=== PATIENT | female | born 1955 | race Two or more races ===

== ENCOUNTER → 2020-09-05 15:27 | Outpatient (BNVA) | payer MEDICARE, MEDICAID, SELFPAY | PROVIDERS: PCP Internal Medicine; Referring Provider Internal Medicine; Visit Provider Internal Medicine | DX: E11.65 Type 2 diabetes mellitus with hyperglycemia (principal); Z79.84 Long term (current) use of oral hypoglycemic drugs; E78.5 Hyperlipidemia, unspecified; E55.9 Vitamin D deficiency, unspecified; I10 Essential (primary) hypertension; Z79.899 Other long term (current) drug therapy | CPT/HCPCS: 99202 ==

== ENCOUNTER 2020-09-26 08:51 | Outpatient (REF) | payer MEDICARE, MEDICAID, OTHER, SELFPAY ==
[2020-09-26 10:40] LABS: Estimated Average Glucose 200 mg/dL; Hemoglobin A1c % 8.6 %
[2020-09-26 10:47] LABS: Alanine Aminotransferase 28 U/L (0-31); Albumin Level 4.4 g/dL (3.5-5.0); Alkaline Phosphatase 55 U/L (39-117); Anion Gap 13 (12-20); Aspartate Amino Transferase 27 U/L (5-31); Bilirubin Direct < 0.2 mg/dL (0.0-0.5); Bilirubin Total 0.2 mg/dL (0.0-1.0); Blood Urea Nitrogen 16 mg/dL (9-16); Calcium 9.6 mg/dL (8.4-10.2); Carbon Dioxide 30 mmol/L (22-29); Chloride 99 mmol/L (96-108); Cholesterol 116 mg/dL; Estimated Glomerular Filt Rate > 60; Glucose Random 261 mg/dL (60-115); HDL Cholesterol 35 mg/dL; LDL Cholesterol Calculated 46 mg/dl; Potassium 3.9 mmol/l (3.3-5.1); Sodium 138 mmol/L (135-145); Total Protein 6.9 g/dL (6.5-8.0); Triglycerides 175 mg/dL
[2020-09-26 11:03] LABS: Vitamin B12 442 pg/mL (200-900)
[2020-09-26 11:07] LABS: Free T4 (Free Thyroxine) 1.04 ng/dL (0.71-1.85); Thyroid Stimulating Hormone 1.34 uIU/mL (0.32-4.0); Vitamin D 25-OH Total 58.7 ng/mL (>30)
[2020-09-26 11:08] LABS: Creatinine Urine 59.28 mg/dL; Microalbum/Creatinine Ratio Ur 8.4 ug/mg cr
[2020-09-26 11:19] LABS: Lipase 133 U/L (8-78)
[2020-09-27 11:07] LABS: LDL Cholesterol Direct 48 mg/dL (<100)
== END 2020-09-26 08:52 | disposition home or self-care (01) ==
LOC: HO.LAB 08:51
PROVIDERS: Absent Provider Internal Medicine; PCP Internal Medicine; Visit Provider Internal Medicine
DX: E55.9 Vitamin D deficiency, unspecified (principal); E11.65 Type 2 diabetes mellitus with hyperglycemia
CPT/HCPCS: 80053; 80061; 80076; 82043; 82248; 82306; 82607; 83036; 83690; 83721; 84439; 84443

== ENCOUNTER → 2020-10-02 12:43 | Outpatient (BNVA) | payer MEDICARE, MEDICAID, SELFPAY | PROVIDERS: PCP Internal Medicine; Referring Provider Internal Medicine; Visit Provider Nurse Practitioner | DX: K21.9 Gastro-esophageal reflux disease without esophagitis (principal); K59.04 Chronic idiopathic constipation; R10.13 Epigastric pain; E11.9 Type 2 diabetes mellitus without complications; I10 Essential (primary) hypertension; Z79.4 Long term (current) use of insulin | CPT/HCPCS: 99212 ==

== ENCOUNTER → 2020-10-07 08:51 | Outpatient (BNVA) | payer MEDICARE, MEDICAID, SELFPAY | PROVIDERS: PCP Internal Medicine; Referring Provider Internal Medicine; Visit Provider Dietitian, Registered | DX: Z76.89 Persons encountering health services in other specified circumstances (principal) ==

== ENCOUNTER → 2020-10-09 15:03 | Outpatient (BNVA) | payer MEDICARE, MEDICAID, SELFPAY | PROVIDERS: PCP Internal Medicine; Referring Provider Internal Medicine; Visit Provider Internal Medicine | DX: E11.65 Type 2 diabetes mellitus with hyperglycemia (principal); E78.5 Hyperlipidemia, unspecified; I10 Essential (primary) hypertension; E55.9 Vitamin D deficiency, unspecified | CPT/HCPCS: 82947; 99212 ==

== ENCOUNTER → 2020-10-16 14:33 | Outpatient (BNVA) | payer MEDICARE, MEDICAID, SELFPAY | PROVIDERS: PCP Internal Medicine; Referring Provider Internal Medicine; Visit Provider Dietitian, Registered | DX: Z76.89 Persons encountering health services in other specified circumstances (principal) ==

== ENCOUNTER → 2020-11-14 14:24 | Outpatient (BNVA) | payer MEDICARE, MEDICAID, SELFPAY | PROVIDERS: PCP Internal Medicine; Visit Provider Dietitian, Registered | DX: Z76.89 Persons encountering health services in other specified circumstances (principal) ==

== ENCOUNTER 2020-12-16 09:55 | Outpatient (REF) | payer MEDICARE, MEDICAID, SELFPAY ==
--- NOTE | ~2020-12-16 | MM_ITS ---
EXAMINATION: MM SCREENING DIGITAL BREAST TOMOSYNTHESIS, BILATERAL CLINICAL INFORMATION: Screening. Asymptomatic. Right breast cancer status post lumpectomy 2006. Due for yearly. COMPARISON: Mammography: 12/11/2019, 02/03/2017, 01/31/2016 TECHNIQUE: Digital breast tomosynthesis is performed in both the craniocaudal and mediolateral oblique views along with computer-aided detection (CAD). Synthesized 2D images are generated from the tomosynthesis. FINDINGS: There are scattered areas of fibroglandular density (ACR BI-RADS breast composition Category b). There are post therapy changes on the right similar to prior studies with reduced breast size and stable scarring. Neither breast shows interval mass or developing density or interval architectural abnormality. There are no abnormal calcifications. No significant changes from prior exams. MM/MM tomosynthesis screening BI IMPRESSION: No mammographic evidence of malignancy. Post therapy changes right breast. ASSESSMENT: BI-RADS 2: Benign RECOMMENDATION: Routine annual mammography screening. This patient's information was entered into a reminder system with a target due date for their next mammogram.
== END 2020-12-16 09:56 | disposition home or self-care (01) ==
LOC: HO.MAMMO 09:55
PROVIDERS: PCP Internal Medicine; Visit Provider Internal Medicine
DX: Z12.31 Encounter for screening mammogram for malignant neoplasm of breast (principal)
CPT/HCPCS: 77063; 77067

== ENCOUNTER 2020-12-18 11:32 | Outpatient (REF) | payer MEDICARE, MEDICAID, SELFPAY | END 2020-12-18 11:33 | disposition home or self-care (01) | LOC: HO.LAB 11:32 | PROVIDERS: Visit Provider Internal Medicine | DX: Z20.822 Contact with and (suspected) exposure to COVID-19 (principal) | CPT/HCPCS: 36415; C9803; U0003; U0005 ==

== ENCOUNTER 2020-12-27 11:32 | Outpatient (REF) | payer MEDICARE, MEDICAID, SELFPAY ==
[2020-12-27 13:26] LABS: Estimated Average Glucose 163 mg/dL; Hemoglobin A1c % 7.3 %
[2020-12-27 13:46] LABS: Alanine Aminotransferase 16 U/L (0-31); Albumin Level 4.6 g/dL (3.5-5.0); Alkaline Phosphatase 50 U/L (39-117); Anion Gap 12 (12-20); Aspartate Amino Transferase 22 U/L (5-31); Bilirubin Total 0.5 mg/dL (0.0-1.0); Blood Urea Nitrogen 18 mg/dL (9-16); Carbon Dioxide 31 mmol/L (22-29); Chloride 100 mmol/L (96-108); Cholesterol 147 mg/dL; Estimated Glomerular Filt Rate > 60; Glucose Fasting 133 mg/dL (60-99); HDL Cholesterol 44 mg/dL; LDL Cholesterol Calculated 70 mg/dl; Potassium 4.4 mmol/L (3.3-5.1); Sodium 139 mmol/L (135-145); Total Protein 7.2 g/dL (6.5-8.0); Triglycerides 169 mg/dL
== END 2020-12-27 11:33 | disposition home or self-care (01) ==
LOC: HO.LAB 11:32
PROVIDERS: Absent Provider Internal Medicine; PCP Internal Medicine; Visit Provider Internal Medicine
DX: E11.65 Type 2 diabetes mellitus with hyperglycemia (principal)
CPT/HCPCS: 80053; 80061; 83036

== ENCOUNTER 2021-01-02 12:52 | Outpatient (REF) | payer MEDICARE, MEDICAID, SELFPAY ==
--- NOTE | ~2021-01-02 | CT_ITS ---
EXAMINATION: CT HEAD WITHOUT CONTRAST CLINICAL INFORMATION: Headache. COMPARISON: Previous head CT most recent September 2016 TECHNIQUE: Contiguous axial imaging was performed from the skull base to vertex without intravenous administration of contrast. This CT examination was performed using dose optimization techniques as appropriate, variously including the following: *Automated exposure control *Adjustment of mA and/or kV according to patient size (this includes techniques or standardized protocols for targeted exams where dose is matched to indication/reason for exam; i.e. extremities or head) *Use of iterative reconstruction technique DLP: 666 mGy-cm FINDINGS: There is no evidence of acute intracranial hemorrhage or territorial infarction. No abnormal mass effect or midline shift is seen. Disla to white matter differentiation is well preserved. No extra-axial fluid collections are identified. The ventricles are normal in size. There is no abnormal attenuation within the brain parenchyma. The osseous structures and soft tissues are normal. There is soft tissue opacification of the bilateral mastoid air cells. There are postsurgical changes from right mastoidectomy. There is soft tissue opacification of the left middle ear. These findings are unchanged from previous exam. CT/CT head/brain wo con IMPRESSION: Chronic bilateral mastoiditis similar to previous exams.
== END 2021-01-02 12:53 | disposition home or self-care (01) ==
LOC: HO.CT 12:52
PROVIDERS: Visit Provider Internal Medicine
DX: R51.9 Headache, unspecified (principal)
CPT/HCPCS: 70450

== ENCOUNTER 2021-01-08 12:21 | Outpatient (REF) | payer MEDICARE, MEDICAID, SELFPAY ==
[2021-01-08 14:49] LABS: Vitamin D 25-OH Total 77.3 ng/mL (>30)
== END 2021-01-08 12:22 | disposition home or self-care (01) ==
LOC: HO.LAB 12:21
PROVIDERS: Absent Provider Internal Medicine; PCP Internal Medicine; Visit Provider Internal Medicine
DX: E11.65 Type 2 diabetes mellitus with hyperglycemia (principal); Z79.84 Long term (current) use of oral hypoglycemic drugs; E78.5 Hyperlipidemia, unspecified; I10 Essential (primary) hypertension; E55.9 Vitamin D deficiency, unspecified; M85.80 Other specified disorders of bone density and structure, unspecified site; Z79.899 Other long term (current) drug therapy
CPT/HCPCS: 36415; 82306; 82947; 99212

== ENCOUNTER 2021-01-10 13:56 | Outpatient (REF) | payer MEDICARE, MEDICAID, SELFPAY | END 2021-01-10 13:57 | disposition home or self-care (01) | LOC: HO.HAP 13:56 | PROVIDERS: Visit Provider Internal Medicine | DX: Z46.1 Encounter for fitting and adjustment of hearing aid (principal) | CPT/HCPCS: V5266 ==

== ENCOUNTER 2021-02-10 10:24 | Outpatient (REF) | payer MEDICARE, MEDICAID, SELFPAY | END 2021-02-10 10:25 | disposition home or self-care (01) | LOC: HO.LNP 10:24 | PROVIDERS: Visit Provider Nurse Practitioner Family | DX: K21.9 Gastro-esophageal reflux disease without esophagitis (principal) | CPT/HCPCS: 87338 ==

== ENCOUNTER → 2021-02-10 15:26 | Outpatient (BNVA) | payer MEDICARE, MEDICAID, SELFPAY | PROVIDERS: PCP Internal Medicine; Visit Provider Nurse Practitioner | DX: K59.04 Chronic idiopathic constipation (principal); K21.9 Gastro-esophageal reflux disease without esophagitis; R10.13 Epigastric pain | CPT/HCPCS: 99212 ==

== ENCOUNTER 2021-02-11 09:40 | Outpatient (REF) | payer MEDICARE, MEDICAID, SELFPAY ==
[2021-02-11 10:43] LABS: Hematocrit 37.9 % (37-47); Hemoglobin 12.3 g/dl (12.0-16.0); Mean Corpuscular HGB Conc 32.5 g/dl (31.0-35.0); Mean Corpuscular Hemoglobin 28.2 pg (27.0-33.0); Mean Corpuscular Volume 86.9 fL (80-98); Mean Platelet Volume 9.8 fL (9.4-12.3); Platelet Count 264 X10*3/uL (160-400); Red Blood Count 4.36 X10*6/uL (4.20-5.50); Red Cell Distribution Width 14.3 % (11.0-16.0); White Blood Count 7.2 X10*3/uL (4.8-10.8)
[2021-02-11 10:50] LABS: Estimated Average Glucose 134 mg/dL; Hemoglobin A1c % 6.3 %
[2021-02-11 11:00] LABS: Alanine Aminotransferase 15 U/L (0-31); Albumin Level 4.4 g/dL (3.5-5.0); Alkaline Phosphatase 48 U/L (39-117); Anion Gap 15 (12-20); Aspartate Amino Transferase 20 U/L (5-31); Bilirubin Total 0.4 mg/dL (0.0-1.0); Blood Urea Nitrogen 16 mg/dL (9-16); Calcium 9.6 mg/dL (8.4-10.2); Carbon Dioxide 30 mmol/L (22-29); Chloride 100 mmol/L (96-108); Cholesterol 149 mg/dL; Estimated Glomerular Filt Rate > 60; Glucose Random 96 mg/dL (60-115); HDL Cholesterol 52 mg/dL; LDL Cholesterol Calculated 61 mg/dl; Potassium 3.8 mmol/L (3.3-5.1); Sodium 141 mmol/L (135-145); Triglycerides 181 mg/dL
[2021-02-11 12:07] LABS: Creatinine Urine 54.35 mg/dL
== END 2021-02-11 09:41 | disposition home or self-care (01) ==
LOC: HO.LAB 09:40
PROVIDERS: Internal Medicine; PCP Internal Medicine; Visit Provider Nurse Practitioner Family
DX: E11.65 Type 2 diabetes mellitus with hyperglycemia (principal); Z12.11 Encounter for screening for malignant neoplasm of colon
CPT/HCPCS: 36415; 80053; 80061; 83036; 85027

== ENCOUNTER 2021-02-27 12:45 | Outpatient (REF) | payer MEDICARE, MEDICAID, SELFPAY ==
[2021-02-27 14:57] LABS: Alanine Aminotransferase 16 U/L (0-31); Albumin Level 4.7 g/dL (3.5-5.0); Alkaline Phosphatase 52 U/L (39-117); Anion Gap 15 (12-20); Aspartate Amino Transferase 23 U/L (5-31); Bilirubin Total 0.5 mg/dL (0.0-1.0); Blood Urea Nitrogen 13 mg/dL (9-16); Carbon Dioxide 30 mmol/L (22-29); Chloride 99 mmol/L (96-108); Estimated Glomerular Filt Rate > 60; Glucose Random 97 mg/dL (60-115); Potassium 4.3 mmol/L (3.3-5.1); Sodium 140 mmol/L (135-145); Total Protein 7.2 g/dL (6.5-8.0)
[2021-03-04 13:17] LABS: Transglutaminase Ab IgG 1 U/mL; Transglutaminase IgA 1 U/mL
== END 2021-02-27 12:46 | disposition home or self-care (01) ==
LOC: HO.LAB 12:45
PROVIDERS: Internal Medicine; PCP Internal Medicine; Visit Provider Nurse Practitioner Family
DX: K58.2 Mixed irritable bowel syndrome (principal); K59.04 Chronic idiopathic constipation; R10.11 Right upper quadrant pain; E11.65 Type 2 diabetes mellitus with hyperglycemia; Z12.11 Encounter for screening for malignant neoplasm of colon; Z83.79 Family history of other diseases of the digestive system
CPT/HCPCS: 36415; 80053; 83516; 99212

== ENCOUNTER 2021-03-06 08:50 | Outpatient (REF) | payer MEDICARE, MEDICAID, SELFPAY ==
--- NOTE | ~2021-03-06 | CT_ITS ---
EXAMINATION: CT ABDOMEN AND PELVIS WITH CONTRAST CLINICAL INFORMATION: Epigastric pain COMPARISON: Previous abdominal ultrasound March 2012 TECHNIQUE: Multidetector volumetric images were obtained from the superior aspect of the liver through the pubic symphysis following administration 85 mL of Omnipaque 350 intravenous contrast. Sagittal and coronal reformatted images were obtained on the technologist's workstation. Oral contrast: Yes This CT examination was performed using dose optimization techniques as appropriate, variously including the following: *Automated exposure control *Adjustment of mA and/or kV according to patient size (this includes techniques or standardized protocols for targeted exams where dose is matched to indication/reason for exam; i.e. extremities or head) *Use of iterative reconstruction technique DLP: 251 mGy-cm FINDINGS: LUNG BASES: The visualized lung bases are unremarkable. LIVER, GALLBLADDER, AND BILIARY TREE: The liver is normal in size, shape, and attenuation. No focal hepatic lesion or biliary ductal dilatation is present. The gallbladder is unremarkable with no evidence of radiopaque gallstones, gallbladder wall thickening, or obvious pericholecystic inflammatory changes. PANCREAS: Unremarkable. SPLEEN: Unremarkable. ADRENAL GLANDS: Unremarkable. KIDNEYS AND URETERS: The kidneys are normal in size, shape, and attenuation. No hydronephrosis, hydroureter, or calculi seen. No perinephric stranding. BLADDER: Unremarkable. GASTROINTESTINAL TRACT: The small and large bowel are unremarkable. The appendix is unremarkable. The stomach is unremarkable. ABDOMINAL WALL: No significant hernia is appreciated. LYMPH NODES: Normal. VASCULAR: Unremarkable. PELVIC VISCERA: The uterus has been removed. No pelvic mass is seen. OSSEOUS STRUCTURES: Unremarkable. CT/CT abdomen pelvis w con IMPRESSION: Unremarkable exam.
[2021-03-06] MEDS: iohexoL 350 MG/ML 100 ML INFUS..BTL IV (11:49)
== END 2021-03-06 08:51 | disposition home or self-care (01) ==
LOC: HO.CT 08:50
PROVIDERS: Visit Provider Nurse Practitioner Family
DX: R10.13 Epigastric pain (principal)
CPT/HCPCS: 74177; Q9967

== ENCOUNTER 2021-03-07 14:10 | Outpatient (REF) | payer MEDICARE, MEDICAID, SELFPAY ==
[2021-03-07 14:36] LABS: COVID-19 Test Negative (Negative)
== END 2021-03-07 14:11 | disposition home or self-care (01) ==
LOC: HO.LAB 14:10
PROVIDERS: Visit Provider Internal Medicine
DX: Z20.822 Contact with and (suspected) exposure to COVID-19 (principal)
CPT/HCPCS: 36415; 87635; C9803

== ENCOUNTER 2021-03-14 11:51 | Day surgery (SDC) | payer OTHER, MEDICAID, SELFPAY ==
[2021-03-10 10:46] VITALS: BMI 27.0
--- NOTE | 2021-03-13 09:57 | HO.ANESPROP2 ---
Documented by User: Chayito Schuster 03/13/21 09:58 HPI - Anesthesia Eval Consult details Narrative: 65yo F for Upper Endoscopy and Colonoscopy PMFSH Active Problems Active Problems: All Active Problems (Updated 01/08/21 @ 13:13 by Elizabeth Cunningham DO) Osteopenia (Acute) Headache (Acute) Ear ache (Acute) Chronic idiopathic constipation (Acute) GERD (gastroesophageal reflux disease) (Acute) Epigastric abdominal pain (Acute) Vitamin D deficiency (Acute) HTN (hypertension) (Acute) HLD (hyperlipidemia) (Acute) T2DM (type 2 diabetes mellitus) (Acute) Past Medical History Medical History Depression Fibromyalgia Headache HLD (hyperlipidemia) HTN (hypertension) Osteopenia T2DM (type 2 diabetes mellitus) Vitamin D deficiency Family History Family History Father Cirrhosis Liver cancer Mother T2DM (type 2 diabetes mellitus) Past heart attack Maternal Grandmother Breast cancer Maternal Grandfather No problems noted. Paternal Grandmother No problems noted. Paternal Grandfather No problems noted. Son No problems noted. Son No problems noted. Daughter No problems noted. Surgical History Surgical History History of carpal tunnel release History of delivery History of ear surgery History of hysterectomy with bilateral oophorectomy History of hysteroscopy History of tubal ligation Hx of colonoscopy Status post right breast lumpectomy Social History Social History Household Members: None Housing: Assisted Living Facility Alcohol intake: current Alcohol intake frequency: does not drink Smoking Status: Never smoker Second Hand Smoke Exposure: No Use of substances other than those prescribed or required for medical reasons: No Are you DNR?: No Advance Directives: No Advance Directives Information Provided: Yes Meds Allergies Allergy/AdvReac Type Severity Reaction Status Date / Time strawberry [STRAWBERRY] Allergy Mild PRURITUS Verified 02/27/21 12:57 tomato [TOMATO] Allergy Mild HIVES Verified 02/27/21 12:57 acetaminophen [From Percocet] Allergy Unknown Unknown Verified 02/27/21 12:57 oxycodone [From Percocet] Allergy Unknown Unknown Verified 02/27/21 12:57 pollen extracts [POLLEN] Allergy Unknown UNKNOWN Verified 02/27/21 12:57 lactose [LACTOSE] AdvReac Unknown GI UPSET Verified 02/27/21 12:57 DUST Allergy Unknown UNKNOWN Uncoded 01/08/21 13:15 ENVIRONMENTAL Allergy Unknown UNKNOWN Uncoded 01/08/21 13:15 trees leaves Allergy unknown Uncoded 02/10/21 15:51 Home Medications Medication Instructions Recorded Confirmed Last Taken Type aspirin 81 mg tablet,delayed 81 mg PO DAILY 09/05/20 01/08/21 03/13/21 History release Exam Exam Date and Time: March 13, 2021 0957 Height,Weight and Vital Signs: Height 4 ft 9 in Weight 56.699 kg Pertinent Lab Results Pertinent Lab Results: Laboratory Tests 02/11/21 02/27/21 09:56 14:15 WBC 7.2 Hgb 12.3 Hct 37.9 Plt Count 264 Sodium 140 Potassium 4.3 Chloride 99 Carbon Dioxide 30 H BUN 13 Creatinine 0.74 Assessment and Plan Assessment Anesthesia Assessment: Chart Reviewed Documented by User: Rosa Maria Lynch 03/14/21 12:48 PMFSH Past Medical History Medical History Depression Fibromyalgia Headache HLD (hyperlipidemia) HTN (hypertension) Osteopenia T2DM (type 2 diabetes mellitus) Vitamin D deficiency Family History Family History Father Cirrhosis Liver cancer Mother T2DM (type 2 diabetes mellitus) Past heart attack Maternal Grandmother Breast cancer Maternal Grandfather No problems noted. Paternal Grandmother No problems noted. Paternal Grandfather No problems noted. Son No problems noted. Son No problems noted. Daughter No problems noted. Surgical History Surgical History History of carpal tunnel release History of delivery History of ear surgery History of hysterectomy with bilateral oophorectomy History of hysteroscopy History of tubal ligation Hx of colonoscopy Status post right breast lumpectomy Social History Social History Household Members: None Housing: Assisted Living Facility Alcohol intake: current Alcohol intake frequency: does not drink Smoking Status: Never smoker Second Hand Smoke Exposure: No Use of substances other than those prescribed or required for medical reasons: No Are you DNR?: No Advance Directives: No Advance Directives Information Provided: Yes Meds Allergies Allergy/AdvReac Type Severity Reaction Status Date / Time strawberry [STRAWBERRY] Allergy Mild PRURITUS Verified 02/27/21 12:57 tomato [TOMATO] Allergy Mild HIVES Verified 02/27/21 12:57 acetaminophen [From Percocet] Allergy Unknown Unknown Verified 02/27/21 12:57 oxycodone [From Percocet] Allergy Unknown Unknown Verified 02/27/21 12:57 pollen extracts [POLLEN] Allergy Unknown UNKNOWN Verified 02/27/21 12:57 lactose [LACTOSE] AdvReac Unknown GI UPSET Verified 02/27/21 12:57 DUST Allergy Unknown UNKNOWN Uncoded 01/08/21 13:15 ENVIRONMENTAL Allergy Unknown UNKNOWN Uncoded 01/08/21 13:15 trees leaves Allergy unknown Uncoded 02/10/21 15:51 Home Medications Medication Instructions Recorded Confirmed Last Taken Type aspirin 81 mg tablet,delayed 81 mg PO DAILY 09/05/20 01/08/21 03/13/21 History release Exam Airway Mallampati Class: II TM Dist: >3cm Neck ROM: Full Loose/Missing/Broken Teeth: No Heart: RRR Lungs: CTA Assessment and Plan Assessment Anesthesia Assessment: Anesthesia Plan Discussed and Chart Reviewed Final Anesthetic Review NPO: Yes ASA Class: II Final Preanesthetic Review: Meds/Allgs Chart Reviewed, Consent Obtained/Reviewed and Anes Risks/Benef Reviewed Patient Risk: Low Procedure Risk: Intermediate Anesthetic Plan Anesthetic Plan: MAC: Disposition: Standard PACU
[2021-03-14 12:19] VITALS: BMI 26.2
[2021-03-14 12:30] VITALS: BP 130/62; PULSE 71; RESP 16; TEMP 36.7; O2SAT 98
--- NOTE | 2021-03-14 12:32 | PC.NURSE ---
Patients blood sugar 65. Dr. Lynch notified. Patient asymptomatic. No new orders. To proceed with surgery.
[2021-03-14 12:37] LABS: Glucose, Whole Blood 65 mg/dL (60-115)
[2021-03-14] MEDS: Lactated Ringers 1,000 ML 100 ML IVCONT (12:57)
--- NOTE | 2021-03-14 13:42 | W.PM.OPN ---
Operative Note Operative Note Date of Service: 03/14/21 Narrative: Pre-op diagnosis: Colon cancer screening, abdominal pain, chronic constipation, weight loss Post-op diagnosis: other (Gastritis, colon polyp, diverticulosis) Procedure: FLEXIBLE TRANSORAL UPPER GASTROINTESTINAL ENDOSCOPY WITH BIOPSIES AND COLONOSCOPY TILL CECUM WITH BIOPSIES UPPER ENDOSCOPY Consent: Indications for the procedure and potential complications of bleeding, perforation, reaction to medications and missed diagnosis were discussed with the patient and informed consent was obtained. Instrument: Olympus GIF H 190 mid size upper endoscope Monitoring: Vital signs and clinical assessment, continuous EKG monitoring, Pulse oximetry, Carbon Dioxide monitoring and blood pressure monitoring were done throughout the procedure. Procedure: The patient was placed in the left lateral decubitis position and pre-procedure medications were administered and a bite block was placed. The endoscope was inserted into the mouth and advanced under direct vision to the third part of duodenum. A careful inspection was made as the upper endoscope was withdrawn including a retroflexed examination of the proximal stomach; Findings and interventions are described below. Findings: Larynx: Normal Esophagus: GE junction at 34 cms. Irregular Z line - biopsied to check for Inman's. Stomach: Mild gastric erythema. Biopsies were obtained. Grade 2 flap valve on retroflexed examination of the cardia. Duodenum: Normal bulb and descending duodenum. Biopsies were obtained from 3rd part of the duodenum to check for celiac sprue. Intervention: Biopsies as noted above COLONOSCOPY PROCEDURE NOTE Consent: Indications for the procedure and potential complications of bleeding, perforation, reaction to medications and missed diagnosis were discussed with the patient and informed consent was obtained. Instrument: Olympus PCF H 190 L variable stiffness pediatric colonoscope Monitoring: Vital signs and clinical assessment, intermittent blood pressure monitoring, continuous EKG monitoring, Pulse oximetry and Carbon Dioxide monitoring were done throughout the procedure. Colon withdrawl time was 16 minutes. Procedure: The patient was placed in the left lateral decubitis position and pre-procedure medications were administered. After a digital rectal examination of the ano-rectum, the video colonoscope was inserted into the rectum and advanced through the colon to the cecum. The colonoscope was slowly withdrawn in a retrograde panoramic fashion and the colon mucosa was carefully examined including a retroflexed view of the rectum. Findings and interventions are described below. Procedure Difficulty: : Without difficulty Findings: Terminal Ileum: Not evaluated Cecum: A 2-3 mm sessile polyp removed with a cold biopsy. Ascending Colon: Normal Transverse Colon: Normal Descending Colon: Normal Sigmoid Colon: Moderate diverticulosis Rectum: Normal Ano-rectum: Normal Colon preparation: Good after some irrigation Impression and Post Procedure Diagnosis: Endoscopy Findings: ESOPHAGUS: Irregular Z line - biopsied to check for Inman's. STOMACH: Mild Gastritis DUODENUM: Colonoscopy Findings: One tiny polyps removed Moderate diverticulosis seen in the sigmoid colon Plan: Await pathology results Patient has an appointment on 03/21/21 in the [facility] with Lyla Polanco FNP-BC. No clear etiology found for weight loss - consider checking a TSH, CRP, SED rate and stool tests for occult blood x 3 Repeat Colonoscopy interval based on path results - in 5 years if polyps are adenomatous and 10 years if polyps are hyperplastic. Above findings were reviewed with the patient and Gastritis and diverticulosis handouts were given in the discharge area Surgeon: Jacqueline Oneal MD Anesthesia: MAC (Mariah Lincoln CRNA) Was an Business Education Instructor used for this Procedure?: Yes Business Education Instructor: Asher Zavala Estimated blood loss (mL): 0 Pathology: other (A- SMALL BOWEL BXS R/O CELIAC B- GASTRIC ANTRUM C-DISTAL ESOPHAGUS BXS R/O INMAN'S D- CECAL POLYP) Condition: stable Disposition: PACU
--- NOTE | 2021-03-14 13:42 | MHC.SHP ---
Pre-Procedural Eval Section A The patient is an INPATIENT: No Changes since office visit: Yes Patient answered all questions; No Cold of Flu in the past 2 weeks, No New Medical Problems and No Changes in Medication The History & Physical has been completed within 30 days and I have reviewed it.: Yes Section B Chief Complaint: Mixed IBS Allergies: Allergies Allergy/AdvReac Type Severity Reaction Status Date / Time strawberry [STRAWBERRY] Allergy Mild PRURITUS Verified 02/27/21 12:57 tomato [TOMATO] Allergy Mild HIVES Verified 02/27/21 12:57 acetaminophen [From Percocet] Allergy Unknown Unknown Verified 02/27/21 12:57 oxycodone [From Percocet] Allergy Unknown Unknown Verified 02/27/21 12:57 pollen extracts [POLLEN] Allergy Unknown UNKNOWN Verified 02/27/21 12:57 lactose [LACTOSE] AdvReac Unknown GI UPSET Verified 02/27/21 12:57 DUST Allergy Unknown UNKNOWN Uncoded 01/08/21 13:15 ENVIRONMENTAL Allergy Unknown UNKNOWN Uncoded 01/08/21 13:15 trees leaves Allergy unknown Uncoded 02/10/21 15:51 Plan I have reviewed the history and physical and performed a pertinent physical examination on my patient. No changes have occurred unless specified.
[2021-03-14 14:37] VITALS: BP 126/65; PULSE 84; RESP 16; TEMP 36.1; O2SAT 99
[2021-03-14 14:52] VITALS: BP 124/63; PULSE 68; RESP 18; O2SAT 100
[2021-03-14] MEDS: Throat Lozenge, Medicated LOZENGE 1 LOZENGE MUCOUS MEM (15:11)
--- NOTE | 2021-03-14 15:15 | PC.NURSE ---
Cepastat lozenge given for itchy and irritating sore throat. LS clear bilat, no exp wheezes, no crepitus. enamel drier at bedside, DC instructions provided in Sami. Pt verbalized understanding and agreement with DC plan. Family notified with pt's estimated time of DC home.
== END 2021-03-14 15:28 | disposition home or self-care (01) ==
PROVIDERS: PCP Internal Medicine; Visit Provider Internal Medicine Gastroenterology
PROC: (CPT 45380; principal; 2021-03-14 13:40)
DX: Z12.11 Encounter for screening for malignant neoplasm of colon (principal); K63.5 Polyp of colon; K57.30 Diverticulosis of large intestine without perforation or abscess without bleeding; K58.2 Mixed irritable bowel syndrome; R63.4 Abnormal weight loss; K29.50 Unspecified chronic gastritis without bleeding; K21.9 Gastro-esophageal reflux disease without esophagitis; I10 Essential (primary) hypertension; E11.9 Type 2 diabetes mellitus without complications; Z79.899 Other long term (current) drug therapy; Z79.84 Long term (current) use of oral hypoglycemic drugs
CPT/HCPCS: 45380; 43239; 82947; 88305; 88342

== ENCOUNTER 2021-03-21 13:52 | Outpatient (REF) | payer OTHER, MEDICAID, SELFPAY ==
[2021-03-21 16:05] LABS: C Reactive Protein 0.41 mg/dL (< or = 0.50)
[2021-03-21 16:23] LABS: Erythrocyte Sedimentation Rate 19 MM/HR (0-20)
[2021-03-21 16:28] LABS: TSH reflex Free T4 0.38 uIU/mL (0.32-4.0)
== END 2021-03-21 13:53 | disposition home or self-care (01) ==
LOC: HO.LAB 13:52
PROVIDERS: PCP Internal Medicine; Referring Provider Internal Medicine; Visit Provider Nurse Practitioner Family
DX: R10.13 Epigastric pain (principal); R14.0 Abdominal distension (gaseous); K21.9 Gastro-esophageal reflux disease without esophagitis; K59.04 Chronic idiopathic constipation; Z79.899 Other long term (current) drug therapy
CPT/HCPCS: 36415; 84443; 85652; 86140; 99212

== ENCOUNTER → 2021-03-25 08:25 | Outpatient (REF) | payer OTHER, MEDICAID, SELFPAY ==
--- NOTE | ~2021-03-25 | NM_ITS ---
EXAMINATION: RADIONUCLIDE SOLID FOOD GASTRIC EMPTYING 4-HOUR STUDY CLINICAL INFORMATION: Gastritis, nausea and abdominal pain. COMPARISON: The previous study dated 03/27/2020 is available for comparison. TECHNIQUE: A standard meal consisting of 4 oz of Egg Beaters brand equivalent tagged with 850 microcuries Tc-99m Sulfur Colloid, 8 oz water and 2 slices of toast with jelly was administered orally to the patient. Images were obtained using a dual head gamma camera in the anterior and posterior projections over of the stomach immediately post ingestion and at hourly intervals up to 4 hours post ingestion. The anterior and posterior counts at each time interval were averaged using the geometric mean and expressed as percentage of the immediate post ingestion counts. FINDINGS: There is good visualization of activity in the stomach immediately post ingestion. As the study progresses, there is slow emptying of gastric activity. Progressively increasing small bowel activity is visualized, but at the end of the study at 4 hours markedly abnormal retention of activity in the stomach. Retention in the stomach at each time interval was: 1 hour 87% (normal 37%-90%) 2 hours 75% (normal 30%-60%) 3 hours 63% 4 hours 50% (normal 0%-10%) Compared to the previous study dated 03/27/2020 gastric emptying is much slower on the current study. Previously there was only 16% retention at 2 hours and 4% retention at 3 hours. Because of the minimal retention at 3 hours on the previous study, 4 hour images were not obtained. KY/KY gastric emptying study IMPRESSION: Abnormal study. There is marked abnormal retention of solid food in the stomach at 4 hours. This is a significant change from the previous normal study dated 03/27/2020.
== END ==
LOC: HO.NUCMED 08:25
PROVIDERS: Visit Provider Nurse Practitioner Family
DX: R13.10 Dysphagia, unspecified (principal); K29.70 Gastritis, unspecified, without bleeding
CPT/HCPCS: 78264; A9541

== ENCOUNTER 2021-04-04 09:58 | Outpatient (REF) | payer OTHER, MEDICAID, SELFPAY ==
[2021-04-04 10:54] LABS: Estimated Average Glucose 117 mg/dL; Hemoglobin A1C 120.7989 umol/L; Hemoglobin A1c % 5.7 %
[2021-04-04 11:13] LABS: Alanine Aminotransferase 15 U/L (0-31); Albumin Level 4.6 g/dL (3.5-5.0); Alkaline Phosphatase 51 U/L (39-117); Anion Gap 15 (12-20); Aspartate Amino Transferase 22 U/L (5-31); Bilirubin Total 0.3 mg/dL (0.0-1.0); Blood Urea Nitrogen 14 mg/dL (9-16); Calcium 10.1 mg/dL (8.4-10.2); Carbon Dioxide 29 mmol/L (22-29); Chloride 102 mmol/L (96-108); Cholesterol 143 mg/dL; Estimated Glomerular Filt Rate > 60; Glucose Fasting 84 mg/dL (60-99); HDL Cholesterol 55 mg/dL; LDL Cholesterol Calculated 67 mg/dl; Potassium 4.5 mmol/L (3.3-5.1); Sodium 141 mmol/L (135-145); Total Protein 7.3 g/dL (6.5-8.0); Triglycerides 105 mg/dL
== END 2021-04-04 09:59 | disposition home or self-care (01) ==
LOC: HO.LAB 09:58
PROVIDERS: Absent Provider Internal Medicine; PCP Internal Medicine; Visit Provider Internal Medicine
DX: E11.65 Type 2 diabetes mellitus with hyperglycemia (principal)
CPT/HCPCS: 36415; 80053; 80061; 83036

== ENCOUNTER → 2021-04-10 10:57 | Outpatient (BNVA) | payer OTHER, MEDICAID, SELFPAY | PROVIDERS: PCP Internal Medicine; Referring Provider Internal Medicine; Visit Provider Nurse Practitioner Family | DX: K31.84 Gastroparesis (principal); K59.04 Chronic idiopathic constipation | CPT/HCPCS: 99212 ==

== ENCOUNTER → 2021-04-14 12:57 | Outpatient (BNVA) | payer OTHER, MEDICAID, SELFPAY | PROVIDERS: PCP Internal Medicine; Visit Provider Internal Medicine | DX: E11.65 Type 2 diabetes mellitus with hyperglycemia (principal); E78.5 Hyperlipidemia, unspecified; I10 Essential (primary) hypertension; E55.9 Vitamin D deficiency, unspecified | CPT/HCPCS: 82947; 99212 ==

== ENCOUNTER → 2021-05-09 08:57 | Outpatient (BNVA) | payer OTHER, MEDICAID, SELFPAY | PROVIDERS: Visit Provider Nurse Practitioner Family | DX: K21.9 Gastro-esophageal reflux disease without esophagitis (principal); K59.04 Chronic idiopathic constipation | CPT/HCPCS: Q3014 ==

== ENCOUNTER 2021-06-13 08:37 | Outpatient (REF) | payer OTHER, MEDICAID, SELFPAY ==
[2021-06-13 10:29] LABS: Estimated Average Glucose 111 mg/dL; Hemoglobin A1c % 5.5 %
[2021-06-13 10:50] LABS: Alanine Aminotransferase 12 U/L (0-31); Albumin Level 4.5 g/dL (3.5-5.0); Alkaline Phosphatase 57 U/L (39-117); Anion Gap 15 (12-20); Aspartate Amino Transferase 21 U/L (5-31); Bilirubin Total 0.4 mg/dL (0.0-1.0); Blood Urea Nitrogen 18 mg/dL (9-16); Calcium 10.1 mg/dL (8.4-10.2); Carbon Dioxide 30 mmol/L (22-29); Chloride 100 mmol/L (96-108); Cholesterol 147 mg/dL; Estimated Glomerular Filt Rate > 60; Glucose Random 93 mg/dL (60-115); HDL Cholesterol 58 mg/dL; LDL Cholesterol Calculated 69 mg/dl; Potassium 4.6 mmol/L (3.3-5.1); Sodium 140 mmol/L (135-145); Total Protein 7.3 g/dL (6.5-8.0); Triglycerides 101 mg/dL
[2021-06-13 10:55] LABS: Creatinine Urine 72.43 mg/dL; Microalbum/Creatinine Ratio Ur 15.1 ug/mg cr
[2021-06-13 11:12] LABS: Vitamin D 25-OH Total 55.5 ng/mL (>30)
[2021-06-14 19:17] LABS: LDL Cholesterol Direct 56 mg/dL (<100)
== END 2021-06-13 08:38 | disposition home or self-care (01) ==
LOC: HO.LAB 08:37
PROVIDERS: Absent Provider Internal Medicine; PCP Internal Medicine; Visit Provider Nurse Practitioner Family
DX: K21.9 Gastro-esophageal reflux disease without esophagitis (principal); K59.04 Chronic idiopathic constipation; E11.65 Type 2 diabetes mellitus with hyperglycemia; E55.9 Vitamin D deficiency, unspecified
CPT/HCPCS: 36415; 80053; 80061; 82043; 82306; 83036; 83721; 99212

== ENCOUNTER → 2021-08-04 13:57 | Outpatient (BNVA) | payer OTHER, MEDICAID, SELFPAY | PROVIDERS: Referring Provider Internal Medicine; Visit Provider Nurse Practitioner Family | DX: K31.84 Gastroparesis (principal); K59.04 Chronic idiopathic constipation; K21.9 Gastro-esophageal reflux disease without esophagitis; R14.0 Abdominal distension (gaseous); R10.13 Epigastric pain | CPT/HCPCS: 99212 ==

== ENCOUNTER 2021-11-26 09:57 | Outpatient (REF) | payer OTHER, MEDICAID, SELFPAY ==
[2021-11-26 11:45] LABS: Creatinine Urine 50.79 mg/dL
[2021-11-26 12:02] LABS: Estimated Average Glucose 111 mg/dL; Hemoglobin A1c % 5.5 %
== END 2021-11-26 09:58 | disposition home or self-care (01) ==
LOC: HO.LAB 09:57
PROVIDERS: PCP Internal Medicine; Visit Provider Internal Medicine
DX: E11.65 Type 2 diabetes mellitus with hyperglycemia (principal); E78.5 Hyperlipidemia, unspecified; E55.9 Vitamin D deficiency, unspecified; I10 Essential (primary) hypertension
CPT/HCPCS: 36415; 82947; 83036; 99212

== ENCOUNTER → 2021-11-28 12:39 | Outpatient (BNVA) | payer OTHER, MEDICAID, SELFPAY | PROVIDERS: Referring Provider Internal Medicine; Visit Provider Nurse Practitioner Family | DX: K59.04 Chronic idiopathic constipation (principal); K21.9 Gastro-esophageal reflux disease without esophagitis; K31.84 Gastroparesis; R10.13 Epigastric pain | CPT/HCPCS: 99212 ==

== ENCOUNTER → 2021-12-10 13:25 | Outpatient (BNVA) | payer OTHER, MEDICAID, SELFPAY | PROVIDERS: PCP Internal Medicine; Visit Provider Registered Nurse Diabetes Educator | DX: E11.65 Type 2 diabetes mellitus with hyperglycemia (principal) | CPT/HCPCS: 99211 ==

== ENCOUNTER → 2021-12-15 12:37 | Outpatient (BNVA) | payer OTHER, MEDICAID, SELFPAY | PROVIDERS: PCP Internal Medicine; Visit Provider Registered Nurse Diabetes Educator | DX: E11.69 Type 2 diabetes mellitus with other specified complication (principal); E78.5 Hyperlipidemia, unspecified | CPT/HCPCS: 99211 ==

== ENCOUNTER → 2022-01-05 12:18 | Outpatient (BNVA) | payer OTHER, MEDICAID, SELFPAY | PROVIDERS: PCP Internal Medicine; Visit Provider Registered Nurse Diabetes Educator | DX: E11.65 Type 2 diabetes mellitus with hyperglycemia (principal) | CPT/HCPCS: 99211 ==

== ENCOUNTER 2022-01-07 11:24 | Outpatient (REF) | payer OTHER, MEDICAID, SELFPAY ==
--- NOTE | ~2022-01-07 | MM_ITS ---
EXAMINATION: MM SCREENING DIGITAL BREAST TOMOSYNTHESIS, BILATERAL CLINICAL INFORMATION: Right breast cancer status post lumpectomy 2006. Due for yearly. Screening. Asymptomatic. COMPARISON: Mammography: 12/16/2020, 12/11/2019, 02/03/2017 TECHNIQUE: Digital breast tomosynthesis is performed in both the craniocaudal and mediolateral oblique views along with computer-aided detection (CAD). Synthesized 2D images are generated from the tomosynthesis. Additional exaggerated right CC view is provided. FINDINGS: There are scattered areas of fibroglandular density (ACR BI-RADS breast composition Category b). Parenchymal pattern is similar to prior studies. There are no significant masses, abnormal calcifications, or interval architectural abnormality. There is no developing density. Again, there are stable post therapy changes in the right breast with reduced breast size and scarring posterior upper outer quadrant. The axilla are unremarkable. No significant changes. MM/MM tomosynthesis screening BI IMPRESSION: No mammographic evidence of malignancy. Stable post therapy changes right breast. ASSESSMENT: BI-RADS 2: Benign RECOMMENDATION: Routine annual mammography screening. This patient's information was entered into a reminder system with a target due date for their next mammogram.
== END 2022-01-07 11:25 | disposition home or self-care (01) ==
LOC: HO.MAMMO 11:24
PROVIDERS: PCP Internal Medicine; Visit Provider Internal Medicine Medical Oncology
DX: Z12.31 Encounter for screening mammogram for malignant neoplasm of breast (principal)
CPT/HCPCS: 77063; 77067

== ENCOUNTER 2022-03-03 11:51 | Outpatient (REF) | payer OTHER, MEDICAID, SELFPAY ==
[2022-03-03 13:18] LABS: Estimated Average Glucose 134 mg/dL; Hemoglobin A1c % 6.3 %
[2022-03-03 13:36] LABS: Alanine Aminotransferase 15 U/L (0-31); Albumin Level 4.7 g/dL (3.5-5.0); Alkaline Phosphatase 62 U/L (39-117); Anion Gap 12 (12-20); Aspartate Amino Transferase 19 U/L (5-31); Bilirubin Total 0.4 mg/dL (0.0-1.0); Blood Urea Nitrogen 12 mg/dL (9-16); Calcium 10.3 mg/dL (8.4-10.2); Carbon Dioxide 30 mmol/L (22-29); Chloride 99 mmol/L (96-108); Cholesterol 140 mg/dL; Estimated Glomerular Filt Rate > 60; Glucose Random 208 mg/dL (60-115); HDL Cholesterol 55 mg/dL; LDL Cholesterol Calculated 65 mg/dl; Potassium 4.3 mmol/L (3.3-5.1); Sodium 137 mmol/L (135-145); Total Protein 7.4 g/dL (6.5-8.0); Triglycerides 102 mg/dL
== END 2022-03-03 11:52 | disposition home or self-care (01) ==
LOC: HO.LAB 11:51
PROVIDERS: PCP Internal Medicine; Visit Provider Internal Medicine
DX: E11.65 Type 2 diabetes mellitus with hyperglycemia (principal); E55.9 Vitamin D deficiency, unspecified
CPT/HCPCS: 36415; 80053; 80061; 82306; 83036

== ENCOUNTER → 2022-03-04 11:30 | Outpatient (BNVA) | payer OTHER, MEDICAID, SELFPAY | PROVIDERS: Visit Provider Internal Medicine | DX: E11.65 Type 2 diabetes mellitus with hyperglycemia (principal); E78.5 Hyperlipidemia, unspecified; I10 Essential (primary) hypertension; E55.9 Vitamin D deficiency, unspecified; Z79.84 Long term (current) use of oral hypoglycemic drugs | CPT/HCPCS: Q3014 ==

== ENCOUNTER 2022-03-12 10:31 | Outpatient (REF) | payer OTHER, MEDICAID, SELFPAY ==
--- NOTE | ~2022-03-12 | CT_ITS ---
CT SOFT TISSUE NECK WITH IV CONTRAST CLINICAL INFORMATION: Dysphonia. COMPARISON: None available. TECHNIQUE: Following the intravenous administration of 100 mL of Omnipaque 350 intravenous contrast, helical imaging was performed in the axial plane with generation of coronal and sagittal reformatted images. This CT examination was performed using dose optimization techniques as appropriate, variously including the following: *Automated exposure control *Adjustment of mA and/or kV according to patient size (this includes techniques or standardized protocols for targeted exams where dose is matched to indication/reason for exam; i.e. extremities or head) *Use of iterative reconstruction technique FINDINGS: There is no cervical lymphadenopathy. The parotid glands are homogeneous in attenuation. The submandibular glands are normal. The thyroid gland is normal. No contour abnormality or pathologic enhancement is seen within the oral cavity or pharyngeal mucosal space. No retropharyngeal fluid collection is seen. The true vocal cords are closely opposed in phonation and therefore not diagnostically assessed. There is mild nonspecific eccentric soft tissue within the right para glottic fat of the supraglottic larynx which is narrow for example on image 67 of series 2 that can be correlated with direct visual inspection. The parapharyngeal fat is preserved. The carotid sheath vasculature opacify normally. No extra mucosal soft tissue mass or fluid collection is seen. The superior mediastinum is unremarkable. The lung apices are clear. Bilateral mastoid effusions and partial opacification of the middle ear cavities bilaterally. Right canal wall up mastoidectomy changes. The paranasal sinuses are clear. TMJs are unremarkable. There is mild cervical spondylosis. The imaged portions of the brain parenchyma are unremarkable. CT/CT soft tissue neck w con IMPRESSION: - The true vocal cords are closely opposed in phonation and therefore not diagnostically assessed. There is mild nonspecific eccentric soft tissue within the right para glottic fat of the supraglottic larynx which is narrow for example on image 67 of series 2 that can be correlated with direct visual inspection. - Bilateral mastoid effusions and partial opacification of the middle ear cavities bilaterally.
[2022-03-12] MEDS: iohexoL 350 MG/ML 100 ML INFUS..BTL IV (11:13)
== END 2022-03-12 10:32 | disposition home or self-care (01) ==
LOC: HO.CT 10:31
PROVIDERS: PCP Internal Medicine; Visit Provider Otolaryngology
DX: R49.0 Dysphonia (principal)
CPT/HCPCS: 70491; Q9967

== ENCOUNTER → 2022-04-14 10:57 | Outpatient (BNVA) | payer OTHER, MEDICAID, SELFPAY | PROVIDERS: PCP Internal Medicine; Visit Provider Nurse Practitioner Family | DX: K21.9 Gastro-esophageal reflux disease without esophagitis (principal); K59.04 Chronic idiopathic constipation; K31.84 Gastroparesis; R10.13 Epigastric pain | CPT/HCPCS: 99212 ==

== ENCOUNTER 2022-05-29 10:35 | Outpatient (REF) | payer OTHER, MEDICAID, SELFPAY ==
--- NOTE | ~2022-05-29 | XR_ITS ---
EXAMINATION: XR CALCANEUS, RIGHT CLINICAL INFORMATION: Right calcaneal pain COMPARISON: None TECHNIQUE: Lateral and axial views of the right calcaneus were obtained. FINDINGS: There is a small calcaneal heel enthesophyte. Ankle mortise and subtalar joints are normal. There is no visible acute fracture, dislocation or subluxation seen. The soft tissues are normal. XR/XR calcaneus RT min 2V IMPRESSION: Small calcaneal heel enthesophyte. No visible acute fracture or dislocation seen.
[2022-05-29 11:14] LABS: Glucose Fasting 172 mg/dL (60-99)
[2022-05-29 11:28] LABS: Estimated Average Glucose 169 mg/dL; Hemoglobin A1c % 7.5 %
== END 2022-05-29 10:36 | disposition home or self-care (01) ==
LOC: HO.LAB 10:35
PROVIDERS: PCP Internal Medicine; Visit Provider Internal Medicine
DX: M79.671 Pain in right foot (principal); E11.65 Type 2 diabetes mellitus with hyperglycemia
CPT/HCPCS: 36415; 73650; 82947; 83036

== ENCOUNTER 2022-09-14 10:21 | Outpatient (REF) | payer OTHER, MEDICAID, SELFPAY | END 2022-09-14 10:22 | disposition home or self-care (01) | LOC: HO.MDS 10:21 | PROVIDERS: Visit Provider Internal Medicine Medical Oncology | DX: D50.9 Iron deficiency anemia, unspecified (principal) | CPT/HCPCS: 96365; J1756 ==

== ENCOUNTER 2022-09-14 16:11 | Emergency (ER) | payer OTHER, MEDICAID, SELFPAY ==
[2022-09-14 17:12] VITALS: BP 156/65; PULSE 77; RESP 18; TEMP 36.7; O2SAT 99; BMI 28.1
[2022-09-14 17:51] LABS: MANUAL DIFF FLAG NO
[2022-09-14 17:54] LABS: Basophils Percent Auto 0.4 % (0-2); Eosinophils Absolute Auto 0.1 X10*3/uL (0.0-0.4); Eosinophils Percent Auto 1.4 % (0-4); Hematocrit 36.5 % (37.0-47.0); Hemoglobin 11.8 g/dl (12.0-16.0); Imm Gran Abs Auto 0.02 X10*3/uL (0.00-0.03); Imm Gran Pct Auto 0.2 % (0.0-0.4); Lymphocytes Absolute Auto 1.7 X10*3/uL (1.2-4.9); Lymphocytes Percent Auto 16.4 % (20-40); Mean Corpuscular HGB Conc 32.3 g/dl (31.0-35.0); Mean Corpuscular Hemoglobin 27.5 pg (27.0-33.0); Mean Corpuscular Volume 85.1 fL (80.0-98.0); Mean Platelet Volume 9.7 fL (9.4-12.3); Monocytes Absolute Auto 0.6 X10*3/uL (0.1-1.2); Monocytes Percent Auto 6.2 % (2-11); Neutrophils Absolute Auto 7.7 x10*3/uL (2.0-8.3); Neutrophils Percent Auto 75.4 % (45-73); Platelet Count 260 X10*3/uL (160-400); Red Blood Count 4.29 X10*6/uL (4.20-5.50); Red Cell Distribution Width 13.9 % (11.0-16.0); White Blood Count 10.3 X10*3/uL (4.8-10.8)
[2022-09-14 18:09] LABS: Alanine Aminotransferase 19 U/L (0-31); Albumin Level 4.7 g/dL (3.5-5.0); Alkaline Phosphatase 56 U/L (39-117); Anion Gap 19 (12-20); Aspartate Amino Transferase 20 U/L (5-31); Bilirubin Total 0.2 mg/dL (0.0-1.0); Blood Urea Nitrogen 15 mg/dL (9-16); Calcium 9.6 mg/dL (8.4-10.2); Carbon Dioxide 26 mmol/L (22-29); Chloride 100 mmol/L (96-108); Creatinine Clr Calc Pharmacy 42.3; Estimated Glomerular Filt Rate 59; Glucose Random 318 mg/dL (60-115); Potassium 4.7 mmol/L (3.3-5.1); Sodium 140 mmol/L (135-145); Total Protein 7.4 g/dL (6.5-8.0)
[2022-09-14 18:15] LABS: B Type Natriuretic Peptide 43 pg/mL (<100)
--- NOTE | 2022-09-14 23:37 | ED_ITS ---
HPI - General Adult General Chief complaint: General Medical Stated complaint: ? reaction feet swollen Time Seen by Provider: 09/14/22 23:37 History of Present Illness HPI narrative: Patient with mild iron deficiency anemia received iron transfusion infusion for the 1st time today as she unable to tolerate oral iron tab because of constipation she comes here as later in the evening she noticed edema of the bilateral legs i no shortness of breath no rash no tongue or lip swelling Related Data Home Medications Medication Instructions Recorded Confirmed aspirin 81 mg tablet,delayed 81 mg PO DAILY 09/05/20 08/31/22 release nortriptyline 25 mg capsule 25 mg PO DAILY 04/10/21 08/31/22 Previous Rx's Medication Instructions Recorded pen needle, diabetic 32 gauge x #50 ea 10/09/20/ (BD Ultra-Fine Micro Pen Needle) lancets 30 gauge (PlexPressTouch Delica #100 ea 04/17/21 Lancets) cetirizine 10 mg tablet 10 mg PO DAILY PRN allergy 08/11/21 symptoms #90 tabs cyanocobalamin (vitamin B-12) 1,000 mcg PO DAILY #90 tabs 09/10/21 1,000 mcg tablet (Vitamin B-12) metformin 1,000 mg tablet 1,000 mg PO BID #180 tabs 09/15/21 lisinopril 10 mg tablet 10 mg PO DAILY #90 tabs 10/26/21 lactobacillus combination no.4 3 3,000 mmu cells PO DAILY #30 caps 11/28/21 billion cell capsule (Probiotic) atorvastatin 40 mg tablet 40 mg PO DAILY 30 days #90 tabs 01/19/22 gabapentin 300 mg capsule 300 mg PO TID #90 caps 01/19/22 hydrochlorothiazide 25 mg tablet 25 mg PO DAILY #90 tabs 02/06/22 famotidine 40 mg tablet 40 mg PO DAILY #90 tabs 04/14/22 linaclotide 145 mcg capsule 145 mcg PO QAM #90 caps 04/14/22 (Linzess) mirtazapine 7.5 mg tablet 7.5 mg PO BEDTIME #90 tabs 04/14/22 simethicone 125 mg capsule 125 mg PO BID-QID PRN abdominal 04/14/22 distention #120 caps zolpidem 5 mg tablet (Ambien) 5 mg PO BEDTIME PRN insomnia #30 06/10/22 tabs blood sugar diagnostic (FreeStyle #100 ea 06/30/22 Lite Strips) blood sugar diagnostic (OneTouch #100 ea 08/31/22 Verio test strips) metoclopramide HCl 5 mg tablet 5 mg PO QIDACHS #120 tabs 08/31/22 (Reglan) Allergies Allergy/AdvReac Type Severity Reaction Status Date / Time strawberry [STRAWBERRY] Allergy Mild PRURITUS Verified 08/31/22 13:56 tomato [TOMATO] Allergy Mild HIVES Verified 08/31/22 13:56 acetaminophen [From Percocet] Allergy Unknown Unknown Verified 08/31/22 13:56 oxycodone [From Percocet] Allergy Unknown Unknown Verified 08/31/22 13:56 pollen extracts [POLLEN] Allergy Unknown UNKNOWN Verified 08/31/22 13:56 lactose [LACTOSE] AdvReac Unknown GI UPSET Verified 08/31/22 13:56 DUST Allergy Unknown UNKNOWN Uncoded 08/27/22 13:13 ENVIRONMENTAL Allergy Unknown UNKNOWN Uncoded 08/27/22 13:13 trees leaves Allergy unknown Uncoded 08/27/22 13:13 Review of Systems Review of Systems: Yes all other systems are reviewed and are negative [facility] Past Medical History Medical History Depression Fibromyalgia Headache HLD (hyperlipidemia) HTN (hypertension) Hyperlipidemia associated with type 2 diabetes mellitus Osteopenia T2DM (type 2 diabetes mellitus) Vitamin D deficiency Surgical History History of carpal tunnel release History of delivery History of ear surgery History of hysterectomy with bilateral oophorectomy History of hysteroscopy History of tubal ligation Hx of colonoscopy Status post right breast lumpectomy Family History Family History Father Cirrhosis Liver cancer Mother T2DM (type 2 diabetes mellitus) Past heart attack Maternal Grandmother Breast cancer Maternal Grandfather No problems noted. Paternal Grandmother No problems noted. Paternal Grandfather No problems noted. Son No problems noted. Son No problems noted. Daughter No problems noted. Social History Social History Household Members: None Housing: Apartment Are you a primary physician locums urgent care to a significant other at home: No Do you presently have visiting nurse or other home services: No Alcohol intake: current Alcohol intake frequency: does not drink Patient Tobacco Use Status: Never used Tobacco e-Cigarette/Vaping Use: Never Used Second Hand Smoke Exposure: No Advance Directives: No service: No Current occupational status: disabled Cognitive needs: No Hearing needs: No Vision needs: No Physical Exam ED Vital Signs: Vital Signs - 24 hr 09/14/22 17:12 09/14/22 23:55 Temperature 98.1 F 98.2 F Pulse Rate 77 63 Respiratory Rate 18 17 Blood Pressure 156/65 H 165/49 H Pulse Oximetry 99 98 Oxygen Delivery Method Room Air Room Air BMI result Body Mass Index 28.1 Appearance: Alert. Oriented X3. No acute distress. ENT: Pharynx normal. Oral Mucosa moist Neck: Normal inspection. Neck supple. CVS: Normal heart rate and rhythm. Pulses normal. Respiratory: No respiratory distress. Equal air entry bilateral, no wheezing/rales/rhonchi Abdomen: Soft and nontender. Bowel sounds are present, Skin: Skin warm and dry. Normal skin color. Normal skin turgor. Extremities: Trace lower extremity edema. No calf tenderness Neuro: Oriented X 3. No motor deficit. Medical Decision Making MDM Narrative Medical decision making narrative: Patient with mild pedal edema no shortness of breath lungs are clear previous BNP was normal likely from standing dependent pedal edema. Will discharge patient home advised to discuss whether she really needs iron infusion in future Lab Data Result diagrams: 09/14/22 17:45 09/14/22 17:45 Labs: Lab Results 09/14/22 09/14/22 09/14/22 Range/Units 17:45 17:45 17:45 WBC 10.3 (4.8-10.8) X10*3/uL RBC 4.29 (4.20-5.50) X10*6/uL Hgb 11.8 L (12.0-16.0) g/dl Hct 36.5 L (37.0-47.0) % MCV 85.1 (80.0-98.0) fL MCH 27.5 (27.0-33.0) pg MCHC 32.3 (31.0-35.0) g/dl RDW 13.9 (11.0-16.0) % Plt Count 260 (160-400) X10*3/uL MPV 9.7 (9.4-12.3) fL Immature Gran % (Auto) 0.2 (0.0-0.4) % Neut % (Auto) 75.4 H (45-73) % Lymph % (Auto) 16.4 L (20-40) % Dougherty % (Auto) 6.2 (2-11) % Eos % (Auto) 1.4 (0-4) % Baso % (Auto) 0.4 (0-2) % Lymph # (Auto) 1.7 (1.2-4.9) X10*3/uL Dougherty # (Auto) 0.6 (0.1-1.2) X10*3/uL Eos # (Auto) 0.1 (0.0-0.4) X10*3/uL Baso # (Auto) 0.0 (0.0-0.2) X10*3/uL Abs Immat Gran (auto) 0.02 (0.00-0.03) X10*3/uL Absolute Neuts (auto) 7.7 (2.0-8.3) x10*3/uL Absolute Nucleated RBC 0.000 (0.0-0.012) X10*3/uL Nucleated RBC % (auto) 0.0 (0.0-0.2) /100WBC Sodium 140 (135-145) mmol/L Potassium 4.7 (3.3-5.1) mmol/L Chloride 100 (96-108) mmol/L Carbon Dioxide 26 (22-29) mmol/L Anion Gap 19 (12-20) BUN 15 (9-16) mg/dL Creatinine 0.95 (0.5-1.4) mg/dL Estim Creat Clear Calc 42.3 Estimated GFR 59 Random Glucose 318 H (60-115) mg/dL Calcium 9.6 (8.4-10.2) mg/dL Total Bilirubin 0.2 (0.0-1.0) mg/dL AST 20 (5-31) U/L ALT 19 (0-31) U/L Alkaline Phosphatase 56 (39-117) U/L B-Natriuretic Peptide 43 (<100) pg/mL Total Protein 7.4 (6.5-8.0) g/dL Albumin 4.7 (3.5-5.0) g/dL Discharge Plan Discharge Clinical Impression: Leg edema Patient Disposition: Home, Self-Care Instructions: Leg Edema (ED) Additional Instructions: Keep your leg elevated Her hemoglobin is 11.8 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 iron infusion in future Have food containing high iron as advised Prescriptions: No Action (DME) lancets [OneTouch Delica Lancets] 30 gauge misc See Rx Instructions .ROUTE .MEDSUPPLY Qty: 100 11RF Rx Instructions: 4x daily cetirizine 10 mg tablet 10 mg PO DAILY PRN (Reason: allergy symptoms) Qty: 90 8RF metformin 1,000 mg tablet 1,000 mg PO BID Qty: 180 8RF lisinopril 10 mg tablet 10 mg PO DAILY Qty: 90 8RF gabapentin 300 mg capsule 300 mg PO TID Qty: 90 8RF atorvastatin 40 mg tablet 40 mg PO DAILY 30 Days Qty: 90 1RF hydrochlorothiazide 25 mg tablet 25 mg PO DAILY Qty: 90 8RF zolpidem [Ambien] 5 mg tablet 5 mg PO BEDTIME PRN (Reason: insomnia) Qty: 30 5RF (DME) FreeStyle Lite Strips Strip See Rx Instructions .MEDSUPPLY Qty: 100 6RF Rx Instructions: 3 times a day metoclopramide HCl [Reglan] 5 mg tablet 5 mg PO QIDACHS Qty: 120 1RF Rx Instructions: mega un comprimido 30 minutos antes de las comidas cyanocobalamin (vitamin B-12) [Vitamin B-12] 1,000 mcg Tablet 1,000 mcg PO DAILY Qty: 90 3RF (DME) OneTouch Verio test strips Strip See Rx Instructions .ROUTE .MEDSUPPLY Qty: 100 11RF Rx Instructions: 4x daily aspirin 81 mg tablet,delayed release (DR/EC) 81 mg PO DAILY (DME) pen needle, diabetic [BD Ultra-Fine Micro Pen Needle] 32 gauge x 1/4 needle See Rx Instructions .ROUTE .MEDSUPPLY Qty: 50 11RF Rx Instructions: once a week nortriptyline 25 mg capsule 25 mg PO DAILY Probiotic 3 billion cell capsule 3,000 mmu cells PO DAILY Qty: 30 5RF Rx Instructions: administer with a meal famotidine 40 mg tablet 40 mg PO DAILY Qty: 90 3RF Rx Instructions: Tomalo todos los balderas al mediodia. Linzess 145 mcg capsule 145 mcg PO QAM Qty: 90 3RF mirtazapine 7.5 mg tablet 7.5 mg PO BEDTIME Qty: 90 2RF Rx Instructions: Tomelo todas las noches antes de acostarse simethicone 125 mg capsule 125 mg PO BID-QID PRN (Reason: abdominal distention) Qty: 120 3RF
--- OUTSIDE RECORDS SUMMARY | 2022-09-14 23:50 | XMS_ITS ---
:1955 Author Care Team Providers Name Role Phone Jimmy Vásquez Primary Care Provider Unavailable Allergies Code Code System Name Reaction Severity Status Onset Grass Pollen ? ? Active ? 605350 RxNorm House Dust ? ? Active ? NKDA ? Notes: cats/dog, rats, roaches, cheese , seeds Medications Name Status Start Date Stop Date ? ? acetaminophen 500 mg tablet Active ? Not available TAKE 1 TABLET BY MOUTH EVERY 6 HOURS NEEDED Adult Probiotic 3 billion cell capsule Active ? Not available TAKE 1 CAPSULE BY MOUTH EVERY DAY [place] 0.025 % (0.035 %) eye drops Active ? Not available PLACE 1 DROP IN BOTH EYES TWICE DAILY NEEDED atorvastatin 40 mg tablet Active ? Not av ailable TAKE 1 TABLET BY MOUTH EVERY DAY azithromycin 250 mg tablet Completed ? 07/29 TAKE 2 TABLETS BY MOUTH TODAY, THEN TAKE 1 TABLET DAILY FOR 4 D AYS bisacodyl 5 mg tablet,delayed release Completed ? 07/29/2021 TAKE 2 TABLETS BY MOUTH AT 12PM THE DAY BEFORE YOUR COLONOCCOPY cetirizine 10 mg tablet Active ? Not avai lable TAKE 1 TABLET BY MOUTH EVERY DAY NEEDED chlorhexidine gluconate 0.12 % mouthwash Completed ? 07/29/[address] 15 MLS BY MOUTH ROUTE 2 TIMES BRIAN RY DAY, SWISH FOR 30 SECONDS THEN SPIT OUT clindamycin HCl 150 mg capsule Completed ? 0 07/29/2021 TAKE 1 CAPSULE BY MOUTH EVERY 6 HOURS dicyclomine 10 mg capsule Completed ? 2020 TAKE 1 CAPSULE BY MOUTH THREE TIMES A DAY docusate sodium 100 mg capsule Completed ? 0 07/29/2021 TAKE 1 CAPSULE BY MOUTH TWICE A DAY NEEDED FOR CONSTIPATION famotidine 20 mg tablet Completed ? 07/29/20 TAKE 1 TABLET BY MOUTH AT BEDTIME Fiber Therapy (methylcellulose) 500 mg tablet Active ? Not available TAKE 1 TABLET BY MOUTH EVERY DAY FreeStyle Lancets 28 gauge Active ? Not a vailable DX E11.9 ONCE A DAY IN VITRO 30 DAYS gabapentin 300 mg capsule Active ? Not av ailable Gas Relief Extra Strength 125 mg capsule Active ? Not available TAKE 1 CAPSULE BY MOUTH 2 TO 4 TIMES A DAY NEEDED FOR AB DOMINAL DISTENTION Gavilax 17 gram/dose oral powder Completed ? 07/29/2021 MIX AND DRINK DIRECTED BY [facility] AT [facility] glipizide 5 mg tablet Completed ? 07/29/2021 TOME MINAL TABLETA POR V A ORAL TODOS LOS D glipizide ER 5 mg tablet, extended release 24 hr Completed ? 07/29/2021 TOME MINAL TABLETA AL D A hydrochlorothiazide 25 mg tablet Active ? Not available TAKE 1 TABLET BY MOUTH EVERY DAY Jardiance 25 mg tablet Active ? Not avail able Linzess 145 mcg capsule Active ? Not avai lable Linzess 72 mcg capsule Completed ? TAKE 1 CAPSULE BY MOUTH IN THE MORNING lisinopril 10 mg tablet Active ? Not avai lable metformin 1,000 mg tablet Active ? Not av ailable TOME MINAL TABLETA POR V A ORAL DOS VECES AL D A metoclopramide 5 mg tablet Completed ? 07/29 TAKE 1 TABLET BY MOUTH FOUR TIMES A DAY 15 MINUTES BEFORE MEALS /SNACKS nortriptyline 25 mg capsule Completed ? 07/10 TAKE 1 CAPSULE BY MOUTH AT BEDTIME FOR 1 WEEK THEN 2 CAPSULES A T BEDTIME Novofine 32 32 gauge x 1/4 needle Active ? Not available USE DIRECTED ONCE A WEEK ondansetron 4 mg disintegrating tablet Completed ? 07/29/2021 DISSOLVE 1 TABLET ON THE TONGUE EVERY 8 HOURS NEED ED FOR NAUSEA OR VOMITING OneTouch Delica Plus Lancet 30 gauge Active ? Not available USE FOUR TIMES DAILY OneTouch Verio test strips Active ? Not a vailable TEST FOUR TIMES DAILY Ozempic 0.25 mg or 0.5 mg (2 mg/1.5 mL) subcutaneous pen Active ? Not available injector pantoprazole 40 mg tablet,delayed release Active ? Not available TOME MINAL TABLETA POR V A ORAL TODOS LOS D pioglitazone 15 mg tablet Active ? Not av ailable TAKE 1 TABLET BY MOUTH EVERY DAY simvastatin 10 mg tablet Completed ? 021 TAKE 1 TABLET AT BEDTIME topiramate 50 mg tablet Active ? Not avai lable TAKE 1 TABLET BY MOUTH EVERYDAY AT BEDTIME zolpidem 5 mg tablet Active ? Not availab le TAKE 1 TABLET BY MOUTH AT BEDTIME NEEDED FOR SLEEP Problems No Known Problems Procedures Date Name Performed by ? ? Section Information not avai lable Results Lab Results None recorded. Past Encounters 07/29/2021 Pain in Toe; Type 2 Diabetes Mellitus; I ngrowing Nail of Toe of Right Foot Jimmy Vásquez, DPM: [address], [place] [address], Ph. Social History Tobacco Smoking Status Never Smoker Vaccine List None recorded. Plan of Care Reminders Provider Appointments None recorded. ? ? Lab None recorded. ? ? Referral None recorded. ? ? Procedures None recorded. ? ? Surgeries None recorded. ? ? Imaging None recorded. ? ? Vitals Height Weight BMI 4 ft 9 in 120 lbs 26 kg/m2
[2022-09-14 23:55] VITALS: BP 165/49; PULSE 63; RESP 17; TEMP 36.8; O2SAT 98
--- NOTE | 2022-09-14 23:56 | PC.NURSE ---
Patient states at 1030 this AM she had an iron infusion. Hx anemia (usually takes PO iron but today had her first infusion), breast cancer s/p radiation in 2006 (no chemo). Presents today because she noticed bilateral foot pain, L<R since having her iron infusion. She denies pain, chest discomfort, SOB. She denies cardiac history. She only takes iron and B12 vitamin at home, no other meds. She is ambulatory, alert, oriented x4.
== END 2022-09-15 00:23 | disposition home or self-care (01) ==
PROVIDERS: Emergency Provider Internal Medicine; PCP Internal Medicine
DX: R60.0 Localized edema (principal); I10 Essential (primary) hypertension; E11.9 Type 2 diabetes mellitus without complications; E78.5 Hyperlipidemia, unspecified; Z79.02 Long term (current) use of antithrombotics/antiplatelets; Z79.899 Other long term (current) drug therapy
CPT/HCPCS: 36415; 80053; 83880; 85025; 99282; 99283

== ENCOUNTER 2022-10-05 14:00 | Outpatient (RCR) | payer OTHER, MEDICAID, SELFPAY | END 2022-11-04 10:15 | disposition home or self-care (01) | LOC: HO.PT 14:00 | PROVIDERS: Visit Provider Podiatrist | DX: S93.412A Sprain of calcaneofibular ligament of left ankle, initial encounter (principal) | CPT/HCPCS: 97033; 97110; 97112; 97140; 97161; 97530 ==

== ENCOUNTER → 2022-10-21 12:04 | Outpatient (BNVA) | payer OTHER, MEDICAID, SELFPAY | PROVIDERS: PCP Internal Medicine; Visit Provider Nurse Practitioner Family | DX: K21.9 Gastro-esophageal reflux disease without esophagitis (principal); K31.84 Gastroparesis; R10.13 Epigastric pain; K59.04 Chronic idiopathic constipation | CPT/HCPCS: 99212 ==

== ENCOUNTER 2022-10-22 14:34 | Outpatient (REF) | payer OTHER, MEDICAID, SELFPAY ==
[2022-10-22 14:50] LABS: MANUAL DIFF FLAG NO
[2022-10-22 15:22] LABS: Basophils Percent Auto 0.4 % (0-2); Eosinophils Absolute Auto 0.2 X10*3/uL (0.0-0.4); Eosinophils Percent Auto 1.9 % (0-4); Hematocrit 36.5 % (37.0-47.0); Hemoglobin 11.9 g/dl (12.0-16.0); Imm Gran Abs Auto 0.03 X10*3/uL (0.00-0.03); Imm Gran Pct Auto 0.3 % (0.0-0.4); Lymphocytes Absolute Auto 2.5 X10*3/uL (1.2-4.9); Lymphocytes Percent Auto 27.4 % (20-40); Mean Corpuscular HGB Conc 32.6 g/dl (31.0-35.0); Mean Corpuscular Hemoglobin 28.3 pg (27.0-33.0); Mean Corpuscular Volume 86.7 fL (80.0-98.0); Mean Platelet Volume 9.9 fL (9.4-12.3); Monocytes Absolute Auto 0.6 X10*3/uL (0.1-1.2); Monocytes Percent Auto 6.4 % (2-11); Neutrophils Absolute Auto 5.8 x10*3/uL (2.0-8.3); Neutrophils Percent Auto 63.6 % (45-73); Platelet Count 267 X10*3/uL (160-400); Red Blood Count 4.21 X10*6/uL (4.20-5.50); Red Cell Distribution Width 13.9 % (11.0-16.0); White Blood Count 9.1 X10*3/uL (4.8-10.8)
[2022-10-22 15:37] LABS: Estimated Average Glucose 180 mg/dL; Hemoglobin A1c % 7.9 %
[2022-10-22 16:16] LABS: Anion Gap 14 (12-20); Blood Urea Nitrogen 18 mg/dL (9-16); Calcium 10.2 mg/dL (8.4-10.2); Carbon Dioxide 28 mmol/L (22-29); Chloride 102 mmol/L (96-108); Estimated Glomerular Filt Rate > 60; Glucose Fasting 110 mg/dL (60-99); Glucose Random 111 mg/dL (60-115); Potassium 4.6 mmol/L (3.3-5.1); Sodium 139 mmol/L (135-145); Thyroid Stimulating Hormone 1.46 uIU/mL (0.32-4.0)
[2022-10-22 16:55] LABS: Creatinine Urine 112.42 mg/dL; Microalbum/Creatinine Ratio Ur 17.7 ug/mg cr
== END 2022-10-22 14:35 | disposition home or self-care (01) ==
LOC: HO.LAB 14:34
PROVIDERS: PCP Internal Medicine; Visit Provider Internal Medicine
DX: E66.01 Morbid (severe) obesity due to excess calories (principal); E11.69 Type 2 diabetes mellitus with other specified complication; E11.65 Type 2 diabetes mellitus with hyperglycemia; E03.9 Hypothyroidism, unspecified; R51.9 Headache, unspecified; Z13.0 Encounter for screening for diseases of the blood and blood-forming organs and certain disorders involving the immune mechanism
CPT/HCPCS: 36415; 80048; 82043; 82947; 83036; 84443; 85025

== ENCOUNTER 2023-01-13 12:14 | Outpatient (REF) | payer OTHER, MEDICAID, SELFPAY ==
--- NOTE | ~2023-01-13 | MM_ITS ---
EXAMINATION: MM SCREENING DIGITAL BREAST TOMOSYNTHESIS, BILATERAL CLINICAL INFORMATION: Screening. Asymptomatic. COMPARISON: Mammography: January 07, 2022 and studies dating back to January 31, 2016 TECHNIQUE: Digital breast tomosynthesis is performed in both the craniocaudal and mediolateral oblique views along with computer-aided detection (CAD). Synthesized 2D images are generated from the tomosynthesis. FINDINGS: The breasts are heterogeneously dense, which may obscure small masses (ACR BI-RADS breast composition Category c). Stable postsurgical changes noted upper-outer aspect of the right breast. No new abnormal dominant mass or suspicious grouping of microcalcifications is identified. MM/MM tomosynthesis screening BI IMPRESSION: No significant changes from prior exam. ASSESSMENT: BI-RADS 2: Benign RECOMMENDATION: Routine annual mammography screening. This patient's information was entered into a reminder system with a target due date for their next mammogram.
== END 2023-01-13 12:15 | disposition home or self-care (01) ==
LOC: HO.MAMMO 12:14
PROVIDERS: PCP Internal Medicine; Visit Provider Internal Medicine
DX: Z12.31 Encounter for screening mammogram for malignant neoplasm of breast (principal)
CPT/HCPCS: 77063; 77067

== ENCOUNTER → 2023-02-24 11:54 | Outpatient (BNVA) | payer OTHER, MEDICAID, SELFPAY | PROVIDERS: PCP Internal Medicine; Visit Provider Nurse Practitioner Family | DX: K21.9 Gastro-esophageal reflux disease without esophagitis (principal); K59.04 Chronic idiopathic constipation; K31.84 Gastroparesis; R10.13 Epigastric pain | CPT/HCPCS: 99212 ==

== ENCOUNTER 2024-01-17 10:59 | Outpatient (AMB) | payer MEDICARE, MEDICAID, SELFPAY ==
[2024-01-17 11:05] VITALS: BP 122/60; PULSE 88; O2SAT 98; BMI 26.0
--- NOTE | 2024-01-17 11:05 | A.OFFPC_ITS ---
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: Not Required per policy Accompanied by: Self / Same As Patient Allergies strawberry [STRAWBERRY] Allergy (Mild, Verified 01/17/24 11:06) PRURITUS tomato [TOMATO] Allergy (Mild, Verified 01/17/24 11:06) HIVES acetaminophen [From Percocet] Allergy (Unknown, Verified 01/17/24 11:06) Unknown oxycodone [From Percocet] Allergy (Unknown, Verified 01/17/24 11:06) Unknown pollen extracts [POLLEN] Allergy (Unknown, Verified 01/17/24 11:06) UNKNOWN lactose [LACTOSE] Adverse Reaction (Unknown, Verified 01/17/24 11:06) GI UPSET DUST Allergy (Unknown, Uncoded 01/17/24 11:06) UNKNOWN ENVIRONMENTAL Allergy (Unknown, Uncoded 01/17/24 11:06) UNKNOWN trees leaves Allergy (Uncoded 01/17/24 11:06) unknown Medication List - Last Reconciled 01/17/24 by Dwayne Rivera MD aspirin 81 mg PO DAILY atorvastatin 40 mg PO DAILY 30 days blood sugar diagnostic (FreeStyle Lite Strips) 3 times a day blood sugar diagnostic (OneTouch Verio test strips) 4x daily cetirizine 10 mg PO DAILY PRN cyanocobalamin (vitamin B-12) (Vitamin B-12) 1,000 mcg PO DAILY famotidine 40 mg PO DAILY gabapentin 300 mg PO TID hydrochlorothiazide 25 mg PO DAILY lactobacillus combination no.4 (Probiotic) 3,000 mmu cells PO DAILY lancets (OneTouch Delica Lancets) 4x daily linaclotide (Linzess) 145 mcg PO QAM lisinopril 10 mg PO DAILY metformin 1,000 mg PO BID metoclopramide HCl (Reglan) 5 mg PO QIDACHS mirtazapine 7.5 mg PO BEDTIME nortriptyline 25 mg PO DAILY pen needle, diabetic (BD Ultra-Fine Micro Pen Needle) once a week simethicone 125 mg PO BID-QID PRN zolpidem (Ambien) 5 mg PO BEDTIME PRN Tobacco use date assessed: 01/17/24 Fall risk assessment: No Falls in past year Last assessed Fall Risk: 01/17/24 Dental Screening Dental Screen Date: 01/17/24 Did you have a dental visit in the last 12 months?: Yes Did you have a dental problem in the last 6 months where you did not have access to dental care?: No Was dental information given to patient?: Patient has dentist HPI DM F/U HPI Details DM in good control; hyperlip and htn also PFSH Medical History Depression Fibromyalgia Gastroparesis Headache HLD (hyperlipidemia) HTN (hypertension) Hyperlipidemia associated with type 2 diabetes mellitus Osteopenia T2DM (type 2 diabetes mellitus) Vitamin D deficiency Surgical History History of hysteroscopy Status post right breast lumpectomy Hx of colonoscopy History of hysterectomy with bilateral oophorectomy History of carpal tunnel release History of tubal ligation History of ear surgery History of delivery Family History Father Cirrhosis Liver cancer Mother T2DM (type 2 diabetes mellitus) Past heart attack Maternal Grandmother Breast cancer Maternal Grandfather No problems noted. Paternal Grandmother No problems noted. Paternal Grandfather No problems noted. Son No problems noted. Son No problems noted. Daughter No problems noted. Social History Household Members: None Housing: Apartment Are you a primary care program resident to a significant other at home: No Do you presently have visiting nurse or other home services: No Alcohol intake: current Alcohol intake frequency: does not drink Patient Tobacco Use Status: Never used Tobacco e-Cigarette/Vaping Use: Never Used Second Hand Smoke Exposure: No service: No Current occupational status: disabled Cognitive needs: No Hearing needs: No Vision needs: Yes (glasses) Questionnaire PHQ-9 Over the last 2 weeks, how often have you been bothered by any of the following problems? 1. Little interest or pleasure in doing things: more than half the days 2. Feeling down, depressed, or hopeless: nearly every day 3. Trouble falling or staying asleep, or sleeping too much: more than half the days 4. Feeling tired or having little energy: several days 5. Poor appetite or overeating: more than half the days 6. Feeling bad about yourself - or that you are a failure or have let yourself or your family down: not at all 7. Trouble concentrating on things, such as reading the newspaper or watching television: not at all 8. Moving or speaking so slowly that other people could have noticed. Or the opposite - being so fidgety or restless that you have been moving around a lot more than usual: not at all 9. Thoughts that you would be better off or of hurting yourself in some way: not at all Total score: 10 Source: Developed by Drs. Toribio Moise, Monae Herrera, Tung Chatterjee and colleagues, with an educational rakel from [employer]. Thrive Questionnaire Date Thrive assessed: 01/17/24 I am a: Patient What is your living situation today?: I have a steady place to live Within the past 12 months, did the food you bought not last and you didn't have the money to get more?: Never true Within the past 12 months, did you worry whether your food would run out before you got money to buy more?: Never true Do you have trouble paying for medicines?: No Do you have trouble getting transportation to medical appointments?: No Do you have trouble paying your heating and electricity bill?: No Do you have trouble taking care of your child, family member or friend?: No Do you have trouble with day-to-day activities such as bathing, preparing meals, shopping, managing finances, etc.?: No Are you currently unemployed and looking for a job?: No Are you interested in more education?: No Please select the resources that you would like help with: None THRIVE Score: 0 BREONNA-7 AMB Questionnaire BREONNA-7 Date BREONNA - 7 assessed: 01/17/24 Feeling nervous, anxious, or on edge: 0 = Not at all Not being able to stop or control worryin = Not at all Worrying too much about different things: 0 = Not at all Trouble relaxin = Not at all Being so restless that it is hard to sit still: 0 = Not at all Becoming easily annoyed or irritable: 0 = Not at all Feeling afraid as if something awful might happen: 0 = Not at all Total BREONNA-7 score (0-4 normal; 5-9 mild; 10-14 moderate; 15-21 severe): 0 Source: Developed by Drs. Toribio Moise, Monae Herrera, Tung Chatterjee and colleagues, with an educational rakel from [employer]. Review of Systems Const Denies chills, Denies headache(s) and Denies weight loss ENT Denies headache(s) Card Denies chest pain, Denies syncope, Denies irregular heart rhythm and Denies dyspnea Resp Denies chest congestion, Denies cough and Denies dyspnea GI Denies abdominal pain, Denies change in stool character, Denies nausea and Denies vomiting Musc Denies deformity and Denies joint swelling Neuro Denies syncope and Denies headache(s) Physical exam (Primary Care) Vital Signs: Last Vital Signs Pulse 88 01/17/24 11:05 BP 122/60 01/17/24 11:05 Pulse Ox 98 01/17/24 11:05 Oxygen Delivery Method Room Air 01/17/24 11:05 BMI result Body Mass Index 26.0 Tobacco/Smoking Status: Tobacco use Status Tobacco use date assessed 01/17/24 01/17/24 11:07 Patient Tobacco Use Status Never used Tobacco 01/17/24 11:07 e-Cigarette/Vaping Use Never Used 01/17/24 11:07 PHQ-9: PHQ-9 Score PHQ-9: Total score 10 01/17/24 11:21 Thrive Assessment: Date of Thrive Assessment Date Thrive assessed 01/17/24 01/17/24 11:07 Const General: cooperative, comfortable, no acute distress and alert Neck Neck: Yes no lymphadenopathy Thyroid: Thyroid normal Resp Effort & Inspection: normal respiratory effort Auscultation: clear to auscultation bilaterally Percussion: percussion normal Cardio Jugular venous distension: no JVD Palpation: normal PMI Rate: regular rate Rhythm: regular rhythm Heart sounds: S1 normal heart sound present and S2 normal heart sound present GI Inspection: Yes normal to inspection Palpation (GI): No hepatosplenomegaly present Skin General skin exam: no rashes or lesions noted Extrem General: Yes no clubbing, cyanosis or edema Results AMB Hemoglobin A1c AMB Hemoglobin A1c 7.1 % Last Edit by BRYON Rodrigez on 01/17/24 11:21 Results Reviewed Results Reviewed: Laboratory Last Values Hgb A1c (Clinic) 7.1 % (4.0-6.0) H 01/17/24 11:07 Assessment and Plan Assessment & Plan (1) HLD (hyperlipidemia): Comment: stable same meds Code(s): E78.5 - Hyperlipidemia, unspecified Qualifiers: Hyperlipidemia type: unspecified Qualified Code(s): E78.5 - Hyperlipidemia, unspecified (2) HTN (hypertension): Comment: stable; same meds Code(s): I10 - Essential (primary) hypertension Qualifiers: Hypertension type: unspecified Qualified Code(s): I10 - Essential (primary) hypertension Orders: Orders AMB Hemoglobin A1c Today E11.9 - Type 2 diabetes mellitus without complications Medications: Refilled blood sugar diagnostic (OneTouch Verio test strips) 4x daily 100 ea 11RF cetirizine 10 mg PO DAILY PRN 90 tabs 8RF allergy symptoms zolpidem (Ambien) 5 mg PO BEDTIME PRN 30 tabs 5RF insomnia Coding Level of Care Code Est Pt Level 4 (51154) Diagnoses Hyperlipidemia, unspecified hyperlipidemia type E78.5 Hyperlipidemia type: unspecified Hypertension, unspecified type I10 Hypertension type: unspecified
== END 2024-01-17 11:28 | disposition home or self-care (01) ==
PROVIDERS: PCP Internal Medicine; Visit Provider Internal Medicine
DX: E78.5 Hyperlipidemia, unspecified (principal); I10 Essential (primary) hypertension; E11.69 Type 2 diabetes mellitus with other specified complication
CPT/HCPCS: 83036; 99214

== ENCOUNTER 2024-04-21 13:57 | Outpatient (AMB) | payer OTHER, SELFPAY ==
[2024-04-21 14:05] VITALS: BP 120/60; PULSE 72; O2SAT 98; BMI 26.2
--- NOTE | 2024-04-21 14:05 | A.OFFPC_ITS ---
Vital Signs 04/21/24 14:05 Height 4 ft 9 in Weight 121 lb BMI 26.2 BP 120/60 Blood Pressure Location Lt brachial Position Sitting Pulse 72 Pulse Source Pulse Oximeter Pulse Oximetry (%) 98 Oxygen Delivery Method Room Air Intake Visit Reasons: 3mth f/u Mesmerist Required: No Sign Erector And Repairer: Not Required per policy Accompanied by: Self / Same As Patient Allergies strawberry [STRAWBERRY] Allergy (Mild, Verified 04/21/24 14:06) PRURITUS tomato [TOMATO] Allergy (Mild, Verified 04/21/24 14:06) HIVES acetaminophen [From Percocet] Allergy (Unknown, Verified 04/21/24 14:06) Unknown oxycodone [From Percocet] Allergy (Unknown, Verified 04/21/24 14:06) Unknown pollen extracts [POLLEN] Allergy (Unknown, Verified 04/21/24 14:06) UNKNOWN lactose [LACTOSE] Adverse Reaction (Unknown, Verified 04/21/24 14:06) GI UPSET DUST Allergy (Unknown, Uncoded 04/21/24 14:06) UNKNOWN ENVIRONMENTAL Allergy (Unknown, Uncoded 04/21/24 14:06) UNKNOWN trees leaves Allergy (Uncoded 04/21/24 14:06) unknown Medication List - Last Reconciled 04/24/24 by Dwayne Rivera MD aspirin 81 mg PO DAILY atorvastatin 40 mg PO DAILY 30 days blood sugar diagnostic (FreeStyle Lite Strips) 3 times a day blood sugar diagnostic (OneTouch Verio test strips) 4x daily [BP cuff As directed] [cane As directed] cetirizine 10 mg PO DAILY PRN cyanocobalamin (vitamin B-12) (Vitamin B-12) 1,000 mcg PO DAILY empagliflozin 10 mg PO DAILY famotidine 40 mg PO DAILY gabapentin 300 mg PO TID hydrochlorothiazide 25 mg PO DAILY lactobacillus combination no.4 (Probiotic) 3,000 mmu cells PO DAILY lancets (VisTracksTouch Delica Lancets) 4x daily linaclotide (Linzess) 145 mcg PO QAM lisinopril 10 mg PO DAILY metformin 1,000 mg PO BID metoclopramide HCl (Reglan) 5 mg PO QIDACHS mirtazapine 7.5 mg PO BEDTIME nortriptyline 25 mg PO DAILY pen needle, diabetic (BD Ultra-Fine Micro Pen Needle) once a week simethicone 125 mg PO BID-QID PRN zolpidem (Ambien) 5 mg PO BEDTIME PRN Tobacco use date assessed: 01/17/24 Fall risk assessment: No Falls in past year Last assessed Fall Risk: 04/21/24 Dental Screening Dental Screen Date: 01/17/24 HPI 3mth f/u HPI Details hyperlipidemia on rx; doing well and compliant [facility] Medical History Depression Fibromyalgia Gastroparesis Headache HLD (hyperlipidemia) HTN (hypertension) Hyperlipidemia associated with type 2 diabetes mellitus Osteopenia T2DM (type 2 diabetes mellitus) Vitamin D deficiency Surgical History History of hysteroscopy Status post right breast lumpectomy Hx of colonoscopy History of hysterectomy with bilateral oophorectomy History of carpal tunnel release History of tubal ligation History of ear surgery History of delivery Family History Father Cirrhosis Liver cancer Mother T2DM (type 2 diabetes mellitus) Past heart attack Maternal Grandmother Breast cancer Maternal Grandfather No problems noted. Paternal Grandmother No problems noted. Paternal Grandfather No problems noted. Son No problems noted. Son No problems noted. Daughter No problems noted. Social History Household Members: None Housing: Apartment Are you a primary customer care agent to a significant other at home: No Do you presently have visiting nurse or other home services: No Alcohol intake: current Alcohol intake frequency: does not drink Patient Tobacco Use Status: Never used Tobacco e-Cigarette/Vaping Use: Never Used Second Hand Smoke Exposure: No service: No Current occupational status: disabled Cognitive needs: No Hearing needs: No Vision needs: Yes (glasses) Questionnaire Thrive Questionnaire Date Thrive assessed: 01/17/24 BREONNA-7 AMB Questionnaire BREONNA-7 Date BREONNA - 7 assessed: 01/17/24 Source: Developed by Drs. Toribio Moise, Monae Herrera, Tung Chatterjee and colleagues, with an educational rakel from [employer]. Review of Systems Const Denies chills, Denies headache(s) and Denies weight loss ENT Denies headache(s) Card Denies chest pain, Denies syncope, Denies irregular heart rhythm and Denies dyspnea Resp Denies chest congestion, Denies cough and Denies dyspnea GI Denies abdominal pain, Denies change in stool character, Denies nausea and Denies vomiting Musc Denies deformity and Denies joint swelling Neuro Denies syncope and Denies headache(s) Physical exam (Primary Care) Vital Signs: Last Vital Signs Pulse 72 04/21/24 14:05 BP 120/60 04/21/24 14:05 Pulse Ox 98 04/21/24 14:05 Oxygen Delivery Method Room Air 04/21/24 14:05 BMI result Body Mass Index 26.2 Tobacco/Smoking Status: Tobacco use Status Tobacco use date assessed 01/17/24 04/21/24 14:09 Patient Tobacco Use Status Never used Tobacco 04/21/24 14:09 e-Cigarette/Vaping Use Never Used 04/21/24 14:09 Thrive Assessment: Date of Thrive Assessment Date Thrive assessed 01/17/24 04/21/24 14:09 Const General: cooperative, comfortable, no acute distress and alert Neck Neck: Yes no lymphadenopathy Thyroid: Thyroid normal Resp Effort & Inspection: normal respiratory effort Auscultation: clear to auscultation bilaterally Percussion: percussion normal Cardio Jugular venous distension: no JVD Palpation: normal PMI Rate: regular rate Rhythm: regular rhythm Heart sounds: S1 normal heart sound present and S2 normal heart sound present GI Inspection: Yes normal to inspection Palpation (GI): No hepatosplenomegaly present Skin General skin exam: no rashes or lesions noted Extrem General: Yes no clubbing, cyanosis or edema Results AMB Hemoglobin A1c AMB Hemoglobin A1c 7.4 % Last Edit by BRYON Rodrigez on 04/21/24 14:20 Results Reviewed Results Reviewed: Laboratory Last Values Hgb A1c (Clinic) 7.4 % (4.0-6.0) H 04/21/24 14:18 Assessment and Plan Assessment & Plan (1) Hyperlipidemia: Code(s): E78.5 - Hyperlipidemia, unspecified Plan: stable; same rx Orders: Orders AMB Hemoglobin A1c 04/21/24 E11.65 - Type 2 diabetes mellitus with hyperglycemia Coding Level of Care Code Est Pt Level 3 (72005) Diagnoses Hyperlipidemia E78.5
== END 2024-04-21 14:21 | disposition home or self-care (01) ==
PROVIDERS: PCP Internal Medicine; Visit Provider Internal Medicine
DX: E11.65 Type 2 diabetes mellitus with hyperglycemia (principal)
CPT/HCPCS: 83036; 99213

== ENCOUNTER 2024-04-25 10:23 | Outpatient (REF) | payer OTHER, SELFPAY ==
[2024-04-25 10:34] LABS: MANUAL DIFF FLAG NO
[2024-04-25 10:40] LABS: Basophils Percent Auto 0.4 % (0-2); Eosinophils Absolute Auto 0.1 X10*3/uL (0.0-0.4); Eosinophils Percent Auto 1.7 % (0-4); Hematocrit 36.6 % (37.0-47.0); Hemoglobin 12.1 g/dl (12.0-16.0); Imm Gran Abs Auto 0.03 X10*3/uL (0.00-0.03); Imm Gran Pct Auto 0.4 % (0.0-0.4); Lymphocytes Absolute Auto 1.8 X10*3/uL (1.2-4.9); Lymphocytes Percent Auto 25.6 % (20-40); Mean Corpuscular HGB Conc 33.1 g/dl (31.0-35.0); Mean Corpuscular Hemoglobin 28.1 pg (27.0-33.0); Mean Corpuscular Volume 85.1 fL (80.0-98.0); Mean Platelet Volume 9.2 fL (9.4-12.3); Monocytes Absolute Auto 0.5 X10*3/uL (0.1-1.2); Monocytes Percent Auto 6.6 % (2-11); Neutrophils Absolute Auto 4.6 x10*3/uL (2.0-8.3); Neutrophils Percent Auto 65.3 % (45-73); Platelet Count 234 X10*3/uL (160-400); Red Cell Distribution Width 14.1 % (11.0-16.0)
[2024-04-25 10:52] LABS: Estimated Average Glucose 163 mg/dL; Hemoglobin A1c % 7.3 % (<6.0)
[2024-04-25 12:00] LABS: Alanine Aminotransferase 18 U/L (0-31); Albumin Level 4.6 g/dL (3.5-5.0); Alkaline Phosphatase 53 U/L (39-117); Anion Gap 12 (12-20); Aspartate Amino Transferase 20 U/L (5-31); Bilirubin Total 0.4 mg/dL (0.0-1.0); Blood Urea Nitrogen 20 mg/dL (9-16); Calcium 9.8 mg/dL (8.4-10.2); Carbon Dioxide 29 mmol/L (22-29); Chloride 107 mmol/L (96-108); Cholesterol 135 mg/dL (<200); Estimated Glomerular Filt Rate > 60; Glucose Fasting 152 mg/dL (60-99); HDL Cholesterol 46 mg/dL (>40); LDL Cholesterol Calculated 61 mg/dL (<100); Sodium 144 mmol/L (135-145); Total Protein 7.6 g/dL (6.5-8.0); Triglycerides 141 mg/dL (<150)
== END 2024-04-25 10:24 | disposition home or self-care (01) ==
LOC: HO.LAB 10:23
PROVIDERS: PCP Internal Medicine; Visit Provider Internal Medicine
DX: R73.9 Hyperglycemia, unspecified (principal); Z13.0 Encounter for screening for diseases of the blood and blood-forming organs and certain disorders involving the immune mechanism; Z13.220 Encounter for screening for lipoid disorders; Z13.9 Encounter for screening, unspecified
CPT/HCPCS: 36415; 80053; 80061; 83036; 85025

== ENCOUNTER 2024-08-03 13:04 | Outpatient (AMB) | payer OTHER, SELFPAY ==
[2024-08-03 13:06] VITALS: BP 128/64; PULSE 78; O2SAT 98; BMI 26.8
--- NOTE | 2024-08-03 13:06 | A.OFFPC_ITS ---
Vital Signs 08/03/24 13:06 Height 4 ft 9 in Weight 124 lb BMI 26.8 BP 128/64 Blood Pressure Location Lt brachial Position Sitting Pulse 78 Pulse Source Pulse Oximeter Pulse Oximetry (%) 98 Oxygen Delivery Method Room Air Intake Visit Reasons: 3 Month F/U Accompanied by: Self / Same As Patient Allergies strawberry [STRAWBERRY] Allergy (Mild, Verified 08/03/24 13:11) PRURITUS tomato [TOMATO] Allergy (Mild, Verified 08/03/24 13:11) HIVES acetaminophen [From Percocet] Allergy (Unknown, Verified 08/03/24 13:11) Unknown oxycodone [From Percocet] Allergy (Unknown, Verified 08/03/24 13:11) Unknown pollen extracts [POLLEN] Allergy (Unknown, Verified 08/03/24 13:11) UNKNOWN lactose [LACTOSE] Adverse Reaction (Unknown, Verified 08/03/24 13:11) GI UPSET DUST Allergy (Unknown, Uncoded 08/03/24 13:11) UNKNOWN ENVIRONMENTAL Allergy (Unknown, Uncoded 08/03/24 13:11) UNKNOWN trees leaves Allergy (Uncoded 08/03/24 13:11) unknown Medication List - Last Reconciled 08/04/24 by Dwayne Rivera MD aspirin 81 mg PO DAILY atorvastatin 40 mg PO DAILY 30 days blood sugar diagnostic (FreeStyle Lite Strips) 3 times a day blood sugar diagnostic (OneTouch Verio test strips) 4x daily [BP cuff As directed] [cane As directed] cetirizine 10 mg PO DAILY PRN cyanocobalamin (vitamin B-12) (Vitamin B-12) 1,000 mcg PO DAILY empagliflozin 10 mg PO DAILY famotidine 40 mg PO DAILY gabapentin 300 mg PO TID hydrochlorothiazide 25 mg PO DAILY lactobacillus combination no.4 (Probiotic) 3,000 mmu cells PO DAILY lancets (OneTouch Delica Lancets) 4x daily linaclotide (Linzess) 145 mcg PO QAM lisinopril 10 mg PO DAILY metformin 1,000 mg PO BID metoclopramide HCl (Reglan) 5 mg PO QIDACHS mirtazapine 7.5 mg PO BEDTIME nortriptyline 25 mg PO DAILY pen needle, diabetic (BD Ultra-Fine Micro Pen Needle) once a week simethicone 125 mg PO BID-QID PRN zolpidem (Ambien) 5 mg PO BEDTIME PRN Tobacco use date assessed: 01/17/24 Fall risk assessment: 2 + 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) Last assessed Fall Risk: 08/03/24 Dental Screening Dental Screen Date: 01/17/24 HPI 3 Month F/U HPI Details hyperlipidemia on rx; compliant; labs ok PFSH Medical History Depression Fibromyalgia Gastroparesis Headache HLD (hyperlipidemia) HTN (hypertension) Hyperlipidemia associated with type 2 diabetes mellitus Osteopenia T2DM (type 2 diabetes mellitus) Vitamin D deficiency Surgical History History of hysteroscopy Status post right breast lumpectomy Hx of colonoscopy History of hysterectomy with bilateral oophorectomy History of carpal tunnel release History of tubal ligation History of ear surgery History of delivery Family History Father Cirrhosis Liver cancer Mother T2DM (type 2 diabetes mellitus) Past heart attack Maternal Grandmother Breast cancer Maternal Grandfather No problems noted. Paternal Grandmother No problems noted. Paternal Grandfather No problems noted. Son No problems noted. Son No problems noted. Daughter No problems noted. Social History Household Members: None Housing: Apartment Are you a primary resident care technician to a significant other at home: No Do you presently have visiting nurse or other home services: No Alcohol intake: current Alcohol intake frequency: does not drink Patient Tobacco Use Status: Never used Tobacco Tobacco use type: Cigarette e-Cigarette/Vaping Use: Never Used Second Hand Smoke Exposure: No service: No Current occupational status: disabled Cognitive needs: No Hearing needs: No Vision needs: Yes (glasses) Questionnaire PHQ-9 Over the last 2 weeks, how often have you been bothered by any of the following problems? 1. Little interest or pleasure in doing things: more than half the days 2. Feeling down, depressed, or hopeless: nearly every day 3. Trouble falling or staying asleep, or sleeping too much: more than half the days 4. Feeling tired or having little energy: several days 5. Poor appetite or overeating: more than half the days 6. Feeling bad about yourself - or that you are a failure or have let yourself or your family down: not at all 7. Trouble concentrating on things, such as reading the newspaper or watching television: not at all 8. Moving or speaking so slowly that other people could have noticed. Or the opposite - being so fidgety or restless that you have been moving around a lot more than usual: not at all 9. Thoughts that you would be better off or of hurting yourself in some way: not at all Total score: 10 Source: Developed by Drs. Toribio Moise, Monae Herrera, Tung Chatterjee and colleagues, with an educational rakel from [employer]. Thrive Questionnaire Date Thrive assessed: 01/17/24 Are you currently unemployed and looking for a job?: Yes AUDIT C Alcohol Use Questionnaire (AUDIT-C) 1. How often do you have a drink containing alcohol?: Never 3. How often do you have six or more drinks on one occasion?: Never Total Score: 0 Score Reviewed/Action Taken: Yes BREONNA-7 AMB Questionnaire BREONNA-7 Date BREONNA - 7 assessed: 01/17/24 Source: Developed by Drs. Toribio Moise, Monae Herrera, Tung Chatterjee and colleagues, with an educational rakel from [employer]. Review of Systems Const Denies chills, Denies headache(s) and Denies weight loss ENT Denies headache(s) Card Denies chest pain, Denies syncope, Denies irregular heart rhythm and Denies dyspnea Resp Denies chest congestion, Denies cough and Denies dyspnea GI Denies abdominal pain, Denies change in stool character, Denies nausea and Denies vomiting Musc Denies deformity and Denies joint swelling Neuro Denies syncope and Denies headache(s) Physical exam (Primary Care) Vital Signs: Last Vital Signs Pulse 78 08/03/24 13:06 BP 128/64 08/03/24 13:06 Pulse Ox 98 08/03/24 13:06 Oxygen Delivery Method Room Air 08/03/24 13:06 BMI result Body Mass Index 26.8 Tobacco/Smoking Status: Tobacco use Status Tobacco use date assessed 01/17/24 08/03/24 13:17 Patient Tobacco Use Status Never used Tobacco 08/03/24 13:17 Tobacco use type Cigarette 08/03/24 13:17 e-Cigarette/Vaping Use Never Used 08/03/24 13:17 PHQ-9: PHQ-9 Score PHQ-9: Total score 10 08/03/24 13:17 Thrive Assessment: Date of Thrive Assessment Date Thrive assessed 01/17/24 08/03/24 13:17 Const General: cooperative, comfortable, no acute distress and alert Neck Neck: Yes no lymphadenopathy Thyroid: Thyroid normal Resp Effort & Inspection: normal respiratory effort Auscultation: clear to auscultation bilaterally Percussion: percussion normal Cardio Jugular venous distension: no JVD Palpation: normal PMI Rate: regular rate Rhythm: regular rhythm Heart sounds: S1 normal heart sound present and S2 normal heart sound present GI Inspection: Yes normal to inspection Palpation (GI): No hepatosplenomegaly present Skin General skin exam: no rashes or lesions noted Extrem General: Yes no clubbing, cyanosis or edema Results AMB Hemoglobin A1c AMB Hemoglobin A1c 8.1 % Last Edit by Ana Raymundo CMA on 08/03/24 13:18 Results Reviewed Results Reviewed: Laboratory Last Values Hgb A1c (Clinic) 8.1 % (4.0-6.0) H 08/03/24 13:17 Assessment and Plan Assessment & Plan (1) HLD (hyperlipidemia): Comment: stable same meds Code(s): E78.5 - Hyperlipidemia, unspecified Qualifiers: Hyperlipidemia type: unspecified Qualified Code(s): E78.5 - Hyperlipidemia, unspecified Orders: Orders Lipid Panel 08/03/24 Z13.220 - Encounter for screening for lipoid disorders Thyroid Stimulating Hormone 08/03/24 Z13.29 - Encounter for screening for other suspected endocrine disorder Hemoglobin A1c 08/03/24 R73.9 - Hyperglycemia, unspecified AMB Hemoglobin A1c 08/03/24 E11.65 - Type 2 diabetes mellitus with hyperglycemia Complete Blood Count Auto Diff 08/03/24 Z13.0 - Encounter for screening for diseases of the blood and blood-forming organs and certain disorders involving the immune mechanism Comprehensive [place]. Panel Fast 08/03/24 Z13.9 - Encounter for screening, unspecified Microalbumin, Random (w Creat) 08/03/24 E11.69 - Type 2 diabetes mellitus with other specified complication, E66.01 - Morbid (severe) obesity due to excess calories Medications: Refilled gabapentin 300 mg PO TID 90 caps 0RF metformin 1,000 mg PO BID 180 tabs 8RF hydrochlorothiazide 25 mg PO DAILY 90 tabs 5RF zolpidem (Ambien) 5 mg PO BEDTIME PRN 30 tabs 5RF insomnia Coding Level of Care Code Est Pt Level 3 (36939) Diagnoses Hyperlipidemia, unspecified hyperlipidemia type E78.5 Hyperlipidemia type: unspecified
== END 2024-08-03 13:31 | disposition home or self-care (01) ==
PROVIDERS: PCP Internal Medicine; Visit Provider Internal Medicine
DX: E78.5 Hyperlipidemia, unspecified (principal)

== ENCOUNTER → 2024-08-03 13:04 | Outpatient (BNVA) | payer OTHER, SELFPAY | PROVIDERS: PCP Internal Medicine; Visit Provider Internal Medicine | DX: E11.65 Type 2 diabetes mellitus with hyperglycemia (principal) | CPT/HCPCS: 83036; 99212 ==

== ENCOUNTER 2024-08-11 09:40 | Outpatient (REF) | payer OTHER, SELFPAY ==
[2024-08-11 11:07] LABS: MANUAL DIFF FLAG NO
[2024-08-11 11:17] LABS: Basophils Percent Auto 0.6 % (0-2); Eosinophils Absolute Auto 0.1 X10*3/uL (0.0-0.4); Eosinophils Percent Auto 2.4 % (0-4); Hematocrit 37.1 % (37.0-47.0); Hemoglobin 12.3 g/dl (12.0-16.0); Imm Gran Abs Auto 0.01 X10*3/uL (0.00-0.03); Imm Gran Pct Auto 0.2 % (0.0-0.4); Lymphocytes Absolute Auto 1.6 X10*3/uL (1.2-4.9); Lymphocytes Percent Auto 29.7 % (20-40); Mean Corpuscular HGB Conc 33.2 g/dl (31.0-35.0); Mean Corpuscular Hemoglobin 28.2 pg (27.0-33.0); Mean Corpuscular Volume 85.1 fL (80.0-98.0); Mean Platelet Volume 9.8 fL (9.4-12.3); Monocytes Absolute Auto 0.4 X10*3/uL (0.1-1.2); Monocytes Percent Auto 7.3 % (2-11); Neutrophils Absolute Auto 3.2 x10*3/uL (2.0-8.3); Neutrophils Percent Auto 59.8 % (45-73); Platelet Count 273 X10*3/uL (160-400); Red Blood Count 4.36 X10*6/uL (4.20-5.50); White Blood Count 5.4 X10*3/uL (4.8-10.8)
[2024-08-11 11:33] LABS: Estimated Average Glucose 183 mg/dL; Hemoglobin A1C 197.6282 umol/L; Total Hemoglobin (HGBA1C) 3113.8506 umol/L
[2024-08-11 12:19] LABS: Alanine Aminotransferase 16 U/L (0-31); Albumin Level 4.7 g/dL (3.5-5.0); Alkaline Phosphatase 51 U/L (39-117); Anion Gap 15 (12-20); Aspartate Amino Transferase 17 U/L (5-31); Bilirubin Total 0.2 mg/dL (0.0-1.0); Blood Urea Nitrogen 12 mg/dL (9-16); Calcium 9.7 mg/dL (8.4-10.2); Carbon Dioxide 27 mmol/L (22-29); Chloride 103 mmol/L (96-108); Cholesterol 303 mg/dL (<200); Estimated Glomerular Filt Rate > 60; Glucose Fasting 226 mg/dL (60-99); HDL Cholesterol 49 mg/dL (>40); LDL Cholesterol Calculated 203 mg/dL (<100); Potassium 4.1 mmol/L (3.3-5.1); Sodium 141 mmol/L (135-145); Triglycerides 256 mg/dL (<150)
[2024-08-11 12:37] LABS: Creatinine Urine 80.81 mg/dL; Microalbum/Creatinine Ratio Ur 107.6 ug/mg cr (<30)
[2024-08-11 12:41] LABS: Thyroid Stimulating Hormone 0.91 uIU/mL (0.32-4.0)
== END 2024-08-11 09:41 | disposition home or self-care (01) ==
LOC: HO.HHCL 09:40
PROVIDERS: Visit Provider Internal Medicine
DX: Z13.0 Encounter for screening for diseases of the blood and blood-forming organs and certain disorders involving the immune mechanism (principal); Z13.9 Encounter for screening, unspecified; E11.69 Type 2 diabetes mellitus with other specified complication; E66.01 Morbid (severe) obesity due to excess calories; Z13.220 Encounter for screening for lipoid disorders; Z13.29 Encounter for screening for other suspected endocrine disorder; R73.9 Hyperglycemia, unspecified
CPT/HCPCS: 36415; 80053; 80061; 82043; 82570; 83036; 84443; 85025

== ENCOUNTER 2024-08-30 14:04 | Outpatient (AMB) | payer OTHER, SELFPAY ==
--- NOTE | 2024-08-30 14:09 | MHC.PC.OV ---
Vital Signs 08/30/24 14:10 Height 4 ft 9 in Weight 122 lb BMI 26.4 BP 150/72 H Blood Pressure Location Lt brachial Position Sitting Pulse 78 Pulse Source Pulse Oximeter Pulse Oximetry (%) 98 Oxygen Delivery Method Room Air Intake Visit Reasons: Back Pain Intake Note: pt c/o of headache and back pain [id number] due to a fall Allergies strawberry [STRAWBERRY] Allergy (Mild, Verified 08/30/24 14:10) PRURITUS tomato [TOMATO] Allergy (Mild, Verified 08/30/24 14:10) HIVES acetaminophen [From Percocet] Allergy (Unknown, Verified 08/30/24 14:10) Unknown oxycodone [From Percocet] Allergy (Unknown, Verified 08/30/24 14:10) Unknown pollen extracts [POLLEN] Allergy (Unknown, Verified 08/30/24 14:10) UNKNOWN lactose [LACTOSE] Adverse Reaction (Unknown, Verified 08/30/24 14:10) GI UPSET DUST Allergy (Unknown, Uncoded 08/30/24 14:10) UNKNOWN ENVIRONMENTAL Allergy (Unknown, Uncoded 08/30/24 14:10) UNKNOWN trees leaves Allergy (Uncoded 08/30/24 14:10) unknown Medication List - Last Reconciled 08/30/24 by Dwayne Rivera MD aspirin 81 mg PO DAILY atorvastatin 40 mg PO DAILY 30 days blood sugar diagnostic (FreeStyle Lite Strips) 3 times a day blood sugar diagnostic (OneTouch Verio test strips) 4x daily [BP cuff As directed] [cane As directed] cetirizine 10 mg PO DAILY PRN cyanocobalamin (vitamin B-12) (Vitamin B-12) 1,000 mcg PO DAILY empagliflozin 10 mg PO DAILY famotidine 40 mg PO DAILY gabapentin 300 mg PO TID hydrochlorothiazide 25 mg PO DAILY lactobacillus combination no.4 (Probiotic) 3,000 mmu cells PO DAILY lancets (Ruci.cnTouch Delica Lancets) 4x daily linaclotide (Linzess) 145 mcg PO QAM lisinopril 10 mg PO DAILY metformin 1,000 mg PO BID metoclopramide HCl (Reglan) 5 mg PO QIDACHS mirtazapine 7.5 mg PO BEDTIME nortriptyline 25 mg PO DAILY pen needle, diabetic (BD Ultra-Fine Micro Pen Needle) once a week simethicone 125 mg PO BID-QID PRN zolpidem (Ambien) 5 mg PO BEDTIME PRN Tobacco use date assessed: 01/17/24 Fall risk assessment: 1 Fall in past year Last assessed Fall Risk: 08/30/24 Dental Screening Dental Screen Date: 01/17/24 HPI Back Pain HPI Details slipped and fell 2 weeks ago; injured lower back PFSH Medical History Depression Fibromyalgia Gastroparesis Headache HLD (hyperlipidemia) HTN (hypertension) Hyperlipidemia associated with type 2 diabetes mellitus Osteopenia T2DM (type 2 diabetes mellitus) Vitamin D deficiency Surgical History History of hysteroscopy Status post right breast lumpectomy Hx of colonoscopy History of hysterectomy with bilateral oophorectomy History of carpal tunnel release History of tubal ligation History of ear surgery History of delivery Family History Father Cirrhosis Liver cancer Mother T2DM (type 2 diabetes mellitus) Past heart attack Maternal Grandmother Breast cancer Maternal Grandfather No problems noted. Paternal Grandmother No problems noted. Paternal Grandfather No problems noted. Son No problems noted. Son No problems noted. Daughter No problems noted. Social History Household Members: None Housing: Apartment Are you a primary home health care physician to a significant other at home: No Do you presently have visiting nurse or other home services: No Alcohol intake: current Alcohol intake frequency: does not drink Patient Tobacco Use Status: Never used Tobacco Tobacco use type: Cigarette e-Cigarette/Vaping Use: Never Used Second Hand Smoke Exposure: No service: No Current occupational status: disabled Cognitive needs: No Hearing needs: No Vision needs: Yes (glasses) Questionnaire Thrive Questionnaire Date Thrive assessed: 01/17/24 Are you currently unemployed and looking for a job?: Yes AUDIT C Alcohol Use Questionnaire (AUDIT-C) 1. How often do you have a drink containing alcohol?: Never 3. How often do you have six or more drinks on one occasion?: Never Total Score: 0 Score Reviewed/Action Taken: Yes BREONNA-7 AMB Questionnaire BREONNA-7 Date BREONNA - 7 assessed: 01/17/24 Source: Developed by Drs. Toribio Moise, Monae Herrera, Tung Chatterjee and colleagues, with an educational rakel from [employer]. Review of Systems Const Denies chills, Denies headache(s) and Denies weight loss ENT Denies headache(s) Card Denies chest pain, Denies syncope, Denies irregular heart rhythm and Denies dyspnea Resp Denies chest congestion, Denies cough and Denies dyspnea GI Denies abdominal pain, Denies change in stool character, Denies nausea and Denies vomiting Musc Denies deformity and Denies joint swelling Neuro Denies syncope and Denies headache(s) Physical exam (Primary Care) Vital Signs: Last Vital Signs Pulse 78 08/30/24 14:10 BP 150/72 H 08/30/24 14:10 Pulse Ox 98 08/30/24 14:10 Oxygen Delivery Method Room Air 08/30/24 14:10 BMI result Body Mass Index 26.4 Tobacco/Smoking Status: Tobacco use Status Tobacco use date assessed 01/17/24 08/30/24 14:11 Patient Tobacco Use Status Never used Tobacco 08/30/24 14:11 Tobacco use type Cigarette 08/30/24 14:11 e-Cigarette/Vaping Use Never Used 08/30/24 14:11 Thrive Assessment: Date of Thrive Assessment Date Thrive assessed 01/17/24 08/30/24 14:11 Const General: cooperative, comfortable, no acute distress and alert Neck Neck: Yes no lymphadenopathy Thyroid: Thyroid normal Resp Effort & Inspection: normal respiratory effort Auscultation: clear to auscultation bilaterally Percussion: percussion normal Cardio Jugular venous distension: no JVD Palpation: normal PMI Rate: regular rate Rhythm: regular rhythm Heart sounds: S1 normal heart sound present and S2 normal heart sound present GI Inspection: Yes normal to inspection Palpation (GI): No hepatosplenomegaly present Skin General skin exam: no rashes or lesions noted Extrem General: Yes no clubbing, cyanosis or edema Coding Level of Care Code Est Pt Level 3 (31859) Diagnoses Low back pain M54.50 Assessment & Plan Assessment & Plan (1) Low back pain: Code(s): M54.50 - Low back pain, unspecified Plan: xr and rx sent Orders: Orders XR lumbar spine 2-3V Today M54.9 - Dorsalgia, unspecified Medications: New naproxen (Naprosyn) 500 mg PO BID PRN 60 tabs 0RF pain
[2024-08-30 14:10] VITALS: BP 150/72; PULSE 78; O2SAT 98; BMI 26.4
== END 2024-08-30 14:53 | disposition home or self-care (01) ==
PROVIDERS: PCP Internal Medicine; Visit Provider Internal Medicine
DX: M54.50 Low back pain, unspecified (principal)

== ENCOUNTER 2024-08-30 14:04 | Outpatient (REF) | payer OTHER, SELFPAY | END 2024-08-30 14:05 | disposition home or self-care (01) | LOC: HO.XRAY 14:04 | PROVIDERS: PCP Internal Medicine; Visit Provider Internal Medicine | DX: M54.9 Dorsalgia, unspecified (principal); M54.50 Low back pain, unspecified | CPT/HCPCS: 72100; 99212 ==

== ENCOUNTER 2024-09-13 13:00 | Outpatient (AMB) | payer OTHER, SELFPAY ==
[2024-09-13 13:09] VITALS: BP 146/70; PULSE 68; O2SAT 97; BMI 27.0
--- NOTE | 2024-09-13 13:09 | A.OFFVIS_ITS ---
Vital Signs 09/13/24 13:09 Height 4 ft 9 in Weight 124 lb 12.506 oz BMI 27.0 BP 146/70 H Blood Pressure Location Rt brachial Position Sitting Pulse 68 Pulse Source Pulse Oximeter Pulse Oximetry (%) 97 Oxygen Delivery Method Room Air Intake Visit Reasons: pt req appointment Intake Note: PRESCRIPTIONS LAST GENERATED metoclopramide HCl 5 mg tablet?(Reglan)?5 mg PO QIDACHS 120 tabs 3RF SherriSamLyla D 02/24/23 12:38 (Transmitted) linaclotide 145 mcg capsule?(Linzess)?145 mcg PO QAM 90 caps 3RF Sherri,Lyla D 02/24/23 12:38 (Transmitted) Pt was taking these medications but ran out. Pt will need refills. Pt was still content with the therapeutic response with these medications. Relevant Flags or Indicators ? Requires Pump House Engineer? Teresa Geller presents in office today for a scheduled 1 year FUV. Pt originally was supposed to have 3 mos FUV. CC; No recent labs, diagnostics placed. ? Relevant GI Sx as reported per pt? Reflux ? Dysphagia ? Fecal abnormalities; No discoloration noted. o?? Constipation ? Abdominal Pain - Epigastric ? Early satiety ? Bloating ? Hx of any recent surgeries? None Pump House Engineer Required: Yes Pump House Engineer Services: Pump House Engineer Present Pump House Engineer Name: [id number] Avendano Information Interpreted: non-clinical & clinical Accompanied by: Self / Same As Patient Allergies strawberry [STRAWBERRY] Allergy (Mild, Verified 09/13/24 13:19) PRURITUS tomato [TOMATO] Allergy (Mild, Verified 09/13/24 13:19) HIVES acetaminophen [From Percocet] Allergy (Unknown, Verified 09/13/24 13:19) Unknown oxycodone [From Percocet] Allergy (Unknown, Verified 09/13/24 13:19) Unknown pollen extracts [POLLEN] Allergy (Unknown, Verified 09/13/24 13:19) UNKNOWN lactose [LACTOSE] Adverse Reaction (Unknown, Verified 09/13/24 13:19) GI UPSET DUST Allergy (Unknown, Uncoded 08/30/24 14:10) UNKNOWN ENVIRONMENTAL Allergy (Unknown, Uncoded 08/30/24 14:10) UNKNOWN trees leaves Allergy (Uncoded 08/30/24 14:10) unknown HPI HPI pt req appointment: Details: LAST VISIT GERD (gastroesophageal reflux disease) Continue Pepcid. Discussed with patient avoiding dietary triggers and late night snacking. Staying upright for minimum 3 hours after meals discussed with patient. Epigastric abdominal pain Occasional epigastric pain associated with bloating. Patient was encouraged to eat small meals and more often. Chronic idiopathic constipation Continue Linzess. Patient was also encouraged to increase fluid intake and activity to promote better bowel motility. Gastroparesis Patient is doing well on the Reglan. No tremors, no and increased and anxiety. She can continue on that. Patient is only taking it couple times a day. Refills as requested sent to pharmacy. I will see patient in 3 months, sooner on as needed basis. Patient is agreeable to this plan and verbalizes understanding of instructions. She was given the opportunity to ask questions and all questions answered. ? Thank you for allowing me to participate in her care Plan Medications Refilled linaclotide (Linzess) 145 mcg PO QAM 90 caps 3RF metoclopramide HCl (Reglan) mega un comprimido 30 minutos antes de las comidas 5 mg PO QIDACHS 120 tabs 3RF K31.84 - Gastroparesis simethicone 125 mg PO BID-QID PRN 120 caps 3RF abdominal distention R14.0 - Abdominal distension (gaseous) famotidine Tomalo todos los balderas al mediodia. 40 mg PO DAILY 90 tabs 3RF K21.9 - Gastro- esophageal reflux disease without esophagitis TODAY'S VISIT Patient is here today for follow-up. Patient reports that she started with epigastric pain and bloating few weeks ago. Patient reports that she is taking Pepcid however it is not really helping her. Patient is using Linzess and for the most part she feels like she moves her bowels well. Patient has missed couple of her appointments in the past. Patient reports dyspepsia occasional dysphagia without odynophagia. Patient denies melena, hematochezia, unintentional weight loss or ribbon like stools. Patient denies abdominal pain, reports cramping and bloating. Patient reports that she stopped taking Reglan. Patient's blood sugar has not been controlled very well. Her A1c increase from 7.3 % to 8 % in the past few months. [facility] Medical History Gastroparesis Hyperlipidemia associated with type 2 diabetes mellitus Osteopenia Headache Depression Vitamin D deficiency Fibromyalgia HTN (hypertension) HLD (hyperlipidemia) T2DM (type 2 diabetes mellitus) Surgical History History of hysteroscopy Status post right breast lumpectomy Hx of colonoscopy History of hysterectomy with bilateral oophorectomy History of carpal tunnel release History of tubal ligation History of ear surgery History of delivery Family History Father Cirrhosis Liver cancer Mother T2DM (type 2 diabetes mellitus) Past heart attack Maternal Grandmother Breast cancer Maternal Grandfather No problems noted. Paternal Grandmother No problems noted. Paternal Grandfather No problems noted. Son No problems noted. Son No problems noted. Daughter No problems noted. Social History Household Members: None Housing: Apartment Are you a primary adult care manager to a significant other at home: No Do you presently have visiting nurse or other home services: No Alcohol intake: current Alcohol intake frequency: does not drink Patient Tobacco Use Status: Never used Tobacco Tobacco use type: Cigarette e-Cigarette/Vaping Use: Never Used Second Hand Smoke Exposure: No service: No Current occupational status: disabled Cognitive needs: No Hearing needs: No Vision needs: Yes (glasses) Review of Systems Const Denies weight gain and Denies weight loss ENT Reports no additional complaints, Denies dysphagia and Denies odynophagia Card Reports no additional complaints Resp Reports no additional complaints GI Denies abdominal pain, Denies belching, Denies melena, Denies bloating, Denies change in bowel habits, Denies dysphagia, Denies excessive flatus, Denies dyspepsia, Denies heartburn, Denies diarrhea, Denies loose stools, Denies nausea, Denies odynophagia and Denies vomiting Musc Reports no additional complaints Neuro Reports no additional complaints Psych Reports no additional complaints Endo Reports no additional complaints Physical Exam Vital Signs: Last Vital Signs Pulse 68 09/13/24 13:09 BP 146/70 H 09/13/24 13:09 Pulse Ox 97 09/13/24 13:09 Oxygen Delivery Method Room Air 09/13/24 13:09 BMI result Body Mass Index 27.0 Const General: healthy appearing, no acute distress and well developed Nutritional Appearance: overweight Orientation/consciousness: patient oriented x3 Resp Effort & Inspection: normal respiratory effort, able to speak in complete sentences, no tracheal deviation and symmetric chest movement Auscultation: clear to auscultation bilaterally Cardio Rate: regular rate GI Inspection: Yes normal to inspection and No distended Palpation (GI): Soft to palpation, not firm, nontender and No hepatosplenomegaly present Auscultation: normal bowel sounds General: Yes no CVA tenderness Back/Spine/Pelvis Back: no CVA tenderness Skin General skin exam: elasticity normal, turgor normal and dry skin Neuro General: patient oriented x3 Psych Appearance: grossly normal Mental Status: mental status grossly normal Assessment & Plan Assessment & Plan (1) GERD (gastroesophageal reflux disease): Code(s): K21.9 - Gastro-esophageal reflux disease without esophagitis Category: Medical Qualifiers: Esophagitis presence: without esophagitis Qualified Code(s): K21.9 - Gastro-esophageal reflux disease without esophagitis (2) Epigastric abdominal pain: Code(s): R10.13 - Epigastric pain Category: Medical (3) Chronic idiopathic constipation: Code(s): K59.04 - Chronic idiopathic constipation Category: Medical (4) Gastroparesis: Code(s): K31.84 - Gastroparesis Category: Medical Plan Patient will continue taking Linzess daily. Increase fluid intake and activity to promote better bowel motility. Patient will start taking pantoprazole in the morning half an hour before breakfast. Avoid dietary triggers and late night snacking. Staying upright for minimum 3 hours after meals discussed with patient. Patient will return in the office in 3 months, sooner on as needed basis. She is agreeable to plan of care and verbalizes understanding of instructions. She was given the opportunity to ask questions and all questions answered. Thank you for allowing me to participate in her care Medications: New pantoprazole take one tablet half an hour before breakfast 40 mg PO DAILY 30 tabs 2RF K21.9 - Gastro-esophageal reflux disease without esophagitis Refilled linaclotide (Linzess) 145 mcg PO QAM 90 caps 3RF Discontinued metoclopramide HCl mega un comprimido 30 minutos antes de las comidas Discontinued Reason: Doctor's Order 5 mg PO QIDACHS 120 tabs 3RF K31.84 - Gastroparesis Coding Level of Care Code Est Pt Level 3 (04205) Diagnoses Gastroesophageal reflux disease without esophagitis K21.9 Esophagitis presence: without esophagitis Epigastric abdominal pain R10.13 Chronic idiopathic constipation K59.04 Gastroparesis K31.84 Time Spent (min) 30 Comment 20 minutes spent with patient and additional 10 minutes spent reviewing her records
== END 2024-09-13 13:48 | disposition home or self-care (01) ==
LOC: HO.HGI 13:01
PROVIDERS: PCP Internal Medicine; Visit Provider Nurse Practitioner Family
DX: K21.9 Gastro-esophageal reflux disease without esophagitis (principal); R10.13 Epigastric pain; K59.04 Chronic idiopathic constipation; K31.84 Gastroparesis
CPT/HCPCS: 99213

== ENCOUNTER → 2024-09-13 13:00 | Outpatient (BNVA) | payer OTHER, SELFPAY | PROVIDERS: PCP Internal Medicine; Visit Provider Nurse Practitioner Family | DX: K21.9 Gastro-esophageal reflux disease without esophagitis (principal); K59.04 Chronic idiopathic constipation; K31.84 Gastroparesis; E11.43 Type 2 diabetes mellitus with diabetic autonomic (poly)neuropathy; R10.13 Epigastric pain | CPT/HCPCS: 99212 ==

== ENCOUNTER 2024-11-14 13:52 | Outpatient (REF) | payer OTHER, SELFPAY ==
--- NOTE | ~2024-11-14 | MM_ITS ---
EXAMINATION: MM SCREENING DIGITAL BREAST TOMOSYNTHESIS, BILATERAL CLINICAL INFORMATION: Screening. Asymptomatic. COMPARISON: Mammography: Comparison is made with available priors TECHNIQUE: Digital breast mammography with tomosynthesis is performed in both the craniocaudal and mediolateral oblique views along with computer-aided detection (CAD). FINDINGS: The breasts are heterogeneously dense, which may obscure small masses (ACR BI-RADS breast composition Category c). Right lumpectomy changes are stable. There are no significant masses, abnormal calcifications, or other abnormalities. MM/MM tomosynthesis screening BI IMPRESSION: No mammographic evidence of malignancy. ASSESSMENT: BI-RADS BI-RADS 2 - Benign Findings RECOMMENDATION: Routine annual mammography screening. 1 year F/U This examination should not preclude the clinical evaluation of a suspicious palpable abnormality. This patient's information was entered into a reminder system with a target due date for their next mammogram. Electronically signed by: Alethea Payton DO 11/20/2024 05:16 PM SARABJIT
== END 2024-11-14 13:53 | disposition home or self-care (01) ==
LOC: HO.MAMMO 13:52
PROVIDERS: PCP Internal Medicine; Visit Provider Internal Medicine
DX: Z12.31 Encounter for screening mammogram for malignant neoplasm of breast (principal)
CPT/HCPCS: 77063; 77067

== ENCOUNTER → 2024-11-14 14:00 | Outpatient (BNV) | payer OTHER, SELFPAY | PROVIDERS: PCP Internal Medicine; Visit Provider Internal Medicine | DX: Z12.31 Encounter for screening mammogram for malignant neoplasm of breast (principal) | CPT/HCPCS: 77063; 77067 ==

== ENCOUNTER 2024-11-17 13:21 | Outpatient (AMB) | payer OTHER, SELFPAY ==
--- NOTE | 2024-11-17 13:25 | MHC.PC.OV ---
Vital Signs 11/17/24 13:26 Height 4 ft 9 in Weight 127 lb 4 oz BMI 27.5 BP 140/60 H Blood Pressure Location Lt brachial Position Sitting Pulse 77 Pulse Source Pulse Oximeter Temp 97.6 F Temp Source Temporal Artery Scan Pulse Oximetry (%) 97 Oxygen Delivery Method Room Air Intake Visit Reasons: 3mth f/u Allergies strawberry [STRAWBERRY] Allergy (Mild, Verified 09/13/24 13:19) PRURITUS tomato [TOMATO] Allergy (Mild, Verified 09/13/24 13:19) HIVES acetaminophen [From Percocet] Allergy (Unknown, Verified 09/13/24 13:19) Unknown oxycodone [From Percocet] Allergy (Unknown, Verified 09/13/24 13:19) Unknown pollen extracts [POLLEN] Allergy (Unknown, Verified 09/13/24 13:19) UNKNOWN lactose [LACTOSE] Adverse Reaction (Unknown, Verified 09/13/24 13:19) GI UPSET DUST Allergy (Unknown, Uncoded 08/30/24 14:10) UNKNOWN ENVIRONMENTAL Allergy (Unknown, Uncoded 08/30/24 14:10) UNKNOWN trees leaves Allergy (Uncoded 08/30/24 14:10) unknown Tobacco use date assessed: 01/17/24 Dental Screening Dental Screen Date: 01/17/24 HPI 3mth f/u HPI Details diabetes on rx; compliant [facility] Medical History Gastroparesis Hyperlipidemia associated with type 2 diabetes mellitus Osteopenia Headache Depression Vitamin D deficiency Fibromyalgia HTN (hypertension) HLD (hyperlipidemia) T2DM (type 2 diabetes mellitus) Surgical History History of hysteroscopy Status post right breast lumpectomy Hx of colonoscopy History of hysterectomy with bilateral oophorectomy History of carpal tunnel release History of tubal ligation History of ear surgery History of delivery Family History Father Cirrhosis Liver cancer Mother T2DM (type 2 diabetes mellitus) Past heart attack Maternal Grandmother Breast cancer Maternal Grandfather No problems noted. Paternal Grandmother No problems noted. Paternal Grandfather No problems noted. Son No problems noted. Son No problems noted. Daughter No problems noted. Social History Household Members: None Housing: Apartment Are you a primary customer care manager to a significant other at home: No Do you presently have visiting nurse or other home services: No Alcohol intake: current Alcohol intake frequency: does not drink Patient Tobacco Use Status: Never used Tobacco Tobacco use type: Cigarette e-Cigarette/Vaping Use: Never Used Second Hand Smoke Exposure: No service: No Current occupational status: disabled Cognitive needs: No Hearing needs: No Vision needs: Yes (glasses) Questionnaire PHQ-9 Over the last 2 weeks, how often have you been bothered by any of the following problems? 1. Little interest or pleasure in doing things: not at all 2. Feeling down, depressed, or hopeless: not at all 3. Trouble falling or staying asleep, or sleeping too much: not at all 4. Feeling tired or having little energy: not at all 5. Poor appetite or overeating: not at all 6. Feeling bad about yourself - or that you are a failure or have let yourself or your family down: not at all 7. Trouble concentrating on things, such as reading the newspaper or watching television: not at all 8. Moving or speaking so slowly that other people could have noticed. Or the opposite - being so fidgety or restless that you have been moving around a lot more than usual: not at all 9. Thoughts that you would be better off or of hurting yourself in some way: not at all Total score: 0 99163 - PHQ-9 Billing: Yes Source: Developed by Drs. Toribio Moise, Monae Herrera, Tung Chatterjee and colleagues, with an educational rakel from [employer] Thrive Questionnaire Date Thrive assessed: 11/17/24 I am a: Patient What is your living situation today?: I have a steady place to live Within the past 12 months, did the food you bought not last and you didn't have the money to get more?: Never true Within the past 12 months, did you worry whether your food would run out before you got money to buy more?: Never true Do you have trouble paying for medicines?: No Do you have trouble getting transportation to medical appointments?: No Do you have trouble paying your heating and electricity bill?: No Do you have trouble taking care of your child, family member or friend?: No Do you have trouble with day-to-day activities such as bathing, preparing meals, shopping, managing finances, etc.?: No Are you currently unemployed and looking for a job?: No Are you interested in more education?: No Please select the resources that you would like help with: None Currently or been in a relationship where the following occur: No concerns reported THRIVE Score: 0 AUDIT C Alcohol Use Questionnaire (AUDIT-C) 1. How often do you have a drink containing alcohol?: Never 3. How often do you have six or more drinks on one occasion?: Never Total Score: 0 BREONNA-7 AMB Questionnaire BREONNA-7 Date BREONNA - 7 assessed: 11/17/24 Feeling nervous, anxious, or on edge: 0 = Not at all Not being able to stop or control worryin = Not at all Worrying too much about different things: 0 = Not at all Trouble relaxin = Not at all Being so restless that it is hard to sit still: 0 = Not at all Becoming easily annoyed or irritable: 0 = Not at all Feeling afraid as if something awful might happen: 0 = Not at all Total BREONNA-7 score (0-4 normal; 5-9 mild; 10-14 moderate; 15-21 severe): 0 Source: Developed by Drs. Toribio Moise, Monae Herrera, Tung Chatterjee and colleagues, with an educational rakel from [employer] BREONNA-7 Assessment Billing BREONNA-7 Assessment Tool: BREONNA-7 Assessment 02293 Review of Systems Const Denies chills, Denies headache(s) and Denies weight loss ENT Denies headache(s) Card Denies chest pain, Denies syncope, Denies irregular heart rhythm and Denies dyspnea Resp Denies chest congestion, Denies cough and Denies dyspnea GI Denies abdominal pain, Denies change in stool character, Denies nausea and Denies vomiting Musc Denies deformity and Denies joint swelling Neuro Denies syncope and Denies headache(s) Physical exam (Primary Care) Vital Signs: Last Vital Signs Temp 97.6 F 11/17/24 13:26 Pulse 77 11/17/24 13:26 BP 140/60 H 11/17/24 13:26 Pulse Ox 97 11/17/24 13:26 Oxygen Delivery Method Room Air 11/17/24 13:26 BMI result Body Mass Index 27.5 Tobacco/Smoking Status: Tobacco use Status Tobacco use date assessed 01/17/24 11/17/24 13:30 Patient Tobacco Use Status Never used Tobacco 11/17/24 13:30 Tobacco use type Cigarette 11/17/24 13:30 e-Cigarette/Vaping Use Never Used 11/17/24 13:30 PHQ-9: PHQ-9 Score PHQ-9: Total score 0 11/17/24 13:30 Thrive Assessment: Date of Thrive Assessment Date Thrive assessed 11/17/24 11/17/24 13:30 Currently or been in a relationship where the following occur: No concerns reported Const General: cooperative, comfortable, no acute distress and alert Neck Neck: Yes no lymphadenopathy Thyroid: Thyroid normal Resp Effort & Inspection: normal respiratory effort Auscultation: clear to auscultation bilaterally Percussion: percussion normal Cardio Jugular venous distension: no JVD Palpation: normal PMI Rate: regular rate Rhythm: regular rhythm Heart sounds: S1 normal heart sound present and S2 normal heart sound present GI Inspection: Yes normal to inspection Palpation (GI): No hepatosplenomegaly present Skin General skin exam: no rashes or lesions noted Extrem General: Yes no clubbing, cyanosis or edema Coding Level of Care Code Est Pt Level 3 (89629) Diagnoses Type 2 diabetes mellitus with hyperglycemia, without long-term current use of insulin E11.65 Diabetes mellitus termite control representative insulin use: without senior care use Diabetes mellitus complication status: with hyperglycemia Additional Codes BREONNA-7 Assessment Billing - BREONNA-7 Assessment Tool: BREONNA-7 Assessment 93737 ([id number]) PHQ-9 - 33220 - PHQ-9 Billing: Yes ([id number]) Assessment & Plan Assessment & Plan (1) T2DM (type 2 diabetes mellitus): Code(s): E11.9 - Type 2 diabetes mellitus without complications Category: Medical Qualifiers: Diabetes mellitus senior care insulin use: without termite control representative use Diabetes mellitus complication status: with hyperglycemia Qualified Code(s): E11.65 - Type 2 diabetes mellitus with hyperglycemia Plan: stable; same rx
[2024-11-17 13:26] VITALS: BP 140/60; PULSE 77; TEMP 36.4; O2SAT 97; BMI 27.5
== END 2024-11-17 13:40 | disposition home or self-care (01) ==
PROVIDERS: PCP Internal Medicine; Visit Provider Internal Medicine
DX: E11.65 Type 2 diabetes mellitus with hyperglycemia (principal)

== ENCOUNTER → 2024-11-17 13:21 | Outpatient (BNVA) | payer OTHER, SELFPAY | PROVIDERS: PCP Internal Medicine; Visit Provider Internal Medicine | DX: E11.65 Type 2 diabetes mellitus with hyperglycemia (principal) | CPT/HCPCS: 96127; 99212 ==

== ENCOUNTER 2024-12-15 15:30 | Outpatient (AMB) | payer OTHER, SELFPAY ==
[2024-12-15 15:34] VITALS: BP 146/56; PULSE 68; O2SAT 97; BMI 28.0
--- NOTE | 2024-12-15 15:34 | MHC.OFFVIS ---
Vital Signs 12/15/24 15:34 Height 4 ft 9 in Weight 129 lb 3.054 oz BMI 28.0 BP 146/56 H Blood Pressure Location Rt brachial Position Sitting Pulse 68 Pulse Source Pulse Oximeter Pulse Oximetry (%) 97 Oxygen Delivery Method Room Air Intake Visit Reasons: 3 months f/u GERD Intake Note: ESTABLISHED PATIENT for Chronic constipation mgmt. Chief Complaint; C/O epigastric pain, worsening reflux, dysphagia, N+V intermittently, SoB + Hoarseness intermittently. No additional concerns. Pt still reports taking pantoprazole and famotidine daily. Snaker Tractor Driver Required: Yes Snaker Tractor Driver Services: Snaker Tractor Driver Present Snaker Tractor Driver Name: Arlette [id number] + GI Lang. Med. Information Interpreted: clinical only Accompanied by: Self / Same As Patient Allergies strawberry [STRAWBERRY] Allergy (Mild, Verified 12/15/24 15:40) PRURITUS tomato [TOMATO] Allergy (Mild, Verified 12/15/24 15:40) HIVES acetaminophen [From Percocet] Allergy (Unknown, Verified 12/15/24 15:40) Unknown oxycodone [From Percocet] Allergy (Unknown, Verified 12/15/24 15:40) Unknown pollen extracts [POLLEN] Allergy (Unknown, Verified 12/15/24 15:40) UNKNOWN lactose [LACTOSE] Adverse Reaction (Unknown, Verified 12/15/24 15:40) GI UPSET DUST Allergy (Unknown, Uncoded 12/15/24 15:40) UNKNOWN ENVIRONMENTAL Allergy (Unknown, Uncoded 12/15/24 15:40) UNKNOWN trees leaves Allergy (Uncoded 12/15/24 15:40) unknown HPI HPI 3 months f/u GERD: Details: LAST VISIT GERD (gastroesophageal reflux disease) Epigastric abdominal pain Chronic idiopathic constipation Gastroparesis Plan Patient will continue taking Linzess daily. Increase fluid intake and activity to promote better bowel motility. Patient will start taking pantoprazole in the morning half an hour before breakfast. Avoid dietary triggers and late night snacking. Staying upright for minimum 3 hours after meals discussed with patient. Patient will return in the office in 3 months, sooner on as needed basis. She is agreeable to plan of care and verbalizes understanding of instructions. She was given the opportunity to ask questions and all questions answered. ? Thank you for allowing me to participate in her care Medications New pantoprazole take one tablet half an hour before breakfast 40 mg PO DAILY 30 tabs 2RF K21.9 Refilled linaclotide (Linzess) 145 mcg PO QAM 90 caps 3RF Discontinued metoclopramide HCl mega un comprimido 30 minutos antes de las comidas Discontinued Reason: Doctor's Order 5 mg PO QIDACHS 120 tabs 3RF K31.84 TODAY'S VISIT Patient is here today for follow-up. Patient reports difficulty of swallowing. Patient reports that this happens when she tries to swallow solids no trouble swallowing liquids. Patient also reports increase reflux as well as hoarseness in her throat. Patient denies any choking episodes. Patient feels like sometimes food gets stuck and she has to swallow couple times before foods will go down. Patient denies any nausea or vomiting. She is currently taking pantoprazole daily and famotidine at bedtime. Patient reports that she is moving her bowels better now that she is taking Linzess. Patient denies any melena, hematochezia, unintentional weight loss or ribbon like stools. No change in her diet. Patient feels like she has frequent runny nose. Reports sore throat and postnasal drip in the past few weeks. Patient is not aware if she has any environmental allergies. No fever or chills Patient denies any other GI concerning symptoms. [facility] Medical History Gastroparesis Hyperlipidemia associated with type 2 diabetes mellitus Osteopenia Headache Depression Vitamin D deficiency Fibromyalgia HTN (hypertension) HLD (hyperlipidemia) T2DM (type 2 diabetes mellitus) Surgical History History of hysteroscopy Status post right breast lumpectomy Hx of colonoscopy History of hysterectomy with bilateral oophorectomy History of carpal tunnel release History of tubal ligation History of ear surgery History of delivery Family History Father Cirrhosis Liver cancer Mother T2DM (type 2 diabetes mellitus) Past heart attack Maternal Grandmother Breast cancer Maternal Grandfather No problems noted. Paternal Grandmother No problems noted. Paternal Grandfather No problems noted. Son No problems noted. Son No problems noted. Daughter No problems noted. Social History Household Members: None Housing: Apartment Are you a primary geriatric care manager to a significant other at home: No Do you presently have visiting nurse or other home services: No Alcohol intake: current Alcohol intake frequency: does not drink Patient Tobacco Use Status: Never used Tobacco Tobacco use type: Cigarette e-Cigarette/Vaping Use: Never Used Second Hand Smoke Exposure: No service: No Current occupational status: disabled Cognitive needs: No Hearing needs: No Vision needs: Yes (glasses) Review of Systems Const Denies weight gain and Denies weight loss ENT Reports no additional complaints, Reports dysphagia and Denies odynophagia Card Reports no additional complaints Resp Reports no additional complaints GI Denies abdominal pain, Denies belching, Denies melena, Denies bloating, Denies change in bowel habits, Reports dysphagia, Denies excessive flatus, Reports dyspepsia, Reports heartburn, Denies diarrhea, Denies loose stools, Denies nausea, Denies odynophagia and Denies vomiting Reports no additional complaints Musc Reports no additional complaints Neuro Reports no additional complaints Psych Reports no additional complaints Endo Reports no additional complaints Physical Exam Vital Signs: Last Vital Signs Pulse 68 12/15/24 15:34 BP 146/56 H 12/15/24 15:34 Pulse Ox 97 12/15/24 15:34 Oxygen Delivery Method Room Air 12/15/24 15:34 BMI result Body Mass Index 28.0 Const General: healthy appearing, no acute distress and well developed Nutritional Appearance: overweight Orientation/consciousness: patient oriented x3 Resp Effort & Inspection: normal respiratory effort, able to speak in complete sentences, no tracheal deviation and symmetric chest movement Auscultation: clear to auscultation bilaterally Cardio Rate: regular rate GI Inspection: Yes normal to inspection and No distended Palpation (GI): Soft to palpation, not firm, nontender and No hepatosplenomegaly present Auscultation: normal bowel sounds General: Yes no CVA tenderness Back/Spine/Pelvis Back: no CVA tenderness Skin General skin exam: elasticity normal, turgor normal and dry skin Neuro General: patient oriented x3 Psych Appearance: grossly normal Mental Status: mental status grossly normal Assessment & Plan Assessment & Plan (1) GERD (gastroesophageal reflux disease): Code(s): K21.9 - Gastro-esophageal reflux disease without esophagitis Category: Medical Qualifiers: Esophagitis presence: without esophagitis Qualified Code(s): K21.9 - Gastro-esophageal reflux disease without esophagitis (2) Epigastric abdominal pain: Code(s): R10.13 - Epigastric pain Category: Medical (3) Chronic idiopathic constipation: Code(s): K59.04 - Chronic idiopathic constipation Category: Medical (4) Gastroparesis: Code(s): K31.84 - Gastroparesis Category: Medical (5) Dysphagia: Code(s): R13.10 - Dysphagia, unspecified Qualifiers: Dysphagia type: oropharyngeal phase Qualified Code(s): R13.12 - Dysphagia, oropharyngeal phase Plan Patient reports trouble swallowing solids. Patient has a feeling like there is something stuck in her throat. We will do soft tissue neck x-ray. Exam normal trace redness in the back of her throat seen, possible postnasal drip. Will send a script for Zyrtec. Patient will follow-up on this with her PCP. Suspecting worsening reflux might be causing this. Will stop pantoprazole and start lansoprazole. Discussed with patient avoiding dietary triggers. Continue eating smaller meals and more often. Drinking liquids after each bite of solid food. Avoid late night snacking. Staying upright for minimum 3 hours after meals discussed with her. Will send her for upper GI with barium swallow to evaluate for reflux, esophageal dysmotility. Patient will follow-up in the office in 3 months. She will call us if she will have any worsening symptoms. She is agreeable to this plan and verbalizes understanding of instructions. She was given the opportunity to ask questions and all questions answered. Thank you for allowing me to participate in her care Orders: Orders FL upper GI w Ba Swallow 12/15/24 K21.9 - Gastro-esophageal reflux disease without esophagitis XR soft tissue neck 12/15/24 E04.9 - Nontoxic goiter, unspecified, J02.9 - Acute pharyngitis, unspecified, R49.0 - Dysphonia Medications: New lansoprazole 30 mg PO DAILY 30 caps 3RF K21.9 - Gastro-esophageal reflux disease without esophagitis cetirizine (Zyrtec) 10 mg PO DAILY PRN 30 tabs 0RF allergy symptoms J31.0 - Chronic rhinitis Discontinued pantoprazole Discontinued Reason: Doctor's Order 40 mg PO QAM 90 tabs 0RF K21.9 - Gastro-esophageal reflux disease without esophagitis Coding Level of Care Code Est Pt Level 4 (45146) Complex EM visit Add On G2211 Diagnoses Gastroesophageal reflux disease without esophagitis K21.9 Esophagitis presence: without esophagitis Epigastric abdominal pain R10.13 Chronic idiopathic constipation K59.04 Gastroparesis K31.84 Oropharyngeal dysphagia R13.12 Dysphagia type: oropharyngeal phase Time Spent (min) 35 Comment 25 minutes spent with patient and additional 10 minutes spent reviewing her records
== END 2024-12-15 16:10 | disposition home or self-care (01) ==
PROVIDERS: PCP Internal Medicine; Visit Provider Nurse Practitioner Family
DX: K21.9 Gastro-esophageal reflux disease without esophagitis (principal); R10.13 Epigastric pain; K59.04 Chronic idiopathic constipation; K31.84 Gastroparesis; R13.12 Dysphagia, oropharyngeal phase
CPT/HCPCS: 99214; G2211

== ENCOUNTER 2024-12-15 16:17 | Outpatient (REF) | payer OTHER, SELFPAY ==
--- NOTE | ~2024-12-15 | XR_ITS ---
CLINICAL HISTORY: R49.0 - Dysphonia 2 views soft tissue neck Comparison: None Findings No acute fractures or dislocation. Normal epiglottis. No prevertebral soft tissue swelling. No radiopaque foreign body. IMPRESSION: No acute findings This document has been electronically signed by: Satish Daigle MD on 12/19/2024 07:17:00
--- OUTSIDE RECORDS SUMMARY | 2024-12-15 16:19 | XMS_ITS | Encounter Summary ---
Author Organization [facility] Address [address] [place] [address] Care Team Providers Care Youth Manager Name Role Phone Unavailable Primary Care Provider Unavailabl e Encounter Details Date Type Department Care Team (Latest Contact Info) Description 08/04/2019 Abstract C CONVERSIONS Dental, Provider, DDS Social History Tobacco Use Types Packs/Day Years Used Date Smoking Tobacco: Never Assessed Comments Unknown Sex and Gender Information Value Date Recorded Sex Assigned at Female 09/07/2022 10:14 AM EDT Legal Sex Female 10:14 AM EDT Gender Identity Female 09/07/2022 10:14 AM EDT Sexual Orientation Straight 09/07/2022 10 :14 AM EDT documented as of this encounter Plan of Treatment Not on file documented as of this encounter Visit Diagnoses Not on filedocumented in this encounter
--- OUTSIDE RECORDS SUMMARY | 2024-12-15 16:19 | XMS_ITS | Encounter Summary ---
Author Organization [facility] Address [address] [place] [address] Care Team Providers Care Pin Ticket Machine Operator Name Role Phone Unavailable Primary Care Provider Unavailabl e Encounter Details Date Type Department Care Team (Latest Contact Info) Description 04/01/2021 Abstract C CONVERSIONS Dental, Provider, DDS Social [...]
--- OUTSIDE RECORDS SUMMARY | 2024-12-15 16:19 | XMS_ITS | Clinical Summary ---
Author Organization [facility] Address [address] [place] [address] Care Team Providers Care Hazardous Materials Waste Technician Name Role Phone Unavailable Primary Care Provider Unavailabl e Social History Tobacco Use Types Packs/Day Years Used Date Smoking Tobacco: Never Assessed Comments Unknown Sex and Gender Information Value Date Recorded Sex Assigned at Female 09/07/2022 10:14 AM EDT Legal Sex Female 10:14 AM EDT Gender Identity Female 09/07/2022 10:14 AM EDT Sexual Orientation Straight 09/07/2022 10 :14 AM EDT Plan of Treatment Health Maintenance Due Date Last Done Comments CT Colonography 1955 Colonoscopy 1955 Colorectal Cancer Screening 1955 Depression Screening 1955 FIT DNA/Cologuard 1955 FIT 1955 FOBT 1955 Sigmoidoscopy 1955 Alcohol/Substance Use Screening 1967 Tobacco Screening 1967 DTaP/Tdap/Td Vaccines (1 - Tdap) 1974 Mammogram 1995 Zoster Vaccines (1 of 2) 2005 Pneumococcal Vaccine: 50+ Years (2 of 2 - PCV) 11/25/2017 11/25/2016 COVID-19 Vaccine (3 - season) 2024 03/07/2021, 02/13/2021 Influenza Vaccine (#1) 2024 , 08/07/2020, 07/19/2019, Additional history exists RSV Patients and Patients Aged 60 years or older (1 - 1-dose 75+ series) 2030 HIB Vaccines Aged Out No longer eligi ble based on patient's age to complete this topic HPV Vaccines Aged Out No longer eligi ble based on patient's age to complete this topic Hepatitis A Vaccines Aged Out No long er eligible based on patient's age to complete this topic Hepatitis B Vaccines Aged Out No long er eligible based on patient's age to complete this topic IPV Vaccines Aged Out No longer eligi ble based on patient's age to complete this topic Meningococcal Vaccine Aged Out No solomon lupe eligible based on patient's age to complete this topic RSV under 20 months Aged Out No longe r eligible based on patient's age to complete this topic Rotavirus Vaccines Aged Out No longer eligible based on patient's age to complete this topic
--- OUTSIDE RECORDS SUMMARY | 2024-12-15 16:19 | XMS_ITS | Patient Health Record ---
Author Organization [facility]. Address [id number] [place] [address] Care Team Providers Care Bpm Architect Name Role Phone Gabo Margarita Primary Care Provider Adilia Rush Unavailable [phone] LATOYA AVINA Unavailable ALLERGIES Allergen (clinical drug ingredient) Drug/Non Drug Allergy documented on EMR Reaction Allergy Type Onset Date Status Watermelon Flavor hives Drug Allergy Active REASON FOR REFERRAL No Information MEDICATIONS Medication SIG (Take, Route, Frequency, Duration) Notes Start Date End Date Status Zolpidem Tartrate 5 MG 1 tablet at bedtime every day Orally daily for [address] directions in upper sorbian 10/26/2023 Active Magnesium 400 MG as directed Orally Once a day for 30 days Active Arcata 3 1000 MG 1 capsule Orally Once a day for 90 days 08/27/2023 Active Vitamin B12 100 MCG 1 tablet Orally Once a day for 90 days Active Famotidine 40 MG 1 tablet at bedtime Orally Once a day Active Aspir-Low 81 MG 1 tablet Orally Once a day Active FreeStyle Colten 2 Huson - as directed a s directed 4x/day for 999 days Sending in [place] today Active Lisinopril 10 MG 1 tablet Orally Once a day Active hydroCHLOROthiazide 25 MG 1 tablet in morning Orally Once a day Active metFORMIN HCl 1000 MG TAKE 1 TABLET BY MOUTH TWICE A DAY WITH A MEAL FOR 90 DAYS for 90 Active Linzess 145 MCG 1 capsule at least 30 minutes before the first meal of the day on an empty stomach Orally Once a day Active Metoclopramide HCl 5 MG 1 tablet before meals Orally Twice a day Active Escitalopram Oxalate 5 MG TOME MINAL TABLE TA AL ROMAN for 90 Active Cetirizine HCl 10 MG 1 tablet Orally Once a day Active Fluticasone Furoate 50 MCG/ACT 1 puff Inhalation Once a day Active Jardiance 10 MG TOME 1 TABLETA POR VIA ORAL TODOS [place] VIEYRA FOR 90 DAYS for 90 Active Vitamin D 50 MCG (2000 UT) 1 tablet Oral ly Once a day Active Refresh 1.4-0.6 % Instill 1 drop in both eyes Ophthalmic 2-3 times daily, or as needed for irritation for 30 days 11/29/2023 Active OneTouch Verio - as directed In Vitro BID for 90 days Active Lyrica 25 MG 1 capsule Orally Once a day for 30 days 10/26/2023 Active Pregabalin 25 MG 1 capsule Orally Twice a day for 30 days 01/22/2024 Active FreeStyle Colten 2 Sensor - as directed a s directed every 14 days for 999 days Active Pregabalin 25 MG TOME MINAL CAPSULA TODOS [place] FOR 30 DAYS for 30 01/22/2024 Active Zolpidem Tartrate 5 MG 1 tablet at bedtime as needed Orally Once a day for 30 days 11/30/2023 Active Simethicone 125 MG 1 tablet after meals and at bedtime as needed Orally Four times a day for 30 days Active Atorvastatin Calcium 40 MG TOME 1 TABLET A POR VIA ORAL TODOS [place] for 90 Active SOCIAL HISTORY Tobacco Use: Social History Observation Description Date Details (start date - stop date) Never Smoker NA - NA Sex Assigned At : Social History Observation Description Sex Assigned At Unknown Tobacco Use/Smoking Question Answer Notes Are you a nonsmoker Alcohol Screen Question Answer Notes Did you have a drink containing alcohol in the p ast year? No Points 0 Interpretation Negative Sexual History Question Answer Notes Had sex in the past 12 months (vaginal, oral, or anal)? No Have you ever had a Sexually transmitted disease ? 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) Active confirmed Bilateral age-related cataract (4298229471835735 3) Problem Presbyopia (H52.4) Active confirmed Presbyopia (43468883) Problem Fibromyalgia (M79.7) Active confirmed Fibromyalgia (625911472) Problem Hypertension (I10) Active confirmed Hypertension (62970188) Problem Insomnia (G47.00) Active confirmed Inso mnia (763008885) Problem Diabetes (E11.9) Active confirmed Diabe julius mellitus without complication (024704431) Problem Type 2 diabetes mellitus (E11.9) Active confirmed Type 2 diab etes mellitus (17371830) Problem Hyperlipidemia (E78.5) Active confirmed Hyperlipidemia (59631837) Problem Major depressive disorder (F32.9) Active confirmed Major depre ssive disorder (002562112) Encounters Encounter Location Date Provider Diagnosis [address] [id number], [place] [address] 12/28/[address] [address] 01/22/[address] [address] 01/22/[address] [address] 02/12/[address] [address] 02/12/[address] [id number], [place] [address] 08/30/2024 [place] [address] ([facility]) [address] [place] [address] 12/06/2024 Adilia Rush [facility] [address] [place] [address] 12/30/[address] [address] 03/02/2024 [facility] [address] [place] [address] 02/11/2024 [facility] [place] [address] ([facility]) [address] [place] [address] [facility] [place] [address] 01/04/2024 Adilia Rush PLAN OF TREATMENT Pending Test Test Name Order Date X ray : Spines, lumbar 2 views * 023 MICROALBUMIN, RANDOM URINE (W/CREATININE ) 06/29/2023 LIPID PANEL 07/15/2023 Insurance Providers Payer Name Payer Address Payer Phone Subscriber Number Group Number Insured Name Patient Relationship to Insured Coverage Start Date Coverage End Date MEDICARE FQHC [address] [place] [address] [id number] Duyen Arlelano Self - patient is the insured 0 JANUARY Goss [address] [place] [address] [id number] Duyen Arellano Self - patient is the insured MEDICAL (GENERAL) HISTORY Medical History History ICD Code diabetes mellitus hypertension GERD chronic sinusitis migraine headaches DILATED EYE EXAM 11/2023 Surgical History Surgery Date(Month/Year)
== END 2024-12-15 16:18 | disposition home or self-care (01) ==
LOC: HO.XRAY 16:17
PROVIDERS: PCP Internal Medicine; Visit Provider Nurse Practitioner Family
DX: R49.0 Dysphonia (principal); J02.9 Acute pharyngitis, unspecified; E04.9 Nontoxic goiter, unspecified
CPT/HCPCS: 70360; 99212

== ENCOUNTER → 2024-12-15 16:20 | Outpatient (BNV) | payer OTHER, SELFPAY | PROVIDERS: PCP Internal Medicine; Visit Provider Radiology Diagnostic Radiology | DX: R49.0 Dysphonia (principal) | CPT/HCPCS: 70360 ==

== ENCOUNTER 2025-02-13 14:55 | Outpatient (AMB) | payer OTHER, SELFPAY ==
[2025-02-13 15:15] VITALS: BP 156/68; PULSE 72; O2SAT 99; BMI 28.3
--- NOTE | 2025-02-13 15:15 | A.OFFVIS_ITS ---
Vital Signs 02/13/25 15:15 Height 4 ft 9 in Weight 130 lb 15.273 oz BMI 28.3 BP 156/68 H Blood Pressure Location Rt brachial Position Sitting Pulse 72 Pulse Source Pulse Oximeter Pulse Oximetry (%) 99 Oxygen Delivery Method Room Air Intake Visit Reasons: 10 wks Intake Note: ESTABLISHED PATIENT for Chronic constipation + GERD mgmt. Xray complete, FL BA scheduled for end of February. Chief Complaint; C/O persistent sx since last visit without any response to therapies attempted. Pt still taking all medications as instructed. Epigastric pain, reflux (worse AM), hoarse voice, constipation. Environmental Permitting Specialist Required: Yes Environmental Permitting Specialist Services: Environmental Permitting Specialist Present Environmental Permitting Specialist Name: Demetri [id number] Information Interpreted: clinical only Accompanied by: Self / Same As Patient Allergies strawberry [STRAWBERRY] Allergy (Mild, Verified 02/13/25 15:15) PRURITUS tomato [TOMATO] Allergy (Mild, Verified 02/13/25 15:15) HIVES acetaminophen [From Percocet] Allergy (Unknown, Verified 02/13/25 15:15) Unknown oxycodone [From Percocet] Allergy (Unknown, Verified 02/13/25 15:15) Unknown pollen extracts [POLLEN] Allergy (Unknown, Verified 02/13/25 15:15) UNKNOWN lactose [LACTOSE] Adverse Reaction (Unknown, Verified 02/13/25 15:15) GI UPSET DUST Allergy (Unknown, Uncoded 02/13/25 15:15) UNKNOWN ENVIRONMENTAL Allergy (Unknown, Uncoded 02/13/25 15:15) UNKNOWN trees leaves Allergy (Uncoded 02/13/25 15:15) unknown HPI HPI 10 wks: Details: LAST VISIT: GERD (gastroesophageal reflux disease) Epigastric abdominal pain Chronic idiopathic constipation Gastroparesis Dysphagia Plan Patient reports trouble swallowing solids. Patient has a feeling like there is something stuck in her throat. We will do soft tissue neck x-ray. Exam normal trace redness in the back of her throat seen, possible postnasal drip. Will send a script for Zyrtec. Patient will follow-up on this with her PCP. Suspecting worsening reflux might be causing this. Will stop pantoprazole and start lansoprazole. Discussed with patient avoiding dietary triggers. Continue eating smaller meals and more often. Drinking liquids after each bite of solid food. Avoid late night snacking. Staying upright for minimum 3 hours after meals discussed with her. Will send her for upper GI with barium swallow to evaluate for reflux, esophageal dysmotility. Patient will follow-up in the office in 3 months. She will call us if she will have any worsening symptoms. She is agreeable to this plan and verbalizes understanding of instructions. She was given the opportunity to ask questions and all questions answered. ? Thank you for allowing me to participate in her care Orders Orders FL upper GI w Ba Swallow 12/15/24 K21.9 XR soft tissue neck 12/15/24 E04.9, J02.9, R49.0 Medications New lansoprazole 30 mg PO DAILY 30 caps 3RF K21.9 cetirizine (Zyrtec) 10 mg PO DAILY PRN 30 tabs 0RF allergy symptoms J31.0 Discontinued pantoprazole Discontinued Reason: Doctor's Order 40 mg PO QAM 90 tabs 0RF K21.9 TODAY'S VISIT Patient is here today for follow-up. Patient has upper GI series scheduled for end of this month. She continues to have epigastric pain postprandially and acid reflux. Currently is taking lansoprazole in the morning and famotidine at bedtime. Her symptoms are worse towards the end of the day, however depending on what she eats patient will also experience dyspepsia and dysphagia. Patient had normal x-ray of soft tissue neck. Patient denies any nausea or vomiting. Denies any melena, hematochezia. Reports that she is moving her bowels well with Linzess. [facility] Medical History Gastroparesis Hyperlipidemia associated with type 2 diabetes mellitus Osteopenia Headache Depression Vitamin D deficiency Fibromyalgia HTN (hypertension) HLD (hyperlipidemia) T2DM (type 2 diabetes mellitus) Surgical History History of hysteroscopy Status post right breast lumpectomy Hx of colonoscopy History of hysterectomy with bilateral oophorectomy History of carpal tunnel release History of tubal ligation History of ear surgery History of delivery Family History Father Cirrhosis Liver cancer Mother T2DM (type 2 diabetes mellitus) Past heart attack Maternal Grandmother Breast cancer Maternal Grandfather No problems noted. Paternal Grandmother No problems noted. Paternal Grandfather No problems noted. Son No problems noted. Son No problems noted. Daughter No problems noted. Social History Household Members: None Housing: Apartment Are you a primary clinical manager home care to a significant other at home: No Do you presently have visiting nurse or other home services: No Alcohol intake: current Alcohol intake frequency: does not drink Patient Tobacco Use Status: Never used Tobacco Tobacco use type: Cigarette e-Cigarette/Vaping Use: Never Used Second Hand Smoke Exposure: No service: No Current occupational status: disabled Cognitive needs: No Hearing needs: No Vision needs: Yes (glasses) Physical Exam Vital Signs: Last Vital Signs Pulse 72 02/13/25 15:15 BP 156/68 H 02/13/25 15:15 Pulse Ox 99 02/13/25 15:15 Oxygen Delivery Method Room Air 02/13/25 15:15 BMI result Body Mass Index 28.3 Results Reviewed Results Reviewed: X-RAY SOFT TISSUE NECK 12/19/2024 Findings No acute fractures or dislocation. Normal epiglottis. No prevertebral soft tissue swelling. No radiopaque foreign body. Assessment & Plan Assessment & Plan (1) GERD (gastroesophageal reflux disease): Code(s): K21.9 - Gastro-esophageal reflux disease without esophagitis Category: Medical Qualifiers: Esophagitis presence: without esophagitis Qualified Code(s): K21.9 - Gastro-esophageal reflux disease without esophagitis (2) Epigastric abdominal pain: Code(s): R10.13 - Epigastric pain Category: Medical (3) Chronic idiopathic constipation: Code(s): K59.04 - Chronic idiopathic constipation Category: Medical (4) Gastroparesis: Code(s): K31.84 - Gastroparesis Category: Medical (5) Dysphagia: Code(s): R13.10 - Dysphagia, unspecified Qualifiers: Dysphagia type: pharyngoesophageal phase Qualified Code(s): R13.14 - Dysphagia, pharyngoesophageal phase Plan Will change treatment. Patient will start Nexium half an hour before breakfast and start sucralfate. Stop lansoprazole and famotidine. Avoid dietary triggers and late night snacking. Continue taking Linzess daily. Patient has appointment for upper GI series and of February. Patient will follow-up with us in 2-3 months, sooner on as needed basis. Patient is agreeable to this plan and verbalizes understanding of instructions. She was given the opportunity to ask questions and all questions answered. Thank you for allowing me to participate in her care Medications: New esomeprazole magnesium (Nexium) 40 mg PO DAILY 30 caps 2RF K21.9 - Gastro- esophageal reflux disease without esophagitis sucralfate 10 mL PO BEDTIME 400 mL 3RF K21.9 - Gastro-esophageal reflux disease without esophagitis Discontinued famotidine John phillipss al mediodia. Discontinued Reason: Duplicate 40 mg PO DAILY 90 tabs 3RF K21.9 - Gastro- esophageal reflux disease without esophagitis lansoprazole Discontinued Reason: Doctor's Order 30 mg PO DAILY 30 caps 3RF K21.9 - Gastro-esophageal reflux disease without esophagitis Coding Level of Care Code Est Pt Level 4 (32121) Complex EM visit Add On G2211 Diagnoses Gastroesophageal reflux disease without esophagitis K21.9 Esophagitis presence: without esophagitis Epigastric abdominal pain R10.13 Chronic idiopathic constipation K59.04 Gastroparesis K31.84 Pharyngoesophageal dysphagia R13.14 Dysphagia type: pharyngoesophageal phase Time Spent (min) 35 Comment 25 minutes spent with patient and additional 10 minutes spent reviewing her records
--- OUTSIDE RECORDS SUMMARY | 2025-02-13 18:02 | XMS_ITS ---
Author Name [facility] Organization Unknown Care Team Organization Name Specialty Phone Email Start Date End Da te [facility] 05/31/2023 06/26/2024
--- OUTSIDE RECORDS SUMMARY | 2025-02-13 18:02 | XMS_ITS ---
Author Organization [employer] Address [address] [facility] [id number] [place] [address] Care Team Providers Care Scientific Software Engineer Name Role Phone Margarita Ayon Primary Care Provider Adilia Rush [phone] REASON FOR VISIT DM F/UP Encounters Encounter Location Date Provider Diagnosis [address] [place] [address] 03/02/2024 Margarita Ayon PLAN OF TREATMENT No Information
--- OUTSIDE RECORDS SUMMARY | 2025-02-13 18:02 | XMS_ITS | Clinical Summary ---
Author Organization [facility] Address [address] [facility] 7t [place] [address] Care Team Providers Care Elastic Tape Inserter Name Role Phone Unavailable Primary Care Provider [...]
--- OUTSIDE RECORDS SUMMARY | 2025-02-13 18:02 | XMS_ITS | Clinical Summary ---
Author Organization [facility] Address [address] [place] [address] Care Team Providers Care Tariff Expert Name Role Phone Unavailable Primary Care Provider Unavailabl e Social History Tobacco Use Types Packs/Day Years Used Date Smoking Tobacco: Never Assessed Sex and Gender Information Value Date Recorded Sex Assigned at Not on file Gender Identity Not on file Sexual Orientation Not on file Job Start Date Occupation Industry Not on file Not on file Not on file Plan of Treatment Health Maintenance Due Date Last Done Comments Hepatitis C Screening 1955 COVID-19 Vaccine (#1) 01/12/1956 Depression Screening 1967 Preventative Health Evaluation 1973 DTap / Tdap / Td (1 - Tdap) 1974 Colon Cancer Screening (Colonoscopy) 2000 Breast Cancer Screening (Mammogram) 2005 Shingrix-Zoster Vaccine (1 of 2) 2005 Fall Risk Assessment 2020 Osteoporosis Screening (DEXA Scan) 2020 Pneumococcal Vaccine (1 of 1 - PCV) 2020 Influenza Vaccine (#1) 2024 RSV Adult > 60+ Yrs or Pregn ant (1 - 1-dose 75+ series) 2030 Hepatitis B Vaccines Aged Out No long er eligible based on patient's age to complete this topic RSV Ped < 20 months Aged Out No longe r eligible based on patient's age to complete this topic
--- OUTSIDE RECORDS SUMMARY | 2025-02-13 18:02 | XMS_ITS ---
Author Organization [employer] Address [address] [facility] [id number] [place] [address] Care Team Providers Care Banking Officer Name Role Phone Margarita Ayon Primary Care Provider [phone] Adilia Sparks Unavailable [phone] REASON FOR VISIT DM Eye Exam Encounters Encounter Location Date Provider Diagnosis [id number] ([facility]) [address] [place] [address] 12/06/2024 Adilia Rush PLAN OF TREATMENT No Information
--- OUTSIDE RECORDS SUMMARY | 2025-02-13 18:02 | XMS_ITS | Encounter Summary ---
Author Organization [facility] Address [address] [facility] 7t [place] [address] Care Team Providers Care Paper Sheeter Name Role Phone Unavailable Primary Care Provider [...]
--- OUTSIDE RECORDS SUMMARY | 2025-02-13 18:02 | XMS_ITS | Encounter Summary ---
Author Organization [facility] Address [address] [facility] 7t [place] [address] Care Team Providers Care Preform Plate Maker Name Role Phone Unavailable Primary Care Provider [...]
--- OUTSIDE RECORDS SUMMARY | 2025-02-13 18:02 | XMS_ITS | Patient Health Record ---
Author Organization [employer] Address [address] [facility] [id number] [place] [address] Care Team Providers Care Stevedore Dock Name Role Phone Gabo Margarita Primary Care Provider Adilia Rush Unavailable [phone] ALLERGIES Allergen (clinical drug ingredient) Drug/Non Drug Allergy documented on EMR Reaction Allergy Type Onset Date Status Watermelon Flavor hives Drug Allergy Active REASON FOR REFERRAL No Information MEDICATIONS Medication SIG (Take, Route, Frequency, Duration) Notes Start Date End Date Status Zolpidem Tartrate 5 MG 1 tablet at bedtime every day Orally daily for [address] directions in botswanan 10/26/2023 Active Magnesium 400 MG as directed Orally Once a day for 30 days Active [place] 3 1000 MG 1 capsule Orally Once a day for 90 days 08/27/2023 Active Vitamin B12 100 MCG 1 tablet Orally Once a day for 90 days Active Famotidine 40 MG 1 tablet at bedtime Orally Once a day Active Aspir-Low 81 MG 1 tablet Orally Once a day Active FreeStyle Colten 2 [place] - as directed a s directed 4x/day [...] for 90 Active Vitamin D 50 MCG (1999 [place]) 1 tablet Oral ly Once a [...] Type II diabete s mellitus without complication (685589736) Problem 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9) Active confirmed Type 2 diab etes mellitus (37895218) Problem Hyperlipidemia (E78.5) Active confirmed Hyperlipidemia (21426320) Problem Major depressive disorder (F32.9) Active confirmed Major depre ssive disorder (919890436) Encounters Encounter Location Date Provider Diagnosis [address] [id number] [place] [address] 08/30/2024 Margarita Ayon [place] [address] ([facility]) [address] [place] [address] 12/06/2024 Adilia Rush [facility] [address] [facility] [address] 03/02/2024 Margarita Ayon PLAN OF TREATMENT Pending Test Test Name Order Date X ray : Spines, lumbar 2 views * 023 MICROALBUMIN, RANDOM URINE (W/CREATININE ) 06/29/2023 LIPID PANEL 07/15/2023 Insurance Providers Payer Name Payer Address Payer Phone Subscriber Number Group Number Insured Name Patient Relationship to Insured Coverage Start Date Coverage End Date MEDICARE FQHC [address] [place] [address] [id number] Duyen Arellano Self - patient is the insured 0 HUSKY D [address] [place] [address] [id number] Duyen Arellano Self - patient is the insured MEDICAL (GENERAL) HISTORY Medical History History ICD Code diabetes mellitus hypertension GERD chronic sinusitis migraine headaches DILATED EYE EXAM 11/2023 Surgical History Surgery Date(Month/Year)
--- OUTSIDE RECORDS SUMMARY | 2025-02-13 18:02 | XMS_ITS ---
Author Organization [facility] [facility] Address [address] [facility] [id number], [place] [address] Care Team Providers Care Printed Circuit Board Panels Deburrer Name Role Phone Margarita Ayon Primary Care Provider Adilia Rush [phone] REASON FOR VISIT Dm outreach Encounters Encounter Location Date Provider Diagnosis [address] [id number], [place] [address] 08/30/2024 Margarita Ayon PLAN OF TREATMENT No Information
== END 2025-02-13 15:53 | disposition home or self-care (01) ==
LOC: HO.HGI 14:55
PROVIDERS: PCP Internal Medicine; Visit Provider Nurse Practitioner Family
DX: K21.9 Gastro-esophageal reflux disease without esophagitis (principal); R10.13 Epigastric pain; K59.04 Chronic idiopathic constipation; K31.84 Gastroparesis; R13.14 Dysphagia, pharyngoesophageal phase
CPT/HCPCS: 99214; G2211

== ENCOUNTER → 2025-02-13 14:55 | Outpatient (BNVA) | payer OTHER, SELFPAY | PROVIDERS: PCP Internal Medicine; Visit Provider Nurse Practitioner Family | DX: K21.9 Gastro-esophageal reflux disease without esophagitis (principal); K59.04 Chronic idiopathic constipation; K31.84 Gastroparesis; R10.13 Epigastric pain; R13.14 Dysphagia, pharyngoesophageal phase | CPT/HCPCS: 99212 ==

== ENCOUNTER 2025-02-26 12:20 | Outpatient (REF) | payer OTHER, SELFPAY ==
--- NOTE | ~2025-02-26 | XR_ITS ---
EXAMINATION: XR FOOT, RIGHT CLINICAL INFORMATION: ACHILLES TENDINITS COMPARISON: February 10, 2011. TECHNIQUE: AP, lateral, and oblique views of the right foot. FINDINGS: No acute cortical disruption or malalignment. There is a transverse oriented old avulsion traumatic deformity at the base of the fifth metatarsal. Vascular calcifications. No lytic or thick lesions. XR/XR foot RT min 3V IMPRESSION: Old traumatic avulsion deformity at the base of the fifth metatarsal. Atherosclerosis disease, peripheral. Electronically signed by: Vishal Rosario MD 02/28/2025 07:35 AM EDT
--- OUTSIDE RECORDS SUMMARY | 2025-02-26 12:23 | XMS_ITS | Encounter Summary ---
Author Organization [employer] [facility] Address [address] [facility] 7t [place] [address] Care Team Providers Care Environmental Science Professor Name Role Phone Unavailable Primary Care Provider [...]
--- OUTSIDE RECORDS SUMMARY | 2025-02-26 12:23 | XMS_ITS | Clinical Summary ---
Author Organization [facility] Address [address] [facility] 7t [place] [address] Care Team Providers Care Timber Bucker Name Role Phone Unavailable Primary Care Provider [...]
--- OUTSIDE RECORDS SUMMARY | 2025-02-26 12:23 | XMS_ITS ---
Author Organization [facility] [email or web address] [facility] Address [address] [facility] [id number], [place] [address] Care Team Providers Care Starch Treating Assistant Name Role Phone Margarita Ayon Primary Care Provider Adilia Rush [phone] REASON FOR VISIT Dm outreach Encounters Encounter Location Date Provider Diagnosis [address] [id number], [place] [address] 08/30/2024 Margarita Ayon PLAN OF TREATMENT No Information
--- OUTSIDE RECORDS SUMMARY | 2025-02-26 12:23 | XMS_ITS | Encounter Summary ---
Author Organization [employer] [facility] Address [address] [facility] 7t [place] [address] Care Team Providers Care Chemical Dependency Nurse Name Role Phone Unavailable Primary Care Provider Unavailabl e Encounter Details Date Type Department Care Team (Latest Contact Info) Description 04/01/2021 Abstract HHC CONVERSIONS Dental, Provider, DDS Social History Tobacco [...]
--- OUTSIDE RECORDS SUMMARY | 2025-02-26 12:23 | XMS_ITS | Patient Health Record ---
Author Organization [employer] Address [address] [facility] [id number] [place] [address] Care Team Providers Care Network Planner Name Role Phone Gabo Margarita Primary Care Provider [phone] Adilia Rush Unavailable [phone] ALLERGIES Allergen (clinical drug ingredient) Drug/Non Drug Allergy documented on EMR Reaction Allergy Type Onset Date Status Watermelon Flavor hives Drug Allergy Active REASON FOR REFERRAL No Information MEDICATIONS Medication SIG (Take, Route, Frequency, Duration) Notes Start Date End Date Status Zolpidem Tartrate 5 MG 1 tablet at bedtime every day Orally daily for [address] directions in malay 10/26/2023 Active Magnesium 400 MG as directed Orally Once a day for 30 days Active Center 3 1000 MG 1 capsule Orally Once a day for 90 days 08/27/2023 Active Vitamin B12 100 MCG 1 tablet Orally Once a day for 90 days Active Famotidine 40 MG 1 tablet at bedtime Orally Once a day Active Aspir-Low 81 MG 1 tablet Orally Once a day Active FreeStyle Colten 2 [place] - as directed a s directed 4x/day [...] Type II diabete s mellitus without complication (802540274) Problem 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9) Active confirmed Type 2 diab etes mellitus (60408460) Problem Hyperlipidemia (E78.5) Active confirmed Hyperlipidemia (35314288) Problem Major depressive disorder (F32.9) Active confirmed Major depre ssive disorder (708190914) Encounters Encounter Location Date Provider Diagnosis [address] [id number] [place] [address] 08/30/2024 Margarita Ayon [place] [address] ([facility]) [address] [place] [address] 12/06/2024 Adilia Rush [facility] [address] [facility] [address] 03/02/2024 Margarita Ayon PLAN OF TREATMENT Pending Test Test Name Order Date X ray : Spines, lumbar 2 views * 023 MICROALBUMIN, RANDOM URINE (W/CREATININE ) 06/29/2023 LIPID PANEL 07/15/2023 Insurance Providers Payer Name Payer Address Payer Phone Subscriber Number Group Number Insured Name Patient Relationship to Insured Coverage Start Date Coverage End Date MEDICARE FQHC [address] [place] [address] [id number] Duyen Arellano Self - patient is the insured 0 HUSKY D [address] [place] [address] [id number] Duyen Arellano Self - patient is the insured MEDICAL (GENERAL) HISTORY Medical History History ICD Code diabetes mellitus hypertension GERD chronic sinusitis migraine headaches DILATED EYE EXAM 11/2023 Surgical History Surgery Date(Month/Year)
--- OUTSIDE RECORDS SUMMARY | 2025-02-26 12:23 | XMS_ITS ---
Author Organization [employer] Address [address] [facility] [id number] [place] [address] Care Team Providers Care Refrigeration Engineering Teacher Name Role Phone Margarita Ayon Primary Care Provider Adilia Rush [phone] REASON FOR VISIT DM F/UP Encounters Encounter Location Date Provider Diagnosis [address] [place] [address] 03/02/2024 Margarita Ayon PLAN OF TREATMENT No Information
--- OUTSIDE RECORDS SUMMARY | 2025-02-26 12:23 | XMS_ITS ---
Author Organization [employer] Address [address] [facility] [id number] [place] [address] Care Team Providers Care Mining Professionals Name Role Phone Margarita Ayon Primary Care Provider [phone] Adilia Sparks Unavailable [phone] REASON FOR VISIT DM Eye Exam Encounters Encounter Location Date Provider Diagnosis [id number] ([facility]) [address] [place] [address] 12/06/2024 Adilia Rush PLAN OF TREATMENT No Information
--- OUTSIDE RECORDS SUMMARY | 2025-02-26 12:23 | XMS_ITS | Clinical Summary ---
Author Organization [facility] Address [address] [place] [address] Care Team Providers Care Med Asst Name Role Phone Unavailable Primary Care Provider [...]
== END 2025-02-26 12:21 | disposition home or self-care (01) ==
LOC: HO.LAB 12:20
PROVIDERS: PCP Internal Medicine; Visit Provider Podiatrist
DX: M76.61 Achilles tendinitis, right leg (principal)
CPT/HCPCS: 73630

== ENCOUNTER → 2025-02-26 12:27 | Outpatient (BNV) | payer OTHER, SELFPAY | PROVIDERS: PCP Internal Medicine; Visit Provider Radiology Diagnostic Radiology | DX: I70.90 Unspecified atherosclerosis (principal) | CPT/HCPCS: 73630 ==

== ENCOUNTER 2025-03-07 09:08 | Outpatient (REF) | payer OTHER, SELFPAY ==
--- NOTE | ~2025-03-07 | FL_ITS ---
EXAMINATION: XR FLUOROSCOPY UPPER GI SERIES CLINICAL INFORMATION: Gastroesophageal reflux disease without esophagitis. Gastritis, nausea, and abdominal pain. Abnormal gastric emptying study 03/25/2021. COMPARISON: No prior upper GI available. Gastric emptying nuclear medicine study 03/25/2021. Correlation made with CT abdomen and pelvis 03/06/2021. TECHNIQUE: Fluoroscopic air contrast upper GI examination was performed utilizing standard techniques with thin and thick barium and effervescent granules. Numerous spot images were obtained. Several fluoroscopic image hold cine sequences were also obtained. FINDINGS: UPPER GI SERIES: Lateral cine images of the oropharynx and hypopharynx demonstrate normal swallow mechanism with normal epiglottic inversion and soft palate elevation. No laryngeal penetration, glottic or subglottic aspiration identified. No nasopharyngeal reflux present. Hypopharyngeal structures appear normal without evidence of mass or diverticulum. There was mild cricopharyngeal achalasia. Dual and single contrast images of the esophagus demonstrate normal caliber, contour, and mucosal pattern. No evidence of stricture, mass, or ulcerations identified. Esophageal peristalsis is moderately disordered. Small type I hiatus hernia. There was significant gastroesophageal reflux noted to the level of the thoracic inlet. Dual contrast and single contrast images of the stomach demonstrated normal contour. Normal rugal fold pattern. No gross mass or ulcer. Mild thickening of the area gastricae is present throughout, suggesting gastritis.. Contrast freely passed into the gastric antrum and duodenal bulb without delay. No evidence of delay of contrast on this examination. Single and air-contrast images of the duodenal bulb demonstrate no abnormality. The duodenal sweep has a normal appearance, course, and mucosal fold appearance. FLUOROSCOPY TIME: 3 minutes, 26 seconds Number of Spot Images:11 Number of cines obtained: 13 DOSE AREA PRODUCT: 3102 uGy-m2 (microgray-meter squared) FL/FL upper GI w Ba Swallow IMPRESSION: 1. Mild cricopharyngeal achalasia. 2. Moderately disordered esophageal peristalsis. 3. Diffuse thickening of the gastric areae gastricae, suggesting gastritis. 4. No significant delay of contrast transit into the duodenal bulb and duodenum on this examination. 5. Episodic Gastroesophageal reflux identified to the level of the thoracic inlet. 6. Small type I hiatus hernia. Electronically signed by: John Proctor MD 03/07/2025 10:24 AM EDT RP
--- OUTSIDE RECORDS SUMMARY | 2025-03-07 09:39 | XMS_ITS | Clinical Summary ---
Author Organization [employer] [facility] Address [address] [facility] 7t [place] [address] Care Team Providers Care Director Of Perioperative Services Name Role Phone Unavailable Primary Care Provider [...]
--- OUTSIDE RECORDS SUMMARY | 2025-03-07 09:39 | XMS_ITS | Encounter Summary ---
Author Organization [facility] [facility] Address [address] [facility] 7t [place] [address] Care Team Providers Care Dental Aide Name Role Phone Unavailable Primary Care Provider [...]
--- OUTSIDE RECORDS SUMMARY | 2025-03-07 09:39 | XMS_ITS | Encounter Summary ---
Author Organization [facility] Address [address] [facility] 7t [place] [address] Care Team Providers Care Equipment Hire Manager Name Role Phone Unavailable Primary Care [...]
--- OUTSIDE RECORDS SUMMARY | 2025-03-07 09:39 | XMS_ITS | Clinical Summary ---
Author Organization [facility] Address [address] [place] [address] Care Team Providers Care Heavy Equipment Diesel Mechanic Name Role Phone Unavailable Primary Care Provider [...]
== END 2025-03-07 09:09 | disposition home or self-care (01) ==
LOC: HO.XRAY 09:08
PROVIDERS: PCP Internal Medicine; Visit Provider Nurse Practitioner Family
DX: K21.9 Gastro-esophageal reflux disease without esophagitis (principal)
CPT/HCPCS: 74240

== ENCOUNTER → 2025-03-07 09:10 | Outpatient (BNV) | payer OTHER, SELFPAY | PROVIDERS: PCP Internal Medicine; Visit Provider Radiology Diagnostic Radiology | DX: K21.9 Gastro-esophageal reflux disease without esophagitis (principal); K22.0 Achalasia of cardia | CPT/HCPCS: 74246 ==

== ENCOUNTER 2025-03-26 13:03 | Outpatient (AMB) | payer OTHER, SELFPAY ==
--- OUTSIDE RECORDS SUMMARY | 2025-03-26 13:08 | XMS_ITS ---
Author Organization [facility] Address [address] [place] [address] [id number], [place] [address] Care Team Providers Care Dock Or Pier Laborer Name Role Phone Jyoti Torrez Primary Care Provider [phone] Adilia Rush Unavailable [phone] Margarita Ayon Unavailable [phone] REASON FOR VISIT Dm outreach Encounters Encounter Location Date Provider Diagnosis [address] [id number], [place] [address] 08/30/2024 Margarita Ayon PLAN OF TREATMENT No Information
--- OUTSIDE RECORDS SUMMARY | 2025-03-26 13:08 | XMS_ITS | Clinical Summary ---
Author Organization [facility] Address [address] [place] [address] Care Team Providers Care Tongue Lining Stitcher Name Role Phone Unavailable Primary Care Provider [...]
--- OUTSIDE RECORDS SUMMARY | 2025-03-26 13:08 | XMS_ITS ---
Author Organization [facility] Address [address] [facility] [id number] [place] [address] Care Team Providers Care Pattern Carrier Name Role Phone Jyoti Torrez Primary Care Provider Adilia Rush Unavailable [phone] Margarita Ayon Unavailable [phone] REASON FOR VISIT DM F/UP Encounters Encounter Location Date Provider Diagnosis [address] [address] 03/02/2024 Margarita Ayon PLAN OF TREATMENT No Information
--- OUTSIDE RECORDS SUMMARY | 2025-03-26 13:08 | XMS_ITS | Encounter Summary ---
Author Organization [facility] Address [address] [facility] [address] [place] [address] Care Team Providers Care Slaughterer Religious Ritual Name Role Phone Unavailable Primary Care Provider [...]
--- OUTSIDE RECORDS SUMMARY | 2025-03-26 13:08 | XMS_ITS | Encounter Summary ---
Author Organization [facility] Address [address] [facility] [address] [place] [address] Care Team Providers Care Kiln Transfer Operator Name Role Phone Unavailable Primary Care [...]
--- OUTSIDE RECORDS SUMMARY | 2025-03-26 13:08 | XMS_ITS ---
Author Organization [facility] Address [address] [facility] [id number] [place] [address] Care Team Providers Care Oyster Planter Name Role Phone Jyoti Torrez Primary Care Provider Adilia Rush Unavailable [phone] REASON FOR VISIT DM Eye Exam Encounters Encounter Location Date Provider Diagnosis [facility] ([facility] [address] [address] 12/06/2024 Adilia Rush PLAN OF TREATMENT No Information
--- OUTSIDE RECORDS SUMMARY | 2025-03-26 13:08 | XMS_ITS | Clinical Summary ---
Author Organization [employer] Address [address] [facility] [address] [place] [address] Care Team Providers Care Financial Planner Name Role Phone Unavailable Primary Care Provider [...] patient's age to complete this topic Meningococcal B Vaccine Aged Out No l onger eligible based on patient's age to complete [...]
--- OUTSIDE RECORDS SUMMARY | 2025-03-26 13:09 | XMS_ITS | Patient Health Record ---
Author Organization [employer] Address [address] [facility] [id number] [place] [address] Care Team Providers Care Curbing Stonecutter Name Role Phone Shan Jyoti Primary Care Provider [phone] Adilia Rush Unavailable [phone] Margarita Ayon Unavailable [phone] ALLERGIES Allergen (clinical drug ingredient) Drug/Non Drug Allergy documented on EMR Reaction Allergy Type Onset Date Status Watermelon Flavor hives Drug Allergy Active REASON FOR REFERRAL No Information MEDICATIONS Medication SIG (Take, Route, Frequency, Duration) Notes Start Date End Date Status Zolpidem Tartrate 5 MG 1 tablet at bedtime every day Orally daily for [address] directions in brazilian 10/26/2023 Active Magnesium 400 MG as directed Orally Once a day for 30 days Active [place] 3 1000 MG 1 capsule Orally Once a day for 90 days 08/27/2023 Active Vitamin B12 100 MCG 1 tablet Orally Once a day for 90 days Active Famotidine 40 MG 1 tablet at bedtime Orally Once a day Active Aspir-Low 81 MG 1 tablet Orally Once a day Active FreeStyle Colten 2 Fontanelle - as directed a s directed 4x/day [...] Type II diabete s mellitus without complication (075825505) Problem 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) Active confirmed Tear film insufficiency (68822006) Problem Combined forms of age-related cataract, 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) Active confirmed Bilateral age-related cataract (8647052510483441 3) Problem Presbyopia (H52.4) Active confirmed Presbyopia (34124882) Problem Fibromyalgia (M79.7) Active confirmed Fibromyalgia (327335893) Problem Hypertension (I10) Active confirmed Hypertension (18125036) Problem Insomnia (G47.00) Active confirmed Inso mnia (446440996) Problem Diabetes (E11.9) Active confirmed Type II diabetes mellitus without complication (354740940) Problem Type 2 diabetes mellitus (E11.9) Active confirmed Type 2 diab etes mellitus (96181129) Problem Hyperlipidemia (E78.5) Active confirmed Hyperlipidemia (67309896) Problem Major depressive disorder (F32.9) Active confirmed Major depre ssive disorder (651290682) Encounters Encounter Location Date Provider Diagnosis [address] [id number] [place] [address] 08/30/2024 Margarita Ayon [id number] ([facility]) [address] [place] [address] 12/06/2024 Adilia Rush PLAN OF TREATMENT Pending Test Test Name Order Date X ray : Spines, lumbar 2 views * 023 MICROALBUMIN, RANDOM URINE (W/CREATININE ) 06/29/2023 LIPID PANEL 07/15/2023 Insurance Providers Payer Name Payer Address Payer Phone Subscriber Number Group Number Insured Name Patient Relationship to Insured Coverage Start Date Coverage End Date MEDICARE F[employer] [address] [place] [address] [id number] Duyen Arellano Self - patient is the insured 0 HUSKY D [address] [place] [address] [id number] Duyen Arellano Self - patient is the insured MEDICAL (GENERAL) HISTORY Medical History History ICD Code diabetes mellitus hypertension GERD chronic sinusitis migraine headaches DILATED EYE EXAM 11/2023 Surgical History Surgery Date(Month/Year)
--- NOTE | 2025-03-26 13:20 | A.OFFPC_ITS ---
Vital Signs 03/26/25 13:21 Height 4 ft 9 in Weight 128 lb BMI 27.7 BP 130/72 Blood Pressure Location Lt brachial Position Sitting Intake Visit Reasons: Transfer Care From Dr. Rivera/ Follow Up Assistant Professor Of Theater Required: No Accompanied by: Self / Same As Patient Allergies strawberry [STRAWBERRY] Allergy (Mild, Verified 03/26/25 13:43) PRURITUS tomato [TOMATO] Allergy (Mild, Verified 03/26/25 13:43) HIVES acetaminophen [From Percocet] Allergy (Unknown, Verified 03/26/25 13:43) Unknown oxycodone [From Percocet] Allergy (Unknown, Verified 03/26/25 13:43) Unknown pollen extracts [POLLEN] Allergy (Unknown, Verified 03/26/25 13:43) UNKNOWN lactose [LACTOSE] Adverse Reaction (Unknown, Verified 03/26/25 13:43) GI UPSET DUST Allergy (Unknown, Uncoded 03/26/25 13:43) UNKNOWN ENVIRONMENTAL Allergy (Unknown, Uncoded 03/26/25 13:43) UNKNOWN trees leaves Allergy (Uncoded 03/26/25 13:43) unknown Medication List - Last Reconciled 03/26/25 by Didi Ray MD aspirin 81 mg PO DAILY atorvastatin 40 mg PO DAILY 30 days blood sugar diagnostic (FreeStyle Lite Strips) 3 times a day blood sugar diagnostic (OneTouch Verio test strips) 4x daily [BP cuff As directed] [cane As directed] cetirizine (Zyrtec) 10 mg PO DAILY PRN cyanocobalamin (vitamin B-12) (Vitamin B-12) 1,000 mcg PO DAILY empagliflozin 10 mg PO DAILY 30 days esomeprazole magnesium 40 mg PO DAILY gabapentin 300 mg PO TID hydrochlorothiazide 25 mg PO DAILY lactobacillus combination no.4 (Probiotic) 3,000 mmu cells PO DAILY lancets (OneTouch Delica Lancets) 4x daily linaclotide (Linzess) 145 mcg PO QAM lisinopril 10 mg PO DAILY metformin 1,000 mg PO BID mirtazapine 7.5 mg PO BEDTIME naproxen (Naprosyn) 500 mg PO BID PRN nortriptyline 25 mg PO DAILY pen needle, diabetic (BD Ultra-Fine Micro Pen Needle) once a week simethicone (Gas Relief Extra Strength) 125 mg PO BID-QID sucralfate 10 mL PO BEDTIME zolpidem (Ambien) 5 mg PO BEDTIME PRN Tobacco use date assessed: 03/26/25 Fall risk assessment: No Falls in past year Last assessed Fall Risk: 03/26/25 Dental Screening Dental Screen Date: 03/26/25 Did you have a dental visit in the last 12 months?: Yes Did you have a dental problem in the last 6 months where you did not have access to dental care?: No Was dental information given to patient?: Patient has dentist HPI HPI Comments History of Present Illness Details The patient is a 69-year-old female presenting for ongoing diabetes management. She reports uncontrolled glucose levels with a current A1c of 11.4. While she was on Jardiance, it was discontinued, and she's currently taking metformin. Previous levels were more controlled, highlighting a recent exacerbation. Metabolic issues also include hyperlipidemia, for which she takes atorvastatin. Blood pressure remains managed with lisinopril and hydrochlorothiazide. Allergic manifestations involve reactions to environmental factors like pollen, strawberries, and medications such as Bercoset. Gastrointestinal issues include GERD, achalasia, and gastritis, complicating her digestive process. She experiences significant fatigue and shortness of breath upon exertion and reports progressively worsening symptoms, which she's concerned might be linked to cardiovascular health, though physical evaluations remain largely neutral to date. [facility] Medical History (Updated 03/26/25 @ 14:00 by Didi Ray MD) Gastroparesis Hyperlipidemia associated with type 2 diabetes mellitus Osteopenia Headache Depression Vitamin D deficiency Fibromyalgia HTN (hypertension) HLD (hyperlipidemia) T2DM (type 2 diabetes mellitus) Surgical History History of hysteroscopy Status post right breast lumpectomy Hx of colonoscopy History of hysterectomy with bilateral oophorectomy History of carpal tunnel release History of tubal ligation History of ear surgery History of delivery Family History Father Cirrhosis Liver cancer Mother T2DM (type 2 diabetes mellitus) Past heart attack Maternal Grandmother Breast cancer Maternal Grandfather No problems noted. Paternal Grandmother No problems noted. Paternal Grandfather No problems noted. Son No problems noted. Son No problems noted. Daughter No problems noted. Social History Household Members: None Housing: Apartment Are you a primary transitions rn care coordinator to a significant other at home: No Do you presently have visiting nurse or other home services: No Alcohol intake: never Patient Tobacco Use Status: Never used Tobacco e-Cigarette/Vaping Use: Never Used Second Hand Smoke Exposure: No service: No Current occupational status: disabled Cognitive needs: No Hearing needs: No Vision needs: Yes (glasses) Questionnaire PHQ-9 Over the last 2 weeks, how often have you been bothered by any of the following problems? 1. Little interest or pleasure in doing things: nearly every day 2. Feeling down, depressed, or hopeless: not at all 3. Trouble falling or staying asleep, or sleeping too much: not at all 4. Feeling tired or having little energy: nearly every day 5. Poor appetite or overeating: not at all 6. Feeling bad about yourself - or that you are a failure or have let yourself or your family down: not at all 7. Trouble concentrating on things, such as reading the newspaper or watching television: nearly every day 8. Moving or speaking so slowly that other people could have noticed. Or the opposite - being so fidgety or restless that you have been moving around a lot more than usual: nearly every day 9. Thoughts that you would be better off or of hurting yourself in some way: not at all Total score: 12 Depression Screening Interpretation: Positive Depression Screening Follow-up: Existing condition and Follow-up Visit Requested Depression Screening Done: Yes 88329 - PHQ-9 Billing: Yes Source: Developed by Drs. Toribio Moise, Monae Herrera, Tung Chatterjee and colleagues, with an educational rakel from [employer]. Thrive Questionnaire Date Thrive assessed: 03/26/25 I am a: Patient What is your living situation today?: I do not have a steady places to live I am temporarily staying with others Within the past 12 months, did the food you bought not last and you didn't have the money to get more?: I choose not to answer this question Within the past 12 months, did you worry whether your food would run out before you got money to buy more?: I choose not to answer this question Do you have trouble paying for medicines?: Yes Do you have trouble getting transportation to medical appointments?: No Do you have trouble paying your heating and electricity bill?: No Do you have trouble taking care of your child, family member or friend?: I choose not to answer this question Do you have trouble with day-to-day activities such as bathing, preparing meals, shopping, managing finances, etc.?: I choose not to answer this question Are you currently unemployed and looking for a job?: No Are you interested in more education?: No Please select the resources that you would like help with: Housing/Alf, Paying for medicine and Utilities Currently or been in a relationship where the following occur: I choose not to answer THRIVE Score: 1 AUDIT C Alcohol Use Questionnaire (AUDIT-C) 1. How often do you have a drink containing alcohol?: Never Total Score: 0 Score Reviewed/Action Taken: No BREONNA-7 AMB Questionnaire BREONNA-7 Date BREONNA - 7 assessed: 11/17/24 Feeling nervous, anxious, or on edge: 3 = Nearly every day Not being able to stop or control worryin = Nearly every day Worrying too much about different things: 3 = Nearly every day Trouble relaxin = Nearly every day Being so restless that it is hard to sit still: 3 = Nearly every day Becoming easily annoyed or irritable: 0 = Not at all Feeling afraid as if something awful might happen: 3 = Nearly every day Total BREONNA-7 score (0-4 normal; 5-9 mild; 10-14 moderate; 15-21 severe): 18 Source: Developed by Drs. Toribio Moise, Monae Herrera, Tung Chatterjee and colleagues, with an educational rakel from [employer]. BREONNA-7 Assessment Billing BREONNA-7 Assessment Tool: BREONNA-7 Assessment 38128 Review of Systems Const All systems reviewed & are unremarkable except as noted in HPI and below Card Denies chest pain at rest, Denies chest pain with activity, Denies edema, Denies irregular heart rhythm, Denies claudication, Denies dyspnea, Denies dyspnea on exertion, Denies orthopnea, Denies paroxysmal nocturnal dyspnea and Denies slow heart rate Resp Denies cough, Denies dyspnea and Denies dyspnea on exertion GI Denies abdominal pain, Denies change in bowel habits, Denies excessive flatus, Denies nausea and Denies vomiting Physical exam (Primary Care) Vital Signs: Last Vital Signs BP 130/72 03/26/25 13:21 BMI result Body Mass Index 27.7 Tobacco/Smoking Status: Tobacco use Status Tobacco use date assessed 03/26/25 03/26/25 13:31 Patient Tobacco Use Status Never used Tobacco 03/26/25 13:31 Tobacco use type 03/26/25 13:31 e-Cigarette/Vaping Use Never Used 03/26/25 13:31 PHQ-9: PHQ-9 Score PHQ-9: Total score 12 03/26/25 13:47 Depression Screening Interpretation: Positive Depression Screening Follow-up: Existing condition and Follow-up Visit Requested Thrive Assessment: Date of Thrive Assessment Date Thrive assessed 03/26/25 03/26/25 13:31 Currently or been in a relationship where the following occur: I choose not to answer Resp Effort & Inspection: normal respiratory effort Auscultation: clear to auscultation bilaterally Cardio Jugular venous distension: no JVD Rate: regular rate Rhythm: regular rhythm Heart sounds: S1 normal heart sound present and S2 normal heart sound present Extrem General: Yes full ROM Results AMB Hemoglobin A1c AMB Hemoglobin A1c 11.4 % Last Edit by BRYON Colvin on 03/26/25 13: 35 Immunizations pneumoc 20-vanessa conj-dip cr(PF) 0.5 mL IM syringe Performing Provider: Didi Ray MD [facility] Administered by: BRYON Colvin on 03/26/25 14:01 Dose Route Admin Location Dispensed Lot Number Expiration Date [facility] Product Development Consultant 0.5 mL IM Left Deltoid 0.5 mL [id number] 12/09/25 [employer] VIS Given Date VIS Provided VIS Publication Date 03/26/25 Single Vaccine 23 Eligibility Eligibility Date Funding Source Not [facility] Eligible 03/26/25 Private Results Reviewed Results Reviewed: Laboratory Last Values Hgb A1c (Clinic) 11.4 % (4.0-6.0) H 03/26/25 13:31 Coding Level of Care Code Est Pt Level 4 (52449) Complex EM visit Add On G2211 Diagnoses Type 2 diabetes mellitus with hyperglycemia, without long-term current use of insulin E11.65 Diabetes mellitus nursing home insulin use: without intermediate card tender use Diabetes mellitus complication status: with hyperglycemia Hypertension, unspecified type I10 Hypertension type: unspecified Hyperlipidemia, unspecified hyperlipidemia type E78.5 Hyperlipidemia type: unspecified Gastroesophageal reflux disease without esophagitis K21.9 Esophagitis presence: without esophagitis Ductal carcinoma in situ (DCIS) of right breast D05.11 Dyspnea on exertion R06.09 Achalasia K22.0 Additional Codes PHQ-9 - 19512 - PHQ-9 Billing: Yes ([id number]) BREONNA-7 Assessment Billing - BREONNA-7 Assessment Tool: BREONNA-7 Assessment [id number] ([id number]) Time Spent (min) 24 Assessment & Plan Assessment & Plan (1) T2DM (type 2 diabetes mellitus): Code(s): E11.9 - Type 2 diabetes mellitus without complications Category: Medical Qualifiers: Diabetes mellitus intermediate card tender insulin use: without intermediate card tender use Diabetes mellitus complication status: with hyperglycemia Qualified Code(s): E11.65 - Type 2 diabetes mellitus with hyperglycemia (2) HTN (hypertension): Comment: stable; same meds Code(s): I10 - Essential (primary) hypertension Category: Medical Qualifiers: Hypertension type: unspecified Qualified Code(s): I10 - Essential (primary) hypertension (3) HLD (hyperlipidemia): Comment: stable same meds Code(s): E78.5 - Hyperlipidemia, unspecified Category: Medical Qualifiers: Hyperlipidemia type: unspecified Qualified Code(s): E78.5 - Hyp erlipidemia, unspecified (4) GERD (gastroesophageal reflux disease): Code(s): K21.9 - Gastro-esophageal reflux disease without esophagitis Category: Medical Qualifiers: Esophagitis presence: without esophagitis Qualified Code(s): K21.9 - Gastro-esophageal reflux disease without esophagitis (5) Ductal carcinoma in situ (DCIS) of right breast: Code(s): D05.11 - Intraductal carcinoma in situ of right breast Category: Medical (6) Dyspnea on exertion: Code(s): R06.09 - Other forms of dyspnea Category: Medical (7) Achalasia: Code(s): K22.0 - Achalasia of cardia Category: Medical Plan Administering her overdue second pneumococcal dose ensures a buffer against respiratory infections intertwined with diabetes. While her allergies necessitate continued vigilance and adaptation, further care guidelines entail directing her through potential cardiovascular and GI management with timely gastroenterology interfaces.: Patient was informed and verbally consented to the use of an ambient scribe for clinic note documentation during this visit. During the conversation, I informed the patient of her elevated blood sugar levels, considering medication re-evaluation. We thoroughly discussed the continuation of her cholesterol management through atorvastatin and reduction strategies during higher cholesterol incidences. The patient acknowledged that detecting vaccine gaps, marked within her preventative plan, notably pneumococcal vaccination, will afford protection given her diabetic state. Ongoing assessment for possible cardiovascular stress tests or related attention-rooted explorations remain discussed if noted fatigue persists, with reassurance a thorough GI-consult preserves upcoming evaluations. Orders: Orders Vitamin D 25-OH Total 4 Months E55.9 - Vitamin D deficiency, unspecified Vitamin B12 and Folate 4 Months E53.8 - Deficiency of other specified B group vitamins AMB Hemoglobin A1c Today E11.65 - Type 2 diabetes mellitus with hyperglycemia Lipid Panel 4 Months E78.5 - Hyperlipidemia, unspecified Microalbumin, Random (w Creat) 4 Months R80.9 - Proteinuria, unspecified Comprehensive [place]. Panel Fast 4 Months E11.65 - Type 2 diabetes mellitus with hyperglycemia CA echo transthoracic complete Today R06.09 - Other forms of dyspnea Pneumococcal 20 Immunization Today Z23 - Encounter for immunization Referrals Open Access Screening Colonoscopy Referral Z12.12 - Encounter for screening for malignant neoplasm of rectum Endocrinology Referral E11.65 - Type 2 diabetes mellitus with hyperglycemia Medications: Changed From aspirin 81 mg PO DAILY To aspirin 81 mg PO DAILY 90 days 90 tabs 1RF Refilled atorvastatin 40 mg PO DAILY 30 days 90 tabs 1RF E11.9 - Type 2 diabetes mellitus without complications Patient Instructions: - Administer second pneumonia vaccine today. - Continue taking atorvastatin for cholesterol management. - Monitor blood sugar regularly and take metformin as prescribed. - Follow up with gastroenterology in May for esophageal issues. - Rest when experiencing fatigue; consider pacing activities throughout the day. - Avoid known allergens including strawberries, tomatoes, and potential irritants. - Schedule and adhere to annual mammograms, ensuring early detection maintains vigilance against return breast cancer scenarios. - Perform necessary future lab work in four months.
[2025-03-26 13:21] VITALS: BP 130/72; BMI 27.7
== END 2025-03-26 14:03 | disposition home or self-care (01) ==
PROVIDERS: PCP Internal Medicine; Visit Provider Internal Medicine
DX: E11.65 Type 2 diabetes mellitus with hyperglycemia (principal); I10 Essential (primary) hypertension; E78.5 Hyperlipidemia, unspecified; K21.9 Gastro-esophageal reflux disease without esophagitis; D05.11 Intraductal carcinoma in situ of right breast; R06.09 Other forms of dyspnea; K22.0 Achalasia of cardia; Z23 Encounter for immunization

== ENCOUNTER → 2025-03-26 13:03 | Outpatient (BNVA) | payer OTHER, SELFPAY | PROVIDERS: PCP Internal Medicine; Visit Provider Internal Medicine | DX: E11.65 Type 2 diabetes mellitus with hyperglycemia (principal); Z23 Encounter for immunization; I10 Essential (primary) hypertension; E78.5 Hyperlipidemia, unspecified; K21.9 Gastro-esophageal reflux disease without esophagitis; D05.11 Intraductal carcinoma in situ of right breast; R06.09 Other forms of dyspnea; K22.0 Achalasia of cardia | CPT/HCPCS: 83036; 90471; 90677; 96127; 99212 ==

== ENCOUNTER → 2025-04-19 14:41 | Outpatient (REF) | payer OTHER, SELFPAY ==
--- NOTE | 2025-04-19 14:43 | CA_ITS ---
Transthoracic Echocardiogram Patient (Last, First, Middle): Duyen Pak, Gender: Female Date of : 1955 Age: 69 Procedure Date: 04/19/2025 Procedure Type: Transthoracic Echocardiogram Location: OP Height: 144. cm Weight: 54.43 kg BSA: 1.44 m2 Heart Rate: 68 bpm BP: 122 / 55 mmHg Board Handler: TONY PERRY Referring MD: Didi Ray MD Mechanical Engineering Draftsperson: James Perera MD Symptoms: R06.09 - Other forms of dyspnea Study Quality: Technically Difficult w/Contrast ECG Rhythm: Sinus Conclusions: - 1. Normal LV ejection fraction of 65-70% with impaired relaxation filling pattern 2. Calcific aortic valve changes with mild aortic regurgitation 3. Calcific mitral valve changes noted with mild mitral stenosis 4. Normal RV systolic pressure 5. No gross pericardial effusion Findings Procedure Information Contrast agent, definity, is being given per protocol without apparent complications. Left Ventricle Normal left ventricular size, thickness, and systolic function. The visually estimated ejection fraction is between 65-70%. Spectral Doppler is indicative of an impaired relaxation filling pattern. Right Ventricle Normal right ventricular cavity size and systolic function. Atria The left atrium is normal in size. There is no evidence of interatrial shunt. The right atrium is normal in size. Aortic Valve There is mild calcification of the aortic valve. There is moderate thickening of the aortic valve. There is no aortic valve stenosis. There is mild aortic valve regurgitation. Mitral Valve There is moderate anterior and severe posterior mitral leaflet thickening. There is moderate mitral annular calcification. There is no mitral valve regurgitation. There is mild mitral valve stenosis. Pulmonic Valve The pulmonic valve was not well visualized. Tricuspid Valve Normal tricuspid valve structure. There is trace tricuspid valve regurgitation. The right ventricular systolic pressure is 22 mmHg. Normal right atrial pressure. There is no evidence of pulmonary hypertension. Great Vessels All visible segments of the aorta are normal in size. The pulmonary artery was not well visualized. There is no dilatation of the ascending aorta measuring 3.00 cm. Venous The inferior vena cava is normal in size and collapses greater than 50% with inspiration. Pericardium/Pleural There is no evidence of pericardial effusion. Prior Study Comparison No prior study available for comparison. Measurements 2D Linear Measurements IVSd: 0.94 0.6-0.9/0.6-1.0 cm LVIDd: 2.79 3.9-5.3/4.2-5.9 cm LVIDd Index: 1.94 2.4-3.2/2.2-3.1 cm/m2 LVIDs: 1.38 2.0-3.6 cm LVPWd: 1.02 0.7-1.1 cm LA Diam: 3.20 2.7-3.8/3.0-4.0 cm LAIDs Index: 2.22 1.5-2.3 cm/m2 LV Mass: 102.71 67-162/88-224 g LV Mass Index: 71.33 43-95/49-115 g/m2 LVOT Diam: 1.80 3.0+(-)1.3 cm 2D Systolic Function EF 4C: 62.60 >55% EF 2C: 70.60 >55% EF BiP: 67.50 >55% Mitral Valve MV VTI: 0.41 MV Pk Isaiah: 1.41 MV Mn Isaiah: 0.73 MV Pk Grad: 8.00 MV Mn Grad: 3.00 MV Pk E: 0.81 MV PK A: 1.31 MV Decel Time: 343.00 E/A: 0.60 E'Lateral: 5.66 E'Medial: 5.22 E/E' Med: 15.50 E/E' Lat: 14.30 PHT: 101.00 MVA PHT: 2.18 MVA Continuity: 1.[address]: 2.35 Aortic Valve AoV Pk Isaiah: 1.49 AoV Mn Isaiah: 1.04 AoV VTI: 0.28 AoV Pk Grad: 9.00 Aov Mn Grad: 5.00 GERA Cont.VTI: 2.45 AI Pk Isaiah: 2.[address]: 1.24 LVOT LVOT Pk Isaiah: 1.28 LVOT Mn Isaiah: 0.90 LVOT VTI: 0.27 LVOT Pk Grad: 7.00 LVOT Mn Grad: 4.00 LVOT Diam: 1.80 LVOT Area: 2.54 Diastolic Function MV Pk E: 0.81 MV Pk A: 1.31 E/A: 0.60 E'Medial: 5.22 E/E' Med: 15.50 E' Laterial: 5.66 E/E' Lat: 14.30 Right Ventricle TAPSE (mm): 23.90 TVS' Isaiah: 12.50 Tricuspid Valve TR Pk Isaiah: 2.17 TR Pk Grad: 19.00 RA Press: 3.00 RVSP: 22.00 Great Vessels Aorta Sinus of Valsalva: 2.60 2.0-3.5 cm Ao Asc: 3.00 2.1-3.4 cm Ao Arch: 2.70 Pulmonary Valve PV Pk Isaiah: 0.94 Peak PV Grad: 4.00 Updated in Other Vendor System with Status of Final James Perera MD electronically signed on 04/19/2025 4:48:53 PM with status of Final
--- OUTSIDE RECORDS SUMMARY | 2025-04-19 17:15 | XMS_ITS | Clinical Summary ---
Author Organization [facility] Address [address] [place] [address] Care Team Providers Care Looper Fixer Name Role Phone Unavailable Primary Care Provider [...] of 1 - PCV) 2020 Influenza Vaccine (Season Ended) 2025 RSV Adult > 60+ Yrs or Pregn ant (1 - 1-dose 75+ series) 2030 Hepatitis B Vaccines Aged Out No long er eligible based on patient's age to complete this topic RSV Ped < 20 months Aged Out No longe r eligible based on patient's age to complete this topic
== END ==
LOC: HO.CARD 14:41
PROVIDERS: PCP Internal Medicine; Visit Provider Internal Medicine
DX: R06.09 Other forms of dyspnea (principal)
CPT/HCPCS: 93306; Q9957

== ENCOUNTER → 2025-04-19 14:43 | Outpatient (BNV) | payer OTHER, SELFPAY | PROVIDERS: PCP Internal Medicine; Visit Provider Internal Medicine Cardiovascular Disease | DX: I35.1 Nonrheumatic aortic (valve) insufficiency (principal); I34.81 Nonrheumatic mitral (valve) annulus calcification; I34.2 Nonrheumatic mitral (valve) stenosis | CPT/HCPCS: 93306 ==

== ENCOUNTER 2025-04-24 12:41 | Outpatient (AMB) | payer OTHER, SELFPAY ==
--- NOTE | 2025-04-24 12:56 | A.OFFVIS_ITS ---
Vital Signs 04/24/25 12:59 Height 4 ft 9 in Weight 125 lb 14.143 oz BMI 27.2 BP 110/54 L Blood Pressure Location Lt brachial Position Sitting Pulse 77 Pulse Source Pulse Oximeter Pulse Oximetry (%) 98 Oxygen Delivery Method Room Air Intake Visit Reasons: Type 2 diabetes mellitus with hyperglycemia Intake Note: New patient internally referred by PCP to establish care for Diabetes. Last Diabetic Eye exam: Jul 2024, next appointment is Jul 2025 Last Podiatry Visit: [facility] approx 2 months ago Random Glucose: 303 mg/dl HgA1C: 11.4% 03/26/2025 Longitudinal Float Operator Required: Yes Longitudinal Float Operator Language: Hospice/Home Health Aide Services: Longitudinal Float Operator Present Longitudinal Float Operator Name: Cristóbal [id number] Information Interpreted: non-clinical & clinical Accompanied by: Self / Same As Patient Allergies strawberry [STRAWBERRY] Allergy (Mild, Verified 04/24/25 13:02) PRURITUS tomato [TOMATO] Allergy (Mild, Verified 04/24/25 13:02) HIVES acetaminophen [From Percocet] Allergy (Unknown, Verified 04/24/25 13:02) Unknown oxycodone [From Percocet] Allergy (Unknown, Verified 04/24/25 13:02) Unknown pollen extracts [POLLEN] Allergy (Unknown, Verified 04/24/25 13:02) UNKNOWN lactose [LACTOSE] Adverse Reaction (Unknown, Verified 04/24/25 13:02) GI UPSET DUST Allergy (Unknown, Uncoded 04/24/25 13:02) UNKNOWN ENVIRONMENTAL Allergy (Unknown, Uncoded 04/24/25 13:02) UNKNOWN trees leaves Allergy (Uncoded 04/24/25 13:02) unknown HPI Comments Details: This is a 69-year-old female with a past medical history of gastroparesis, hyperlipidemia, DCIS of the right breast, osteopenia, chronic constipation, GERD, vitamin-D deficiency, hypertension and type 2 diabetes presenting for a consult for diabetic management. She was last seen in the endocrinology department by another provider over 3 years ago. She was diagnosed with type 2 diabetes in 1998. Her mother and father have type 2 diabetes. No glucometer with her today. Reports AM fasting glucose readings 170-290. She does not check more than once per day. She has arthritis in her hand and fibromyalgia which impacts her dexterity. Hemoglobin a1c 11.4% 03/26/2025. Current medication regimen: Jardiance 10 mg, metformin 1000 mg twice daily Past medication: Ozempic was slowly discontinued in the past due to hypoglycemia. Compliance issues: none Diet: Breakfast- coffee with milk, toast with butter Lunch- beans, onions, plantains with beef stew Dinner- doesn't always eat dinner, if she does it is not a large meal, may have crackers with peanut butter Snacks/desserts: sometimes cracker Drinks diet coke No alcohol Hypoglycemia symptoms: dizzy, she only recalls 1 low blood sugar in the past Hyperglycemia symptoms: thirst, fatigue Eye exam: up to date Microvascular complications: neuropathy, nephropathy (microalbuminuria) Macrovascular complications: none Hypertension: treated with hydrochlorothiazide, lisinopril Hyperlipidemia: treated with atorvastatin Upon ROS she does say she has fatigue and shortness of breath with exertion, and she addressed this with her PCP at the recent visit. She reports that she will be undergoing cardiac workup, and she had an echocardiogram. LVEF normal. ROS: Constitutional: No unexplained weight loss, fever, chills or night sweats. Eyes: No vision changes, blurry vision, double vision, eye pain Respiratory: see HPI, denies cough or sputum production. Cardiovascular: No chest pain, chest pressure or chest discomfort. No palpitations or pedal edema. Gastrointestinal: per hpi Genitourinary: No dysuria, hematuria, urinary frequency. Neurologic: No headache, dizziness, syncope, unilateral weakness, ataxia Endocrine: see HPI Physical exam: Constitutional: Alert, in no distress. Head: Normocephalic. Neck: Supple, Full range of motion. No lymphadenopathy. No palpable thyroid masses. Respiratory: Clear to auscultation. Cardiovascular: S1 S2 regular. No murmurs. Right foot: Warm and well perfused. No clubbing, cyanosis or edema. Intact DP pulse. Decreased vibratory sensation. Intact sensation to monofilament. No open wounds. Left foot: Warm and well perfused. No clubbing, cyanosis or edema. Intact DP p ulse. Decreased vibratory sensation. Intact sensation to monofilament. No open wounds. [facility] Medical History (Updated 04/24/25 @ 14:14 by DANTE Chaidez) Uncomplicated type 2 diabetes mellitus Microalbuminuric diabetic nephropathy Bilateral foot pain Gastroparesis Hyperlipidemia associated with type 2 diabetes mellitus Osteopenia Headache Depression Vitamin D deficiency Fibromyalgia HTN (hypertension) HLD (hyperlipidemia) T2DM (type 2 diabetes mellitus) Surgical History History of hysteroscopy Status post right breast lumpectomy Hx of colonoscopy History of hysterectomy with bilateral oophorectomy History of carpal tunnel release History of tubal ligation History of ear surgery History of delivery Family History Father Cirrhosis Liver cancer Mother T2DM (type 2 diabetes mellitus) Past heart attack Maternal Grandmother Breast cancer Maternal Grandfather No problems noted. Paternal Grandmother No problems noted. Paternal Grandfather No problems noted. Son No problems noted. Son No problems noted. Daughter No problems noted. Social History Household Members: None Housing: Apartment Are you a primary medicare coordinator to a significant other at home: No Do you presently have visiting nurse or other home services: No Alcohol intake: never Patient Tobacco Use Status: Never used Tobacco e-Cigarette/Vaping Use: Never Used Second Hand Smoke Exposure: No service: No Current occupational status: disabled Cognitive needs: No Hearing needs: No Vision needs: Yes (glasses) Physical Exam Vital Signs: Last Vital Signs Pulse 77 04/24/25 12:59 BP 110/54 L 04/24/25 12:59 Pulse Ox 98 04/24/25 12:59 Oxygen Delivery Method Room Air 04/24/25 12:59 BMI result Body Mass Index 27.2 Results Reviewed Results Reviewed: Laboratory Last Values Glucose (Clinic) 303 mg/dL (60-115) H 04/24/25 13:08 Laboratory Tests 08/11/24 08/11/24 03/26/25 09:45 09:54 13:31 Creatinine 0.81 Estimated GFR > 60 Hemoglobin A1c % 8.0 H Hgb A1c (Clinic) 11.4 H AST 17 ALT 16 Triglycerides 256 H Cholesterol 303 H LDL Cholesterol, Calc 203 H HDL Cholesterol 49 TSH 0.91 Urine Creatinine 80.81 Urine Microalbumin 87.0 Microalb/Creat Ratio 107.6 H Assessment & Plan Assessment & Plan (1) Uncomplicated type 2 diabetes mellitus: Code(s): E11.9 - Type 2 diabetes mellitus without complications Category: Medical Plan: In summary this is a 69-year-old female with 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 Discussed pathophysiology of Type II Diabetes Mellitus with the patient in detail.? I explained the care home risks and complications associated with uncontrolled diabetes including nephropathy, neuropathy, peripheral vascular disease, retinopathy, increased risk of heart disease and stroke.? Discussed lifestyle modification with the patient. Given information for www.diabetes.org. Declines referral to driver retraining instructor. Given chronic constipation, reflux, chronic abdominal pain and gastroparesis she is not a good candidate for a GLP 1. Increase Jardiance to 25 mg every day. Return for labwork in 10-14 days. Continue Metformin 1000 mg twice daily, but switch to Metformin extended release when you are due for the next refill due to chronic GI problems. It may be easier on her stomach. Start Tresiba insulin 8 units at bedtime. Written instructions reviewed and given to patient for treatment of hypoglycemia: If you experience low blood sugar (under 70), treat this by eating a chewable fruit candy like skittles or jelly beans (about 8 pieces), 4 ounces (1/2 cup) of fruit juice (not diet), 1 tablespoon of honey or 4 glucose tablets. If your blood sugar is under 55, take double the amount of one of the above. Recheck your blood sugar in 15 minutes. The patient is prescribed a CGM and referred to the cosmetology educator. Lipids elevated. She will update labs prior to her next visit. Currently on aspirin and atorvastatin. She is also looking for a referral to a another sheet metal apprentice for a 2nd opinion regarding chronic bilateral foot pain. Referral placed. (2) Microalbuminuric diabetic nephropathy: Code(s): E11.21 - Type 2 diabetes mellitus with diabetic nephropathy Category: Medical Plan: Avoid nephrotoxic medications. Continue JUICE inhibitor and increase dose of Jardiance. (3) Dyspnea on exertion: Code(s): R06.09 - Other forms of dyspnea Category: Medical Plan: Her echocardiogram did not demonstrate any significant abnormalities. Patient says she is supposed to be having additional cardiac testing done, but she did not hear back about scheduling. I advised the patient to contact her PCP, and she agreed. Plan Follow up in 4 weeks for type 2 diabetes. Bring glucometer to all appointments. Orders: Orders Aspartate Amino Transferase Today E11.65 - Type 2 diabetes mellitus with hyperglycemia Platelet Count Today E11.65 - Type 2 diabetes mellitus with hyperglycemia, E11.9 - Type 2 diabetes mellitus without complications Vitamin B12 Today E11.65 - Type 2 diabetes mellitus with hyperglycemia, Z91.89 - Other specified personal risk factors, not elsewhere classified Creatinine Today E11.65 - Type 2 diabetes mellitus with hyperglycemia, E11.9 - Type 2 diabetes mellitus without complications Alanine Aminotransferase Today E11.65 - Type 2 diabetes mellitus with hyperglycemia, R79.89 - Other specified abnormal findings of blood chemistry Lipid Panel Today E78.5 - Hyperlipidemia, unspecified Referrals Podiatry Referral M79.671 - Pain in right foot, M79.672 - Pain in left foot Medications: New glucose (Dex4 Glucose) until blood sugar is >70 (hasta que el nivel de azucar en sunny sea superior a 70) 16 grams (4 x 4 gram) PO Q15M PRN 10 tabs 3RF hypoglycemia (hipoglucemia) pen needle, diabetic As directed 100 ea 11RF blood-glucose,senior specialist,cont (FreeStyle Colten 3 Leary) Use daily to monitor blood glucose levels continuously. 1 ea 0RF blood-glucose sensor (FreeStyle Colten 3 Plus Sensor device) Apply 1 new sensor every 15 days as directed to monitor blood glucose continuously. 2 ea 11RF insulin degludec (Tresiba FlexTouch U-100 insulin) 8 units (0.08 mL) subcut BEDTIME 15 mL 0RF empagliflozin (Jardiance) 25 mg PO DAILY 90 tabs 3RF Refilled blood sugar diagnostic (OneTouch Verio test strips) 4x daily 100 ea 11RF Patient Instructions: Increase Jardiance to 25 mg every day. Continue Metformin 1000 mg twice daily, but switch to Metformin extended release when you are due for the next refill. Start Tresiba insulin 8 units at bedtime. I will order the colten 3 plus sensor to monitor blood sugars. When you receive it from the pharmacy please call the office to schedule an appointment with the cosmetology educator to set this up. If you experience low blood sugar (under 70), treat this by eating a chewable fruit candy like skittles or jelly beans (about 8 pieces), 4 ounces (1/2 cup) of fruit juice (not diet), 1 tablespoon of honey or 4 glucose tablets. If your blood sugar is under 55, take double the amount of one of the above. Recheck your blood sugar in 15 minutes. Aumente la dosis de Jardiance a 25 mg al d?a. Contin?e con Metformina 1000 mg dos veces al d?a, lee cambie a Metformina de liberaci?n prolongada. Comience con 8 unidades de insulina Tresiba antes de acostarse. Solicitar? el sensor Colten 3 Plus para controlar el az?car en sunny. Cuando lo reciba de la farmacia, llame a la oficina para programar domi sudheer con el educador en diabetes. Si experimenta niveles bajos de az?car en sunny (menos de 70), tr?telo comiendo un caramelo masticable de fruta charli Skittles o Jelly Beans (aproximadamente 8 piezas), 113 ml (1/2 taza) de jugo de fruta (no diet?asha), 1 cucharada de miel o 4 tabletas de glucosa. Si aragon nivel de az?car en sunny es veto de 55, tome el doble de la cantidad de leonarda de los anteriores. Vuelva a medir aragon nivel de az?car en sunny en 15 minutos. Please have lab work done 10-14 days after increasing the dose of Jardiance. Realice an?lisis de laboratorio entre 10 y 14 d?as despu?s de aumentar la dosis de Jardiance. www.diabetes.org Coding Level of Care Code New Pt Level 5 (64738) Complex EM visit Add On G2211 Diagnoses Uncomplicated type 2 diabetes mellitus E11.9 Microalbuminuric diabetic nephropathy E11.21 Dyspnea on exertion R06.09 Time Spent (min) 74 Comment Chart review, direct patient care, completing documentation
[2025-04-24 12:59] VITALS: BP 110/54; PULSE 77; O2SAT 98; BMI 27.2
[2025-04-24 13:13] LABS: Glucose, Whole Blood 303 mg/dL (60-115)
--- OUTSIDE RECORDS SUMMARY | 2025-04-24 14:20 | XMS_ITS | Clinical Summary ---
Author Organization [facility] Address [address] [place] [address] Care Team Providers Care Guide Tour Name Role Phone Unavailable Primary Care Provider [...]
== END 2025-04-24 14:06 | disposition home or self-care (01) ==
LOC: HO.ENCR 12:42
PROVIDERS: PCP Internal Medicine; Visit Provider Physician Assistant Medical
DX: E11.21 Type 2 diabetes mellitus with diabetic nephropathy (principal); R06.09 Other forms of dyspnea

== ENCOUNTER → 2025-04-24 12:41 | Outpatient (BNVA) | payer OTHER, SELFPAY | PROVIDERS: PCP Internal Medicine; Visit Provider Physician Assistant Medical | DX: E11.65 Type 2 diabetes mellitus with hyperglycemia (principal); E11.21 Type 2 diabetes mellitus with diabetic nephropathy | CPT/HCPCS: 82947; 99202 ==

== ENCOUNTER 2025-04-25 12:34 | Outpatient (REF) | payer OTHER, SELFPAY ==
[2025-04-25 13:43] LABS: Platelet Count 285 X10*3/uL (160-400)
[2025-04-25 14:16] LABS: Alanine Aminotransferase 31 U/L (0-31); Aspartate Amino Transferase 42 U/L (5-31); Cholesterol 143 mg/dL (<200); Estimated Glomerular Filt Rate 53; HDL Cholesterol 32 mg/dL (>40); LDL Cholesterol Calculated 49 mg/dL (<100); Triglycerides 311 mg/dL (<150)
[2025-04-25 14:36] LABS: Vitamin B12 1021 pg/mL (200-900)
== END 2025-04-25 12:35 | disposition home or self-care (01) ==
LOC: HO.LAB 12:34
PROVIDERS: PCP Internal Medicine; Visit Provider Physician Assistant Medical
DX: E11.65 Type 2 diabetes mellitus with hyperglycemia (principal); R79.89 Other specified abnormal findings of blood chemistry; E78.5 Hyperlipidemia, unspecified; Z91.89 Other specified personal risk factors, not elsewhere classified
CPT/HCPCS: 36415; 80061; 82565; 82607; 84450; 84460; 85049

== ENCOUNTER 2025-05-02 12:21 | Outpatient (AMB) | payer OTHER, SELFPAY ==
--- NOTE | 2025-05-02 12:33 | MHC.AMDMED ---
Intake Intake Visit Reasons: 60 min Underground Drill Operator Required: Yes Underground Drill Operator Name: Bret [id number] Margie [id number] Accompanied by: Self / Same As Patient Allergies strawberry (STRAWBERRY) Allergy (Mild, Verified 04/24/25 13:02) PRURITUS tomato (TOMATO) Allergy (Mild, Verified 04/24/25 13:02) HIVES acetaminophen (From Percocet) Allergy (Unknown, Verified 04/24/25 13:02) Unknown oxycodone (From Percocet) Allergy (Unknown, Verified 04/24/25 13:02) Unknown pollen extracts (POLLEN) Allergy (Unknown, Verified 04/24/25 13:02) UNKNOWN lactose (LACTOSE) Adverse Reaction (Unknown, Verified 04/24/25 13:02) GI UPSET DUST Allergy (Unknown, Uncoded 04/24/25 13:02) UNKNOWN ENVIRONMENTAL Allergy (Unknown, Uncoded 04/24/25 13:02) UNKNOWN trees leaves Allergy (Uncoded 04/24/25 13:02) unknown HPI Comprehensive Diabetes Asmnt Most Recent Diabetes Results: Hemoglobin A1c 8.2 % 06/27/20 Microalb/Creat Ratio, (<30) 107.6 ug/mg cr H 08/11/24 Cholesterol, (<200) 143 mg/dL 04/25/25 HDL Cholesterol, (>40) 32 mg/dL L 04/25/25 Triglycerides, (<150) 311 mg/dL H 04/25/25 Creatinine, (0.5-1.4) 1.03 mg/dL 04/25/25 BUN, (9-16) 12 mg/dL 08/11/24 Sodium, (135-145) 141 mmol/L 08/11/24 Potassium, (3.3-5.1) 4.1 mmol/L 08/11/24 Chloride, (96-108) 103 mmol/L 08/11/24 Carbon Dioxide, (22-29) 27 mmol/L 08/11/24 Calcium, (8.4-10.2) 9.7 mg/dL 08/11/24 AST, (5-31) 42 U/L H 04/25/25 ALT, (0-31) 31 U/L 04/25/25 Total Protein, (6.5-8.0) 8.0 g/dL 08/11/24 Albumin, (3.5-5.0) 4.7 g/dL 08/11/24 [facility] Medical History (Updated 04/24/25 @ 14:14 by DANTE Chaidez) Uncomplicated type 2 diabetes mellitus Microalbuminuric diabetic nephropathy Bilateral foot pain Gastroparesis Hyperlipidemia associated with type 2 diabetes mellitus Osteopenia Headache Depression Vitamin D deficiency Fibromyalgia HTN (hypertension) HLD (hyperlipidemia) T2DM (type 2 diabetes mellitus) Surgical History History of hysteroscopy Status post right breast lumpectomy Hx of colonoscopy History of hysterectomy with bilateral oophorectomy History of carpal tunnel release History of tubal ligation History of ear surgery History of delivery Family History Father Cirrhosis Liver cancer Mother T2DM (type 2 diabetes mellitus) Past heart attack Maternal Grandmother Breast cancer Maternal Grandfather No problems noted. Paternal Grandmother No problems noted. Paternal Grandfather No problems noted. Son No problems noted. Son No problems noted. Daughter No problems noted. Social History Household Members: None Housing: Apartment Are you a primary customer care professional to a significant other at home: No Do you presently have visiting nurse or other home services: No Alcohol intake: never Patient Tobacco Use Status: Never used Tobacco e-Cigarette/Vaping Use: Never Used Second Hand Smoke Exposure: No service: No Current occupational status: disabled Cognitive needs: No Hearing needs: No Vision needs: Yes (glasses) Assessment & Plan Assessment & Plan (1) T2DM (type 2 diabetes mellitus): Code(s): E11.9 - Type 2 diabetes mellitus without complications Qualifiers: Diabetes mellitus cylinder handler insulin use: without cylinder handler use Diabetes mellitus complication status: with hyperglycemia Qualified Code(s): E11.65 - Type 2 diabetes mellitus with hyperglycemia Plan: Patient at visit to set up an insert Colten 3+ [place] Instructed patient sensors water proof you can shower, or swim do not submerge sensor in water for over 30 minutes Is sensor falls off cannot put back in you need to replace sensor, customer service number given to patient for sensor replacement Sensor placed on the back of left arm Patient left visit with sensor in warmup Reviewed how to interpret trend arrows Discussed lag time between finger stick and sensor data.? Instructed patient the importance of having blood glucometer for backup testing if needed Reviewed delay of CGM from fingersticks Reminded Pt that if symptoms do not match sensor still needs to check fingersticks. Insulin/Incretin?Mimetic Education visit Tresiba 8 units daily Patient Education: Patient was instructed and provided with demonstration of the following: Insulin action and Incretin Mimetics medication storage how to set up medication pen/or syringe and vial Handwashing insulin injection site rotation Site rotation recognizing hypertrophy Testing blood glucose Removing and disposing needle from insulin pen Safe disposal of sharps Target blood sugar Signs/ symptoms/treatment of hypoglycemia/hyperglycemia expiration of open insulin pen Patient verbalized understanding of education provided and was able to demonstrate proper use of inject into injection pillow Reviewed rule of 15s to treat glucose under 70 mg/dL All questions were answered and patient was advised to contact the office with any questions or concerns. Patient given Hungarian handout on how to use her insulin pen Portions of this note were created using voice recognition software, please excuse any words or phrases that may have been misinterpreted. Patient Instructions: Instrucciones para el paciente: CGM proporciona informaci?n sobre el control de la glucosa en sunny a lo des del d?a, incluidas la hiperglucemia y la hipoglucemia. Contin?e controlando la glucosa en sunny seg?n las instrucciones. Siga las pautas de nutrici?n proporcionadas. Informe cualquier molestia de inmediato al proveedor de atenci?n m?dica. Mantente delfina hidratado. Puede ba?arse, ducharse, nadar y hacer ejercicio mientras usa el sensor de glucosa. No sumerja el sensor de glucosa en agua miko m?s de 30 minutos. Retire el sensor para domi resonancia magn?christie o domi tomograf?a computarizada. Evite la m?quina de bria X en los aeropuertos: retire el sensor o solicite la varita Coding Level of Care Code Est Pt Level 1 (61687) Diagnoses Type 2 diabetes mellitus with hyperglycemia, without long-term current use of insulin E11.65 Diabetes mellitus halfway insulin use: without cylinder handler use Diabetes mellitus complication status: with hyperglycemia
--- OUTSIDE RECORDS SUMMARY | 2025-05-02 14:23 | XMS_ITS | Clinical Summary ---
Author Organization [facility] Address [address] [place] [address] Care Team Providers Care Chicken Vaccinator Name Role Phone Unavailable Primary Care Provider [...]
== END 2025-05-02 13:04 | disposition home or self-care (01) ==
LOC: HO.ENCR 12:22
PROVIDERS: PCP Internal Medicine; Visit Provider Registered Nurse Diabetes Educator
DX: E11.65 Type 2 diabetes mellitus with hyperglycemia (principal)

== ENCOUNTER → 2025-05-02 12:21 | Outpatient (BNVA) | payer OTHER, SELFPAY | PROVIDERS: PCP Internal Medicine; Visit Provider Registered Nurse Diabetes Educator | DX: E11.65 Type 2 diabetes mellitus with hyperglycemia (principal); Z96.49 Presence of other endocrine implants | CPT/HCPCS: 99211 ==

== ENCOUNTER 2025-05-17 14:23 | Outpatient (AMB) | payer OTHER, SELFPAY ==
--- OUTSIDE RECORDS SUMMARY | 2024-08-30 07:23 | XMS_ITS ---
Author Organization [employer] [facility] Address [address] [place] [place] [address] [id number], [place] [address] Care Team Providers Care Historic Site Administrator Name Role Phone Jyoti Torrez Primary Care Provider Adilia Rush Unavailable [phone] Margarita Ayon Unavailable [phone] REASON FOR VISIT Dm outreach Encounters Encounter Location Date Provider Diagnosis [address] [id number], [place] [address] 08/30/2024 Margarita Ayon PLAN OF TREATMENT No Information
--- OUTSIDE RECORDS SUMMARY | 2025-05-17 14:34 | XMS_ITS | Clinical Summary ---
Author Organization [facility] Address [address] [place] [address] Care Team Providers Care Core Oven Tender Name Role Phone Unavailable Primary Care Provider [...] 1 - PCV) 2020 Influenza Vaccine (#1) 2025 RSV Adult > 60+ Yrs or Pregn ant (1 - 1-dose 75+ series) 2030 Hepatitis B Vaccines Aged Out No long er eligible based on patient's age to complete this topic RSV Ped < 20 months Aged Out No longe r eligible based on patient's age to complete this topic
--- OUTSIDE RECORDS SUMMARY | 2025-05-17 14:35 | XMS_ITS ---
Author Name [facility] Organization Unknown Care Team Organization Name Specialty Phone Email Start Date End Da te [facility] 05/2025 [facility] 05/31/2023 06/26/2024
--- OUTSIDE RECORDS SUMMARY | 2025-05-17 14:35 | XMS_ITS | Encounter Summary ---
Author Organization [facility] Address [address] [place] [address] Care Team Providers Care Lawn Maintenance Worker Name Role Phone Unavailable Primary Care Provider [...]
--- OUTSIDE RECORDS SUMMARY | 2025-05-17 14:35 | XMS_ITS | Clinical Summary ---
Author Organization [address] [facility] Address [address] [place] [address] Phone Care Team Providers Care Half Section Ironer Name Role Phone Didi Ray MD Primary Care Provider [phone] Social History Tobacco Use Types Packs/Day Years Used Date Smoking Tobacco: Never Assessed Comments Unknown Sex and Gender Information Value Date Recorded Sex Assigned at Not on file Legal Sex Female 3:10 PM EST Gender Identity Not on file Sexual Orientation Not on file Plan of Treatment Upcoming Encounters Date Type Department Care Team ([facility] Contact Info) Description 07/25/2025 2:30 PM EDT Consult Orthopedic Surgery [place] [id number] [phone] Frank Benson, DPM [address] [address] Health Maintenance Due Date Last Done Comments Breast Cancer Screening 1955 DTaP,Tdap,and Td Vaccines (1 - Tdap) 1974 Pneumococcal Vaccine: 50+ Ye ars (1 of 1 - PCV) 2005 Zoster Vaccines (1 of 2) 2005 Colorectal Cancer Screening: Colonoscopy 10/07/2022 Depression Screening 10/07/2022 Falls Risk Assessment 10/07/2022 Hepatitis C Screening 10/07/2022 Medicare Annual Wellness Visit 10/07/2022 Osteoporosis Screening (Bone Density Screening) 10/07/2022 Social Influencers of Health Screening 10/07/2022 COVID-19 Vaccine ( - 2023-2 5 season) 2024 Influenza Vaccine (#1) 2025 RSV Immunization Adult Patie nts (1 - 1-dose 75+ series) 2030 HIB [...] on patient's age to complete this topic MMR Vaccines Aged Out No longer eligi ble based on patient's age to complete this topic Meningococcal ACWY Vaccine Aged Out N o longer eligible based on patient's age to complete this topic Meningococcal B Vaccine Aged Out No l onger eligible based on patient's age to complete this topic RSV Immunization Patients Un lion 20 months Aged Out No longer eligible b ased on patient's age to complete this topic Varicella Vaccines Aged Out No longer eligible based on patient's age to complete this topic [place] [address] MEDICARE Member Subscriber Plan / Payer (Ef fective 2024-Present) Name:Duyen Pak Relation to Subscriber:Self Name:Duyen Pak Payer ID:[id number] Group ID:[id number] Type:Not on file Address: [place] [address] [address] [id number] Care Teams Half Section Ironer Relationship Specialty Start Date End Date Didi Ray MD [address] [place] [address] , [address] [facility] D/B/A: [facility] SANJUANA Gupta PCP - General Internal Medicine 04/27/25
--- NOTE | 2025-05-17 14:54 | A.OFFVIS_ITS ---
Intake Intake Visit Reasons: 60 min Shipping Order Clerk Required: Yes Shipping Order Clerk Language: Electronic Prepress System Operator Name: Afisal [facility] Accompanied by: Self / Same As Patient Allergies strawberry (STRAWBERRY) Allergy (Mild, Verified 04/24/25 13:02) PRURITUS tomato (TOMATO) Allergy (Mild, Verified 04/24/25 13:02) HIVES acetaminophen (From Percocet) Allergy (Unknown, Verified 04/24/25 13:02) Unknown oxycodone (From Percocet) Allergy (Unknown, Verified 04/24/25 13:02) Unknown pollen extracts (POLLEN) Allergy (Unknown, Verified 04/24/25 13:02) UNKNOWN lactose (LACTOSE) Adverse Reaction (Unknown, Verified 04/24/25 13:02) GI UPSET DUST Allergy (Unknown, Uncoded 04/24/25 13:02) UNKNOWN ENVIRONMENTAL Allergy (Unknown, Uncoded 04/24/25 13:02) UNKNOWN trees leaves Allergy (Uncoded 04/24/25 13:02) unknown HPI Comprehensive Diabetes Asmnt Most Recent Diabetes Results: 2 Hemoglobin A1c 8.2 % 06/27/20 Microalb/Creat Ratio, (<30) 107.6 ug/mg cr H 08/11/24 Cholesterol, (<200) 143 mg/dL 04/25/25 HDL Cholesterol, (>40) 32 mg/dL L 04/25/25 Triglycerides, (<150) 311 mg/dL H 04/25/25 Creatinine, (0.5-1.4) 1.03 mg/dL 04/25/25 BUN, (9-16) 12 mg/dL 08/11/24 Sodium, (135-145) 141 mmol/L 08/11/24 Potassium, (3.3-5.1) 4.1 mmol/L 08/11/24 Chloride, (96-108) 103 mmol/L 08/11/24 Carbon Dioxide, (22-29) 27 mmol/L 08/11/24 Calcium, (8.4-10.2) 9.7 mg/dL 08/11/24 AST, (5-31) 42 U/L H 04/25/25 ALT, (0-31) 31 U/L 04/25/25 Total Protein, (6.5-8.0) 8.0 g/dL 08/11/24 Albumin, (3.5-5.0) 4.7 g/dL 08/11/24 [facility] Medical History (Updated 04/24/25 @ 14:14 by DANTE Chaidez) Uncomplicated type 2 diabetes mellitus Microalbuminuric diabetic nephropathy Bilateral foot pain Gastroparesis Hyperlipidemia associated with type 2 diabetes mellitus Osteopenia Headache Depression Vitamin D deficiency Fibromyalgia HTN (hypertension) HLD (hyperlipidemia) T2DM (type 2 diabetes mellitus) Surgical History History of hysteroscopy Status post right breast lumpectomy Hx of colonoscopy History of hysterectomy with bilateral oophorectomy History of carpal tunnel release History of tubal ligation History of ear surgery History of delivery Family History Father Cirrhosis Liver cancer Mother T2DM (type 2 diabetes mellitus) Past heart attack Maternal Grandmother Breast cancer Maternal Grandfather No problems noted. Paternal Grandmother No problems noted. Paternal Grandfather No problems noted. Son No problems noted. Son No problems noted. Daughter No problems noted. Social History Household Members: None Housing: Apartment Are you a primary day care teacher to a significant other at home: No Do you presently have visiting nurse or other home services: No Alcohol intake: never Patient Tobacco Use Status: Never used Tobacco e-Cigarette/Vaping Use: Never Used Second Hand Smoke Exposure: No service: No Current occupational status: disabled Cognitive needs: No Hearing needs: No Vision needs: Yes (glasses) Assessment & Plan Assessment & Plan (1) T2DM (type 2 diabetes mellitus): Code(s): E11.9 - Type 2 diabetes mellitus without complications Qualifiers: Diabetes mellitus exterminator helper insulin use: without exterminator helper use Diabetes mellitus complication status: with hyperglycemia Qualified Code(s): E11.65 - Type 2 diabetes mellitus with hyperglycemia Plan: Personal Continuous Glucose Monitor: Patients CGM information reviewed, Pt uses Colten 3+ with Labelle Tresiba 8 units daily Sensor shows she is having postprandial hyperglycemia Recommended to patient she discuss medication management with endocrine PA on 05/29/2025 Patient able to insert sensor independently in office without issue.? Patient instructed to contact pharmacy for sensor refills Learning objectives: The patient was provided with verbal and written education on the following topics as outlined below. The patient met all learning objectives and was able to verbalize understanding and provide teach back of education topics discussed . The patient was provided with the opportunity to ask questions and all questions were answered. Brief overview of Diabetes Management Monitoring blood sugar Following a meal plan Members of the care team (PCP, RN, MA, RD, CDE, bulk sugar handler) Blood glucose monitoring When/how often to test Target blood sugar ranges Introduction to Nutrition Importance of healthy diet in managing DM Diet is personalized to individual preference Review patient?s regular diet/food preferences How diet effects glucose Eating 3 balanced meals a day with small, healthy snacks between meals Review food groups Carbohydrates: What is a carbohydrate/Which food/food groups are considered carbohydrates Effect of carbohydrates on blood glucose Portion sizes Reading food labels Plate method Meal planning Recommendations: Follow plate method, consistent carbs and read nutritional labels. Smart Goal: Patient will identify foods in current meal plan that contain carbohydrates Educational Materials: The patient was provided with the following written educational materials: Planning Healthy Meals Handout Patient Response to instructions: Comprehension of Instructions: Fair Readiness to make changes: Contemplation How confident they feel about making changes: fair Portions of this note were created using voice recognition software, please excuse any words or phrases that may have been misinterpreted. Patient Instructions: Incluir actividad diaria regular. ADA recomienda 30 minutos de ejercicio 5 d?as a la semana. P?rdida de peso, hable con el PCP o el cardi?logo antes de comenzar un nuevo plan. Mida el nivel de az?car en la sunny seg?n las indicaciones; Ayuno y comida m?s brook de 2hpp. Observe las tendencias en los resultados. Utilice los resultados y eval?e c?mo los alimentos, la actividad f?kacy y los medicamentos afectan los resultados de az?car en la sunny. Lleve el gluc?metro o CGM a la pr?xima visita. Conocer los medicamentos para la diabetes, aragon acci?n, los efectos secundarios, la eficacia, la toxicidad, la dosis prescrita, el momento y la frecuencia de administraci?n apropiados, el efecto de las dosis olvidadas y retrasadas y las instrucciones de almacenamiento, viaje y seguridad. T?cnicas de resoluci?n de problemas para el seguimiento de episodios de hipo/hiperglucemia y tratamientos. Reducir los comportamientos de reducci?n de riesgos, dejar de fumar, ex?menes regulares de ojos, pies y dentales. Coding Level of Care Code Est Pt Level 1 (16879) Diagnoses Type 2 diabetes mellitus with hyperglycemia, without long-term current use of insulin E11.65 Diabetes mellitus exterminator helper insulin use: without exterminator helper use Diabetes mellitus complication status: with hyperglycemia
== END 2025-05-17 15:39 | disposition home or self-care (01) ==
LOC: HO.ENCR 14:24
PROVIDERS: PCP Internal Medicine; Visit Provider Registered Nurse Diabetes Educator
DX: E11.65 Type 2 diabetes mellitus with hyperglycemia (principal)

== ENCOUNTER → 2025-05-17 14:23 | Outpatient (BNVA) | payer OTHER, SELFPAY | PROVIDERS: PCP Internal Medicine; Visit Provider Registered Nurse Diabetes Educator | DX: E11.65 Type 2 diabetes mellitus with hyperglycemia (principal) | CPT/HCPCS: 99211 ==

== ENCOUNTER 2025-05-18 12:56 | Outpatient (AMB) | payer OTHER, SELFPAY ==
--- OUTSIDE RECORDS SUMMARY | 2024-08-30 07:23 | XMS_ITS ---
Author Organization [facility] Address [address] [place] [address] [id number], [place] [address] Care Team Providers Care Personnel Scheduler Name Role Phone Jyoti Torrez Primary Care Provider Adilia Rush Unavailable [phone] Margarita Ayon Unavailable [phone] REASON FOR VISIT Dm outreach Encounters Encounter Location Date Provider Diagnosis [address] [id number], [place] [address] 08/30/2024 Margarita Ayon PLAN OF TREATMENT No Information
[2025-05-18 12:58] VITALS: BP 167/78; PULSE 65; BMI 26.2
--- NOTE | 2025-05-18 12:58 | MHC.OFFVIS ---
Vital Signs 05/18/25 12:58 Height 4 ft 9 in Weight 121 lb 4.068 oz BMI 26.2 BP 167/78 H Blood Pressure Location Lt brachial Position Sitting Pulse 65 Intake Visit Reasons: Gerd Intake Note: Duyen presents in the office as a f/u for GERD. CC: She states that she does have some pains in the stomach. She states she also when she drinks coffee butter and toast and it gives her pains - everything she eats causes pains in the stomach. Upset Welding Machine Operator Required: Yes Upset Welding Machine Operator Name: Casper [id number] Allergies strawberry (STRAWBERRY) Allergy (Mild, Verified 05/18/25 13:05) PRURITUS tomato (TOMATO) Allergy (Mild, Verified 05/18/25 13:05) HIVES acetaminophen (From Percocet) Allergy (Unknown, Verified 05/18/25 13:05) Unknown oxycodone (From Percocet) Allergy (Unknown, Verified 05/18/25 13:05) Unknown pollen extracts (POLLEN) Allergy (Unknown, Verified 05/18/25 13:05) UNKNOWN lactose (LACTOSE) Adverse Reaction (Unknown, Verified 05/18/25 13:05) GI UPSET DUST Allergy (Unknown, Uncoded 05/18/25 13:05) UNKNOWN ENVIRONMENTAL Allergy (Unknown, Uncoded 05/18/25 13:05) UNKNOWN trees leaves Allergy (Uncoded 05/18/25 13:05) unknown HPI HPI Gerd : Details: LAST VISIT: GERD (gastroesophageal reflux disease) Epigastric abdominal pain Chronic idiopathic constipation Gastroparesis Dysphagia Plan Will change treatment. Patient will start Nexium half an hour before breakfast and start sucralfate. Stop lansoprazole and famotidine. Avoid dietary triggers and late night snacking. Continue taking Linzess daily. Patient has appointment for upper GI series and of February. Patient will follow-up with us in 2-3 months, sooner on as needed basis. Patient is agreeable to this plan and verbalizes understanding of instructions. She was given the opportunity to ask questions and all questions answered. ? Thank you for allowing me to participate in her care New esomeprazole magnesium (Nexium) 40 mg PO DAILY 30 caps 2RF K21.9 sucralfate 10 mL PO BEDTIME 400 mL 3RF K21.9 Discontinued famotidine John phillipss al mediodia. Discontinued Reason: Duplicate 40 mg PO DAILY 90 tabs 3RF K21.9 lansoprazole Discontinued Reason: Doctor's Order 30 mg PO DAILY 30 caps 3RF K21.9 TODAY'S VISIT Patient is here today for follow-up and to discuss upper GI series with being swallow results. Patient continues to have epigastric pain and abdominal bloating. Continues to have nausea. Takes Nexium in the morning and sucralfate at bedtime and her symptoms are still bothersome. Upper GI series with barium swallow results discussed with patient. Possible gastritis, moderately disorganized peristalsis and mild reflux seen. Patient reports that she is moving her bowels well without any issues. Patient reports that she is taking Linzess and moving her bowels without any problems. Patient reports occasional nausea, no vomiting. Reports acid reflux with occasional dyspepsia without dysphagia or odynophagia. Denies melena, hematochezia, unintentional weight loss or ribbon like stools. [facility] Medical History (Updated 04/24/25 @ 14:14 by DANTE Chaidez) Uncomplicated type 2 diabetes mellitus Microalbuminuric diabetic nephropathy Bilateral foot pain Gastroparesis Hyperlipidemia associated with type 2 diabetes mellitus Osteopenia Headache Depression Vitamin D deficiency Fibromyalgia HTN (hypertension) HLD (hyperlipidemia) T2DM (type 2 diabetes mellitus) Surgical History History of hysteroscopy Status post right breast lumpectomy Hx of colonoscopy History of hysterectomy with bilateral oophorectomy History of carpal tunnel release History of tubal ligation History of ear surgery History of delivery Family History Father Cirrhosis Liver cancer Mother T2DM (type 2 diabetes mellitus) Past heart attack Maternal Grandmother Breast cancer Maternal Grandfather No problems noted. Paternal Grandmother No problems noted. Paternal Grandfather No problems noted. Son No problems noted. Son No problems noted. Daughter No problems noted. Social History Household Members: None Housing: Apartment Are you a primary home care nurse to a significant other at home: No Do you presently have visiting nurse or other home services: No Alcohol intake: never Patient Tobacco Use Status: Never used Tobacco e-Cigarette/Vaping Use: Never Used Second Hand Smoke Exposure: No service: No Current occupational status: disabled Cognitive needs: No Hearing needs: No Vision needs: Yes (glasses) Review of Systems Const Denies weight gain and Denies weight loss ENT Reports no additional complaints, Denies dysphagia and Denies odynophagia Card Reports no additional complaints Resp Reports no additional complaints GI Reports abdominal pain, Denies belching, Denies melena, Reports bloating, Denies change in bowel habits, Denies dysphagia, Denies excessive flatus, Denies dyspepsia, Reports heartburn, Denies diarrhea, Denies loose stools, Denies nausea, Denies odynophagia and Denies vomiting Reports no additional complaints Musc Reports no additional complaints Neuro Reports no additional complaints Psych Reports no additional complaints Endo Reports no additional complaints Physical Exam Vital Signs: Last Vital Signs Pulse 65 05/18/25 12:58 BP 167/78 H 05/18/25 12:58 BMI result Body Mass Index 26.2 Const General: healthy appearing, no acute distress and well developed Orientation/consciousness: patient oriented x3 Resp Effort & Inspection: normal respiratory effort, able to speak in complete sentences, no tracheal deviation and symmetric chest movement Auscultation: clear to auscultation bilaterally Cardio Rate: regular rate GI Inspection: Yes normal to inspection and No distended Palpation (GI): Soft to palpation, not firm, nontender and No hepatosplenomegaly present Auscultation: normal bowel sounds General: Yes no CVA tenderness Back/Spine/Pelvis Back: no CVA tenderness Skin General skin exam: elasticity normal, turgor normal and dry skin Neuro General: patient oriented x3 Psych Appearance: grossly normal Mental Status: mental status grossly normal Results Reviewed Results Reviewed: UPPER GI WITH BARIUM SWALLOW IMPRESSION: 1. Mild cricopharyngeal achalasia. 2. Moderately disordered esophageal peristalsis. 3. Diffuse thickening of the gastric areae gastricae, suggesting gastritis. 4. No significant delay of contrast transit into the duodenal bulb and duodenum on this examination. 5. Episodic Gastroesophageal reflux identified to the level of the thoracic inlet. 6. Small type I hiatus hernia. Assessment & Plan Assessment & Plan (1) GERD (gastroesophageal reflux disease): Code(s): K21.9 - Gastro-esophageal reflux disease without esophagitis Category: Medical Qualifiers: Esophagitis presence: without esophagitis Qualified Code(s): K21.9 - Gastro-esophageal reflux disease without esophagitis (2) Gastroparesis: Code(s): K31.84 - Gastroparesis Category: Medical (3) Achalasia: Code(s): K22.0 - Achalasia of cardia Category: Medical (4) Chronic idiopathic constipation: Code(s): K59.04 - Chronic idiopathic constipation Category: Medical (5) Epigastric abdominal pain: Code(s): R10.13 - Epigastric pain Category: Medical Plan Patient will be sent for upper endoscopy. No delay of contrast from stomach to small intestine during upper GI with barium swallow. Unsure if patient truly has gastroparesis. She was very constipated and patient was on Ozempic then when her last GES performed. Patient no longer is on Ozempic. I will send her for upper endoscopy as possible gastritis seen on upper GI series. If appropriate will send her for another gastric emptying study. Will start her on vonoprazan and increase sucralfate to twice a day. Discussed with patient low FODMAP diet. She reports constant bloating no matter what she eats. Continue Linzess. Increase fluid intake and activity to promote better bowel motility. Patient will follow-up in our office after the procedure, sooner on as needed basis. She is agreeable to this plan and verbalizes an she will instructions. She was given the opportunity to ask questions and all questions answered. Thank you for allowing to participate in her care Medications: New vonoprazan (Voquezna) 20 mg PO DAILY 30 tabs 3RF Changed From sucralfate 10 mL PO BEDTIME 400 mL 3RF K21.9 - Gastro-esophageal reflux disease without esophagitis To sucralfate 10 mL PO BID 400 mL 3RF K21.9 - Gastro-esophageal reflux disease without esophagitis Coding Level of Care Code Est Pt Level 4 (16751) Complex EM visit Add On G2211 Diagnoses Gastroesophageal reflux disease without esophagitis K21.9 Esophagitis presence: without esophagitis Gastroparesis K31.84 Achalasia K22.0 Chronic idiopathic constipation K59.04 Epigastric abdominal pain R10.13 Time Spent (min) 40 Comment 25 minutes spent with patient and additional 15 minutes spent reviewing her records
--- OUTSIDE RECORDS SUMMARY | 2025-05-18 13:00 | XMS_ITS | Clinical Summary ---
Author Organization [address] [facility] Address [address] [place] [address] Phone Care Team Providers Care Firewall Engineer Name Role Phone Didi Ray MD Primary Care Provider [phone] Social History Tobacco Use Types Packs/Day Years Used Date Smoking Tobacco: Never Assessed Comments Unknown Sex and Gender Information Value Date Recorded Sex Assigned at Not on file Legal Sex Female 3:10 PM EST Gender Identity Not on file Sexual Orientation Not on file Plan of Treatment Upcoming Encounters Date Type Department Care Team ([facility] Contact Info) Description 07/25/2025 2:30 PM EDT Consult Orthopedic Surgery [place] [id number] [phone] Frank Benson, DPM [address] [address] Health Maintenance Due Date Last Done Comments [...] patient's age to complete this topic [place] [address] [place] [address] MEDICARE Member Subscriber Plan / Payer (Ef fective 2024-Present) Name:Duyen Pak Relation to Subscriber:Self Name:Duyen Pak Payer ID:[id number] Group ID:[id number] Type:Not on file Address: [place] [address] [address] [id number] Care Teams Firewall Engineer Relationship Specialty Start Date End Date Didi Ray MD [address] [place] [address] , [address] [facility] D/B/A: [facility] SANJUANA Gupta PCP - General Internal Medicine 04/27/25
--- OUTSIDE RECORDS SUMMARY | 2025-05-18 13:00 | XMS_ITS | Encounter Summary ---
Author Organization [facility] Address [address] [facility] [address] [place] [address] Care Team Providers Care Photonics Engineering Technician Name Role Phone Unavailable Primary Care [...]
--- OUTSIDE RECORDS SUMMARY | 2025-05-18 13:00 | XMS_ITS | Patient Health Record ---
Author Organization [employer] Address [address] [facility] [id number] [place] [address] Care Team Providers Care Histology Specialist Name Role Phone Shan Jyoti Primary Care Provider Adilia Rush Unavailable [phone] Margarita Ayon Unavailable [phone] ALLERGIES Allergen (clinical drug ingredient) Drug/Non Drug Allergy documented on EMR Reaction Allergy Type Onset Date Status Watermelon Flavor hives Drug Allergy Active REASON FOR REFERRAL No Information MEDICATIONS Medication SIG (Take, Route, Frequency, Duration) Notes Start Date End Date Status Zolpidem Tartrate 5 MG 1 tablet at bedtime every day Orally daily for [address] directions in andorran 10/26/2023 Active Magnesium 400 MG as directed Orally Once a day for 30 days Active Creola 3 1000 MG 1 capsule Orally Once a day for 90 days 08/27/2023 Active Vitamin B12 100 MCG 1 tablet Orally Once a day for 90 days Active Famotidine 40 MG 1 tablet at bedtime Orally Once a day Active Aspir-Low 81 MG 1 tablet Orally Once a day Active FreeStyle Colten 2 [place] - as directed a s directed 4x/day [...] Type II diabete s mellitus without complication (266942856) Problem 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) Active confirmed Tear film insufficiency (49777259) Problem Combined forms of age-related cataract, 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) Active confirmed Problem Presbyopia (H52.4) Active confirmed Pre sbyopia (50133857) Problem Fibromyalgia (M79.7) Active confirmed Fibromyalgia (661970632) Problem Hypertension (I10) Active confirmed Hyp ertension (26213258) Problem Insomnia (G47.00) Active confirmed Inso mnia (728328935) Problem Diabetes (E11.9) Active confirmed Problem Type 2 diabetes mellitus (E11.9) Active confirmed Type 2 diab etes mellitus (83383353) Problem Hyperlipidemia (E78.5) Active confirmed Problem Major depressive disorder (F32.9) Active confirmed Major depre ssive disorder (053319966) Encounters Encounter Location Date Provider Diagnosis [address] [id number] [place] [address] 08/30/2024 Margarita Ayon [id number] ([facility]) [address] [place] [address] 12/06/2024 Adilia Rush PLAN OF TREATMENT Pending Test Test Name Order Date X ray : Spines, lumbar 2 views * 023 MICROALBUMIN, RANDOM URINE (W/CREATININE ) 06/29/2023 LIPID PANEL 07/15/2023 Insurance Providers Payer Name Payer Address Payer Phone Subscriber Number Group Number Insured Name Patient Relationship to Insured Coverage Start Date Coverage End Date MEDICARE FQHC [address] [place] [address] [id number] Duyen Arellano Self - patient is the insured 0 HUSKY D [address] [place] [address] [id number] Duyen Arellano Self - patient is the insured MEDICAL (GENERAL) HISTORY Medical History History ICD Code diabetes mellitus hypertension GERD chronic sinusitis migraine headaches DILATED EYE EXAM 11/2023 Surgical History Surgery Date(Month/Year)
--- OUTSIDE RECORDS SUMMARY | 2025-05-18 13:00 | XMS_ITS | Clinical Summary ---
Author Organization [facility] Address [address] [place] [address] Care Team Providers Care Wet Process Assistant Head Miller Name Role Phone Unavailable Primary Care Provider [...]
== END 2025-05-18 14:00 | disposition home or self-care (01) ==
LOC: HO.HGI 12:57
PROVIDERS: PCP Internal Medicine; Visit Provider Nurse Practitioner Family
DX: K21.9 Gastro-esophageal reflux disease without esophagitis (principal); K31.84 Gastroparesis; K22.0 Achalasia of cardia; K59.04 Chronic idiopathic constipation; R10.13 Epigastric pain
CPT/HCPCS: 99214; G2211

== ENCOUNTER → 2025-05-18 12:56 | Outpatient (BNVA) | payer OTHER, SELFPAY | PROVIDERS: PCP Internal Medicine; Visit Provider Nurse Practitioner Family | DX: K21.9 Gastro-esophageal reflux disease without esophagitis (principal); K31.84 Gastroparesis; K22.0 Achalasia of cardia; K59.04 Chronic idiopathic constipation; R10.13 Epigastric pain | CPT/HCPCS: 99212 ==

== ENCOUNTER 2025-05-29 12:42 | Outpatient (AMB) | payer OTHER, SELFPAY ==
--- OUTSIDE RECORDS SUMMARY | 2024-08-30 07:23 | XMS_ITS ---
Author Organization [employer] [facility] Address [address] [place] [address] [id number] [place] [address] Care Team Providers Care Home Health Care Physician Name Role Phone Jyoti Torrez Primary Care Provider Adilia Rush Unavailable [phone] Margarita Ayon Unavailable [phone] REASON FOR VISIT Dm outreach Encounters Encounter Location Date Provider Diagnosis [address] [id number] [place] [address] 08/30/2024 Margarita Ayon PLAN OF TREATMENT No Information
--- NOTE | 2025-05-29 12:51 | A.OFFVIS_ITS ---
Vital Signs 05/29/25 12:52 05/29/25 13:27 Height 4 ft 9 in Weight 123 lb 7.342 oz BMI 26.7 BP 136/98 H 126/64 Blood Pressure Location Rt brachial Position Sitting Pulse 63 Pulse Source Pulse Oximeter Oxygen Delivery Method Room Air Intake Visit Reasons: T2DM Intake Note: Patient present today for T2DM follow up. Last Diabetic Eye exam: Jul 2024, next appointment is Jul 2025 Last Podiatry Visit: [facility] approx 3 months ago Random Glucose: 340 mg/dL HgA1C: 11.4% 03/26/2025 A P Manager Required: Yes A P Manager Language: Morning News Producer Services: A P Manager Present (Orecon) A P Manager Name: Tomasz #[id number] Accompanied by: Self / Same As Patient Allergies strawberry (STRAWBERRY) Allergy (Mild, Verified 05/18/25 13:05) PRURITUS tomato (TOMATO) Allergy (Mild, Verified 05/18/25 13:05) HIVES acetaminophen (From Percocet) Allergy (Unknown, Verified 05/18/25 13:05) Unknown oxycodone (From Percocet) Allergy (Unknown, Verified 05/18/25 13:05) Unknown pollen extracts (POLLEN) Allergy (Unknown, Verified 05/18/25 13:05) UNKNOWN lactose (LACTOSE) Adverse Reaction (Unknown, Verified 05/18/25 13:05) GI UPSET DUST Allergy (Unknown, Uncoded 05/18/25 13:05) UNKNOWN ENVIRONMENTAL Allergy (Unknown, Uncoded 05/18/25 13:05) UNKNOWN trees leaves Allergy (Uncoded 05/18/25 13:05) unknown Medication List - Last Reconciled 05/29/25 by DANTE Chaidez aspirin 81 mg PO DAILY 90 days atorvastatin 40 mg PO DAILY 30 days blood sugar diagnostic (OneTouch Verio test strips) 3x daily blood-glucose sensor (FreeStyle Colten 3 Plus Sensor device) Apply 1 new sensor every 15 days as directed to monitor blood glucose continuously. blood-glucose,portfolio architect,cont (Appcoreyle Colten 3 [place]) Use daily to monitor blood glucose levels continuously. [BP cuff As directed] [cane As directed] cetirizine (Zyrtec) 10 mg PO DAILY PRN cyanocobalamin (vitamin B-12) 500 mcg PO DAILY empagliflozin (Jardiance) 25 mg PO DAILY esomeprazole magnesium 40 mg PO DAILY famotidine 40 mg PO DAILY gabapentin 300 mg PO TID glucose (Dex4 Glucose) 16 grams (4 x 4 gram) PO Q15M PRN hydrochlorothiazide 25 mg PO DAILY insulin degludec (Tresiba FlexTouch U-100 insulin) 6 units subcut BEDTIME lactobacillus combination no.4 (Probiotic) 3,000 mmu cells PO DAILY lancets (OneTouch Delica Lancets) 4x daily linaclotide (Linzess) 145 mcg PO QAM lisinopril 10 mg PO DAILY metformin 1,000 mg PO BID mirtazapine 15 mg PO BEDTIME naproxen 500 mg PO BID PRN nortriptyline 25 mg PO DAILY pen needle, diabetic (BD Ultra-Fine Micro Pen Needle) once a week pen needle, diabetic As directed simethicone (Gas Relief Extra Strength) 125 mg PO BID-QID sucralfate 10 mL PO BID vonoprazan (Voquezna) 20 mg PO DAILY zolpidem (Ambien) 5 mg PO BEDTIME PRN HPI Comments Details: This is a 69-year-old female with a past medical history of gastroparesis, hyperlipidemia, DCIS of the right breast, osteopenia, chronic constipation, GERD, vitamin-D deficiency, hypertension and type 2 diabetes presenting for diabetic management. She was diagnosed with type 2 diabetes in 1998. Her mother and father have type 2 diabetes. The prior authorization for Colten 3+ is pending . Colten 3 data for May 16 to May 29 reviewed CGM active 96% Average glucose 198 GMI 8% Very high 18% High 41% Target range 41% 0% hypoglycemia She has a pattern of postprandial hyperglycemia. Hemoglobin a1c 11.4% 03/26/2025. Current medication regimen: Jardiance 25 mg, metformin 1000 mg twice daily, Tresiba 8 units at night Compliance issues: She has only been taking Tresiba on Thursdays because she thought it was dosed similar to a GLP 1. Past medication: Ozempic was slowly discontinued in the past due to hypoglycemia. Compliance issues: none Hypoglycemia symptoms: Denies interval episodes. Dizziness with past episodes. Hyperglycemia symptoms: thirst, fatigue Eye exam: up to date Microvascular complications: neuropathy, nephropathy (microalbuminuria) Macrovascular complications: none Hypertension: treated with hydrochlorothiazide, lisinopril Hyperlipidemia: treated with atorvastatin ROS: Constitutional: No unexplained weight loss, fever, chills or night sweats. Gastrointestinal: History of IBS, GERD and ?gastroparesis Genitourinary: No dysuria, hematuria, urinary frequency. Neurologic: No headache, dizziness, syncope, unilateral weakness, ataxia Endocrine: Denies polyuria or polydipsia Physical exam: Constitutional: Alert, in no distress. Head: Normocephalic. Neck: Supple, Full range of motion. No lymphadenopathy. No palpable thyroid masses. Respiratory: Clear to auscultation. Cardiovascular: S1 S2 regular. No murmurs. [facility] Medical History (Updated 05/29/25 @ 14:10 by DANTE Chaidez) Hypertriglyceridemia Uncomplicated type 2 diabetes mellitus Microalbuminuric diabetic nephropathy Bilateral foot pain Gastroparesis Hyperlipidemia associated with type 2 diabetes mellitus Osteopenia Headache Depression Vitamin D deficiency Fibromyalgia HTN (hypertension) HLD (hyperlipidemia) T2DM (type 2 diabetes mellitus) Surgical History History of hysteroscopy Status post right breast lumpectomy Hx of colonoscopy History of hysterectomy with bilateral oophorectomy History of carpal tunnel release History of tubal ligation History of ear surgery History of delivery Family History Father Cirrhosis Liver cancer Mother T2DM (type 2 diabetes mellitus) Past heart attack Maternal Grandmother Breast cancer Maternal Grandfather No problems noted. Paternal Grandmother No problems noted. Paternal Grandfather No problems noted. Son No problems noted. Son No problems noted. Daughter No problems noted. Social History Household Members: None Housing: Apartment Are you a primary youth career specialist to a significant other at home: No Do you presently have visiting nurse or other home services: No Alcohol intake: never Patient Tobacco Use Status: Never used Tobacco e-Cigarette/Vaping Use: Never Used Second Hand Smoke Exposure: No service: No Current occupational status: disabled Cognitive needs: No Hearing needs: No Vision needs: Yes (glasses) Physical Exam Vital Signs: Last Vital Signs Pulse 63 05/29/25 12:52 BP 126/64 05/29/25 13:27 Oxygen Delivery Method Room Air 05/29/25 12:52 BMI result Body Mass Index 26.7 Office Procedures Glucose Monitoring Details Details: See [facility] [address] - Glucose monitoring, continuous-physician I&R Procedure code (CPT) selection complete Results Reviewed Results Reviewed: Laboratory Last Values Glucose (Clinic) 340 mg/dL (60-115) H 05/29/25 12:56 Laboratory Tests 08/11/24 08/11/24 03/26/25 09:45 09:54 13:31 Creatinine 0.81 Estimated GFR > 60 Hemoglobin A1c % 8.0 H Hgb A1c (Clinic) 11.4 H AST 17 ALT 16 Triglycerides 256 H Cholesterol 303 H LDL Cholesterol, Calc 203 H HDL Cholesterol 49 TSH 0.91 Urine Creatinine 80.81 Urine Microalbumin 87.0 Microalb/Creat Ratio 107.6 H Laboratory Tests 04/25/25 12:54 Plt Count 285 Creatinine 1.03 Estimated GFR 53 AST 42 H ALT 31 Triglycerides 311 H Cholesterol 143 LDL Cholesterol, Calc 49 HDL Cholesterol 32 L Assessment & Plan Assessment & Plan (1) Uncomplicated type 2 diabetes mellitus: Code(s): E11.9 - Type 2 diabetes mellitus without complications Category: Medical Plan: In summary this is a 69-year-old female with 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 Discussed pathophysiology of Type II Diabetes Mellitus with the patient in detail.? I explained the termite inspector risks and complications associated with uncontrolled diabetes including nephropathy, neuropathy, peripheral vascular disease, retinopathy, increased risk of heart disease and stroke.? Discussed lifestyle modification with the patient. Given information for www.diabetes.org. Declines referral to wooden fence erector. Given chronic constipation, reflux, chronic abdominal pain and gastroparesis she is not a good candidate for a GLP 1. Continue Jardiance to 25 mg every day. Continue Metformin 1000 mg twice daily, but switch to Metformin extended release when you are due for the next refill due to chronic GI problems. It may be easier on her stomach. Take Tresiba 6 units every night. Written instructions reviewed and given to patient for treatment of hypoglycemia: If you experience low blood sugar (under 70), treat this by eating a chewable fruit candy like skittles or jelly beans (about 8 pieces), 4 ounces (1/2 cup) of fruit juice (not diet), 1 tablespoon of honey or 4 glucose tablets. If your blood sugar is under 55, take double the amount of one of the above. Recheck your blood sugar in 15 minutes. She will advanced a Colten 3+ once prior authorization is processed and approved. She will continue taking atorvastatin for treatment of hyperlipidemia. Her triglycerides are elevated. I recommended a 3 month trial of lifestyle modifications decreasing carbohydrates and sugars in her diet. She is working on glycemic control. She should increase fibrous foods and fish in her diet as tolerated. Follow up in 1 month. (2) Hypertriglyceridemia: Code(s): E78.1 - Pure hyperglyceridemia Category: Medical Plan Follow up in 4 weeks for type 2 diabetes. Bring glucometer to all appointments. Orders: Orders AMB Glucose Monitoring Today E11.9 - Type 2 diabetes mellitus without complications Medications: Changed From insulin degludec (Tresiba FlexTouch U-100 insulin) 8 units (0.08 mL) subcut BEDTIME 15 mL 0RF To insulin degludec (Tresiba FlexTouch U-100 insulin) 6 units subcut BEDTIME Patient Instructions: Continue Jardiance 25 mg and metformin 1000 mg twice daily Start Tresiba 6 units nightly. If you experience low blood sugar (under 70), treat this by eating a chewable fruit candy like skittles or jelly beans (about 8 pieces), 4 ounces (1/2 cup) of fruit juice (not diet), 1 tablespoon of honey or 4 glucose tablets. If your blood sugar is under 55, take double the amount of one of the above. Recheck your blood sugar in 15 minutes. Contin?e con Jardiance 25 mg y metformina 1000 mg dos veces al d?a. Comience con Tresiba 6 unidades cada noche. Si experimenta niveles bajos de az?car en sunny (menos de 70), tr?telo con un caramelo masticable de fruta charli Skittles o Jelly Beans (aproximadamente 8 piezas), 113 ml (1/2 taza) de jugo de fruta (no light), 1 cucharada de miel o 4 tabletas de glucosa. Si aragon nivel de az?car en sunny es veto de 55, tome el doble de la dosis de leonarda de los medicamentos mencionados. Vuelva a medir aragon nivel de az?car en sunny en 15 minutos. Coding Level of Care Code Est Pt Level 4 (37922) Diagnoses Uncomplicated type 2 diabetes mellitus E11.9 Hypertriglyceridemia E78.1 CPT Codes Details - CPT: 62004 - Glucose monitoring, continuous-physician I&R ([id number])
[2025-05-29 12:52] VITALS: BP 136/98; PULSE 63; BMI 26.7
[2025-05-29 13:04] LABS: Glucose, Whole Blood 340 mg/dL (60-115)
[2025-05-29 13:27] VITALS: BP 126/64
--- OUTSIDE RECORDS SUMMARY | 2025-05-29 13:45 | XMS_ITS | Clinical Summary ---
Author Organization 175 [facility] Address [address] [place] [address] Phone Care Team Providers Care Greenskeeper Laborer Name Role Phone Didi Ray MD Primary Care Provider [phone] Social History Tobacco Use Types Packs/Day Years Used Date Smoking Tobacco: Never Assessed Comments Unknown Sex and Gender Information Value Date Recorded Sex Assigned at Not on file Legal Sex Female 3:10 PM EST Gender Identity Not on file Sexual Orientation Not on file Plan of Treatment Upcoming Encounters Date Type Department Care Team ([facility] Contact Info) Description 07/25/2025 2:30 PM EDT Consult Orthopedic Surgery [place] [address] [phone] Frank Benson, DPM [address] [address] Health Maintenance Due Date Last Done Comments Breast Cancer Screening 1955 DTaP,Tdap,and Td Vaccines (1 - Tdap) 1974 Pneumococcal Vaccine: 50+ Ye ars (1 of 1 - PCV) 2005 Zoster Vaccines (1 of 2) 2005 Colorectal Cancer Screening: Colonoscopy 10/07/2022 Falls Risk Assessment 10/07/2022 Hepatitis C Screening 10/07/2022 Medicare Annual Wellness Visit 10/07/2022 Osteoporosis Screening (Bone Density Screening) 10/07/2022 Social Influencers of Health Screening 10/07/2022 COVID-19 Vaccine (1 - 2023-2 5 season) 2024 Depression Screening 11/08/2024 Influenza Vaccine (#1) 2025 RSV Immunization Adult [...] patient's age to complete this topic Insurance [place] [address] MEDICARE Member Subscriber Plan / Payer (Ef fective 2024-Present) Name:Duyen Pak Relation to Subscriber:Self Name:Duyen Pak Payer ID:[id number] Group ID:[id number] Type:Not on file Address: [place] [address] [place] [address] Care Teams Greenskeeper Laborer Relationship Specialty Start Date End Date Didi Ray MD [address] [place] [address] , [address] [facility] D/B/A: [facility] SANJUANA Gupta PCP - General Internal Medicine 04/27/25
--- OUTSIDE RECORDS SUMMARY | 2025-05-29 13:45 | XMS_ITS | Clinical Summary ---
Author Organization [facility] Address [address] [place] [address] Care Team Providers Care Water/Wastewater Project Engineer Name Role Phone Unavailable Primary Care Provider [...]
--- OUTSIDE RECORDS SUMMARY | 2025-05-29 13:45 | XMS_ITS | Patient Health Record ---
Author Organization [facility]. Address [address] [facility] [id number] [place] [address] Care Team Providers Care Product Introduction Manager Name Role Phone Shan Jyoti Primary Care Provider Adilia Rush Unavailable [phone] Margarita Ayon Unavailable [phone] ALLERGIES Allergen (clinical drug ingredient) Drug/Non Drug Allergy documented on EMR Reaction Allergy Type Onset Date Status Watermelon Flavor hives Drug Allergy Active REASON FOR REFERRAL No Information MEDICATIONS Medication SIG (Take, Route, Frequency, Duration) Notes Start Date End Date Status Zolpidem Tartrate 5 MG 1 tablet at bedtime every day Orally daily for [address] directions in burkinan 10/26/2023 Active Magnesium 400 MG as directed Orally Once a day for 30 days Active [place] 3 1000 MG 1 capsule Orally Once a day for 90 days 08/27/2023 Active Vitamin B12 100 MCG 1 tablet Orally Once a day for 90 days Active Famotidine 40 MG 1 tablet at bedtime Orally Once a day Active Aspir-Low 81 MG 1 tablet Orally Once a day Active FreeStyle Colten 2 [place] - as directed a s directed 4x/day [...] Type II diabete s mellitus without complication (947857291) Problem 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9) Active confirmed Type 2 diab etes mellitus (37743101) Problem Hyperlipidemia (E78.5) Active confirmed Hyperlipidemia (86077816) Problem Major depressive disorder (F32.9) Active confirmed Major depre ssive disorder (685872178) Encounters Encounter Location Date Provider Diagnosis [address] [id number] [place] [address] 08/30/2024 Margarita Ayon MED-[id number] ([facility]) [address] [place] [address] 12/06/2024 Adilia Rush PLAN OF TREATMENT Pending Test Test Name Order Date X ray : Spines, lumbar 2 views * 023 MICROALBUMIN, RANDOM URINE (W/CREATININE ) 06/29/2023 LIPID PANEL 07/15/2023 Insurance Providers Payer Name Payer Address Payer Phone Subscriber Number Group Number Insured Name Patient Relationship to Insured Coverage Start Date Coverage End Date MEDICARE FQHC [address] [place] [address] [id number] Duyen Arellano Self - patient is the insured 0 HUSKY D [address] [place] [id number] Duyen Arellano Self - patient is the insured MEDICAL (GENERAL) HISTORY Medical History History ICD Code diabetes mellitus hypertension GERD chronic sinusitis migraine headaches DILATED EYE EXAM 11/2023 Surgical History Surgery Date(Month/Year)
--- OUTSIDE RECORDS SUMMARY | 2025-05-29 13:45 | XMS_ITS | Encounter Summary ---
Author Organization [facility] Address [address] [facility] 7t [place] [address] Care Team Providers Care Rivet Hole Puncher Name Role Phone Unavailable Primary Care Provider [...]
== END 2025-05-29 13:32 | disposition home or self-care (01) ==
LOC: HO.ENCR 12:43
PROVIDERS: PCP Internal Medicine; Visit Provider Physician Assistant Medical
DX: E11.9 Type 2 diabetes mellitus without complications (principal); E78.1 Pure hyperglyceridemia

== ENCOUNTER → 2025-05-29 12:42 | Outpatient (BNVA) | payer OTHER, SELFPAY | PROVIDERS: PCP Internal Medicine; Visit Provider Physician Assistant Medical | DX: E11.9 Type 2 diabetes mellitus without complications (principal); E78.1 Pure hyperglyceridemia | CPT/HCPCS: 82947; 99212 ==

== ENCOUNTER 2025-06-29 12:52 | Outpatient (AMB) | payer OTHER, SELFPAY ==
--- OUTSIDE RECORDS SUMMARY | 2024-08-30 07:23 | XMS_ITS ---
Author Organization [employer] [facility] Address [address] [place] [address] [id number], [place] [address] Care Team Providers Care Automotive Window Tinter Name Role Phone Jyoti Torrez Primary Care Provider [phone] Adilia Rush Unavailable [phone] Margarita Ayon Unavailable [phone] REASON FOR VISIT Dm outreach Encounters Encounter Location Date Provider Diagnosis [address] [id number], [place] [address] 08/30/2024 Margarita Ayon PLAN OF TREATMENT No Information
--- OUTSIDE RECORDS SUMMARY | 2025-06-29 12:55 | XMS_ITS | Clinical Summary ---
Author Organization [facility] Address [address] [place] [address] Care Team Providers Care Technical Sales Manager Name Role Phone Unavailable Primary Care [...]
--- OUTSIDE RECORDS SUMMARY | 2025-06-29 12:55 | XMS_ITS | Patient Health Record ---
Author Organization [facility]. Address [address] [facility] [id number] [place] [address] Care Team Providers Care Upkeep Mechanic Name Role Phone Shan Jyoti Primary Care Provider Adilia Rush Unavailable [phone] Margarita Ayon Unavailable [phone] ALLERGIES Allergen (clinical drug ingredient) Drug/Non Drug Allergy documented on EMR Reaction Allergy Type Onset Date Status Watermelon Flavor hives Drug Allergy Active REASON FOR REFERRAL No Information MEDICATIONS Medication SIG (Take, Route, Frequency, Duration) Notes Start Date End Date Status Zolpidem Tartrate 5 MG 1 tablet at bedtime every day Orally daily for [address] directions in marshallese 10/26/2023 Active Magnesium 400 MG as directed Orally Once a day for 30 days Active Pyote 3 1000 MG 1 capsule Orally Once a day for 90 days 08/27/2023 Active Vitamin B12 100 MCG 1 tablet Orally Once a day for 90 days Active Famotidine 40 MG 1 tablet at bedtime Orally Once a day Active Aspir-Low 81 MG 1 tablet Orally Once a day Active FreeStyle Colten [address] [place] - as directed a s directed 4x/day [...] Type II diabete s mellitus without complication (798315210) Problem 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) Active confirmed Tear film insufficiency (33339781) Problem Combined forms of age-related cataract, 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) Active confirmed Bilateral age-related cataract (6631577215548478 3) Problem Presbyopia (H52.4) Active confirmed Presbyopia (46673038) Problem Fibromyalgia (M79.7) Active confirmed Fibromyalgia (184224669) Problem Hypertension (I10) Active confirmed Hypertension (02391197) Problem Insomnia (G47.00) Active confirmed Inso mnia (139348082) Problem Diabetes (E11.9) Active confirmed Type II diabetes mellitus without complication (384753569) Problem Type 2 diabetes mellitus (E11.9) Active confirmed Type 2 diab etes mellitus (89953788) Problem Hyperlipidemia (E78.5) Active confirmed Hyperlipidemia (69182881) Problem Major depressive disorder (F32.9) Active confirmed Major depre ssive disorder (713692325) Encounters Encounter Location Date Provider Diagnosis [address] [id number] [place] [address] 08/30/2024 Margarita Ayon MED-478 ([facility]) [address] [place] [address] 12/06/2024 Adilia Rush PLAN OF TREATMENT Pending Test Test Name Order Date X ray : Spines, lumbar 2 views * 023 MICROALBUMIN, RANDOM URINE (W/CREATININE ) 06/29/2023 LIPID PANEL 07/15/2023 Insurance Providers Payer Name Payer Address Payer Phone Subscriber Number Group Number Insured Name Patient Relationship to Insured Coverage Start Date Coverage End Date MEDICARE FQHC [address] [place] [address] [id number] Duyen Arellano Self - patient is the insured 0 HUSKY D [address] [place] [address] [id number] Duyen Arellano Self - patient is the insured MEDICAL (GENERAL) HISTORY Medical History History ICD Code diabetes mellitus hypertension GERD chronic sinusitis migraine headaches DILATED EYE EXAM 11/2023 Surgical History Surgery Date(Month/Year)
--- OUTSIDE RECORDS SUMMARY | 2025-06-29 12:55 | XMS_ITS | Clinical Summary ---
Author Organization 175 [facility] Address [address] [place] [address] Phone Care Team Providers Care Machinery Erector Name Role Phone Didi Ray MD Primary Care Provider [phone] Social History Tobacco Use Types Packs/Day Years Used Date Smoking Tobacco: Never Assessed Comments Unknown Sex and Gender Information Value Date Recorded Sex Assigned at Not on file Legal Sex Female 3:10 PM EST Gender Identity Not on file Sexual Orientation Not on file Plan of Treatment Upcoming Encounters Date Type Department Care Team ([facility] Contact Info) Description 07/25/2025 2:30 PM EDT Consult Orthopedic Surgery [place] [address] [phone] Frank Benson, DPM [address] [address] Health Maintenance Due Date Last Done Comments [...] patient's age to complete this topic [place] [address] MEDICARE Member Subscriber Plan / Payer (Ef fective 2024-Present) Name:Duyen Pak Relation to Subscriber:Self Name:Duyen Pak Payer ID:[id number] Group ID:[id number] Type:Not on file Address: [place] [address] [place] [phone] Care Teams Machinery Erector Relationship Specialty Start Date End Date Didi Ray MD [address] [place] [address] , [address] [facility] Physician Associ D/B/A: [facility] SANJUANA Gupta PCP - General Internal Medicine 04/27/25
--- OUTSIDE RECORDS SUMMARY | 2025-06-29 12:55 | XMS_ITS | Encounter Summary ---
Author Organization [facility] Address [address] [facility] 7t [place] [address] Care Team Providers Care Corporate Receptionist Name Role Phone Unavailable Primary Care Provider [...]
[2025-06-29 13:21] VITALS: BP 122/62; PULSE 85; O2SAT 96; BMI 26.7
--- NOTE | 2025-06-29 13:21 | MHC.OFFVIS ---
Vital Signs 06/29/25 13:21 Height 4 ft 9 in Weight 123 lb 7.342 oz BMI 26.7 BP 122/62 Blood Pressure Location Rt brachial Position Sitting Pulse 85 Pulse Source Pulse Oximeter Pulse Oximetry (%) 96 Oxygen Delivery Method Room Air Intake Visit Reasons: Type II diabetes Intake Note: Patient present today for T2DM follow up. 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 [employer] Services: Mohs Surgeon/General Dermatologist Present (Dympol Radha) Mohs Surgeon/General Dermatologist Name: Rc Perkins #[id number] Accompanied by: Self / Same As Patient Allergies strawberry (STRAWBERRY) Allergy (Mild, Verified 05/18/25 13:05) PRURITUS tomato (TOMATO) Allergy (Mild, Verified 05/18/25 13:05) HIVES acetaminophen (From Percocet) Allergy (Unknown, Verified 05/18/25 13:05) Unknown oxycodone (From Percocet) Allergy (Unknown, Verified 05/18/25 13:05) Unknown pollen extracts (POLLEN) Allergy (Unknown, Verified 05/18/25 13:05) UNKNOWN lactose (LACTOSE) Adverse Reaction (Unknown, Verified 05/18/25 13:05) GI UPSET DUST Allergy (Unknown, Uncoded 05/18/25 13:05) UNKNOWN ENVIRONMENTAL Allergy (Unknown, Uncoded 05/18/25 13:05) UNKNOWN trees leaves Allergy (Uncoded 05/18/25 13:05) unknown Medication List - Last Reconciled 06/29/25 by DANTE Chaidez alcohol swabs (Alcohol Wipes) 1 pad topical TID aspirin 81 mg PO DAILY 90 days atorvastatin 40 mg PO DAILY 30 days blood sugar diagnostic (OneTouch Verio test strips) 3x daily blood-glucose sensor (FreeStyle Colten 3 Plus Sensor device) Apply 1 new sensor every 15 days as directed to monitor blood glucose continuously. blood-glucose,nail galvanizer,cont (FreeStyle Colten 3 [place]ulah) Use daily to monitor blood glucose levels continuously. [BP cuff As directed] [cane As directed] cetirizine (Zyrtec) 10 mg PO DAILY PRN cyanocobalamin (vitamin B-12) 500 mcg PO DAILY empagliflozin (Jardiance) 25 mg PO DAILY esomeprazole magnesium 40 mg PO DAILY famotidine 40 mg PO DAILY gabapentin 300 mg PO TID glucose (Dex4 Glucose) 16 grams (4 x 4 gram) PO Q15M PRN hydrochlorothiazide 25 mg PO DAILY insulin degludec (Tresiba FlexTouch U-100 insulin) 8 units (0.08 mL) subcut BEDTIME lactobacillus combination no.4 (Probiotic) 3,000 mmu cells PO DAILY lancets (OneTouch Delica Lancets) 4x daily linaclotide (Linzess) 145 mcg PO QAM lisinopril 10 mg PO DAILY metformin 1,000 mg PO BID mirtazapine 15 mg PO BEDTIME naproxen 500 mg PO BID PRN [Nitrate gloves As directed] nortriptyline 25 mg PO DAILY pen needle, diabetic (BD Ultra-Fine Micro Pen Needle) once a week pen needle, diabetic As directed simethicone (Gas Relief Extra Strength) 125 mg PO BID-QID sucralfate 10 mL PO BID vonoprazan (Voquezna) 20 mg PO DAILY zolpidem (Ambien) 5 mg PO BEDTIME PRN HPI Comments Details: This is a 69-year-old female with a past medical history of gastroparesis, hyperlipidemia, DCIS of the right breast, osteopenia, chronic constipation, GERD, vitamin-D deficiency, hypertension and type 2 diabetes presenting for diabetic management. She was diagnosed with type 2 diabetes in 1998. Her mother and father have type 2 diabetes. CGM data reviewed for the past 2 weeks G MT 7.7% Very high 13% High 34% Target range 53% 0% hypoglycemia She has a pattern of postprandial hyperglycemia. Due to her stomach issue she depends on carbohydrates in her diet like bread and rice. Hemoglobin a1c 8.7% down from 11.4% 03/26/2025. Current medication regimen: Jardiance 25 mg, metformin 1000 mg twice daily, Tresiba 6 units at night Compliance issues: none Past medication: Ozempic was discontinued in the past due to hypoglycemia. She also has gastroparesis, achalasia, GERD. Compliance issues: none Hypoglycemia symptoms: Denies interval episodes. Dizziness with past episodes. Hyperglycemia symptoms: None Eye exam: up to date Microvascular complications: neuropathy, nephropathy (microalbuminuria) Macrovascular complications: none Hypertension: treated with hydrochlorothiazide, lisinopril Hyperlipidemia: treated with atorvastatin ROS: Constitutional: No unexplained weight loss, fever, chills or night sweats. Gastrointestinal: History of IBS, GERD and ?gastroparesis Genitourinary: No dysuria, hematuria, urinary frequency. Neurologic: No headache, dizziness, syncope, unilateral weakness, ataxia Endocrine: Denies polyuria or polydipsia Physical exam: Constitutional: Alert, in no distress. Head: Normocephalic. Neck: Supple, Full range of motion. No lymphadenopathy. No palpable thyroid masses. Respiratory: Clear to auscultation. Cardiovascular: S1 S2 regular. No murmurs. [facility] Medical History (Updated 06/29/25 @ 16:32 by DANTE Chaidez) Hypertriglyceridemia Uncomplicated type 2 diabetes mellitus Microalbuminuric diabetic nephropathy Bilateral foot pain Gastroparesis Hyperlipidemia associated with type 2 diabetes mellitus Osteopenia Headache Depression Vitamin D deficiency Fibromyalgia HTN (hypertension) HLD (hyperlipidemia) T2DM (type 2 diabetes mellitus) Surgical History History of hysteroscopy Status post right breast lumpectomy Hx of colonoscopy History of hysterectomy with bilateral oophorectomy History of carpal tunnel release History of tubal ligation History of ear surgery History of delivery Family History Father Cirrhosis Liver cancer Mother T2DM (type 2 diabetes mellitus) Past heart attack Maternal Grandmother Breast cancer Maternal Grandfather No problems noted. Paternal Grandmother No problems noted. Paternal Grandfather No problems noted. Son No problems noted. Son No problems noted. Daughter No problems noted. Social History Household Members: None Housing: Apartment Are you a primary medicare contact specialist to a significant other at home: No Do you presently have visiting nurse or other home services: No Alcohol intake: never Patient Tobacco Use Status: Never used Tobacco e-Cigarette/Vaping Use: Never Used Second Hand Smoke Exposure: No service: No Current occupational status: disabled Cognitive needs: No Hearing needs: No Vision needs: Yes (glasses) Physical Exam Vital Signs: Last Vital Signs Pulse 85 06/29/25 13:21 BP 122/62 06/29/25 13:21 Pulse Ox 96 06/29/25 13:21 Oxygen Delivery Method Room Air 06/29/25 13:21 BMI result Body Mass Index 26.7 Office Procedures Glucose Monitoring Details Details: See [facility] [address] - Glucose monitoring, continuous-physician I&R Procedure code (CPT) selection complete Results AMB Hemoglobin A1c AMB Hemoglobin A1c 8.7 % Last Edit by BRYON Booker on 06/29/25 13:44 Results Reviewed Results Reviewed: Laboratory Last Values Glucose (Clinic) 271 mg/dL (60-115) H 06/29/25 13:25 Hgb A1c (Clinic) 8.7 % (4.0-6.0) H 06/29/25 13:43 Laboratory Tests 08/11/24 08/11/24 03/26/25 09:45 09:54 13:31 Creatinine 0.81 Estimated GFR > 60 Hemoglobin A1c % 8.0 H Hgb A1c (Clinic) 11.4 H AST 17 ALT 16 Triglycerides 256 H Cholesterol 303 H LDL Cholesterol, Calc 203 H HDL Cholesterol 49 TSH 0.91 Urine Creatinine 80.81 Urine Microalbumin 87.0 Microalb/Creat Ratio 107.6 H Laboratory Tests 04/25/25 12:54 Plt Count 285 Creatinine 1.03 Estimated GFR 53 AST 42 H ALT 31 Triglycerides 311 H Cholesterol 143 LDL Cholesterol, Calc 49 HDL Cholesterol 32 L Assessment & Plan Assessment & Plan (1) Uncomplicated type 2 diabetes mellitus: Code(s): E11.9 - Type 2 diabetes mellitus without complications Category: Medical Qualifiers: Diabetes mellitus long term acute care registered nurse insulin use: with long term acute care registered nurse use Qualified Code(s): E11.9 - Type 2 diabetes mellitus without complications; Z79.4 - correction (current) use of insulin Plan: In summary this is a 69-year-old female with 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 Discussed pathophysiology of Type II Diabetes Mellitus with the patient in detail.? I explained the care home risks and complications associated with uncontrolled diabetes including nephropathy, neuropathy, peripheral vascular disease, retinopathy, increased risk of heart disease and stroke.? Discussed lifestyle modification with the patient. Given information for www.diabetes.org. Declines referral to stove fitter. Given chronic constipation, reflux, chronic abdominal pain and gastroparesis she is not a good candidate for a GLP 1. Continue Jardiance to 25 mg every day. Continue Metformin 1000 mg twice daily, but switch to Metformin extended release when you are due for the next refill due to chronic GI problems. It may be easier on her stomach. Increase Tresiba to 8 units nightly. Advised her to meet with a dietitian because she has postprandial hyperglycemia. Declines for now. She is going to try to decrease carbohydrates in her diet. She is going to look into [employer], but I encouraged her to check with the pharmacist before purchasing to make sure they it does not contain any of her allergens. We discussed addition of short-acting insulin before meals. She will think about this. She could also consider addition of Actos. Plan Follow up in 4 weeks for type 2 diabetes. Bring glucometer to all appointments. Orders: Orders AMB Glucose Monitoring Today E11.9 - Type 2 diabetes mellitus without complications AMB Hemoglobin A1c Today E11.65 - Type 2 diabetes mellitus with hyperglycemia Medications: Changed From insulin degludec (Tresiba FlexTouch U-100 insulin) 6 units subcut BEDTIME To insulin degludec (Tresiba FlexTouch U-100 insulin) 8 units (0.08 mL) subcut BEDTIME 15 mL 5RF Patient Instructions: Continue Jardiance 25 mg Continue metformin 1000 mg twice daily Increase Tresiba to 8 units nightly If you experience low blood sugar, treat this by eating a chewable fruit candy like skittles or jelly beans (about 8 pieces), 4 ounces (1/2 cup) of fruit juice (not diet), 1 tablespoon of honey or 4 glucose tablets. If your blood sugar is under 50, take double the amount of one of the above. Recheck your blood sugar in 15 minutes. Contin?e con Jardiance 25 mg Contin?e con metformina 1000 mg dos veces al d?a Aumente la dosis de Tresiba a 8 unidades cada noche Si experimenta niveles bajos de az?car en la sunny, tr?telo con un caramelo masticable de fruta charli Skittles o Jelly Beans (aproximadamente 8 piezas), 113 ml (1/2 taza) de jugo de fruta (no light), 1 cucharada de miel o 4 tabletas de glucosa. Si aragon nivel de az?car en la sunny es inferior a 50, tome el doble de la dosis de leonarda de los medicamentos mencionados. Vuelva a medir aragon nivel de az?car en la sunny en 15 minutos. You can try Glucerna shake, but please check with the pharmacist to make sure it does not contain any of the things you are allergic to. Puedes probar el batido Glucerna, lee consulta con el farmac?utico para asegurarte de que no contiene ninguna de las cosas a las que eres al?rgico. Coding Level of Care Code Est Pt Level 4 (58501) Diagnoses Type 2 diabetes mellitus without complication, with long-term current use of insulin E11.9; Z79.4 Diabetes mellitus long term acute care registered nurse insulin use: with long term acute care registered nurse use CPT Codes Details - CPT: 65015 - Glucose monitoring, continuous-physician I&R ([id number])
[2025-06-29 13:30] LABS: Glucose, Whole Blood 271 mg/dL (60-115)
== END 2025-06-29 14:21 | disposition home or self-care (01) ==
LOC: HO.ENCR 12:53
PROVIDERS: PCP Internal Medicine; Visit Provider Physician Assistant Medical
DX: E11.9 Type 2 diabetes mellitus without complications (principal); Z79.4 Long term (current) use of insulin; E11.65 Type 2 diabetes mellitus with hyperglycemia

== ENCOUNTER → 2025-06-29 12:52 | Outpatient (BNVA) | payer OTHER, SELFPAY | PROVIDERS: PCP Internal Medicine; Visit Provider Physician Assistant Medical | DX: E11.65 Type 2 diabetes mellitus with hyperglycemia (principal); Z79.4 Long term (current) use of insulin | CPT/HCPCS: 82947; 83036; 99212 ==

== ENCOUNTER 2025-07-02 10:51 | Day surgery (SDC) | payer OTHER, SELFPAY ==
--- OUTSIDE RECORDS SUMMARY | 2024-08-30 07:23 | XMS_ITS ---
Author Organization [employer] [facility] Address [address] [place] [address] [id number] [place] [address] Care Team Providers Care Cupola Operator Name Role Phone Jyoti Torrez Primary Care Provider Adilia Rush Unavailable [phone] Margarita Ayon Unavailable [phone] REASON FOR VISIT Dm outreach Encounters Encounter Location Date Provider Diagnosis [address] [id number] [place], [place] [address] 08/30/2024 Margarita Ayon PLAN OF TREATMENT No Information
--- OUTSIDE RECORDS SUMMARY | 2025-06-18 12:18 | XMS_ITS | Clinical Summary ---
Author Organization [facility] Address [address] [place] [address] Care Team Providers Care Pc Network Technician Name Role Phone Unavailable Primary Care [...]
--- OUTSIDE RECORDS SUMMARY | 2025-06-18 12:19 | XMS_ITS | Clinical Summary ---
Author Organization 175 [facility] Address [address] [place] [address] Phone Care Team Providers Care Body Fitter Name Role Phone Didi Ray MD Primary Care Provider [phone] Social History Tobacco Use Types Packs/Day Years Used Date Smoking Tobacco: Never Assessed Comments Unknown Sex and Gender Information Value Date Recorded Sex Assigned at Not on file Legal Sex Female 3:10 PM EST Gender Identity Not on file Sexual Orientation Not on file Plan of Treatment Upcoming Encounters Date Type Department Care Team ([facility] Contact Info) Description 07/25/2025 2:30 PM EDT Consult Orthopedic Surgery [place] [address] [phone] Frank Benson, DPM [address] [address] Health Maintenance Due Date Last Done Comments [...] patient's age to complete this topic [place] [address] [address] [place] [address] MEDICARE Member Subscriber Plan / Payer (Ef fective 2024-Present) Name:Duyen Pak Relation to Subscriber:Self Name:Duyen Pak Payer ID:[id number] Group ID:[id number] Type:Not on file Address: [place] [address] [place] [address] Care Teams Body Fitter Relationship Specialty Start Date End Date Didi Ray MD [address] [place] [address] , [address] [facility] Physician Associ D/B/A: [facility] SANJUANA Gupta PCP - General Internal Medicine 04/27/25
--- OUTSIDE RECORDS SUMMARY | 2025-06-18 12:19 | XMS_ITS | Encounter Summary ---
Author Organization [facility] Address [address] [facility] 7t [place] [address] Care Team Providers Care Options Advisor Name Role Phone Unavailable Primary Care Provider [...]
--- NOTE | 2025-06-29 13:20 | HO.ANESPROP2 ---
Documented by User: Theresa Martinez NP 06/29/25 13:21 HPI - Anesthesia Eval Consult details Narrative: 69 yr old female for upper endoscopy Type 2 DM: A1C 11.4% Anesthesia Pre-Procedure Meds Is the patient on any of the following meds?: SGLT2 Inhib PMFSH Active Problems Active Problems: All Active Problems Hypertriglyceridemia (Acute) Uncomplicated type 2 diabetes mellitus (Acute) Microalbuminuric diabetic nephropathy (Acute) Bilateral foot pain (Acute) Achalasia (Acute) Dyspnea on exertion (Acute) Fatigue (Acute) Gastroparesis (Acute) Hyperlipidemia (Acute) Ductal carcinoma in situ (DCIS) of right breast (Acute) Hyperlipidemia associated with type 2 diabetes mellitus (Acute) Physical exam (Acute) Anemia (Chronic) Osteopenia (Acute) Headache (Acute) Ear ache (Acute) Chronic idiopathic constipation (Acute) GERD (gastroesophageal reflux disease) (Acute) Epigastric abdominal pain (Acute) Vitamin D deficiency (Acute) HTN (hypertension) (Acute) HLD (hyperlipidemia) (Acute) T2DM (type 2 diabetes mellitus) (Acute) Past Medical History Medical History (Updated 06/29/25 @ 16:32 by DANTE Chaidez) Hypertriglyceridemia Uncomplicated type 2 diabetes mellitus Microalbuminuric diabetic nephropathy Bilateral foot pain Gastroparesis Hyperlipidemia associated with type 2 diabetes mellitus Osteopenia Headache Depression Vitamin D deficiency Fibromyalgia HTN (hypertension) HLD (hyperlipidemia) T2DM (type 2 diabetes mellitus) Family History Family History Father Cirrhosis Liver cancer Mother T2DM (type 2 diabetes mellitus) Past heart attack Maternal Grandmother Breast cancer Maternal Grandfather No problems noted. Paternal Grandmother No problems noted. Paternal Grandfather No problems noted. Son No problems noted. Son No problems noted. Daughter No problems noted. Surgical History Surgical History History of hysteroscopy Status post right breast lumpectomy Hx of colonoscopy History of hysterectomy with bilateral oophorectomy History of carpal tunnel release History of tubal ligation History of ear surgery History of delivery Social History Social History Household Members: None Housing: Apartment Are you a primary aged or disabled care worker to a significant other at home: No Do you presently have visiting nurse or other home services: No Alcohol intake: never Patient Tobacco Use Status: Never used Tobacco e-Cigarette/Vaping Use: Never Used Second Hand Smoke Exposure: No service: No Current occupational status: disabled Cognitive needs: No Hearing needs: No Vision needs: Yes (glasses) Meds Allergies Allergy/AdvReac Type Severity Reaction Status Date / Time strawberry (STRAWBERRY) Allergy Mild PRURITUS Verified 07/02/25 11:58 tomato (TOMATO) Allergy Mild HIVES Verified 07/02/25 11:58 acetaminophen (From Percocet) Allergy Unknown Unknown Verified 07/02/25 11:58 oxycodone (From Percocet) Allergy Unknown Unknown Verified 07/02/25 11:58 pollen extracts (POLLEN) Allergy Unknown UNKNOWN Verified 07/02/25 11:58 lactose (LACTOSE) AdvReac Unknown GI UPSET Verified 07/02/25 11:58 DUST Allergy Unknown UNKNOWN Uncoded 07/02/25 11:58 ENVIRONMENTAL Allergy Unknown UNKNOWN Uncoded 07/02/25 11:58 trees leaves Allergy unknown Uncoded 07/02/25 11:58 Home Medications ?Medication ?Instructions ?Recorded ?Confirmed ?Last Taken ?Type nortriptyline 25 mg capsule 25 mg PO DAILY 04/10/21 07/02/25 Unknown History cyanocobalamin (vitamin B-12) 500 500 mcg PO DAILY 05/18/25 07/02/25 Unknown History mcg tablet famotidine 40 mg tablet 40 mg PO DAILY 05/18/25 07/02/25 Unknown History mirtazapine 15 mg tablet 15 mg PO BEDTIME 05/18/25 07/02/25 Unknown History empagliflozin 25 mg tablet 25 mg PO DAILY 05/29/25 07/02/25 Unknown History (Jardiance) Documented by User: Stevan Gill MD 07/02/25 13:57 PMFSH Past Medical History Medical History (Updated 06/29/25 @ 16:32 by DANTE Chaidez) Hypertriglyceridemia Uncomplicated type 2 diabetes mellitus Microalbuminuric diabetic nephropathy Bilateral foot pain Gastroparesis Hyperlipidemia associated with type 2 diabetes mellitus Osteopenia Headache Depression Vitamin D deficiency Fibromyalgia HTN (hypertension) HLD (hyperlipidemia) T2DM (type 2 diabetes mellitus) Family History Family History Father Cirrhosis Liver cancer Mother T2DM (type 2 diabetes mellitus) Past heart attack Maternal Grandmother Breast cancer Maternal Grandfather No problems noted. Paternal Grandmother No problems noted. Paternal Grandfather No problems noted. Son No problems noted. Son No problems noted. Daughter No problems noted. Family history of problems with anesthesia: No Surgical History Surgical History History of hysteroscopy Status post right breast lumpectomy Hx of colonoscopy History of hysterectomy with bilateral oophorectomy History of carpal tunnel release History of tubal ligation History of ear surgery History of delivery History of Problems with Anesthesia: No Social History Social History Household Members: None Housing: Apartment Are you a primary aged or disabled care worker to a significant other at home: No Do you presently have visiting nurse or other home services: No Alcohol intake: never Patient Tobacco Use Status: Never used Tobacco e-Cigarette/Vaping Use: Never Used Second Hand Smoke Exposure: No service: No Current occupational status: disabled Cognitive needs: No Hearing needs: No Vision needs: Yes (glasses) Meds Allergies Allergy/AdvReac Type Severity Reaction Status Date / Time strawberry (STRAWBERRY) Allergy Mild PRURITUS Verified 07/02/25 11:58 tomato (TOMATO) Allergy Mild HIVES Verified 07/02/25 11:58 acetaminophen (From Percocet) Allergy Unknown Unknown Verified 07/02/25 11:58 oxycodone (From Percocet) Allergy Unknown Unknown Verified 07/02/25 11:58 pollen extracts (POLLEN) Allergy Unknown UNKNOWN Verified 07/02/25 11:58 lactose (LACTOSE) AdvReac Unknown GI UPSET Verified 07/02/25 11:58 DUST Allergy Unknown UNKNOWN Uncoded 07/02/25 11:58 ENVIRONMENTAL Allergy Unknown UNKNOWN Uncoded 07/02/25 11:58 trees leaves Allergy unknown Uncoded 07/02/25 11:58 Home Medications ?Medication ?Instructions ?Recorded ?Confirmed ?Last Taken ?Type nortriptyline 25 mg capsule 25 mg PO DAILY 04/10/21 07/02/25 Unknown History cyanocobalamin (vitamin B-12) 500 500 mcg PO DAILY 05/18/25 07/02/25 Unknown History mcg tablet famotidine 40 mg tablet 40 mg PO DAILY 05/18/25 07/02/25 Unknown History mirtazapine 15 mg tablet 15 mg PO BEDTIME 05/18/25 07/02/25 Unknown History empagliflozin 25 mg tablet 25 mg PO DAILY 05/29/25 07/02/25 Unknown History (Jardiance) Exam Airway Mallampati Class: III TM Dist: >3cm Neck ROM: Full Assessment and Plan Assessment Anesthesia Assessment: Anesthesia Plan Discussed and Chart Reviewed Final Anesthetic Review Family History of Problems with Anesthesia: No History of Problems with Anesthesia: No NPO: Yes ASA Class: III Final Preanesthetic Review: No Changes in Pt Med Stat, Meds/Allgs Chart Reviewed, Consent Obtained/Reviewed and Anes Risks/Benef Reviewed Patient Risk: Intermediate Procedure Risk: Low Anesthetic Plan Anesthetic Plan: TIVA Disposition: Standard PACU
[2025-07-02 12:05] VITALS: BP 135/57; PULSE 69; RESP 12; TEMP 36.6; O2SAT 98; BMI 26.2
[2025-07-02] MEDS: Lactated Ringers 1,000 ML 100 ML IVCONT (12:09)
[2025-07-02 12:22] LABS: Glucose, Whole Blood 140 mg/dL (60-115)
--- NOTE | 2025-07-02 13:26 | MHC.SHP ---
Pre-Procedural Eval Section A - 24 Hr Update-Section A only Date of Service: 07/02/25 The patient is an INPATIENT: No The patient has been examined within 24 hours of the surgical procedure. The History & Physical has been completed within 30 days and I have reviewed it.: No Section B - Complete if H&P > 30 days Chief Complaint: Epigastric pain, bloating, GERD Relevant Family History (Specify if Yes): No Relevant Social History: None Present Medications: see Short Stay Collaborative assessment Medical History: Significant History (Uncomplicated type 2 diabetes mellitus Microalbuminuric diabetic nephropathy Bilateral foot pain Gastroparesis Hyperlipidemia associated with type 2 diabetes mellitus Osteopenia Headache Depression Vitamin D deficiency) History of Previous Operations: Relevant previous surgery/procedure and date(s) (History of hysteroscopy Status post right breast lumpectomy Hx of colonoscopy History of hysterectomy with bilateral oophorectomy History of carpal tunnel release History of tubal ligation History of ear surgery History of delivery) Allergies: Allergies Allergy/AdvReac Type Severity Reaction Status Date / Time strawberry (STRAWBERRY) Allergy Mild PRURITUS Verified 07/02/25 11:58 tomato (TOMATO) Allergy Mild HIVES Verified 07/02/25 11:58 acetaminophen (From Percocet) Allergy Unknown Unknown Verified 07/02/25 11:58 oxycodone (From Percocet) Allergy Unknown Unknown Verified 07/02/25 11:58 pollen extracts (POLLEN) Allergy Unknown UNKNOWN Verified 07/02/25 11:58 lactose (LACTOSE) AdvReac Unknown GI UPSET Verified 07/02/25 11:58 DUST Allergy Unknown UNKNOWN Uncoded 07/02/25 11:58 ENVIRONMENTAL Allergy Unknown UNKNOWN Uncoded 07/02/25 11:58 trees leaves Allergy unknown Uncoded 07/02/25 11:58 Review of Systems Sugical H&P ROS: Negative: Constitution, Cardiovascular, Respiratory and Gastrointestinal Exam Surgical H&P Exam: Normal: Heart, Normal: Lungs, Normal: Extremities and Normal: Abdomen Plan Diagnosis/Plan: Unchanged I have reviewed the history and physical and performed a pertinent physical examination on my patient. No changes have occurred unless specified. Time Spent With Patient Time: Total time managing care of this patient today ____ minutes.
[2025-07-02 13:57] VITALS: BP 102/98; PULSE 86; RESP 14; TEMP 36.8; O2SAT 94
--- NOTE | 2025-07-02 13:58 | W.PM.OPN ---
Operative Note Operative Note Date of Service: 07/02/25 Narrative: FLEXIBLE TRANSORAL UPPER GASTROINTESTINAL ENDOSCOPY WITH BIOPSIES AND ESOPHAGEAL BALLOON DILATION Pre-op diagnosis: GERD, Epigastric pain and bloating, Dysphagia Post-op diagnosis: small hiatal hernia, Gastritis, Endoscopist:? Jacqueline Oneal MD Anesthesia:?MAC UPPER ENDOSCOPY Consent: Indications for the procedure and potential complications of bleeding, perforation, reaction to medications and missed diagnosis were discussed with the patient and informed consent was obtained. Instrument: Olympus GIF H 190 mid size upper endoscope Monitoring: Vital signs and clinical assessment, continuous EKG monitoring, Pulse oximetry, Carbon Dioxide monitoring and blood pressure monitoring were done throughout the procedure. Procedure: The patient was placed in the left lateral decubitis position and pre-procedure medications were administered and a bite block was placed. The endoscope was inserted into the mouth and advanced under direct vision to the third part of duodenum. A careful inspection was made as the upper endoscope was withdrawn including a retroflexed examination of the proximal stomach; Findings and interventions are described below. Findings: Larynx: Normal Esophagus: GE junction at 30 cms, small hiatal henria 30 to 32 cms. Mildly tortuous esophagus Empiric esophageal balloon dilation of the distal esophagus (LES) was performed with a 19 mm CRE balloon for 60 seconds Empiric esophageal balloon dilation of the proximal esophagus (UES) was performed with an 18 mm CRE balloon for 60 seconds Stomach: Moderate diffuse gastric erythema - biopsies were obtained from the antrum. Grade 2 flap valve on retroflexed examination of the cardia. Duodenum: Normal bulb and descending duodenum. Biopsies were obtained from 3rd part of the duodenum to check for celiac sprue Intervention: Biopsies as noted above Impression and Post Procedure Diagnosis: Endoscopy Findings: ESOPHAGUS: Small hiatal henria 30 to 32 cms. Mildly tortuous esophagus Empiric esophageal balloon dilation of the distal esophagus (LES) was performed with a 19 mm (57 F) CRE balloon for 60 seconds Empiric esophageal balloon dilation of the proximal esophagus (UES) was performed with an 18 mm (54 F) CRE balloon for 60 second STOMACH: Diffuse gastritis DUODENUM: Normal - biopsied to check for celiac sprue Plan: Pt has a FU appointment on 07/10/25 with Maggy Hollis NP. Above findings were reviewed with the patient and relevant handouts were given and the discharge area. BIOPSIES SHOWED: A. Small bowel, biopsy: Small intestinal mucosa within normal limits. B. Stomach, antrum, biopsy: Small fragments of antral-type and oxyntic mucosa within normal limits; no Helicobacter organisms seen. C. Stomach, body, biopsy: Oxyntic mucosa with mild chronic inactive inflammation; no Helicobacter organisms seen. Comment: Diagnostic morphologic features of celiac disease are not seen
[2025-07-02 14:12] VITALS: BP 138/68; PULSE 74; RESP 20; TEMP 36.6; O2SAT 99
== END 2025-07-02 15:00 | disposition home or self-care (01) ==
PROVIDERS: PCP Internal Medicine; Visit Provider Internal Medicine Gastroenterology
PROC: 0DJ08ZZ Inspection of Upper Intestinal Tract, Via Natural or Artificial Opening Endoscopic (ICD-10-PCS; CPT 43235; principal; 2025-07-02 13:00)
DX: K21.9 Gastro-esophageal reflux disease without esophagitis (principal); K90.0 Celiac disease; K29.60 Other gastritis without bleeding; K22.4 Dyskinesia of esophagus; K44.9 Diaphragmatic hernia without obstruction or gangrene; R13.13 Dysphagia, pharyngeal phase; E11.9 Type 2 diabetes mellitus without complications; K31.84 Gastroparesis; I10 Essential (primary) hypertension; E78.5 Hyperlipidemia, unspecified; E55.9 Vitamin D deficiency, unspecified; Z79.899 Other long term (current) drug therapy; Z79.02 Long term (current) use of antithrombotics/antiplatelets; Z79.82 Long term (current) use of aspirin; Z79.4 Long term (current) use of insulin
CPT/HCPCS: 43249; 43239; 82947; 88305; 88313; 88342; C1726; J2003; J2704

== ENCOUNTER → 2025-07-02 10:51 | Outpatient (BNV) | payer OTHER, SELFPAY | PROVIDERS: PCP Internal Medicine; Visit Provider Internal Medicine Gastroenterology | DX: K44.9 Diaphragmatic hernia without obstruction or gangrene (principal); K29.70 Gastritis, unspecified, without bleeding; R13.10 Dysphagia, unspecified; R10.13 Epigastric pain | CPT/HCPCS: 43249; 45380 ==

== ENCOUNTER 2025-07-04 10:41 | Outpatient (REF) | payer OTHER, SELFPAY ==
--- OUTSIDE RECORDS SUMMARY | 2024-03-02 05:15 | XMS_ITS ---
Author Organization [employer]. Address [address] [facility] [id number] [place] [address] Care Team Providers Care Senior Firmware Engineer Name Role Phone Jyoti Torrez Primary Care Provider [phone] Adilia Rush Unavailable [phone] Margarita Ayon Unavailable [phone] REASON FOR VISIT DM F/UP Encounters Encounter Location Date Provider Diagnosis [address] [address] 03/02/2024 Margarita Ayon PLAN OF TREATMENT No Information
--- OUTSIDE RECORDS SUMMARY | 2024-08-30 07:23 | XMS_ITS ---
Author Organization [employer] [facility] Address [address] [place] [address] [id number] [place] [address] Care Team Providers Care Drug Room Operator Name Role Phone Jyoti Torrez Primary Care Provider Adilia Rush Unavailable [phone] Margarita Ayon Unavailable [phone] REASON FOR VISIT Dm outreach Encounters Encounter Location Date Provider Diagnosis [address] [id number] [place] [address] 08/30/2024 Margarita Ayon PLAN OF TREATMENT No Information
--- OUTSIDE RECORDS SUMMARY | 2024-12-06 09:00 | XMS_ITS ---
Author Organization [employer]. Address [address] [facility] [id number] [place] [address] Care Team Providers Care Manager Beauty Name Role Phone Jyoti Torrez Primary Care Provider [phone] Adilia Rush Unavailable [phone] REASON FOR VISIT DM Eye Exam Encounters Encounter Location Date Provider Diagnosis MED-47 ([facility]) [facility] [place] [address] 12/06/2024 Adilia Rush PLAN OF TREATMENT No Information
--- NOTE | ~2025-07-04 | US_ITS ---
EXAMINATION: US ABDOMEN LIMITED WITH LIVER ELASTOGRAPHY HISTORY: E11.65 - elevated LFTs TECHNIQUE: Real-time grayscale ultrasound imaging of the right upper quadrant was performed and images were reviewed. COMPARISON: Correlation is made with a CT of the abdomen with contrast dated 03/06/2021. FINDINGS: Liver: The right lobe of the liver measures 13.0 cm in size. The left lobe of the liver measures 8.9 cm in size. The liver demonstrates increased echotexture, consistent with steatosis. No focal mass or intrahepatic biliary ductal dilatation is identified. There is normal hepatopedal flow in the portal vein. Ultrasound elastography of the liver was performed with 10 separate measurements of the liver parenchyma with the patient in the supine position. Measurements were obtained approximately 2 cm below Cooper's capsule and perpendicular to the capsule. The median shear wave velocity is 1.49 m/s. The interquartile range/median (IQR/median) is 0.15. Gallbladder and biliary tree: The gallbladder is unremarkable, without evidence of calculi, wall thickening, or pericholecystic fluid. There is no sonographic Rodriguez sign. The common bile duct is normal in caliber measuring 5 mm. Right Kidney: The right kidney measures 8.9 cm in length and demonstrates an extrarenal pelvis. The right kidney is otherwise unremarkable, without evidence of masses, hydronephrosis, or calculi. Pancreas: The pancreatic head, neck, and body are unremarkable. The pancreatic tail is obscured by bowel gas. Abdominal aorta and inferior vena cava: The visualized portions of the abdominal aorta and inferior vena cava are normal in caliber. There is no free fluid in the right upper quadrant. US/US abdomen hall w elastography IMPRESSION: Hepatic steatosis. The median shear wave velocity in the liver is 1.49 m/s, corresponding to a median liver stiffness of 6.84 kPa. The IQR/median value is 0.15. This is indicative of a quality data set. Findings are indicative of a low elastography value which rules out advanced chronic liver disease in asymptomatic patients. REFERENCE: Society of Radiologists in Ultrasound Liver Stiffness Thresholds (2019): LIVER STIFFNESS THRESHOLDS: *Shear wave velocity less than 1.3 m/s (Liver Stiffness equal or less than 5 kPa): High probability of being normal. *Shear wave velocity less than 1.7 m/s (Liver Stiffness less than 9 kPa): In the absence of other known clinical signs, rules out compensated advanced chronic liver disease. *Shear wave velocity between 1.7-2.1 m/s (Liver Stiffness 9-13 kPa): Suggestive of compensated advanced chronic liver disease but need further test for confirmation. *Shear wave velocity between 2.1-2.4 m/s (Liver Stiffness 13-17 kPa): Rules in compensated advanced chronic liver disease. *Shear wave velocity greater than 2.4 m/s (Liver Stiffness over 17 kPa): Suggestive of clinically significant portal hypertension. QUALITY OF DATA SET: *IQR/Median value equal or less than 0.15 implies a quality data set. *IQR/Median value over 0.15 implies a poor quality data set. SIGNIFICANT CHANGE FROM PRIOR EXAM: Significant change if liver stiffness measurement is 10% or greater from prior exam. OTHER CONSIDERATIONS: The stage of liver fibrosis may be overestimated in the setting of acute hepatitis, liver inflammation, elevated liver function tests, hepatic vascular congestion, obstructive cholestasis, non-fasting state, and infiltrative diseases such as amyloidosis and lymphoma. In some patients with NAFLD, the liver stiffness thresholds for compensated advanced chronic liver disease may be lower. In causes other than viral hepatitis and NAFLD, liver stiffness thresholds are not well established. Electronically signed by: Toribio Pabon MD 07/04/2025 11:22 AM EDT
--- OUTSIDE RECORDS SUMMARY | 2025-07-04 11:34 | XMS_ITS | Clinical Summary ---
Author Organization [facility] Address [address] [place] [address] Care Team Providers Care Palliative Care Nurse Name Role Phone Unavailable Primary Care [...]
--- OUTSIDE RECORDS SUMMARY | 2025-07-04 11:34 | XMS_ITS | Clinical Summary ---
Author Organization 175 [facility] Address [address] [place] [address] Phone Care Team Providers Care Motorcycle Riding Instructor Name Role Phone Didi Ray MD Primary Care Provider [phone] Social History Tobacco Use Types Packs/Day Years Used Date Smoking Tobacco: Never Assessed Comments Unknown Sex and Gender Information Value Date Recorded Sex Assigned at Not on file Legal Sex Female 3:10 PM EST Gender Identity Not on file Sexual Orientation Not on file Plan of Treatment Upcoming Encounters Date Type Department Care Team ([facility] Contact Info) Description 07/25/2025 2:30 PM EDT Consult Orthopedic Surgery [facility] [address] [place] [phone] Frank Benson, DPM [address] [place] [phone] Health Maintenance Due Date Last Done Comments [...] Vaccine ( - 2023-2 5 season) 2024 Depression Screening [...] patient's age to complete this topic Insurance [employer] MEDICARE Member Subscriber Plan / Payer (Ef fective 2024-Present) Name:Duyen Pak Relation to Subscriber:Self Name:Duyen Pak Payer ID:[id number] Group ID:[id number] Type:Not on file Address: [place] [address] [address] [phone] Care Teams Motorcycle Riding Instructor Relationship Specialty Start Date End Date Didi Ray MD [address] [place] [address] , [address] [facility] Physician Associ D/B/A: [facility] SANJUANA Gupta PCP - General Internal Medicine 04/27/25
--- OUTSIDE RECORDS SUMMARY | 2025-07-04 11:34 | XMS_ITS | Encounter Summary ---
Author Organization [employer] [facility] Address 75 [facility] 7t [place] [address] Care Team Providers Care Tower Technician Name Role Phone Unavailable Primary Care [...]
--- OUTSIDE RECORDS SUMMARY | 2025-07-04 11:35 | XMS_ITS | Encounter Summary ---
Author Organization [employer] [facility] Address 75 [facility] 7t [place] [address] Care Team Providers Care Custom Grinder Name Role Phone Unavailable Primary Care Provider [...]
--- OUTSIDE RECORDS SUMMARY | 2025-07-04 11:35 | XMS_ITS | Clinical Summary ---
Author Organization [employer] Address 75 [facility] 7t [place] [address] Care Team Providers Care Global Compensation Analyst Name Role Phone Unavailable Primary Care Provider [...] season) 2024 03/07/2021, 02/13/2021 Influenza Vaccine (#1) 2025 , 08/07/2020, 07/19/2019, Additional history exists RSV [...]
--- OUTSIDE RECORDS SUMMARY | 2025-07-04 11:35 | XMS_ITS | Patient Health Record ---
Author Organization [employer]. Address [address] [facility] [id number] [place] [address] Care Team Providers Care Digester Operator Helper Name Role Phone Shan Jyoti Primary Care Provider Adilia Rush Unavailable [phone] Margarita Ayon Unavailable [phone] ALLERGIES Allergen (clinical drug ingredient) Drug/Non Drug Allergy documented on EMR Reaction Allergy Type Onset Date Status Watermelon Flavor hives Drug Allergy Active REASON FOR REFERRAL No Information MEDICATIONS Medication SIG (Take, Route, Frequency, Duration) Notes Start Date End Date Status Zolpidem Tartrate 5 MG 1 tablet at bedtime every day Orally daily for [address] directions in montenegrin 10/26/2023 Active Magnesium 400 MG as directed Orally Once a day for 30 days Active Benton 3 1000 MG 1 capsule Orally Once a day for 90 days 08/27/2023 Active Vitamin B12 100 MCG 1 tablet Orally Once a day for 90 days Active Famotidine 40 MG 1 tablet at bedtime Orally Once a day Active Aspir-Low 81 MG 1 tablet Orally Once a day Active FreeStyle Colten 2 [place] - as directed a s directed 4x/day [...] Type II diabete s mellitus without complication (160229308) Problem 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) Active confirmed Tear film insufficiency (68820193) Problem Combined forms of age-related cataract, 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) Active confirmed Bilateral age-related cataract (8674395195656796 3) Problem Presbyopia (H52.4) Active confirmed Presbyopia (20763990) Problem Fibromyalgia (M79.7) Active confirmed Fibromyalgia (088284531) Problem Hypertension (I10) Active confirmed Hypertension (80305528) Problem Insomnia (G47.00) Active confirmed Inso mnia (573920248) Problem Diabetes (E11.9) Active confirmed Type II diabetes mellitus without complication (400051503) Problem Type 2 diabetes mellitus (E11.9) Active confirmed Type 2 diab etes mellitus (78792542) Problem Hyperlipidemia (E78.5) Active confirmed Hyperlipidemia (35425378) Problem Major depressive disorder (F32.9) Active confirmed Major depre ssive disorder (135529313) Encounters Encounter Location Date Provider Diagnosis [id number] [place] [address] 08/30/2024 Margarita Ayon [id number] ([facility]) [address] [place] [address] 12/06/2024 Adilia Rush PLAN OF TREATMENT Pending Test Test Name Order Date X ray : Spines, lumbar 2 views * 023 MICROALBUMIN, RANDOM URINE (W/CREATININE ) 06/29/2023 LIPID PANEL 07/15/2023 Insurance Providers Payer Name Payer Address Payer Phone Subscriber Number Group Number Insured Name Patient Relationship to Insured Coverage Start Date Coverage End Date MEDICARE FQHC [address] [place] [address] [id number] Duyen Arellano Self - patient is the insured 0 HUSKY D [address] [place] [address] [id number] Duyen Arellano Self - patient is the insured MEDICAL (GENERAL) HISTORY Medical History History ICD Code diabetes mellitus hypertension GERD chronic sinusitis migraine headaches DILATED EYE EXAM 11/2023 Surgical History Surgery Date(Month/Year)
== END 2025-07-04 10:42 | disposition home or self-care (01) ==
LOC: HO.US 10:41
PROVIDERS: PCP Internal Medicine; Visit Provider Physician Assistant Medical
DX: E11.65 Type 2 diabetes mellitus with hyperglycemia (principal); R79.89 Other specified abnormal findings of blood chemistry
CPT/HCPCS: 76705; 76981

== ENCOUNTER → 2025-07-04 10:43 | Outpatient (BNV) | payer OTHER, SELFPAY | PROVIDERS: PCP Internal Medicine; Visit Provider Radiology Diagnostic Radiology | DX: K76.0 Fatty (change of) liver, not elsewhere classified (principal) | CPT/HCPCS: 76705 ==

== ENCOUNTER 2025-07-10 12:08 | Outpatient (AMB) | payer OTHER, SELFPAY ==
--- NOTE | 2025-07-10 12:11 | A.OFFVIS_ITS ---
Vital Signs 07/10/25 12:13 Height 4 ft 9 in Weight 121 lb 4.068 oz BMI 26.2 BP 125/58 L Blood Pressure Location Lt brachial Position Sitting Pulse 73 Intake Visit Reasons: s/p EGD brad Intake Note: Duyen presents in the office as a follow up for her EGD. CC: States that her voice has a little change to it but she is not having any other concerns since the procedure. Early Childhood Services Coordinator Required: Yes Allergies strawberry (STRAWBERRY) Allergy (Mild, Verified 07/10/25 12:16) PRURITUS tomato (TOMATO) Allergy (Mild, Verified 07/10/25 12:16) HIVES acetaminophen (From Percocet) Allergy (Unknown, Verified 07/10/25 12:16) Unknown oxycodone (From Percocet) Allergy (Unknown, Verified 07/10/25 12:16) Unknown pollen extracts (POLLEN) Allergy (Unknown, Verified 07/10/25 12:16) UNKNOWN lactose (LACTOSE) Adverse Reaction (Unknown, Verified 07/10/25 12:16) GI UPSET DUST Allergy (Unknown, Uncoded 07/10/25 12:16) UNKNOWN ENVIRONMENTAL Allergy (Unknown, Uncoded 07/10/25 12:16) UNKNOWN trees leaves Allergy (Uncoded 07/10/25 12:16) unknown HPI HPI s/p EGD brad: Details: LAST VISIT GERD (gastroesophageal reflux disease) Gastroparesis Achalasia Chronic idiopathic constipation Epigastric abdominal pain Plan Patient will be sent for upper endoscopy. No delay of contrast from stomach to small intestine during upper GI with barium swallow. Unsure if patient truly has gastroparesis. She was very constipated and patient was on Ozempic then when her last GES performed. Patient no longer is on Ozempic. I will send her for upper endoscopy as possible gastritis seen on upper GI series. If appropriate will send her for another gastric emptying study. Will start her on vonoprazan and increase sucralfate to twice a day. Discussed with patient low FODMAP diet. She reports constant bloating no matter what she eats. Continue Linzess. Increase fluid intake and activity to promote better bowel motility. Patient will follow- up in our office after the procedure, sooner on as needed basis. She is agreeable to this plan and verbalizes an she will instructions. She was given the opportunity to ask questions and all questions answered. ? Thank you for allowing to participate in her care New vonoprazan (Voquezna) 20 mg PO DAILY 30 tabs 3RF Changed Changed From sucralfate 10 mL PO BEDTIME 400 mL 3RF K21.9 Changed To sucralfate 10 mL PO BID 400 mL 3RF K21.9 UPPER ENDOSCOPY Findings: Larynx: Normal Esophagus: GE junction at 30 cms, small hiatal henria 30 to 32 cms. Mildly tortuous esophagus Empiric esophageal balloon dilation of the distal esophagus (LES) was performed with a 19 mm CRE balloon for 60 seconds Empiric esophageal balloon dilation of the proximal esophagus (UES) was performed with an 18 mm CRE balloon for 60 seconds Stomach: Moderate diffuse gastric erythema - biopsies were obtained from the antrum. Grade 2 flap valve on retroflexed examination of the cardia. Duodenum: Normal bulb and descending duodenum. Biopsies were obtained from 3rd part of the duodenum to check for celiac sprue Intervention: Biopsies as noted above Impression and Post Procedure Diagnosis: Endoscopy Findings: ESOPHAGUS: Small hiatal henria 30 to 32 cms. Mildly tortuous esophagus Empiric esophageal balloon dilation of the distal esophagus (LES) was performed with a 19 mm (57 F) CRE balloon for 60 seconds Empiric esophageal balloon dilation of the proximal esophagus (UES) was performed with an 18 mm (54 F) CRE balloon for 60 second STOMACH: Diffuse gastritis DUODENUM: Normal - biopsied to check for celiac sprue Plan: Above findings were reviewed with the patient and relevant handouts were given and the discharge area. BIOPSIES SHOWED: A. Small bowel, biopsy: Small intestinal mucosa within normal limits. B. Stomach, antrum, biopsy: Small fragments of antral-type and oxyntic mucosa within normal limits; no Helicobacter organisms seen. C. Stomach, body, biopsy: Oxyntic mucosa with mild chronic inactive inflammation; no Helicobacter organisms seen. Comment: Diagnostic morphologic features of celiac disease are not seen TODAY'S VISIT Patient is here today for follow-up and to discuss upper endoscopy results. Patient reports no ill effects after the procedure except for mild hoarseness. Patient denies dyspepsia, dysphagia or odynophagia. Reports to be feeling well. Dilation performed to distal esophagus and 2 proximal esophagus. Diffuse gastritis found, no H pylori seen, mild chronic inactive inflammation on biopsy. Patient reports to be feeling better now. Patient is avoiding eating late at night. Takes sucralfate at bedtime and Vquezna in the morning. However patient is not sure of the name and we will have her return with all of her medications. Patient denies any abdominal pain or discomfort. Denies any GI concerning symptoms today. [facility] Medical History Hepatic steatosis Hypertriglyceridemia Uncomplicated type 2 diabetes mellitus Microalbuminuric diabetic nephropathy Bilateral foot pain Gastroparesis Hyperlipidemia associated with type 2 diabetes mellitus Osteopenia Headache Depression Vitamin D deficiency Fibromyalgia HTN (hypertension) HLD (hyperlipidemia) T2DM (type 2 diabetes mellitus) Surgical History (Updated 07/10/25 @ 12:16 by BRYON Raymond) History of esophagogastroduodenoscopy (EGD) History of hysteroscopy Status post right breast lumpectomy Hx of colonoscopy History of hysterectomy with bilateral oophorectomy History of carpal tunnel release History of tubal ligation History of ear surgery History of delivery Family History Father Cirrhosis Liver cancer Mother T2DM (type 2 diabetes mellitus) Past heart attack Maternal Grandmother Breast cancer Maternal Grandfather No problems noted. Paternal Grandmother No problems noted. Paternal Grandfather No problems noted. Son No problems noted. Son No problems noted. Daughter No problems noted. Social History Household Members: None Housing: Apartment Are you a primary child care education coordinator to a significant other at home: No Do you presently have visiting nurse or other home services: No Alcohol intake: never Patient Tobacco Use Status: Never used Tobacco e-Cigarette/Vaping Use: Never Used Second Hand Smoke Exposure: No service: No Current occupational status: disabled Cognitive needs: No Hearing needs: No Vision needs: Yes (glasses) Review of Systems Const Denies weight gain and Denies weight loss ENT Reports no additional complaints, Denies dysphagia and Denies odynophagia Card Reports no additional complaints Resp Reports no additional complaints GI Reports abdominal pain (Occasional epigastric), Denies belching, Denies melena, Reports bloating, Denies change in bowel habits, Denies dysphagia, Denies excessive flatus, Denies dyspepsia, Reports heartburn (Occasional), Denies diarrhea, Denies loose stools, Denies nausea, Denies odynophagia and Denies vomiting Reports no additional complaints Musc Reports no additional complaints Neuro Reports no additional complaints Psych Reports no additional complaints Endo Reports no additional complaints Physical Exam Vital Signs: Last Vital Signs Pulse 73 07/10/25 12:13 BP 125/58 L 07/10/25 12:13 BMI result Body Mass Index 26.2 Const General: healthy appearing, no acute distress and well developed Orientation/consciousness: patient oriented x3 Resp Effort & Inspection: normal respiratory effort, able to speak in complete sentences, no tracheal deviation and symmetric chest movement Auscultation: clear to auscultation bilaterally Cardio Rate: regular rate GI Inspection: Yes normal to inspection and No distended Palpation (GI): Soft to palpation, not firm, nontender and No hepatosplenomegaly present Auscultation: normal bowel sounds General: Yes no CVA tenderness Back/Spine/Pelvis Back: no CVA tenderness Skin General skin exam: elasticity normal, turgor normal and dry skin Neuro General: patient oriented x3 Psych Appearance: grossly normal Mental Status: mental status grossly normal Assessment & Plan Assessment & Plan (1) GERD (gastroesophageal reflux disease): Code(s): K21.9 - Gastro-esophageal reflux disease without esophagitis Category: Medical Qualifiers: Esophagitis presence: without esophagitis Qualified Code(s): K21.9 - Gastro-esophageal reflux disease without esophagitis (2) Achalasia: Code(s): K22.0 - Achalasia of cardia Category: Medical (3) Hepatic steatosis: Code(s): K76.0 - Fatty (change of) liver, not elsewhere classified Category: Medical (4) Chronic idiopathic constipation: Code(s): K59.04 - Chronic idiopathic constipation Category: Medical (5) Epigastric abdominal pain: Code(s): R10.13 - Epigastric pain Category: Medical Plan Continue current management for reflux. Avoid dietary triggers and late night snacking. Staying upright for minimum 3 hours after meals discussed with patient. Continue Linzess daily. Increase fluid intake and activity to promote better bowel motility. Patient will return in 2-3 weeks. Patient is unsure if she is taking Voquezna or Nexium. Patient is agreeable to this plan and verbalizes understanding of instructions. She was given the opportunity to ask questions and all questions answered. Thank you for allowing me to participate in her care Coding Level of Care Code Est Pt Level 4 (09627) Complex EM visit Add On G2211 Diagnoses Gastroesophageal reflux disease without esophagitis K21.9 Esophagitis presence: without esophagitis Achalasia K22.0 Hepatic steatosis K76.0 Chronic idiopathic constipation K59.04 Epigastric abdominal pain R10.13 Time Spent (min) 40 Comment 25 minutes spent with patient and additional 15 minutes spent reviewing her records
[2025-07-10 12:13] VITALS: BP 125/58; PULSE 73; BMI 26.2
--- OUTSIDE RECORDS SUMMARY | 2025-07-10 13:28 | XMS_ITS | Clinical Summary ---
Author Organization [facility] Address [address] [place] [address] Care Team Providers Care Merchandise Executive Name Role Phone Unavailable Primary Care Provider [...]
--- OUTSIDE RECORDS SUMMARY | 2025-07-10 13:28 | XMS_ITS | Clinical Summary ---
Author Organization 175 [facility] Address [address] [place] [address] Phone Care Team Providers Care Sand Tester Name Role Phone Didi Ray MD Primary Care Provider [phone] Social History Tobacco Use Types Packs/Day Years Used Date Smoking Tobacco: Never Assessed Comments Unknown Sex and Gender Information Value Date Recorded Sex Assigned at Not on file Legal Sex Female 3:10 PM EST Gender Identity Not on file Sexual Orientation Not on file Plan of Treatment Upcoming Encounters Date Type Department Care Team ([facility] Contact Info) Description 07/25/2025 2:30 PM EDT Consult Orthopedic Surgery [place] [address] [phone] Frank Benson, DPM [address] [phone] Health Maintenance Due Date Last Done Comments [...] patient's age to complete this topic Insurance [facility] MEDICARE Member Subscriber Plan / Payer (Ef fective 2024-Present) Name:Duyen Pak Relation to Subscriber:Self Name:Duyen Pak Payer ID:[id number] Group ID:[id number] Type:Not on file Address: [place] [address] [address] [address] [phone] Care Teams Sand Tester Relationship Specialty Start Date End Date Didi Ray MD [address] [place] [address] , [address] [facility] Physician Associ D/B/A: [facility] SANJUANA Gupta PCP - General Internal Medicine 04/27/25
--- OUTSIDE RECORDS SUMMARY | 2025-07-10 13:28 | XMS_ITS | Encounter Summary ---
Author Organization [employer] [facility] Address [address] [facility] 7t [place] [address] Care Team Providers Care Fish Drier Name Role Phone Unavailable Primary Care Provider [...]
--- OUTSIDE RECORDS SUMMARY | 2025-07-10 13:28 | XMS_ITS | Encounter Summary ---
Author Organization [employer] [facility] Address [address] [facility] 7t [place] [address] Care Team Providers Care Seasoner Name Role Phone Unavailable Primary Care Provider [...]
--- OUTSIDE RECORDS SUMMARY | 2025-07-10 13:28 | XMS_ITS | Clinical Summary ---
Author Organization [employer] Address [address] [facility] 7t [place] [address] Care Team Providers Care Manager Distribution Name Role Phone Unavailable Primary Care Provider [...]
== END 2025-07-10 12:45 | disposition home or self-care (01) ==
LOC: HO.HGI 12:09
PROVIDERS: PCP Internal Medicine; Visit Provider Nurse Practitioner Family
DX: K21.9 Gastro-esophageal reflux disease without esophagitis (principal); K22.0 Achalasia of cardia; K76.0 Fatty (change of) liver, not elsewhere classified; K59.04 Chronic idiopathic constipation; R10.13 Epigastric pain
CPT/HCPCS: 99214; G2211

== ENCOUNTER → 2025-07-10 12:08 | Outpatient (BNVA) | payer OTHER, SELFPAY | PROVIDERS: PCP Internal Medicine; Visit Provider Nurse Practitioner Family | DX: K21.9 Gastro-esophageal reflux disease without esophagitis (principal); K20.0 Eosinophilic esophagitis; K76.0 Fatty (change of) liver, not elsewhere classified; K59.04 Chronic idiopathic constipation; R10.13 Epigastric pain | CPT/HCPCS: 99212 ==

== ENCOUNTER 2025-07-30 14:00 | Outpatient (AMB) | payer OTHER, SELFPAY ==
--- NOTE | 2025-07-30 14:13 | A.OFFVIS_ITS ---
Vital Signs 07/30/25 14:21 Height 4 ft 9 in Weight 120 lb BMI 26.0 BP 146/70 H Blood Pressure Location Rt brachial Position Sitting Pulse 68 Pulse Source Pulse Oximeter Pulse Oximetry (%) 97 Oxygen Delivery Method Room Air Intake Visit Reasons: Follow up 2 weeks bring meds (ok per Maggy) Intake Note: ESTABLISHED PATIENT for Chronic constipation + GERD mgmt. Review medications. CC; Pt denies any new changes or concerns. Pt did bring her GI medications as instructed. She forgot one at home but states that it is a big bottle and it is a liquid medication. Activity Therapy Specialist Required: Yes Activity Therapy Specialist Services: Activity Therapy Specialist Present Activity Therapy Specialist Name: Patel [phone] Information Interpreted: clinical only Accompanied by: Self / Same As Patient Allergies strawberry (STRAWBERRY) Allergy (Mild, Verified 07/10/25 12:16) PRURITUS tomato (TOMATO) Allergy (Mild, Verified 07/10/25 12:16) HIVES acetaminophen (From Percocet) Allergy (Unknown, Verified 07/10/25 12:16) Unknown oxycodone (From Percocet) Allergy (Unknown, Verified 07/10/25 12:16) Unknown pollen extracts (POLLEN) Allergy (Unknown, Verified 07/10/25 12:16) UNKNOWN lactose (LACTOSE) Adverse Reaction (Unknown, Verified 07/10/25 12:16) GI UPSET DUST Allergy (Unknown, Uncoded 07/10/25 12:16) UNKNOWN ENVIRONMENTAL Allergy (Unknown, Uncoded 07/10/25 12:16) UNKNOWN trees leaves Allergy (Uncoded 07/10/25 12:16) unknown HPI HPI Follow up 2 weeks bring meds (ok per Maggy): Details: LAST VISIT: GERD (gastroesophageal reflux disease) Achalasia Hepatic steatosis Chronic idiopathic constipation Epigastric abdominal pain Plan Continue current management for reflux. Avoid dietary triggers and late night snacking. Staying upright for minimum 3 hours after meals discussed with patient. Continue Linzess daily. Increase fluid intake and activity to promote better bowel motility. Patient will return in 2-3 weeks. Patient is unsure if she is taking Voquezna or Nexium. Patient is agreeable to this plan and verbalizes understanding of instructions. She was given the opportunity to ask questions and all questions answered. ? TODAY'S VISIT: Patient is here today for follow-up. Patient brought her medication with her. She is taking Voquezna and esomeprazole together in the morning. Patient continues to have epigastric pain. No matter what she eats. Patient reports that she chews gum all day as this helps her with her anxiety. Patient denies any nausea or vomiting. Patient denies any dyspepsia, dysphagia or odynophagia.. Patient reports that she is moving her bowels better now that she is taking Linzess. Patient denies melena, hematochezia, unintentional weight loss or ribbon like stools. Patient reports that Voquezna works better for her then Nexium. [facility] Medical History Hepatic steatosis Hypertriglyceridemia Uncomplicated type 2 diabetes mellitus Microalbuminuric diabetic nephropathy Bilateral foot pain Gastroparesis Hyperlipidemia associated with type 2 diabetes mellitus Osteopenia Headache Depression Vitamin D deficiency Fibromyalgia HTN (hypertension) HLD (hyperlipidemia) T2DM (type 2 diabetes mellitus) Surgical History (Updated 07/10/25 @ 12:16 by BRYON Raymond) History of esophagogastroduodenoscopy (EGD) History of hysteroscopy Status post right breast lumpectomy Hx of colonoscopy History of hysterectomy with bilateral oophorectomy History of carpal tunnel release History of tubal ligation History of ear surgery History of delivery Family History Father Cirrhosis Liver cancer Mother T2DM (type 2 diabetes mellitus) Past heart attack Maternal Grandmother Breast cancer Maternal Grandfather No problems noted. Paternal Grandmother No problems noted. Paternal Grandfather No problems noted. Son No problems noted. Son No problems noted. Daughter No problems noted. Social History Household Members: None Housing: Apartment Are you a primary care professional to a significant other at home: No Do you presently have visiting nurse or other home services: No Alcohol intake: never Patient Tobacco Use Status: Never used Tobacco e-Cigarette/Vaping Use: Never Used Second Hand Smoke Exposure: No service: No Current occupational status: disabled Cognitive needs: No Hearing needs: No Vision needs: Yes (glasses) Review of Systems Const Denies weight gain and Denies weight loss ENT Reports no additional complaints, Denies dysphagia and Denies odynophagia Card Reports no additional complaints Resp Reports no additional complaints GI Reports abdominal pain (Occasional epigastric), Denies belching, Denies melena, Reports bloating, Denies change in bowel habits, Denies dysphagia, Denies excessive flatus, Denies dyspepsia, Reports heartburn (Occasional), Denies diarrhea, Denies loose stools, Denies nausea, Denies odynophagia and Denies vomiting Reports no additional complaints Musc Reports no additional complaints Neuro Reports no additional complaints Psych Reports no additional complaints Endo Reports no additional complaints Physical Exam Vital Signs: Last Vital Signs Pulse 68 07/30/25 14:21 BP 146/70 H 07/30/25 14:21 Pulse Ox 97 07/30/25 14:21 Oxygen Delivery Method Room Air 07/30/25 14:21 BMI result Body Mass Index 26.0 Const General: healthy appearing, no acute distress and well developed Orientation/consciousness: patient oriented x3 Resp Effort & Inspection: normal respiratory effort, able to speak in complete sentences, no tracheal deviation and symmetric chest movement Auscultation: clear to auscultation bilaterally Cardio Rate: regular rate GI Inspection: Yes normal to inspection and No distended Palpation (GI): Soft to palpation, not firm, nontender and No hepatosplenomegaly present Auscultation: normal bowel sounds General: Yes no CVA tenderness Back/Spine/Pelvis Back: no CVA tenderness Skin General skin exam: elasticity normal, turgor normal and dry skin Neuro General: patient oriented x3 Psych Appearance: grossly normal Mental Status: mental status grossly normal Assessment & Plan Assessment & Plan (1) GERD (gastroesophageal reflux disease): Code(s): K21.9 - Gastro-esophageal reflux disease without esophagitis Category: Medical Qualifiers: Esophagitis presence: without esophagitis Qualified Code(s): K21.9 - Gastro-esophageal reflux disease without esophagitis (2) Gastroparesis: Code(s): K31.84 - Gastroparesis Category: Medical (3) Achalasia: Code(s): K22.0 - Achalasia of cardia Category: Medical (4) Hepatic steatosis: Code(s): K76.0 - Fatty (change of) liver, not elsewhere classified Category: Medical (5) Chronic idiopathic constipation: Code(s): K59.04 - Chronic idiopathic constipation Category: Medical (6) Epigastric abdominal pain: Code(s): R10.13 - Epigastric pain Category: Medical Plan Patient will take Voquezna and stop Nexium. Patient was encouraged to avoid dietary triggers in late night snacking. List of food to avoid given to patient in Faroese. Patient was encouraged to stop chewing gum. Continue Linzess. Increase fluid intake and activity to promote better bowel motility. Follow-up in 2 months. Patient will call our office if she will have any GI concerning symptoms. She is agreeable to this plan and verbalizes understanding of instructions. She was given the opportunity to ask questions and all questions answered Thank you for allowing me to participate in her care Medications: Discontinued esomeprazole magnesium Discontinued Reason: Doctor's Order 40 mg PO DAILY 90 caps 0RF K21.9 - Gastro-esophageal reflux disease without esophagitis Coding Level of Care Code Est Pt Level 4 (53918) Complex EM visit Add On G2211 Diagnoses Gastroesophageal reflux disease without esophagitis K21.9 Esophagitis presence: without esophagitis Gastroparesis K31.84 Achalasia K22.0 Hepatic steatosis K76.0 Chronic idiopathic constipation K59.04 Epigastric abdominal pain R10.13 Time Spent (min) 35 Comment 25 minutes spent with patient and additional 10 minutes spent reviewing her records
[2025-07-30 14:21] VITALS: BP 146/70; PULSE 68; O2SAT 97; BMI 26.0
== END 2025-07-30 15:23 | disposition home or self-care (01) ==
LOC: HO.HGI 14:01
PROVIDERS: PCP Internal Medicine; Visit Provider Nurse Practitioner Family
DX: K21.9 Gastro-esophageal reflux disease without esophagitis (principal); K31.84 Gastroparesis; K22.0 Achalasia of cardia; K76.0 Fatty (change of) liver, not elsewhere classified; K59.04 Chronic idiopathic constipation; R10.13 Epigastric pain
CPT/HCPCS: 99214; G2211

== ENCOUNTER → 2025-07-30 14:00 | Outpatient (BNVA) | payer OTHER, SELFPAY | PROVIDERS: PCP Internal Medicine; Visit Provider Nurse Practitioner Family | DX: K21.9 Gastro-esophageal reflux disease without esophagitis (principal); K31.84 Gastroparesis; K22.0 Achalasia of cardia; K76.0 Fatty (change of) liver, not elsewhere classified; K59.04 Chronic idiopathic constipation; R10.13 Epigastric pain | CPT/HCPCS: 99212 ==

== ENCOUNTER 2025-08-01 13:20 | Outpatient (AMB) | payer OTHER, SELFPAY ==
--- OUTSIDE RECORDS SUMMARY | 2024-02-12 15:34 | XMS_ITS ---
Author Organization [employer]. Address [address] [facility] [id number] [place] [address] Care Team Providers Care Hiv Nurse Name Role Phone Jyoti Torrez Primary Care Provider Adilia Rush Unavailable [phone] Margarita Ayon Unavailable [phone] Encounters Encounter Location Date Provider Diagnosis [address] [address] 02/12/2024 Margarita Ayon PLAN OF TREATMENT No Information
--- OUTSIDE RECORDS SUMMARY | 2024-02-12 15:36 | XMS_ITS ---
Author Organization [employer]. Address [address] [facility] [id number] [place] [address] Care Team Providers Care Dampproofer Name Role Phone Jyoti Torrez Primary Care Provider Adilia Rush Unavailable [phone] Margarita Ayon Unavailable [phone] MEDICATIONS Medication SIG (Take, Route, Fr equency, Duration) Notes Start Date End Date Status Jardiance 10 MG 1 tablet Orally Once a day for 90 days Active Encounters Encounter Location Date Provider Diagnosis [address] [address] 02/12/2024 Margarita Ayon PLAN OF TREATMENT Medication Medication Name Sig Start Date Stop Date Notes Jardiance 10 MG 1 tablet Orally Once a day for 90 days
--- OUTSIDE RECORDS SUMMARY | 2024-03-02 05:15 | XMS_ITS ---
Author Organization [employer]. Address [address] [facility] [id number] [place] [address] Care Team Providers Care Sales Activity Manager Name Role Phone Jyoti Torrez Primary Care Provider Adilia Rush Unavailable [phone] Margarita Ayon Unavailable [phone] REASON FOR VISIT DM F/UP Encounters Encounter Location Date Provider Diagnosis [address] [address] 03/02/2024 Margarita Ayon PLAN OF TREATMENT No Information
--- OUTSIDE RECORDS SUMMARY | 2024-08-30 07:23 | XMS_ITS ---
Author Organization [employer] [facility] Address [address] [place] [address] [id number], [place] [address] Care Team Providers Care Trimming Caser Name Role Phone Jyoti Torrez Primary Care Provider [phone] Adilia Rush Unavailable [phone] Margarita Ayon Unavailable [phone] REASON FOR VISIT Dm outreach Encounters Encounter Location Date Provider Diagnosis [address] [id number], [place] [address] 08/30/2024 Margarita Ayon PLAN OF TREATMENT No Information
--- OUTSIDE RECORDS SUMMARY | 2024-12-06 09:00 | XMS_ITS ---
Author Organization [employer]. Address [address] [facility] [id number] [place] [address] Care Team Providers Care Manager Fine Dining Name Role Phone Jyoti Torrez Primary Care Provider Adilia Rush Unavailable [phone] REASON FOR VISIT DM Eye Exam Encounters Encounter Location Date Provider Diagnosis MED-47 ([facility]) [facility] [place] [address] 12/06/2024 Adilia Rush PLAN OF TREATMENT No Information
--- NOTE | 2025-08-01 13:22 | A.OFFPC_ITS ---
Vital Signs 08/01/25 13:24 Height 4 ft 9 in Weight 124 lb 6 oz BMI 26.9 BP 110/66 Blood Pressure Location Rt brachial Position Sitting Pulse 73 Pulse Source Pulse Oximeter Temp 97.1 F Temp Source Temporal Artery Scan Pulse Oximetry (%) 97 Oxygen Delivery Method Room Air Intake Visit Reasons: dm Intake Note: Patient is here to follow up on DM. Toll Bridge Attendant Required: No Practice Specialist: Not Required per policy Accompanied by: Self / Same As Patient Allergies strawberry (STRAWBERRY) Allergy (Mild, Verified 08/01/25 13:41) PRURITUS tomato (TOMATO) Allergy (Mild, Verified 08/01/25 13:41) HIVES acetaminophen (From Percocet) Allergy (Unknown, Verified 08/01/25 13:41) Unknown oxycodone (From Percocet) Allergy (Unknown, Verified 08/01/25 13:41) Unknown pollen extracts (POLLEN) Allergy (Unknown, Verified 08/01/25 13:41) UNKNOWN lactose (LACTOSE) Adverse Reaction (Unknown, Verified 08/01/25 13:41) GI UPSET DUST Allergy (Unknown, Uncoded 08/01/25 13:41) UNKNOWN ENVIRONMENTAL Allergy (Unknown, Uncoded 08/01/25 13:41) UNKNOWN trees leaves Allergy (Uncoded 08/01/25 13:41) unknown Medication List - Last Reconciled 08/01/25 by Didi Ray MD alcohol swabs (Alcohol Wipes) 1 pad topical TID aspirin 81 mg PO DAILY 90 days atorvastatin 40 mg PO DAILY 30 days blood sugar diagnostic (OneTouch Verio test strips) 3x daily blood-glucose sensor (FreeStyle Colten 3 Plus Sensor device) Apply 1 new sensor every 15 days as directed to monitor blood glucose continuously. blood-glucose,vendor management associate,cont (FreeStyle Colten 3 Point Lay) Use daily to monitor blood glucose levels continuously. [BP cuff As directed] [cane As directed] cetirizine (Zyrtec) 10 mg PO DAILY PRN cyanocobalamin (vitamin B-12) 500 mcg PO DAILY empagliflozin (Jardiance) 25 mg PO DAILY famotidine 40 mg PO DAILY gabapentin 300 mg PO TID glucose (Dex4 Glucose) 16 grams (4 x 4 gram) PO Q15M PRN hydrochlorothiazide 25 mg PO DAILY insulin degludec (Tresiba FlexTouch U-100 insulin) 8 units (0.08 mL) subcut BEDTIME lactobacillus combination no.4 (Probiotic) 3,000 mmu cells PO DAILY lancets (OneTouch Delica Lancets) 4x daily linaclotide (Linzess) 145 mcg PO QAM lisinopril 10 mg PO DAILY metformin 1,000 mg PO BID mirtazapine 7.5 mg PO BEDTIME naproxen 500 mg PO BID PRN [Nitrate gloves As directed] nortriptyline 25 mg PO DAILY pen needle, diabetic (BD Ultra-Fine Micro Pen Needle) once a week pen needle, diabetic As directed sertraline 25 mg PO QAM simethicone (Gas Relief Extra Strength) 125 mg PO BID-QID sucralfate 10 mL PO BEDTIME vonoprazan (Voquezna) 20 mg PO DAILY zolpidem (Ambien) 5 mg PO BEDTIME PRN Tobacco use date assessed: 08/01/25 Fall risk assessment: No Falls in past year Last assessed Fall Risk: 08/01/25 Dental Screening Dental Screen Date: 03/26/25 HPI HPI Comments History of Present Illness Details The patient is a 70-year-old female presenting with diabetes management. Her diabetes is currently not well-controlled, with a recent HbA1c of 8.7%, which is above the target of 7%. She is under the care of a scientific specialist who monitors her insulin therapy and glucose levels using a sensor. The patient also has a history of hypertension, which is well-controlled with a blood pressure reading of 110/66 mmHg, below the target of 130/80 mmHg. Her medication regimen includes Lisinopril for blood pressure management. She reports fibromyalgia, for which she takes Gabapentin 300 mg three times daily. The fibromyalgia contributes to her fatigue and pain, impacting her daily activities. The patient experiences depression with anxiety, managed with Sertraline. She also suffers from insomnia, for which she uses Ambien. Her constipation is managed with Linzess. The patient has hyperlipidemia, with an LDL cholesterol level of 49 mg/dL, which is well-controlled below the target of 70 mg/dL. She has mild aortic regurgitation and mild mitral stenosis, which do not explain her dyspnea. Her cardiac evaluation showed an ejection fraction of 65-70%, indicating preserved cardiac function. The patient has a fatty liver and elevated microalbuminuria, indicating some renal involvement. She does not currently have a bi data architect but will be referred for further evaluation. [facility] Medical History Hepatic steatosis Hypertriglyceridemia Uncomplicated type 2 diabetes mellitus Microalbuminuric diabetic nephropathy Bilateral foot pain Gastroparesis Hyperlipidemia associated with type 2 diabetes mellitus Osteopenia Headache Depression Vitamin D deficiency Fibromyalgia HTN (hypertension) HLD (hyperlipidemia) T2DM (type 2 diabetes mellitus) Surgical History History of esophagogastroduodenoscopy (EGD) History of hysteroscopy Status post right breast lumpectomy Hx of colonoscopy History of hysterectomy with bilateral oophorectomy History of carpal tunnel release History of tubal ligation History of ear surgery History of delivery Family History Father Cirrhosis Liver cancer Mother T2DM (type 2 diabetes mellitus) Past heart attack Maternal Grandmother Breast cancer Maternal Grandfather No problems noted. Paternal Grandmother No problems noted. Paternal Grandfather No problems noted. Son No problems noted. Son No problems noted. Daughter No problems noted. Social History Household Members: None Housing: Apartment Are you a primary group care worker to a significant other at home: No Do you presently have visiting nurse or other home services: No Alcohol intake: never Patient Tobacco Use Status: Never used Tobacco e-Cigarette/Vaping Use: Never Used Second Hand Smoke Exposure: No service: No Current occupational status: disabled Cognitive needs: No Hearing needs: No Vision needs: Yes (glasses) Questionnaire Thrive Questionnaire Date Thrive assessed: 03/26/25 I am a: Patient What is your living situation today?: I do not have a steady places to live I am temporarily staying with others Within the past 12 months, did the food you bought not last and you didn't have the money to get more?: I choose not to answer this question Within the past 12 months, did you worry whether your food would run out before you got money to buy more?: I choose not to answer this question Do you have trouble paying for medicines?: Yes Do you have trouble getting transportation to medical appointments?: No Do you have trouble paying your heating and electricity bill?: No Do you have trouble taking care of your child, family member or friend?: I choose not to answer this question Do you have trouble with day-to-day activities such as bathing, preparing meals, shopping, managing finances, etc.?: I choose not to answer this question Are you currently unemployed and looking for a job?: No Are you interested in more education?: No Currently or been in a relationship where the following occur: I choose not to answer THRIVE Score: 1 BREONNA-7 AMB Questionnaire BREONNA-7 Date BREONNA - 7 assessed: 11/17/24 Source: Developed by Drs. Toribio Moise, Monae Herrera, Tung Chatterjee and colleagues, with an educational rakel from [employer]. Review of Systems Const All systems reviewed & are unremarkable except as noted in HPI and below Card Denies chest pain at rest, Denies chest pain with activity, Denies edema, Denies irregular heart rhythm, Denies claudication, Denies dyspnea, Denies dyspnea on exertion, Denies orthopnea, Denies paroxysmal nocturnal dyspnea and Denies slow heart rate Resp Denies cough, Denies dyspnea and Denies dyspnea on exertion Physical exam (Primary Care) Vital Signs: Last Vital Signs Temp 97.1 F 08/01/25 13:24 Pulse 73 08/01/25 13:24 BP 110/66 08/01/25 13:24 Pulse Ox 97 08/01/25 13:24 Oxygen Delivery Method Room Air 08/01/25 13:24 BMI result Body Mass Index 26.9 Tobacco/Smoking Status: Tobacco use Status Tobacco use date assessed 08/01/25 08/01/25 13:26 Patient Tobacco Use Status Never used Tobacco 08/01/25 13:26 Tobacco use type 05/02/25 12:11 e-Cigarette/Vaping Use Never Used 08/01/25 13:26 Thrive Assessment: Date of Thrive Assessment Date Thrive assessed 03/26/25 08/01/25 13:26 Currently or been in a relationship where the following occur: I choose not to answer Resp Effort & Inspection: normal respiratory effort Auscultation: clear to auscultation bilaterally Cardio Jugular venous distension: no JVD Rate: regular rate Rhythm: regular rhythm Heart sounds: S1 normal heart sound present and S2 normal heart sound present Extrem General: Yes full ROM Coding Level of Care Code Est Pt Level 4 (38543) Complex EM visit Add On G2211 Diagnoses Essential hypertension I10 Type 2 diabetes mellitus with hyperglycemia, without long-term current use of insulin E11.65 Diabetes mellitus ferry terminal supervisor insulin use: without ferry terminal supervisor use Diabetes mellitus complication status: with hyperglycemia Hyperlipidemia LDL goal <70 E78.5 Microalbuminuric diabetic nephropathy E11.21 Fibromyalgia M79.7 Mild recurrent major depression F33.0 Gastroesophageal reflux disease without esophagitis K21.9 Esophagitis presence: without esophagitis Time Spent (min) 23 Assessment & Plan Assessment & Plan (1) Essential hypertension: Code(s): I10 - Essential (primary) hypertension Category: Medical (2) T2DM (type 2 diabetes mellitus): Code(s): E11.9 - Type 2 diabetes mellitus without complications Category: Medical Qualifiers: Diabetes mellitus assisted insulin use: without ferry terminal supervisor use Diabetes mellitus complication status: with hyperglycemia Qualified Code(s): E11.65 - Type 2 diabetes mellitus with hyperglycemia (3) Hyperlipidemia LDL goal <70: Code(s): E78.5 - Hyperlipidemia, unspecified Category: Medical (4) Microalbuminuric diabetic nephropathy: Code(s): E11.21 - Type 2 diabetes mellitus with diabetic nephropathy Category: Medical (5) Fibromyalgia: Code(s): M79.7 - Fibromyalgia Category: Medical (6) Mild recurrent major depression: Code(s): F33.0 - Major depressive disorder, recurrent, mild Category: Medical (7) GERD (gastroesophageal reflux disease): Code(s): K21.9 - Gastro-esophageal reflux disease without esophagitis Category: Medical Qualifiers: Esophagitis presence: without esophagitis Qualified Code(s): K21.9 - Gastro-esophageal reflux disease without esophagitis Plan Plan Patient was informed and verbally consented to the use of an ambient scribe for clinic note documentation during this visit. 1. Diabetes Mellitus The patient's diabetes is not well-controlled with a recent HbA1c of 8.7%. She is under the care of a scientific specialist who is monitoring her insulin therapy and glucose levels using a sensor. No changes to her diabetes management plan were made during this visit as she will follow up with her specialist soon. 2. Hypertension The patient's hypertension is well-controlled with a blood pressure of 110/66 mmHg. She is currently taking Lisinopril for blood pressure management. 3. Fibromyalgia The patient is managing her fibromyalgia with Gabapentin 300 mg three times daily. Her symptoms include fatigue and pain, which impact her daily activities. 4. Depression With Anxiety The patient is managing her depression with anxiety using Sertraline. 5. Insomnia The patient is using Ambien to manage her insomnia. 6. Constipation The patient is managing her constipation with Linzess. 7. Hyperlipidemia The patient's hyperlipidemia is well-controlled with an LDL cholesterol level of 49 mg/dL. 8. Mild Aortic Regurgitation The patient has mild aortic regurgitation, which does not explain her dyspnea. 9. Mild Mitral Stenosis The patient has mild mitral stenosis, which does not explain her dyspnea. 10. Fatty Liver The patient has a fatty liver, which requires monitoring. 11. Microalbuminuria The patient has elevated microalbuminuria, indicating some renal involvement. She will be referred to a bi data architect for further evaluation. Orders: Orders Vitamin D 25-OH Total 4 Months E55.9 - Vitamin D deficiency, unspecified MR head/brain wo con Today G44.52 - New daily persistent headache (NDPH) Vitamin B12 and Folate 4 Months E53.8 - Deficiency of other specified B group vitamins Lipid Panel 4 Months E78.5 - Hyperlipidemia, unspecified Microalbumin, Random (w Creat) 4 Months R80.9 - Proteinuria, unspecified Comprehensive [place]. Panel Fast 4 Months E11.9 - Type 2 diabetes mellitus without complications, Z79.4 - intermediate (current) use of insulin Referrals Nephrology Referral R80.9 - Proteinuria, unspecified Medications: Refilled [cane] As directed 1 ea 0RF M51.369 - Other intervertebral disc degeneration, lumbar region without mention of lumbar back pain or lower extremity pain, M79.7 - Fibromyalgia, M85.80 - Other specified disorders of bone density and structure, unspecified site zolpidem (Ambien) 5 mg PO BEDTIME PRN 30 tabs 5RF insomnia alcohol swabs (Alcohol Wipes) 1 pad topical TID 200 ea 11RF E11.65 - Type 2 diabetes mellitus with hyperglycemia
[2025-08-01 13:24] VITALS: BP 110/66; PULSE 73; TEMP 36.2; O2SAT 97; BMI 26.9
--- OUTSIDE RECORDS SUMMARY | 2025-08-01 15:43 | XMS_ITS | Clinical Summary ---
Author Organization [facility] Address [address] [place] [address] Care Team Providers Care Production Pattern Maker Name Role Phone Unavailable Primary Care [...]
--- OUTSIDE RECORDS SUMMARY | 2025-08-01 15:43 | XMS_ITS | Clinical Summary ---
Author Organization [employer] Address [address] [place] [address] Care Team Providers Care Dice Maker Name Role Phone Unavailable Primary Care [...] 11/25/2017 11/25/2016 COVID-19 Vaccine (3 - season) 2025 03/07/2021, 02/13/2021 Influenza Vaccine (#1) 2025 , [...]
--- OUTSIDE RECORDS SUMMARY | 2025-08-01 15:43 | XMS_ITS | Patient Health Record ---
Author Organization [employer]. Address [address] [facility] [id number] [place] [address] Care Team Providers Care Computed Tomography Technologist Name Role Phone Shan Jyoti Primary Care Provider Adilia Rush Unavailable [phone] Margarita Ayon Unavailable [phone] ALLERGIES Allergen (clinical drug ingredient) Drug/Non Drug Allergy documented on EMR Reaction Allergy Type Onset Date Status Watermelon Flavor hives Drug Allergy Active REASON FOR REFERRAL No Information MEDICATIONS Medication SIG (Take, Route, Frequency, Duration) Notes Start Date End Date Status Zolpidem Tartrate 5 MG 1 tablet at bedtime every day Orally daily for [address] directions in zimbabwean 10/26/2023 Active Magnesium 400 MG as directed Orally Once a day for 30 days Active Yale 3 1000 MG 1 capsule Orally Once a day for 90 days 08/27/2023 Active Vitamin B12 100 MCG 1 tablet Orally Once a day for 90 days Active Famotidine 40 MG 1 tablet at bedtime Orally Once a day Active Aspir-Low 81 MG 1 tablet Orally Once a day Active FreeStyle Colten 2 Dixon - as directed a s directed 4x/day [...] Type II diabete s mellitus without complication (067126455) Problem 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) Active confirmed Tear film insufficiency (23468549) Problem Combined forms of age-related cataract, 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) Active confirmed Bilateral age-related cataract ([id number] 3) Problem Presbyopia (H52.4) Active confirmed Presbyopia (21483859) Problem Fibromyalgia (M79.7) Active confirmed Fibromyalgia (804643925) Problem Hypertension (I10) Active confirmed Hypertension (70785695) Problem Insomnia (G47.00) Active confirmed Inso mnia (858213506) Problem Diabetes (E11.9) Active confirmed Type II diabetes mellitus without complication (071831713) Problem Type 2 diabetes mellitus (E11.9) Active confirmed Type 2 diab etes mellitus (73205688) Problem Hyperlipidemia (E78.5) Active confirmed Hyperlipidemia (47578102) Problem Major depressive disorder (F32.9) Active confirmed Major depre ssive disorder (412518661) Encounters Encounter Location Date Provider Diagnosis [address] [id number] [place] [address] 08/30/2024 Margarita Ayon [id number] ([facility]) [address] [place] [address] 12/06/2024 Adilia Rush PLAN OF TREATMENT Pending Test Test Name Order Date X ray : Spines, lumbar 2 views * 023 MICROALBUMIN, RANDOM URINE (W/CREATININE ) 06/29/2023 LIPID PANEL 07/15/2023 Insurance Providers Payer Name Payer Address Payer Phone Subscriber Number Group Number Insured Name Patient Relationship to Insured Coverage Start Date Coverage End Date MEDICARE FQHC [address] [place] [address] [id number] Duyen Arellano Self - patient is the insured 0 HUSKY D [address] [place] [id number] Duyen Arellano Self - patient is the insured MEDICAL (GENERAL) HISTORY Medical History History ICD Code diabetes mellitus hypertension GERD chronic sinusitis migraine headaches DILATED EYE EXAM 11/2023 Surgical History Surgery Date(Month/Year)
--- OUTSIDE RECORDS SUMMARY | 2025-08-01 15:43 | XMS_ITS | Clinical Summary ---
Author Organization [address] [facility] Address [address] [place] [address] Phone Care Team Providers Care Drainage Engineer Name Role Phone Didi Ray MD Primary Care Provider [phone] Allergies No known active allergies Medications aspirin 81 mg EC tablet Take 1 tablet (81 mg total) by mouth 1 (one) time each day. 5 Active atorvastatin (LIPITOR) 40 mg tablet TOME MINAL TABLETA POR V A ORAL TODOS LOS D 5 Active blood sugar diagnostic (OneTouch Verio test strips) test strip ITZEL VECES AL D A 5 Active FreeStyle Colten 3 Plus Sensor device APPLY 1 NEW SENSOR EVERY 15 DAYS DIRECTED TO MONITOR BLOOD GLUCOSE CONTINUOUSLY. 5 Active FreeStyle Colten 3 [place] misc USE DAILY TO MONITOR BLOOD GLUCOSE LEVELS CONTINUOUSLY. 5 Active cetirizine (ZyrTEC) 10 mg tablet TAKE 1 TABLET ORALLY DAILY NEEDED FOR ALLERGY SYMPTOMS 5 Active cyanocobalamin (VITAMIN B-12) 1,000 mcg tablet TOME MINAL TABLETA POR V A ORAL TODOS LOS D 5 Active Jardiance 10 mg tablet TOME 1 TABLETA POR V A ORAL TODOS LOS D 5 Active esomeprazole (NexIUM) [address] capsule Take 1 capsule (40 mg total) by mouth 1 (one) time each day. 5 Active famotidine (PEPCID) 40 mg tablet TOME 1 TABLETA POR V A ORAL TODOS LOS D 5 Active gabapentin (NEURONTIN) 300 mg capsule TOME 1 C PSULA POR V A ORAL ITZEL VECES AL D A 5 Active Tresiba FlexTouch U-100 100 unit/mL (3 mL) injection pen INJECT 8 UNIT (0.08 ML) SUBCUTANEOUSLY BEDTIME 5 Active hydroCHLOROthi azide (HYDRODIURIL) 25 mg tablet Take 1 tablet (25 mg total) by mouth 1 (one) time each day. 5 Active lansoprazole (PREVACID) [address] capsule TOME 1 C PSULA POR V A ORAL TODOS LOS D 5 Active Linzess 145 mcg capsule TOME 1 C PSULA POR V A ORAL TODOS LOS D EN LA [facility] 5 Active lisinopriL (PRINIVIL,ZEST RIL) 10 mg tablet Take 1 tablet (10 mg total) by mouth 1 (one) time each day. 5 Active methocarbamoL (ROBAXIN) 750 mg tablet TOME 1 TABLETA POR V A ORAL TODOS LOS D 5 Active mirtazapine (REMERON) 15 mg tablet TOME MINAL TABLETA POR V A ORAL EVERY NIGHT 5 Active naproxen (NAPROSYN) 500 mg tablet take 1 tablet orally 2 times a day as needed for for pain 5 Active sertraline (ZOLOFT) 25 mg tablet TOME 1 TABLETA POR V A ORAL TODOS LOS D EN [facility] 4 Active [place] 2nd Gen Pen Needle 32 gauge x 5/32 needle See administration instructions. 5 Active sucralfate (CARAFATE) 100 mg/mL suspension TAKEM 10ML BY MOUTH AT BEDTIME 5 Active Voquezna 20 mg tablet TOME MINAL TABLETA POR V A ORAL TODOS LOS D 5 Active zolpidem (AMBIEN) 5 mg tablet TOME MINAL TABLETA POR V A ORAL AL ACOSTARSE CUANDO SEA NECESARIO FOR INSOMNIA 5 Active diclofenac (Voltaren Arthritis Pain) 1 % topical gel Apply 4 g topically 2 (two) times a day. 240 g 1 5 025 Active Encounters Date Type Department Care Team Description 07/25/2025 2:30 PM EDT Consult Orthopedic Surgery [facility] [address] [phone] Frank Benson DPM Posterior tibial tendon dysfunction (PTTD) of right lower extremity (Primary Dx); Bilateral foot pain; Plantar fascial fibromatosis; Dermatophytosis of nail; Pain in toe of right foot; Pain in toe of left foot; Diabetic mononeuropathy simplex (CMS/HCC V24, CMS/HCC V28) from Last 3 Months Social History Tobacco Use Types Packs/Day Years Used Date Smoking Tobacco: Never Assessed Comments Unknown Sex and Gender Information Value Date Recorded Sex Assigned at Not on file Legal Sex Female 3:10 PM EST Gender Identity Not on file Sexual Orientation Not on file Plan of Treatment Upcoming Encounters Date Type Department Care Team (Late st Contact Info) Description 09/25/2025 1:45 PM EST Office Visit Orthopedic [facility] [address] [phone] Frank Benson DPM [address] [phone] Health Maintenance Due Date Last Done Comments Breast Cancer Screening 1955 Diabetes: Annual GFR (Glomer ular Filtration Rate) 1955 Diabetes: Annual Foot Exam 1965 Diabetes: Annual Retina Eye Exam 1965 DTaP,Tdap,and Td Vaccines (1 - Tdap) 1974 Pneumococcal Vaccine: 50+ Ye ars (1 of 2 - PCV) 1974 Zoster Vaccines (1 of 2) 2005 RSV Immunization Adult Patie nts (1 - Risk 60-74 years 1-dose series) 2015 Cholesterol Screening (Lipid Panel) 10/07/2022 Colorectal Cancer Screening: Colonoscopy 10/07/2022 Falls Risk Assessment 10/07/2022 Hepatitis C Screening 10/07/2022 Medicare Annual Wellness Visit 10/07/2022 Osteoporosis Screening (Bone Density Screening) 10/07/2022 Social Influencers of Health Screening 10/07/2022 Depression Screening 11/08/2024 COVID-19 Vaccine (1 - 2023-2 5 season) 2025 Influenza Vaccine (#1) 2025 Diabetes: Annual Urine Albumin-Creatinine Ratio (uACR) 07/25/2025 Diabetes: Blood Sugar Contro l Test (HGBA1C) 07/25/2025 HIB Vaccines Aged Out No longer eligi [...] ID:[id number] Group ID:[id number] Type:Not on file Address: [place] [address] [place] [address] Care Teams Drainage Engineer Relationship Specialty Start Date End Date Didi Ray MD [address] [place] [address] , [address] [facility] Physician Associ D/B/A: [facility] SANJUANA Gupta PCP - General Internal Medicine 04/27/25
--- OUTSIDE RECORDS SUMMARY | 2025-08-01 15:43 | XMS_ITS | Encounter Summary ---
Author Organization [employer] [facility] Address [address] [facility] 7t [place] [address] Care Team Providers Care Bereavement Coordinator Name Role Phone Unavailable Primary Care Provider [...]
--- OUTSIDE RECORDS SUMMARY | 2025-08-01 15:43 | XMS_ITS | Encounter Summary ---
Author Organization [employer] [facility] Address [address] [facility] 7t [place] [address] Care Team Providers Care Gas Pipe Layer Name Role Phone Unavailable Primary Care Provider [...]
== END 2025-08-01 14:00 | disposition home or self-care (01) ==
LOC: HO.HMCH 13:20
PROVIDERS: PCP Internal Medicine; Visit Provider Internal Medicine
DX: I10 Essential (primary) hypertension (principal); E11.65 Type 2 diabetes mellitus with hyperglycemia; E78.5 Hyperlipidemia, unspecified; E11.21 Type 2 diabetes mellitus with diabetic nephropathy; M79.7 Fibromyalgia; F33.0 Major depressive disorder, recurrent, mild; K21.9 Gastro-esophageal reflux disease without esophagitis

== ENCOUNTER → 2025-08-01 13:20 | Outpatient (BNVA) | payer OTHER, SELFPAY | PROVIDERS: PCP Internal Medicine; Visit Provider Internal Medicine | DX: E11.65 Type 2 diabetes mellitus with hyperglycemia (principal); E11.21 Type 2 diabetes mellitus with diabetic nephropathy; I10 Essential (primary) hypertension; F41.9 Anxiety disorder, unspecified; K59.00 Constipation, unspecified; E78.5 Hyperlipidemia, unspecified; K76.0 Fatty (change of) liver, not elsewhere classified; R80.9 Proteinuria, unspecified; M79.7 Fibromyalgia; F33.0 Major depressive disorder, recurrent, mild; K21.9 Gastro-esophageal reflux disease without esophagitis; I35.1 Nonrheumatic aortic (valve) insufficiency; I05.0 Rheumatic mitral stenosis; Z79.899 Other long term (current) drug therapy | CPT/HCPCS: 99212 ==

== ENCOUNTER 2025-08-03 13:26 | Outpatient (AMB) | payer OTHER, SELFPAY ==
--- OUTSIDE RECORDS SUMMARY | 2024-02-12 15:34 | XMS_ITS ---
Author Organization [employer]. Address [address] [facility] [id number] [place] [address] Care Team Providers Care Gas Appliance Servicer Helper Name Role Phone Jyoti Torrez Primary Care Provider Adilia Rush Unavailable [phone] Margarita Ayon Unavailable [phone] Encounters Encounter Location Date Provider Diagnosis [address] [address] 02/12/2024 Margarita Ayon PLAN OF TREATMENT No Information
--- OUTSIDE RECORDS SUMMARY | 2024-02-12 15:36 | XMS_ITS ---
Author Organization [email or web address]. Address [address] [facility] [id number] [place] [address] Care Team Providers Care Project Facilitator Name Role Phone Jyoti Torrez Primary Care Provider Adilia Rush Unavailable [phone] Margarita Ayon Unavailable [phone] MEDICATIONS Medication SIG (Take, Route, Fr equency, Duration) Notes Start Date End Date Status Jardiance 10 MG 1 tablet Orally Once a day for 90 days Active Encounters Encounter Location Date Provider Diagnosis [address] [address] 02/12/2024 Margarita Ayon PLAN OF TREATMENT Medication Medication Name Sig Start Date Stop Date Notes Jardiance 10 MG 1 tablet Orally Once a day for 90 days
--- OUTSIDE RECORDS SUMMARY | 2024-03-02 05:15 | XMS_ITS ---
Author Organization [employer]. Address [address] [facility] [id number] [place] [address] Care Team Providers Care Farm Laborer Name Role Phone Jyoti Torrez Primary Care Provider Adilia Rush Unavailable [phone] Margarita Ayon Unavailable [phone] REASON FOR VISIT DM F/UP Encounters Encounter Location Date Provider Diagnosis [address] [address] 03/02/2024 Margarita Ayon PLAN OF TREATMENT No Information
--- OUTSIDE RECORDS SUMMARY | 2024-08-30 07:23 | XMS_ITS ---
Author Organization [facility] Address [address] [place] [address] [id number] [place] [address] Care Team Providers Care Monotype Caster Name Role Phone Jyoti Torrez Primary Care Provider [phone] Adilia Rush Unavailable [phone] Margarita Ayon Unavailable [phone] REASON FOR VISIT Dm outreach Encounters Encounter Location Date Provider Diagnosis [address] [id number] [place] [address] 08/30/2024 Margarita Ayon PLAN OF TREATMENT No Information
--- OUTSIDE RECORDS SUMMARY | 2024-12-06 09:00 | XMS_ITS ---
Author Organization [employer]. Address [address] [facility] [id number] [place] [address] Care Team Providers Care Third Hand Name Role Phone Jyoti Torrez Primary Care Provider Adilia Rush Unavailable [phone] REASON FOR VISIT DM Eye Exam Encounters Encounter Location Date Provider Diagnosis MED-47 ([facility]) [facility] [place] [address] 12/06/2024 Adilia Rush PLAN OF TREATMENT No Information
[2025-08-03 13:29] VITALS: BP 118/76; O2SAT 96; BMI 27.2
--- NOTE | 2025-08-03 13:29 | A.OFFVIS_ITS ---
Vital Signs 08/03/25 13:29 Height 4 ft 9 in Weight 125 lb 10.616 oz BMI 27.2 BP 118/76 Blood Pressure Location Rt brachial Position Sitting Pulse Source Pulse Oximeter Pulse Oximetry (%) 96 Oxygen Delivery Method Room Air Intake Visit Reasons: T2DM Intake Note: Patient present today for T2DM follow up. Last Diabetic Eye exam: Has an appt on 08/24/2025 at [facility]. Last Podiatry Visit: 02/2025, [facility] Most Recent HgA1C: 8.7%, 06/29/2025 Random Glucose: 106 mg/dL Manager Sterile Required: Yes Manager Sterile Language: Schedule Planning Manager Services: Manager Sterile Present (SHADOW) Manager Sterile Name: Shahram #[id number] Accompanied by: Self / Same As Patient Allergies strawberry (STRAWBERRY) Allergy (Mild, Verified 08/03/25 13:35) PRURITUS tomato (TOMATO) Allergy (Mild, Verified 08/03/25 13:35) HIVES acetaminophen (From Percocet) Allergy (Unknown, Verified 08/03/25 13:35) Unknown oxycodone (From Percocet) Allergy (Unknown, Verified 08/03/25 13:35) Unknown pollen extracts (POLLEN) Allergy (Unknown, Verified 08/03/25 13:35) UNKNOWN lactose (LACTOSE) Adverse Reaction (Unknown, Verified 08/03/25 13:35) GI UPSET DUST Allergy (Unknown, Uncoded 08/03/25 13:35) UNKNOWN ENVIRONMENTAL Allergy (Unknown, Uncoded 08/03/25 13:35) UNKNOWN trees leaves Allergy (Uncoded 08/03/25 13:35) unknown Medication List - Last Reconciled 08/03/25 by DANTE Chaidez alcohol swabs (Alcohol Wipes) 1 pad topical TID aspirin 81 mg PO DAILY 90 days atorvastatin 40 mg PO DAILY 30 days blood sugar diagnostic ([facility] LimitedTouch Verio test strips) 3x daily blood-glucose sensor (FreeStyle Colten 3 Plus Sensor device) Apply 1 new sensor every 15 days as directed to monitor blood glucose continuously. blood-glucose,honing machine set up operator tool,cont (FreeStyle Colten 3 Star) Use daily to monitor blood glucose levels continuously. [BP cuff As directed] [cane As directed] cetirizine (Zyrtec) 10 mg PO DAILY PRN cyanocobalamin (vitamin B-12) 500 mcg PO DAILY empagliflozin (Jardiance) 25 mg PO DAILY famotidine 40 mg PO DAILY gabapentin 300 mg PO TID glucose (Dex4 Glucose) 16 grams (4 x 4 gram) PO Q15M PRN hydrochlorothiazide 25 mg PO DAILY insulin degludec (Tresiba FlexTouch U-100 insulin) 6 units subcut BEDTIME lactobacillus combination no.4 (Probiotic) 3,000 mmu cells PO DAILY lancets (OneTouch Delica Lancets) 4x daily linaclotide (Linzess) 145 mcg PO QAM lisinopril 10 mg PO DAILY metformin 1,000 mg PO BID mirtazapine 7.5 mg PO BEDTIME naproxen 500 mg PO BID PRN [Nitrate gloves As directed] nortriptyline 25 mg PO DAILY pen needle, diabetic (BD Ultra-Fine Micro Pen Needle) once a week pen needle, diabetic As directed sertraline 25 mg PO QAM simethicone (Gas Relief Extra Strength) 125 mg PO BID-QID sucralfate 10 mL PO BEDTIME vonoprazan (Voquezna) 20 mg PO DAILY zolpidem (Ambien) 5 mg PO BEDTIME PRN HPI Comments Details: This is a 70-year-old female with a past medical history of gastroparesis, hyperlipidemia, DCIS of the right breast, osteopenia, chronic constipation, GERD, vitamin-D deficiency, hypertension and type 2 diabetes presenting for diabetic management. She was diagnosed with type 2 diabetes in 1998. Her mother and father have type 2 diabetes. Hemoglobin a1c 8.7% 06/29/2025 down from 11.4% 03/26/2025. POC 106 initially and CGM alerted to a low during the visit. POC was normal at 83 and the patient had not symptoms of hypoglycemia. She reports that she has been getting some alerts for lows, but she doesn't always confirm with a fingerstick. She had 1 time she felt low when it was 66 in the past 2 weeks. Better CGM active 91% Average glucose 157 G VT 7.1% Very high 9% High 21% Target range 69% Low 1% She has postprandial hyperglycemia following breakfast and her evening meal and she has lows overnight and in the afternoon. Due to her stomach issue she depends on carbohydrates in her diet like bread and rice. She was encouraged to see the dieitcian. She is meeting with the glass bulb machine adjuster next week. Current medication regimen: Jardiance 25 mg, metformin 1000 mg twice daily, Tresiba 8 units at night Compliance issues: none Past medication: Ozempic was discontinued in the past due to hypoglycemia. She also has gastroparesis, achalasia, GERD. Compliance issues: none Hypoglycemia symptoms: Denies interval episodes. Dizziness with past episodes. Hyperglycemia symptoms: None Eye exam: up to date Microvascular complications: neuropathy, nephropathy (microalbuminuria) Macrovascular complications: none Hypertension: treated with hydrochlorothiazide, lisinopril Hyperlipidemia: treated with atorvastatin ROS: Constitutional: No unexplained weight loss, fever, chills or night sweats. Gastrointestinal: History of IBS, GERD and ?gastroparesis Genitourinary: No dysuria, hematuria, urinary frequency. Neurologic: No headache, dizziness, syncope, unilateral weakness, ataxia Endocrine: Denies polyuria or polydipsia Physical exam: Constitutional: Alert, in no distress. Head: Normocephalic. Neck: Supple, Full range of motion. No lymphadenopathy. No palpable thyroid masses. Respiratory: Clear to auscultation. Cardiovascular: S1 S2 regular. No murmurs. [facility] Medical History (Updated 08/01/25 @ 14:55 by Didi Ray MD) Hepatic steatosis Hypertriglyceridemia Uncomplicated type 2 diabetes mellitus Microalbuminuric diabetic nephropathy Bilateral foot pain Gastroparesis Hyperlipidemia associated with type 2 diabetes mellitus Osteopenia Headache Depression Vitamin D deficiency Fibromyalgia HTN (hypertension) HLD (hyperlipidemia) T2DM (type 2 diabetes mellitus) Surgical History History of esophagogastroduodenoscopy (EGD) History of hysteroscopy Status post right breast lumpectomy Hx of colonoscopy History of hysterectomy with bilateral oophorectomy History of carpal tunnel release History of tubal ligation History of ear surgery History of delivery Family History Father Cirrhosis Liver cancer Mother T2DM (type 2 diabetes mellitus) Past heart attack Maternal Grandmother Breast cancer Maternal Grandfather No problems noted. Paternal Grandmother No problems noted. Paternal Grandfather No problems noted. Son No problems noted. Son No problems noted. Daughter No problems noted. Social History Household Members: None Housing: Apartment Are you a primary animal care technician to a significant other at home: No Do you presently have visiting nurse or other home services: No Alcohol intake: never Patient Tobacco Use Status: Never used Tobacco e-Cigarette/Vaping Use: Never Used Second Hand Smoke Exposure: No service: No Current occupational status: disabled Cognitive needs: No Hearing needs: No Vision needs: Yes (glasses) Physical Exam Vital Signs: Last Vital Signs BP 118/76 08/03/25 13:29 Pulse Ox 96 08/03/25 13:29 Oxygen Delivery Method Room Air 08/03/25 13:29 BMI result Body Mass Index 27.2 Office Procedures Glucose Monitoring Details Details: see [facility] [address] - Glucose monitoring, continuous-physician I&R Procedure code (CPT) selection complete Results Reviewed Results Reviewed: Laboratory Last Values Glucose (Clinic) 106 mg/dL (60-115) 08/03/25 13:38 Laboratory Tests 08/11/24 08/11/24 03/26/25 09:45 09:54 13:31 Creatinine 0.81 Estimated GFR > 60 Hemoglobin A1c % 8.0 H Hgb A1c (Clinic) 11.4 H AST 17 ALT 16 Triglycerides 256 H Cholesterol 303 H LDL Cholesterol, Calc 203 H HDL Cholesterol 49 TSH 0.91 Urine Creatinine 80.81 Urine Microalbumin 87.0 Microalb/Creat Ratio 107.6 H Laboratory Tests 04/25/25 12:54 Plt Count 285 Creatinine 1.03 Estimated GFR 53 AST 42 H ALT 31 Triglycerides 311 H Cholesterol 143 LDL Cholesterol, Calc 49 HDL Cholesterol 32 L Assessment & Plan Assessment & Plan (1) Uncomplicated type 2 diabetes mellitus: Code(s): E11.9 - Type 2 diabetes mellitus without complications Category: Medical Qualifiers: Diabetes mellitus alf insulin use: with joint terminal attack controller use Qualified Code(s): E11.9 - Type 2 diabetes mellitus without complications; Z79.4 - [facility] (current) use of insulin Plan: In summary this is a 70-year-old female with uncontrolled but improving type 2 diabetes with neuropathy and nephropathy. Discussed pathophysiology of Type II Diabetes Mellitus with the patient in detail.? I explained the joint terminal attack controller risks and complications associated with uncontrolled diabetes including nephropathy, neuropathy, peripheral vascular disease, retinopathy, increased risk of heart disease and stroke.? Discussed lifestyle modification with the patient. Given information for www.diabetes.org. Declines referral to mems device scientist. Given chronic constipation, reflux, chronic abdominal pain and gastroparesis she is not a good candidate for a GLP 1. Continue Jardiance to 25 mg every day. Continue Metformin 1000 mg twice daily, but switch to Metformin extended release when you are due for the next refill due to chronic GI problems. It may be easier on her stomach. Decrease Tresiba to 6 units nightly. I would like her to consider starting Humalog 2 units before breakfast and the evening meal for postprandial hyperglycemia, but she is not prepared to start this yet. She will meet with the glass bulb machine adjuster next week. Plan Follow up in 4 weeks for type 2 diabetes. Bring glucometer to all appointments. Orders: Orders AMB Glucose Monitoring Today E11.9 - Type 2 diabetes mellitus without compli cations Medications: Changed From insulin degludec (Tresiba FlexTouch U-100 insulin) 8 units (0.08 mL) subcut BEDTIME 15 mL 5RF To insulin degludec (Tresiba FlexTouch U-100 insulin) 6 units subcut BEDTIME Patient Instructions: Diabetes medications as of today's visit Jardiance 25 mg metformin 1000 mg twice daily Tresiba 6 units at night Consider starting Humalog 2 units before breakfast and 2 units before evening meal. If you experience low blood sugar, treat this by eating a chewable fruit candy like skittles or jelly beans (about 8 pieces), 4 ounces (1/2 cup) of fruit juice (not diet), 1 tablespoon of honey or 4 glucose tablets. If your blood sugar is under 50, take double the amount of one of the above. Recheck your blood sugar in 15 minutes. Medicamentos para la diabetes a partir de la consulta de hoy Jardiance 25 mg Metformina 1000 mg dos veces al d?a Tresiba 6 unidades por la noche Si tiene un nivel bajo de az?car en la sunny, tr?telo comiendo un caramelo masticable de fruta charli Skittles o Jelly Beans (aproximadamente 8 piezas), 113 ml (1/2 taza) de jugo de fruta (no light), 1 cucharada de miel o 4 tabletas de glucosa. Si aragon nivel de az?car en la sunny es inferior a 50, tome el doble de la cantidad de leonarda de los medicamentos mencionados. Vuelva a medir aragon nivel de az?car en la sunny en 15 minutos. Considere comenzar a mega Humalog 2 unidades antes del desayuno y 2 unidades antes de la ariel. Coding Level of Care Code Est Pt Level 4 (25079) Diagnoses Type 2 diabetes mellitus without complication, with long-term current use of insulin E11.9; Z79.4 Diabetes mellitus joint terminal attack controller insulin use: with joint terminal attack controller use CPT Codes Details - CPT: 12861 - Glucose monitoring, continuous-physician I&R ([id number])
[2025-08-03 13:43] LABS: Glucose, Whole Blood 106 mg/dL (60-115)
--- OUTSIDE RECORDS SUMMARY | 2025-08-03 14:44 | XMS_ITS | Clinical Summary ---
Author Organization [facility] Address [address] [place] [address] Care Team Providers Care Curtain Drier Name Role Phone Unavailable Primary Care [...]
--- OUTSIDE RECORDS SUMMARY | 2025-08-03 14:44 | XMS_ITS | Encounter Summary ---
Author Organization [employer] [facility] Address [address] [facility] 7t [place] [address] Care Team Providers Care Triage Registered Nurse Name Role Phone Unavailable Primary Care [...]
--- OUTSIDE RECORDS SUMMARY | 2025-08-03 14:44 | XMS_ITS | Encounter Summary ---
Author Organization [employer] [facility] Address [address] [facility] 7t [place] [address] Care Team Providers Care Radiologic Technology Program Director Name Role Phone Unavailable Primary Care Provider [...]
--- OUTSIDE RECORDS SUMMARY | 2025-08-03 14:44 | XMS_ITS | Clinical Summary ---
Author Organization [facility] Address [address] [place] [address] Phone Care Team Providers Care Intervention Manager Name Role Phone Didi Ray MD Primary Care Provider [phone] Allergies No known active allergies Medications aspirin [...] GLUCOSE CONTINUOUSLY. 5 Active FreeStyle Colten 3 [place] misc USE DAILY TO MONITOR BLOOD GLUCOSE [...] A ORAL TODOS LOS D EN LA [facility] 5 Active lisinopriL (PRINIVIL,ZEST RIL) 10 mg [...] A ORAL TODOS LOS D EN JEANNINE [facility] 4 Active [place] 2nd Gen Pen Needle [...] 07/25/2025 2:30 PM EDT Consult Orthopedic Surgery [facility] [address] [phone] Frank Benson DPM Posterior tibial tendon dysfunction [...] 09/25/2025 1:45 PM EST Office Visit Orthopedic [facility] [address] [phone] Frank Benson DPM [address] [phone] Health Maintenance Due Date Last Done Comments [...] ID:[id number] Group ID:[id number] Type:Not on file Address: [place] [address] [place] [id number] Care Teams Intervention Manager Relationship Specialty Start Date End Date Didi Ray MD [address] [place] [address] , [address] [facility] Physician Associ D/B/A: [facility] ASNJUANA Gupta PCP - General Internal Medicine 04/27/25
--- OUTSIDE RECORDS SUMMARY | 2025-08-03 14:44 | XMS_ITS | Patient Health Record ---
Author Organization [employer]. Address [address] [facility] [id number] [place] [address] Care Team Providers Care Chain Link Fence Installer Name Role Phone Shan Jyoti Primary Care Provider [phone] Adilia Rush Unavailable [phone] Margarita Ayon Unavailable [phone] ALLERGIES Allergen (clinical drug ingredient) Drug/Non Drug Allergy documented on EMR Reaction Allergy Type Onset Date Status Watermelon Flavor hives Drug Allergy Active REASON FOR REFERRAL No Information MEDICATIONS Medication SIG (Take, Route, Frequency, Duration) Notes Start Date End Date Status Zolpidem Tartrate 5 MG 1 tablet at bedtime every day Orally daily for [address] directions in armenian 10/26/2023 Active Magnesium 400 MG as directed Orally Once a day for 30 days Active [place] 3 1000 MG 1 capsule Orally Once a day for 90 days 08/27/2023 Active Vitamin B12 100 MCG 1 tablet Orally Once a day for 90 days Active Famotidine 40 MG 1 tablet at bedtime Orally Once a day Active Aspir-Low 81 MG 1 tablet Orally Once a day Active FreeStyle Colten 2 [place] - as directed a s directed 4x/day [...] Type II diabete s mellitus without complication (579113214) Problem 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) Active confirmed Tear film insufficiency (76004826) Problem Combined forms of age-related cataract, 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) Active confirmed Bilateral age-related cataract (5120275959835888 3) Problem Presbyopia (H52.4) Active confirmed Presbyopia (42288036) Problem Fibromyalgia (M79.7) Active confirmed Fibromyalgia (352133448) Problem Hypertension (I10) Active confirmed Hypertension (10931550) Problem Insomnia (G47.00) Active confirmed Inso mnia (515553575) Problem Diabetes (E11.9) Active confirmed Type II diabetes mellitus without complication (259936964) Problem Type 2 diabetes mellitus (E11.9) Active confirmed Type 2 diab etes mellitus (35210903) Problem Hyperlipidemia (E78.5) Active confirmed Hyperlipidemia (74454192) Problem Major depressive disorder (F32.9) Active confirmed Major depre ssive disorder (977032010) Encounters Encounter Location Date Provider Diagnosis [address] [id number] [place] [address] 08/30/2024 Margarita Ayon MED-[id number] ([facility]) [address] [place] [address] 12/06/2024 Adilia Rush PLAN OF TREATMENT Pending Test Test Name Order Date X ray : Spines, lumbar 2 views * 023 MICROALBUMIN, RANDOM URINE (W/CREATININE ) 06/29/2023 LIPID PANEL 07/15/2023 Insurance Providers Payer Name Payer Address Payer Phone Subscriber Number Group Number Insured Name Patient Relationship to Insured Coverage Start Date Coverage End Date MEDICARE FQHC [address] [place] [address] [id number] Duyen Arellano Self - patient is the insured 0 HUSKY D [address] [place] [address] [id number] Duyen Arellano Self - patient is the insured MEDICAL (GENERAL) HISTORY Medical History History ICD Code diabetes mellitus hypertension GERD chronic sinusitis migraine headaches DILATED EYE EXAM 11/2023 Surgical History Surgery Date(Month/Year)
--- OUTSIDE RECORDS SUMMARY | 2025-08-03 14:44 | XMS_ITS | Clinical Summary ---
Author Organization [employer] Address [address] [facility] 7t [place] [address] Care Team Providers Care Shaper Hand Name Role Phone Unavailable Primary Care Provider [...]
[2025-08-06 15:52] LABS: Glucose, Whole Blood 83 mg/dL (60-115)
[2025-08-06 15:56] LABS: Glucose, Whole Blood 106 mg/dL (60-115)
== END 2025-08-03 14:25 | disposition home or self-care (01) ==
LOC: HO.ENCR 13:27
PROVIDERS: PCP Internal Medicine; Visit Provider Physician Assistant Medical
DX: E11.9 Type 2 diabetes mellitus without complications (principal); Z79.4 Long term (current) use of insulin

== ENCOUNTER → 2025-08-03 13:26 | Outpatient (BNVA) | payer OTHER, SELFPAY | PROVIDERS: PCP Internal Medicine; Visit Provider Physician Assistant Medical | DX: E11.9 Type 2 diabetes mellitus without complications (principal); Z79.4 Long term (current) use of insulin; Z79.84 Long term (current) use of oral hypoglycemic drugs | CPT/HCPCS: 82947; 99212 ==

== ENCOUNTER 2025-08-07 12:51 | Outpatient (AMB) | payer OTHER, SELFPAY ==
--- OUTSIDE RECORDS SUMMARY | 2024-02-12 15:34 | XMS_ITS ---
Author Organization [employer]. Address [address] [facility] [id number] [place] [address] Care Team Providers Care Finance Manager Name Role Phone Jyoti Torrez Primary Care Provider Adilia Rush Unavailable [phone] Margarita Ayon Unavailable [phone] Encounters Encounter Location Date Provider Diagnosis [address] [address] 02/12/2024 Margarita Ayon PLAN OF TREATMENT No Information
--- OUTSIDE RECORDS SUMMARY | 2024-02-12 15:36 | XMS_ITS ---
Author Organization [employer]. Address [address] [facility] [id number] [place] [address] Care Team Providers Care Director Surgical Name Role Phone Jyoti Torrez Primary Care Provider Adilia Rush Unavailable [phone] Margarita Ayon Unavailable [phone] MEDICATIONS Medication SIG (Take, Route, Fr equency, Duration) Notes Start Date End Date Status Jardiance 10 MG 1 tablet Orally Once a day for 90 days Active Encounters Encounter Location Date Provider Diagnosis [address] [address] 02/12/2024 Margarita Ayon PLAN OF TREATMENT Medication Medication Name Sig Start Date Stop Date Notes Jardiance 10 MG 1 tablet Orally Once a day for 90 days
--- OUTSIDE RECORDS SUMMARY | 2024-03-02 05:15 | XMS_ITS ---
Author Organization [employer]. Address [address] [facility] [id number] [place] [address] Care Team Providers Care Heavy Equipment Diesel Mechanic Name Role Phone Jyoti Torrez Primary Care Provider [phone] Adilia Rush Unavailable [phone] Margarita Ayon Unavailable [phone] REASON FOR VISIT DM F/UP Encounters Encounter Location Date Provider Diagnosis [address] [address] 03/02/2024 Margarita Ayon PLAN OF TREATMENT No Information
--- OUTSIDE RECORDS SUMMARY | 2024-08-30 07:23 | XMS_ITS ---
Author Organization [facility] Address [address] [place] [address] [id number], [place] [address] Care Team Providers Care Senior Account Manager Name Role Phone Jyoti Torrez Primary Care Provider [phone] Adilia Rush Unavailable [phone] Margarita Ayon Unavailable [phone] REASON FOR VISIT Dm outreach Encounters Encounter Location Date Provider Diagnosis [address] [id number], [place] [address] 08/30/2024 Margarita Ayon PLAN OF TREATMENT No Information
--- OUTSIDE RECORDS SUMMARY | 2024-12-06 09:00 | XMS_ITS ---
Author Organization [employer] Address [address] [facility] [id number] [place] [address] Care Team Providers Care Software Engineering Manager Name Role Phone Jyoti Torrez Primary Care Provider Adilia Rush Unavailable [phone] REASON FOR VISIT DM Eye Exam Encounters Encounter Location Date Provider Diagnosis MED-47 ([facility]) [facility] [place] [address] [address] 12/06/2024 Adilia Rush PLAN OF TREATMENT No Information
--- NOTE | 2025-08-07 13:32 | MHC.AMDMED ---
Intake Intake Visit Reasons: 60 min Wire Mesh Filter Fabricator Required: Yes Wire Mesh Filter Fabricator Language: Senior Customer Service Representative Name: Bonny [facility] [place] Accompanied by: Self / Same As Patient Allergies strawberry (STRAWBERRY) Allergy (Mild, Verified 08/03/25 13:35) PRURITUS tomato (TOMATO) Allergy (Mild, Verified 08/03/25 13:35) HIVES acetaminophen (From Percocet) Allergy (Unknown, Verified 08/03/25 13:35) Unknown oxycodone (From Percocet) Allergy (Unknown, Verified 08/03/25 13:35) Unknown pollen extracts (POLLEN) Allergy (Unknown, Verified 08/03/25 13:35) UNKNOWN lactose (LACTOSE) Adverse Reaction (Unknown, Verified 08/03/25 13:35) GI UPSET DUST Allergy (Unknown, Uncoded 08/03/25 13:35) UNKNOWN ENVIRONMENTAL Allergy (Unknown, Uncoded 08/03/25 13:35) UNKNOWN trees leaves Allergy (Uncoded 08/03/25 13:35) unknown [facility]LY [facility], [facility] Medical History (Updated 08/01/25 @ 14:55 by Didi Ray MD) Hepatic steatosis Hypertriglyceridemia Uncomplicated type 2 diabetes mellitus Microalbuminuric diabetic nephropathy Bilateral foot pain Gastroparesis Hyperlipidemia associated with type 2 diabetes mellitus Osteopenia Headache Depression Vitamin D deficiency Fibromyalgia HTN (hypertension) HLD (hyperlipidemia) T2DM (type 2 diabetes mellitus) Surgical History History of esophagogastroduodenoscopy (EGD) History of hysteroscopy Status post right breast lumpectomy Hx of colonoscopy History of hysterectomy with bilateral oophorectomy History of carpal tunnel release History of tubal ligation History of ear surgery History of delivery Family History Father Cirrhosis Liver cancer Mother T2DM (type 2 diabetes mellitus) Past heart attack Maternal Grandmother Breast cancer Maternal Grandfather No problems noted. Paternal Grandmother No problems noted. Paternal Grandfather No problems noted. Son No problems noted. Son No problems noted. Daughter No problems noted. Social History Household Members: None Housing: Apartment Are you a primary care transition coordinator to a significant other at home: No Do you presently have visiting nurse or other home services: No Alcohol intake: never Patient Tobacco Use Status: Never used Tobacco e-Cigarette/Vaping Use: Never Used Second Hand Smoke Exposure: No service: No Current occupational status: disabled Cognitive needs: No Hearing needs: No Vision needs: Yes (glasses) Assessment & Plan Assessment & Plan (1) T2DM (type 2 diabetes mellitus): Code(s): E11.9 - Type 2 diabetes mellitus without complications Qualifiers: Diabetes mellitus complication status: with hyperglycemia Diabetes mellitus usp insulin use: without terminal makeup operator use Qualified Code(s): E11.65 - Type 2 diabetes mellitus with hyperglycemia Plan: Personal Continuous Glucose Monitor: Patients CGM information reviewed, Pt uses Nu-B-2B with reader Patient's glucose levels have improved. Patient's last A1c on 06/29/25 8.7%, this is an improvement from 11.4% on 03/26/2025 It appears patient is still having some overnight and water analyst hypoglycemia after Tresiba was reduced to 6 units at last provider visit At today's visit instructed patient. Hypoglycemia or blood glucose under 70 use the rule of 15's: If you have your blood glucose meter test your blood glucose, if you do not have your meter still follow below instruction: Keep quick-sugar foods with you at all times.? Take 15 grams of fast acting carbohydrates. Examples are 4 ounces of fruit juice or regular soda pop, 8 ounces fat-free milk, 1 tablespoon of table sugar, honey or corn syrup, jam, one miniature box of raisins, 7-8 gumdrops or Life Savers candy, 4 glucose tablets, and glucose gel.? Retest blood glucose in 15 minutes, if blood glucose is still under 80,repeat rule of 15's. If blood glucose is under 50, take 30 grams of fast acting carbohydrates If you are having hypoglycemia, or insulin reaction, more that a few times a week, call MD or inclusion paraeducator F/U BG check Recommended to patient to decrease Tresiba from 6 units to 4 units At last provider if visit, Za, discussed starting rapid acting insulin before breakfast due to postprandial hyperglycemia. Patient given hyperglycemic handout in Yoruba At today's visit reviewed action of rapid acting insulin Patient stated she would make a decision by next visit Reminded patient that to check finger sticks if symptoms do not match sensor reading. Discussed lag time between finger stick and sensor data.? Patient able to insert sensor independently at home without issue.? Portions of this note were created using voice recognition software, please excuse any words or phrases that may have been misinterpreted. Coding Level of Care Code Est Pt Level 1 (62532) Diagnoses Type 2 diabetes mellitus with hyperglycemia, without long-term current use of insulin E11.65 Diabetes mellitus complication status: with hyperglycemia Diabetes mellitus terminal makeup operator insulin use: without terminal makeup operator use
--- OUTSIDE RECORDS SUMMARY | 2025-08-07 13:59 | XMS_ITS | Encounter Summary ---
Author Organization [employer] [facility] Address [address] [facility] 7t [place] [address] Care Team Providers Care Supervisor Lace Tearing Name Role Phone Unavailable Primary Care Provider [...]
--- OUTSIDE RECORDS SUMMARY | 2025-08-07 13:59 | XMS_ITS | Clinical Summary ---
Author Organization [address] [facility] Address [address] [place] [address] Phone Care Team Providers Care Radio Recorder Name Role Phone Didi Ray MD Primary Care Provider [phone] Allergies No known active allergies Medications aspirin [...] GLUCOSE CONTINUOUSLY. 5 Active FreeStyle Colten 3 Assawoman misc USE DAILY TO MONITOR BLOOD GLUCOSE [...] A ORAL TODOS LOS D EN [facility] 5 Active lisinopriL (PRINIVIL,ZEST RIL) 10 mg [...] A ORAL TODOS LOS D EN JEANNINE [facility] 4 Active [place] 2nd Gen Pen Needle [...] 07/25/2025 2:30 PM EDT Consult Orthopedic Surgery [facility] [address] [phone] Frank Benson DPM Posterior tibial tendon dysfunction [...] 09/25/2025 1:45 PM EST Office Visit Orthopedic [facility] [address] [phone] Frank Benson DPM [address] [address] Health Maintenance Due Date Last Done Comments Breast Cancer Screening 1955 Colorectal Cancer Screening: Colonoscopy 1955 Diabetes: Annual GFR (Glomer ular Filtration Rate) 1955 Diabetes: Annual Foot Exam 1965 Diabetes: Annual Retina Eye Exam 1965 DTaP,Tdap,and Td Vaccines (1 - Tdap) 1974 Pneumococcal Vaccine: 50+ Ye ars (1 of 2 - PCV) 1974 Zoster Vaccines (1 of 2) 2005 RSV Immunization Adult Patie nts (1 - Risk 60-74 years 1-dose series) 2015 Cholesterol Screening (Lipid Panel) 10/07/2022 Falls Risk Assessment 10/07/2022 Hepatitis C [...] ID:[id number] Group ID:[id number] Type:Not on file Address: [place] [address] [place] [address] Care Teams Radio Recorder Relationship Specialty Start Date End Date Didi Ray MD [address] [place] [address] , [address] [facility] D/B/A: [facility] SANJUANA Gupta PCP - General Internal Medicine 04/27/25
--- OUTSIDE RECORDS SUMMARY | 2025-08-07 13:59 | XMS_ITS | Patient Health Record ---
Author Organization [employer] Address [address] [facility] [id number] [place] [address] Care Team Providers Care Guide Cruise Name Role Phone Shan Jyoti Primary Care Provider [phone] Adilia Rush Unavailable [phone] Margarita Ayon Unavailable [phone] ALLERGIES Allergen (clinical drug ingredient) Drug/Non Drug Allergy documented on EMR Reaction Allergy Type Onset Date Status Watermelon Flavor hives Drug Allergy Active REASON FOR REFERRAL No Information MEDICATIONS Medication SIG (Take, Route, Frequency, Duration) Notes Start Date End Date Status Zolpidem Tartrate 5 MG 1 tablet at bedtime every day Orally daily for [address] directions in norwegian 10/26/2023 Active Magnesium 400 MG as directed Orally Once a day for 30 days Active [place] 3 1000 MG 1 capsule Orally Once a day for 90 days 08/27/2023 Active Vitamin B12 100 MCG 1 tablet Orally Once a day for 90 days Active Famotidine 40 MG 1 tablet at bedtime Orally Once a day Active Aspir-Low 81 MG 1 tablet Orally Once a day Active FreeStyle Colten 2 [place] - as directed a s directed 4x/day [...] Type II diabete s mellitus without complication (597267737) Problem 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) Active confirmed Tear film insufficiency (59018575) Problem Combined forms of age-related cataract, 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) Active confirmed Bilateral age-related cataract (5964134621131154 3) Problem Presbyopia (H52.4) Active confirmed Presbyopia (60660693) Problem Fibromyalgia (M79.7) Active confirmed Fibromyalgia (973575436) Problem Hypertension (I10) Active confirmed Hypertension (75497588) Problem Insomnia (G47.00) Active confirmed Inso mnia (842056464) Problem Diabetes (E11.9) Active confirmed Type II diabetes mellitus without complication (087526832) Problem Type 2 diabetes mellitus (E11.9) Active confirmed Type 2 diab etes mellitus (84381300) Problem Hyperlipidemia (E78.5) Active confirmed Hyperlipidemia (34686254) Problem Major depressive disorder (F32.9) Active confirmed Major depre ssive disorder (791176736) Encounters Encounter Location Date Provider Diagnosis [address] [id number] [place] [address] 08/30/2024 Margarita Ayon MED-[id number] ([facility]) [address] [place] [address] 12/06/2024 Adilia Rush PLAN OF TREATMENT Pending Test Test Name Order Date X ray : Spines, lumbar 2 views * 023 MICROALBUMIN, RANDOM URINE (W/CREATININE ) 06/29/2023 LIPID PANEL 07/15/2023 Insurance Providers Payer Name Payer Address Payer Phone Subscriber Number Group Number Insured Name Patient Relationship to Insured Coverage Start Date Coverage End Date MEDICARE FQHC [address] [place] [address] [id number] Duyen Arellano Self - patient is the insured 0 HUSKY D [address] [place] [address] [id number] Duyen Arellano Self - patient is the insured MEDICAL (GENERAL) HISTORY Medical History History ICD Code diabetes mellitus hypertension GERD chronic sinusitis migraine headaches DILATED EYE EXAM 11/2023 Surgical History Surgery Date(Month/Year)
--- OUTSIDE RECORDS SUMMARY | 2025-08-07 13:59 | XMS_ITS | Clinical Summary ---
Author Organization [facility] Address [address] [place] [address] Care Team Providers Care Hospital Plan Administrator Name Role Phone Unavailable Primary Care Provider [...]
--- OUTSIDE RECORDS SUMMARY | 2025-08-07 13:59 | XMS_ITS | Encounter Summary ---
Author Organization [facility] Address [address] [facility] 7t [place] [address] Care Team Providers Care Commonwealth Attorney Name Role Phone Unavailable Primary Care Provider [...]
--- OUTSIDE RECORDS SUMMARY | 2025-08-07 13:59 | XMS_ITS | Clinical Summary ---
Author Organization [employer] Address [address] [facility] 7t [place] [address] Care Team Providers Care Movie Critic Name Role Phone Unavailable Primary Care Provider [...]
== END 2025-08-07 13:35 | disposition home or self-care (01) ==
LOC: HO.ENCR 12:52
PROVIDERS: PCP Internal Medicine; Visit Provider Registered Nurse Diabetes Educator
DX: E11.65 Type 2 diabetes mellitus with hyperglycemia (principal)

== ENCOUNTER → 2025-08-07 12:51 | Outpatient (BNVA) | payer OTHER, SELFPAY | PROVIDERS: PCP Internal Medicine; Visit Provider Registered Nurse Diabetes Educator | DX: E11.65 Type 2 diabetes mellitus with hyperglycemia (principal) | CPT/HCPCS: 99211 ==

== ENCOUNTER 2025-09-09 13:19 | Outpatient (REF) | payer OTHER, SELFPAY ==
--- OUTSIDE RECORDS SUMMARY | 2024-08-30 06:23 | XMS_ITS ---
Author Organization [employer] [facility] Address [address] [place] [address] [id number], [place] [address] Care Team Providers Care An/Syq 13 Nav/C2 Operator Name Role Phone Jyoti Torrez Primary Care Provider Adilia Rush Unavailable [phone] Margarita Ayon Unavailable [phone] REASON FOR VISIT Dm outreach Encounters Encounter Location Date Provider Diagnosis [address] [id number], [place] [address] 08/30/2024 Margarita Ayon PLAN OF TREATMENT No Information
--- OUTSIDE RECORDS SUMMARY | 2024-12-06 08:00 | XMS_ITS ---
Author Organization [employer] Address [address] [facility] [id number] [place] [address] Care Team Providers Care Stable Hand Name Role Phone Jyoti Torrez Primary Care Provider [phone] Adilia Rush Unavailable [phone] REASON FOR VISIT DM Eye Exam Encounters Encounter Location Date Provider Diagnosis MED-47 ([facility]) [facility] [place] [address] 12/06/2024 Adilia Rush PLAN OF TREATMENT No Information
--- NOTE | ~2025-09-09 | MR_ITS ---
EXAMINATION: MR BRAIN WITHOUT CONTRAST CLINICAL INFORMATION: G 44.52. Persistent headache. COMPARISON: Correlated to CT dated January 02, 2021. TECHNIQUE: MRI of the brain was obtained using routine sequences without contrast. FINDINGS: No restricted diffusion. No acute intracranial hemorrhage, mass effect, midline shift, hydrocephalus or herniation. Disla-white matter differentiation is normal. Bilateral multifocal patchy and punctate deep periventricular white matter hyperintense T2 FLAIR signal involving centrum semiovale and guzman radiata with a perpendicular orientation through the corpus callosum. Sellar/suprasellar region demonstrated no signal abnormality or masses. Craniocervical junction is intact with normal position of the cerebellar tonsils. Flow-void signal within the main cerebral vessels is normal. Hyperintense T2 FLAIR signal in the mastoid air cells and probably in the tympanic cavities. Mild mucosal thickening, ethmoid cells. Small cavum septum pellucidum and cavum vergae. MR/MR head/brain wo con IMPRESSION: No acute brain abnormality. White matter disease with a pattern and distribution suggesting demyelinating plaques versus less likely small vessel occlusive disease. Inflammatory versus infectious processes, mastoid air cells probably tympanic cavities.. Electronically signed by: Vishal Rosario MD 09/10/2025 06:47 AM EST
--- OUTSIDE RECORDS SUMMARY | 2025-09-09 13:27 | XMS_ITS | Patient Health Record ---
Author Organization [employer] Address [address] [facility] [id number] [place] [address] Care Team Providers Care Lacquer Shader Name Role Phone Shan Jyoti Primary Care Provider Adilia Rush Unavailable [phone] ALLERGIES Allergen (clinical drug ingredient) Drug/Non Drug Allergy documented on EMR Reaction Allergy Type Onset Date Status Watermelon Flavor hives Drug Allergy Active REASON FOR REFERRAL No Information MEDICATIONS Medication SIG (Take, Route, Frequency, Duration) Notes Start Date End Date Status Zolpidem Tartrate 5 MG 1 tablet at bedtime every day Orally daily for [address] directions in lao 10/26/2023 Active Magnesium 400 MG as directed Orally Once a day for 30 days Active [place] 3 1000 MG 1 capsule Orally Once a day for 90 days 08/27/2023 Active Vitamin B12 100 MCG 1 tablet Orally Once a day for 90 days Active Famotidine 40 MG 1 tablet at bedtime Orally Once a day Active Aspir-Low 81 MG 1 tablet Orally Once a day Active FreeStyle Colten 2 [place] - as directed a s directed 4x/day [...] Type II diabete s mellitus without complication (163213865) Problem 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) Active confirmed Tear film insufficiency (30138957) Problem Combined forms of age-related cataract, 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) Active confirmed Bilateral age-related cataract (6666122431176419 3) Problem Presbyopia (H52.4) Active confirmed Presbyopia (04703434) Problem Fibromyalgia (M79.7) Active confirmed Fibromyalgia (149471836) Problem Hypertension (I10) Active confirmed Hypertension (86119891) Problem Insomnia (G47.00) Active confirmed Inso mnia (470168646) Problem Diabetes (E11.9) Active confirmed Type II diabetes mellitus without complication (814653165) Problem Type 2 diabetes mellitus (E11.9) Active confirmed Type 2 diab etes mellitus (84922609) Problem Hyperlipidemia (E78.5) Active confirmed Hyperlipidemia (62701137) Problem Major depressive disorder (F32.9) Active confirmed Major depre ssive disorder (721594416) Encounters Encounter Location Date Provider Diagnosis [id number] ([facility]) [address] [facility] [place] [address] 12/06/2024 Adilia Rush PLAN OF TREATMENT Pending Test Test Name Order Date X ray : Spines, lumbar 2 views * 023 MICROALBUMIN, RANDOM URINE (W/CREATININE ) 06/29/2023 LIPID PANEL 07/15/2023 Insurance Providers Payer Name Payer Address Payer Phone Subscriber Number Group Number Insured Name Patient Relationship to Insured Coverage Start Date Coverage End Date MEDICARE FQHC [address] [place] [address] [id number] Duyen Arellano Self - patient is the insured 0 HUSKY D [address] [place] [address] [id number] Duyen Arellano Self - patient is the insured MEDICAL (GENERAL) HISTORY Medical History History ICD Code diabetes mellitus hypertension GERD chronic sinusitis migraine headaches DILATED EYE EXAM 11/2023 Surgical History Surgery Date(Month/Year)
--- OUTSIDE RECORDS SUMMARY | 2025-09-09 13:27 | XMS_ITS | Clinical Summary ---
Author Organization [facility] Address [address] [place] [address] Care Team Providers Care Edging Catcher Name Role Phone Unavailable Primary Care Provider [...]
== END 2025-09-09 13:20 | disposition home or self-care (01) ==
LOC: HO.MRI 13:19
PROVIDERS: PCP Internal Medicine; Visit Provider Internal Medicine
DX: G44.52 New daily persistent headache (NDPH) (principal)
CPT/HCPCS: 70551

== ENCOUNTER → 2025-09-09 13:28 | Outpatient (BNV) | payer OTHER, SELFPAY | PROVIDERS: PCP Internal Medicine; Visit Provider Radiology Diagnostic Radiology | DX: G44.52 New daily persistent headache (NDPH) (principal) | CPT/HCPCS: 70551 ==

== ENCOUNTER 2025-09-11 13:10 | Outpatient (AMB) | payer OTHER, SELFPAY ==
--- OUTSIDE RECORDS SUMMARY | 2024-08-30 06:23 | XMS_ITS ---
Author Organization [employer] [facility] Address [address] [place] [address] [id number] [place] [address] Care Team Providers Care Manager Life Name Role Phone Joyti Torrez Primary Care Provider Adilia Rush Unavailable [phone] Margarita Ayon Unavailable [phone] REASON FOR VISIT Dm outreach Encounters Encounter Location Date Provider Diagnosis [address] [id number] [place] [address] 08/30/2024 Margarita Ayon PLAN OF TREATMENT No Information
--- OUTSIDE RECORDS SUMMARY | 2024-12-06 08:00 | XMS_ITS ---
Author Organization [employer] Address [address] [facility] [id number] [place] [address] Care Team Providers Care Doctor Of Nursing Practice Name Role Phone Jyoti Torrez Primary Care Provider Adilia Rush Unavailable [phone] REASON FOR VISIT DM Eye Exam Encounters Encounter Location Date Provider Diagnosis MED-47 ([facility]) [facility] [place] [address] 12/06/2024 Adilia Rush PLAN OF TREATMENT No Information
[2025-09-11 13:19] VITALS: BP 122/60; PULSE 74; O2SAT 98; BMI 26.6
--- NOTE | 2025-09-11 13:19 | HO.NEPHOV_ITS ---
Vital Signs 09/11/25 13:19 Height 4 ft 9 in Weight 123 lb BMI 26.6 BP 122/60 Blood Pressure Location Lt brachial Position Sitting Pulse 74 Pulse Source Pulse Oximeter Pulse Oximetry (%) 98 Intake Visit Reasons: Protenuria Maple Products Supervisor Required: Yes Maple Products Supervisor Name: Katelin [id number] Accompanied by: DISPLAY AND BANNER DESIGNER Allergies strawberry (STRAWBERRY) Allergy (Mild, Verified 09/11/25 13:21) PRURITUS tomato (TOMATO) Allergy (Mild, Verified 09/11/25 13:21) HIVES acetaminophen (From Percocet) Allergy (Unknown, Verified 09/11/25 13:21) Unknown oxycodone (From Percocet) Allergy (Unknown, Verified 09/11/25 13:21) Unknown pollen extracts (POLLEN) Allergy (Unknown, Verified 09/11/25 13:21) UNKNOWN lactose (LACTOSE) Adverse Reaction (Unknown, Verified 09/11/25 13:21) GI UPSET DUST Allergy (Unknown, Uncoded 08/03/25 13:35) UNKNOWN ENVIRONMENTAL Allergy (Unknown, Uncoded 08/03/25 13:35) UNKNOWN trees leaves Allergy (Uncoded 08/03/25 13:35) unknown Medication List - Last Reconciled 09/11/25 by Jesus Fonseca MD alcohol swabs (Alcohol Wipes) 1 pad topical TID aspirin 81 mg PO DAILY 90 days atorvastatin 40 mg PO DAILY 30 days blood sugar diagnostic (Valtech CardioTouch Verio test strips) 3x daily blood-glucose sensor (FreeStyle Colten 3 Plus Sensor device) Apply 1 new sensor every 15 days as directed to monitor blood glucose continuously. blood-glucose,proposal coordinator,cont (FreeStyle Colten 3 [place]) Use daily to monitor blood glucose levels continuously. [BP cuff As directed] [cane As directed] cetirizine (Zyrtec) 10 mg PO DAILY PRN empagliflozin (Jardiance) 25 mg PO DAILY famotidine 40 mg PO DAILY gabapentin 300 mg PO TID glucose (Dex4 Glucose) 16 grams (4 x 4 gram) PO Q15M PRN hydrochlorothiazide 25 mg PO DAILY insulin degludec (Tresiba FlexTouch U-100 insulin) 6 units subcut BEDTIME lancets (OneTouch Delica Lancets) 4x daily linaclotide (Linzess) 145 mcg PO QAM lisinopril 10 mg PO DAILY metformin 1,000 mg PO BID mirtazapine 7.5 mg PO BEDTIME naproxen 500 mg PO BID PRN [Nitrate gloves As directed] nortriptyline 25 mg PO DAILY pen needle, diabetic (BD Ultra-Fine Micro Pen Needle) once a week pen needle, diabetic As directed sertraline 25 mg PO QAM simethicone (Gas Relief Extra Strength) 125 mg PO BID-QID sucralfate 10 mL PO BEDTIME vonoprazan (Voquezna) 20 mg PO DAILY HPI Comments Details: The patient is a 70-year-old female presenting with proteinuria and decreased kidney function. She has a long-standing history of diabetes mellitus for approximately 35 years, with variable control of her blood glucose levels. Her blood sugar control is inconsistent, sometimes well-managed and sometimes not. The patient also has a history of hypertension, which is currently well- controlled. She denies any history of cardiac issues. She is on medications including lisinopril and Jardiance, which are beneficial for her renal health, and she reports no issues with medication adherence. Recent tests show her kidney function at 55%, below the expected 70% for her age, [facility] Medical History (Updated 09/16/25 @ 17:36 by Didi Ray MD) Hepatic steatosis Hypertriglyceridemia Uncomplicated type 2 diabetes mellitus Microalbuminuric diabetic nephropathy Bilateral foot pain Gastroparesis Hyperlipidemia associated with type 2 diabetes mellitus Osteopenia Headache Depression Vitamin D deficiency Fibromyalgia HTN (hypertension) HLD (hyperlipidemia) T2DM (type 2 diabetes mellitus) Surgical History History of esophagogastroduodenoscopy (EGD) History of hysteroscopy Status post right breast lumpectomy Hx of colonoscopy History of hysterectomy with bilateral oophorectomy History of carpal tunnel release History of tubal ligation History of ear surgery History of delivery Family History Father Cirrhosis Liver cancer Mother T2DM (type 2 diabetes mellitus) Past heart attack Maternal Grandmother Breast cancer Maternal Grandfather No problems noted. Paternal Grandmother No problems noted. Paternal Grandfather No problems noted. Son No problems noted. Son No problems noted. Daughter No problems noted. Social History Household Members: None Housing: Apartment Are you a primary director of home care hospice to a significant other at home: No Do you presently have visiting nurse or other home services: No Alcohol intake: never Patient Tobacco Use Status: Never used Tobacco e-Cigarette/Vaping Use: Never Used Second Hand Smoke Exposure: No service: No Current occupational status: disabled Cognitive needs: No Hearing needs: No Vision needs: Yes (glasses) Physical Exam Vital Signs: Last Vital Signs Pulse 74 09/11/25 13:19 BP 122/60 09/11/25 13:19 Pulse Ox 98 09/11/25 13:19 BMI result Body Mass Index 26.6 Comfortable Neck supple no JVD. Lungs entry equal no rales. Heart S1-S2 heard no gallop or rub. Abdomen soft nontender. Neuro alert awake oriented. No asterixis. Extremities no edema. Assessment & Plan Assessment & Plan (1) HTN (hypertension): Comment: stable; same meds Code(s): I10 - Essential (primary) hypertension Category: Medical Qualifiers: Hypertension type: unspecified Qualified Code(s): I10 - Essential (primary) hypertension (2) Microalbuminuria: Code(s): R80.9 - Proteinuria, unspecified Category: Medical Plan 1. Proteinuria in a setting of early CKD stage 3 Most likely due to hypertensive diabetic kidney disease - Work up ordered blood tests, urine tests, and an ultrasound to evaluate kidney function. - Optimize blood pressure and blood sugar to prevent further kidney damage. Maximize JUICE inhibition 2. Diabetes Mellitus - Continue current medications, including Jardiance, - Monitor blood sugar levels closely. 3. Hypertension - Continue lisinopril Goal BP < 130/80 - Regularly monitor blood pressure. Orders: Orders UA and rflx microscopic 09/11/25 R80.9 - Proteinuria, unspecified Basic Metabolic Panel 09/11/25 R80.9 - Proteinuria, unspecified Complete Blood Count Auto Diff 09/11/25 R80.9 - Proteinuria, unspecified Creatinine Urine 09/11/25 R80.9 - Proteinuria, unspecified Total Protein Urine Random 09/11/25 R80.9 - Proteinuria, unspecified US renal BI 09/11/25 R80.9 - Proteinuria, unspecified Patient Instructions: - Monitor your blood sugar levels regularly and keep them under control. - Keep your blood pressure under control by following your treatment plan. - Drink plenty of water daily. - Return for a follow-up appointment in 4 to 6 weeks to discuss test results. Coding Level of Care Code New Pt Level 4 (15184) Diagnoses Hypertension, unspecified type I10 Hypertension type: unspecified Microalbuminuria R80.9
--- OUTSIDE RECORDS SUMMARY | 2025-09-11 16:07 | XMS_ITS | Clinical Summary ---
Author Organization [facility] Address [address] [place] [address] Phone Care Team Providers Care Senior Planner Name Role Phone Didi Ray MD Primary Care Provider [phone] Allergies No known active allergies Medications aspirin [...] GLUCOSE CONTINUOUSLY. 5 Active FreeStyle Colten 3 [place] misc USE DAILY TO MONITOR BLOOD GLUCOSE [...] A ORAL TODOS LOS D EN LA [facility] 5 Active lisinopriL (PRINIVIL,ZEST RIL) 10 mg [...] A ORAL TODOS LOS D EN [place]ANNINE [facility] 4 Active [place] 2nd Gen Pen Needle [...] 07/25/2025 2:30 PM EDT Consult Orthopedic Surgery [facility] [address] [phone] Frank Benson DPM Posterior tibial tendon dysfunction [...] 09/25/2025 1:45 PM EST Office Visit Orthopedic Surgery [address] [phone] Frank Benson DPM [address] [place] [phone] Health Maintenance Due Date Last Done Comments Breast Cancer Screening 1955 Colorectal Cancer Screening: Colonoscopy 1955 Diabetes: Annual GFR (Glomer ular Filtration Rate) 1955 Diabetes: Annual Foot Exam 1965 Diabetes: Annual Retina Eye Exam 1965 DTaP,Tdap,and Td Vaccines (1 - Tdap) 1974 Pneumococcal Vaccine: 50+ Ye ars (1 of 2 - PCV) 1974 RSV Immunization Adult Patie nts (1 - Risk 50-74 years 1-dose series) 2005 Zoster Vaccines (1 of 2) 2005 Cholesterol Screening (Lipid Panel) 10/07/2022 Falls Risk [...] ID:[id number] Group ID:[id number] Type:Not on file Address: [place] [address] [address] [address] Care Teams Senior Planner Relationship Specialty Start Date End Date Didi Ray MD [address] [place] [address] , [address] Physician Associ D/B/A: [facility] SANJUANA Gupta PCP - General Internal Medicine 04/27/25
--- OUTSIDE RECORDS SUMMARY | 2025-09-11 16:07 | XMS_ITS | Clinical Summary ---
Author Organization [facility] Address [address] [place] [address] Care Team Providers Care Exercise Teacher Name Role Phone Unavailable Primary Care Provider [...]
--- OUTSIDE RECORDS SUMMARY | 2025-09-11 16:07 | XMS_ITS | Encounter Summary ---
Author Organization [facility] Address [address] [facility] 7t [place] [address] Care Team Providers Care Teacher Assistant Name Role Phone Unavailable Primary Care Provider [...]
--- OUTSIDE RECORDS SUMMARY | 2025-09-11 16:08 | XMS_ITS | Encounter Summary ---
Author Organization [employer] [facility] Address [address] [facility] 7t [place] [address] Care Team Providers Care Podiatric Foot And Ankle Specialist Name Role Phone Unavailable Primary Care Provider [...]
--- OUTSIDE RECORDS SUMMARY | 2025-09-11 16:08 | XMS_ITS | Clinical Summary ---
Author Organization [employer] Address [address] [facility] 7t [place] [address] Care Team Providers Care Dyer And Washer Name Role Phone Unavailable Primary Care Provider [...]
--- OUTSIDE RECORDS SUMMARY | 2025-09-11 16:08 | XMS_ITS | Patient Health Record ---
Author Organization [employer]. Address [address] [facility] [id number] [place] [address] Care Team Providers Care Product Safety And Standards Engineer Name Role Phone Shan Jyoti Primary Care Provider Adilia Rush Unavailable [phone] ALLERGIES Allergen (clinical drug ingredient) Drug/Non Drug Allergy documented on EMR Reaction Allergy Type Onset Date Status Watermelon Flavor hives Drug Allergy Active REASON FOR REFERRAL No Information MEDICATIONS Medication SIG (Take, Route, Frequency, Duration) Notes Start Date End Date Status Zolpidem Tartrate 5 MG 1 tablet at bedtime every day Orally daily for [address] directions in telugu 10/26/2023 Active Magnesium 400 MG as directed Orally Once a day for 30 days Active [place] 3 1000 MG 1 capsule Orally Once a day for 90 days 08/27/2023 Active Vitamin B12 100 MCG 1 tablet Orally Once a day for 90 days Active Famotidine 40 MG 1 tablet at bedtime Orally Once a day Active Aspir-Low 81 MG 1 tablet Orally Once a day Active FreeStyle Colten 2 [place] - as directed a s directed 4x/day [...] Type II diabete s mellitus without complication (561828958) Problem 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9) Active confirmed Type 2 diab etes mellitus (26896574) Problem Hyperlipidemia (E78.5) Active confirmed Hyperlipidemia (68652439) Problem Major depressive disorder (F32.9) Active confirmed Major depre ssive disorder (236899590) Encounters Encounter Location Date Provider Diagnosis [id number] ([facility]) [address] [facility] [place] [address] 12/06/2024 Adilia Rush PLAN OF TREATMENT Pending Test Test Name Order Date X ray : Spines, lumbar 2 views * 023 MICROALBUMIN, RANDOM URINE (W/CREATININE ) 06/29/2023 LIPID PANEL 07/15/2023 Insurance Providers Payer Name Payer Address Payer Phone Subscriber Number Group Number Insured Name Patient Relationship to Insured Coverage Start Date Coverage End Date MEDICARE FQHC [address] [place] [address] [id number] Duyen Arellano Self - patient is the insured 0 HUSKY D [address] [place] [address] [id number] Duyen Arellano Self - patient is the insured MEDICAL (GENERAL) HISTORY Medical History History ICD Code diabetes mellitus hypertension GERD chronic sinusitis migraine headaches DILATED EYE EXAM 11/2023 Surgical History Surgery Date(Month/Year)
== END 2025-09-11 13:39 | disposition home or self-care (01) ==
LOC: HO.HKA 13:11
PROVIDERS: PCP Internal Medicine; Visit Provider Internal Medicine Hypertension Specialist
DX: I10 Essential (primary) hypertension (principal); R80.9 Proteinuria, unspecified
CPT/HCPCS: 99204

== ENCOUNTER → 2025-09-11 13:10 | Outpatient (BNVA) | payer OTHER, SELFPAY | PROVIDERS: PCP Internal Medicine; Visit Provider Internal Medicine Hypertension Specialist | DX: R80.9 Proteinuria, unspecified (principal); I10 Essential (primary) hypertension; E11.9 Type 2 diabetes mellitus without complications | CPT/HCPCS: 99202 ==

== ENCOUNTER 2025-09-18 12:37 | Outpatient (AMB) | payer OTHER, SELFPAY ==
--- OUTSIDE RECORDS SUMMARY | 2024-08-30 06:23 | XMS_ITS ---
Author Organization [employer] [facility] Address [address] [place] [address] [id number], [place] [address] Care Team Providers Care Abalone Sheller Name Role Phone Jyoti Torrez Primary Care Provider Adilia Rush Unavailable [phone] Margarita Ayon Unavailable [phone] REASON FOR VISIT Dm outreach Encounters Encounter Location Date Provider Diagnosis [address] [id number], [place] [address] 08/30/2024 Margarita Ayon PLAN OF TREATMENT No Information
--- OUTSIDE RECORDS SUMMARY | 2024-12-06 08:00 | XMS_ITS ---
Author Organization [employer] Address [address] [facility] [id number] [place] [address] Care Team Providers Care Carpenter Mold Name Role Phone Jyoti Torrez Primary Care Provider Adilia Rush Unavailable [phone] REASON FOR VISIT DM Eye Exam Encounters Encounter Location Date Provider Diagnosis MED-[facility] ([facility]) [facility] [place] [address] 12/06/2024 Adilia Rush PLAN OF TREATMENT No Information
--- NOTE | 2025-09-18 12:48 | MHC.AMDMED ---
Intake Intake Visit Reasons: 60 Warping Mill Operator Required: Yes Warping Mill Operator Language: Yi Allergies strawberry (STRAWBERRY) Allergy (Mild, Verified 09/11/25 13:21) PRURITUS tomato (TOMATO) Allergy (Mild, Verified 09/11/25 13:21) HIVES acetaminophen (From Percocet) Allergy (Unknown, Verified 09/11/25 13:21) Unknown oxycodone (From Percocet) Allergy (Unknown, Verified 09/11/25 13:21) Unknown pollen extracts (POLLEN) Allergy (Unknown, Verified 09/11/25 13:21) UNKNOWN lactose (LACTOSE) Adverse Reaction (Unknown, Verified 09/11/25 13:21) GI UPSET DUST Allergy (Unknown, Uncoded 08/03/25 13:35) UNKNOWN ENVIRONMENTAL Allergy (Unknown, Uncoded 08/03/25 13:35) UNKNOWN trees leaves Allergy (Uncoded 08/03/25 13:35) unknown HPI Comprehensive Diabetes Asmnt Most Recent Diabetes Results: Hemoglobin A1c 8.2 % 06/27/20 Microalb/Creat Ratio, (<30) 107.6 ug/mg cr H 08/11/24 Cholesterol, (<200) 143 mg/dL 04/25/25 HDL Cholesterol, (>40) 32 mg/dL L 04/25/25 Triglycerides, (<150) 311 mg/dL H 04/25/25 Creatinine, (0.5-1.4) 1.03 mg/dL 04/25/25 BUN, (9-16) 12 mg/dL 08/11/24 Sodium, (135-145) 141 mmol/L 08/11/24 Potassium, (3.3-5.1) 4.1 mmol/L 08/11/24 Chloride, (96-108) 103 mmol/L 08/11/24 Carbon Dioxide, (22-29) 27 mmol/L 08/11/24 Calcium, (8.4-10.2) 9.7 mg/dL 08/11/24 AST, (5-31) 42 U/L H 04/25/25 ALT, (0-31) 31 U/L 04/25/25 Total Protein, (6.5-8.0) 8.0 g/dL 08/11/24 Albumin, (3.5-5.0) 4.7 g/dL 08/11/24 [facility] Medical History (Updated 09/16/25 @ 17:36 by Didi Ray MD) Hepatic steatosis Hypertriglyceridemia Uncomplicated type 2 diabetes mellitus Microalbuminuric diabetic nephropathy Bilateral foot pain Gastroparesis Hyperlipidemia associated with type 2 diabetes mellitus Osteopenia Headache Depression Vitamin D deficiency Fibromyalgia HTN (hypertension) HLD (hyperlipidemia) T2DM (type 2 diabetes mellitus) Surgical History History of esophagogastroduodenoscopy (EGD) History of hysteroscopy Status post right breast lumpectomy Hx of colonoscopy History of hysterectomy with bilateral oophorectomy History of carpal tunnel release History of tubal ligation History of ear surgery History of delivery Family History Father Cirrhosis Liver cancer Mother T2DM (type 2 diabetes mellitus) Past heart attack Maternal Grandmother Breast cancer Maternal Grandfather No problems noted. Paternal Grandmother No problems noted. Paternal Grandfather No problems noted. Son No problems noted. Son No problems noted. Daughter No problems noted. Social History Household Members: None Housing: Apartment Are you a primary cattle care worker to a significant other at home: No Do you presently have visiting nurse or other home services: No Alcohol intake: never Patient Tobacco Use Status: Never used Tobacco e-Cigarette/Vaping Use: Never Used Second Hand Smoke Exposure: No service: No Current occupational status: disabled Cognitive needs: No Hearing needs: No Vision needs: Yes (glasses) Assessment & Plan Assessment & Plan (1) T2DM (type 2 diabetes mellitus): Code(s): E11.9 - Type 2 diabetes mellitus without complications Qualifiers: Diabetes mellitus salvage determiner insulin use: without senior living use Diabetes mellitus complication status: with hyperglycemia Qualified Code(s): E11.65 - Type 2 diabetes mellitus with hyperglycemia Plan: Learning objectives: The patient was provided with verbal and written education on the following topics as outlined below. Assess patient education level/literacy/barriers, patient is due for next A1c, patient does not have upcoming appointment with endocrine PA recommended to patient she schedule appointment Patient reported at today's visit that her brother in [place] is intubated in the hospital Patient's last A1c in June 2025 8.7%, patient is GMI is now below 7% Patient questions/concerns, overall glucose control has improved. The patient met all learning objectives and was able to verbalize understanding and provide teach back of education topics discussed . The patient was provided with the opportunity to ask questions and all questions were answered. Topics covered in today?s session included: Medications (If applicable) Name of medication? Dosing/administration instructions? Mechanism of action? Potential side effects? Potential adverse reaction and appropriate treatment? Review onset, peak, duration Assess for concerns re: insurance coverage, cost, barriers to compliance Insulin/Injectables (If applicable) Storage/care of insulin?? Injection sites? Site rotation? Onset, peak, duration Drawing up insulin? Injecting insulin/other injectables? Sharps disposal Continuous blood glucose monitoring (if applicable) Target Goals: Blood glucose targets and how you feel when your blood glucose is in and out of your target ranges. Monitoring and knowing your A1C. What can make blood glucose go up and down and preventing high and low blood glucose. Review of blood sugar targets in expected goal range and outside of expected goal range. Problem solving and preventing hyper/hypoglycemia. Sick day management of diabetes. Using blood sugar results in decision making process in managing diabetes. ?Patient was receptive to information provided and participated in the discussion. Asked?appropriate questions and demonstrated good understanding of the topics discussed.? ? Educational Materials: The patient was provided with the following written educational materials: Target Goal handout Patient Response to instructions: Comprehension of Instructions: fair Readiness to make changes:? contemplation How confident they feel about making changes:poor Portions of this note were created using voice recognition software, please excuse any words or phrases that may have been misinterpreted. Coding Level of Care Code Est Pt Level 1 (53964) Diagnoses Type 2 diabetes mellitus with hyperglycemia, without long-term current use of insulin E11.65 Diabetes mellitus salvage determiner insulin use: without salvage determiner use Diabetes mellitus complication status: with hyperglycemia
--- OUTSIDE RECORDS SUMMARY | 2025-09-18 14:25 | XMS_ITS | Patient Health Record ---
Author Organization [employer]. Address [address] [facility] [id number] [place] [address] Care Team Providers Care Senior Business Intelligence Analyst Name Role Phone Shan Jyoti Primary Care Provider [phone] Adilia Rush Unavailable [phone] ALLERGIES Allergen (clinical drug ingredient) Drug/Non Drug Allergy documented on EMR Reaction Allergy Type Onset Date Status Watermelon Flavor hives Drug Allergy Active REASON FOR REFERRAL No Information MEDICATIONS Medication SIG (Take, Route, Frequency, Duration) Notes Start Date End Date Status Zolpidem Tartrate 5 MG 1 tablet at bedtime every day Orally daily for [address] directions in bolivian 10/26/2023 Active Magnesium 400 MG as directed Orally Once a day for 30 days Active [place] 3 1000 MG 1 capsule Orally Once a day for 90 days 08/27/2023 Active Vitamin B12 100 MCG 1 tablet Orally Once a day for 90 days Active Famotidine 40 MG 1 tablet at bedtime Orally Once a day Active Aspir-Low 81 MG 1 tablet Orally Once a day Active FreeStyle Colten 2 [place] - as directed a s directed 4x/day [...] Type II diabete s mellitus without complication (343808019) Problem 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9) Active confirmed Type 2 diab etes mellitus (30868803) Problem Hyperlipidemia (E78.5) Active confirmed Hyperlipidemia (08378852) Problem Major depressive disorder (F32.9) Active confirmed Major depre ssive disorder (313363616) Encounters Encounter Location Date Provider Diagnosis MED-478 ([facility]) [address] [facility] [place] [address] 12/06/2024 Adilia Rush PLAN OF TREATMENT Pending Test Test Name Order Date X ray : Spines, lumbar 2 views * 023 MICROALBUMIN, RANDOM URINE (W/CREATININE ) 06/29/2023 LIPID PANEL 07/15/2023 Insurance Providers Payer Name Payer Address Payer Phone Subscriber Number Group Number Insured Name Patient Relationship to Insured Coverage Start Date Coverage End Date MEDICARE FQHC [address] [place] [address] [id number] Duyen Arellano Self - patient is the insured 0 HUSKY D [address] [place] [address] [id number] Duyen Arellano Self - patient is the insured MEDICAL (GENERAL) HISTORY Medical History History ICD Code diabetes mellitus hypertension GERD chronic sinusitis migraine headaches DILATED EYE EXAM 11/2023 Surgical History Surgery Date(Month/Year)
--- OUTSIDE RECORDS SUMMARY | 2025-09-18 14:25 | XMS_ITS | Encounter Summary ---
Author Organization [employer] [facility] Address [address] [facility] 7t [place] [address] Care Team Providers Care Test Clerk Name Role Phone Unavailable Primary Care Provider [...]
--- OUTSIDE RECORDS SUMMARY | 2025-09-18 14:25 | XMS_ITS | Clinical Summary ---
Author Organization 175 [facility] Address [address] [place] [address] Phone Care Team Providers Care Protein Chemist Name Role Phone Didi Ray MD Primary Care Provider [phone] Allergies No known active allergies Medications aspirin [...] GLUCOSE CONTINUOUSLY. 5 Active FreeStyle Colten 3 [place] misc USE DAILY TO MONITOR BLOOD GLUCOSE [...] LOS D EN LA [facility] 5 Active lisinopriL (PRINIVIL,ZEST RIL) 10 mg [...] LOS D EN JEANNINE [facility] 4 Active [place] 2nd Gen Pen Needle [...] 07/25/2025 2:30 PM EDT Consult Orthopedic Surgery [facility] [address] [phone] Frank Benson DPM Posterior tibial tendon dysfunction [...] 09/25/2025 1:45 PM EST Office Visit Orthopedic [facility] [address] [phone] Frank Benson DPM [address] [phone] Health Maintenance Due Date Last Done Comments [...] Depression Screening 11/08/2024 COVID-19 Vaccine (1 - 2024-2 6 season) 2025 Influenza Vaccine (#1) 2025 Diabetes: [...] ID:[id number] Group ID:[id number] Type:Not on file Address: [place] [address] [address] [address] Care Teams Protein Chemist Relationship Specialty Start Date End Date Didi Ray MD [address] [place] [address] , [address] [facility] Physician Associ D/B/A: [facility] SANJUANA Gupta PCP - General Internal Medicine 04/27/25
--- OUTSIDE RECORDS SUMMARY | 2025-09-18 14:25 | XMS_ITS | Encounter Summary ---
Author Organization [facility] Address [address] [facility] 7t [place] [address] Care Team Providers Care Vp Clinical Research Name Role Phone Unavailable Primary Care Provider [...]
--- OUTSIDE RECORDS SUMMARY | 2025-09-18 14:25 | XMS_ITS | Clinical Summary ---
Author Organization [employer] Address [address] [facility] 7t [place] [address] Care Team Providers Care Senior Software Test Engineer Name Role Phone Unavailable Primary Care [...]
== END 2025-09-18 13:21 | disposition home or self-care (01) ==
LOC: HO.ENCR 12:38
PROVIDERS: PCP Internal Medicine; Visit Provider Registered Nurse Diabetes Educator
DX: E11.65 Type 2 diabetes mellitus with hyperglycemia (principal)

== ENCOUNTER → 2025-09-18 12:37 | Outpatient (BNVA) | payer OTHER, SELFPAY | PROVIDERS: PCP Internal Medicine; Visit Provider Registered Nurse Diabetes Educator | DX: E11.65 Type 2 diabetes mellitus with hyperglycemia (principal) | CPT/HCPCS: 99211 ==

== ENCOUNTER 2025-09-28 11:24 | Outpatient (REF) | payer OTHER, SELFPAY ==
--- OUTSIDE RECORDS SUMMARY | 2024-08-30 06:23 | XMS_ITS ---
Author Organization [employer] [facility] Address [address] [place] [address] [id number], [place] [address] Care Team Providers Care Manager Event Name Role Phone Jyoti Torrez Primary Care Provider Adilia Rush Unavailable [phone] Margarita Ayon Unavailable [phone] REASON FOR VISIT Dm outreach Encounters Encounter Location Date Provider Diagnosis [address] [id number], [place] [address] 08/30/2024 Margarita Ayon PLAN OF TREATMENT No Information
--- OUTSIDE RECORDS SUMMARY | 2024-12-06 08:00 | XMS_ITS ---
Author Organization [employer]. Address [address] [facility] [id number] [place] [address] Care Team Providers Care Right Of Way Agent Name Role Phone Jyoti Torrez Primary Care Provider [phone] Adilia Rush Unavailable [phone] REASON FOR VISIT DM Eye Exam Encounters Encounter Location Date Provider Diagnosis MED-[facility] ([facility]) [facility] [place] [address] 12/06/2024 Adilia Rush PLAN OF TREATMENT No Information
--- OUTSIDE RECORDS SUMMARY | 2025-09-25 13:45 | XMS_ITS | Encounter Summary ---
Author Organization [facility] Address [address] [place] [address] Care Team Providers Care Hardwood Finisher Name Role Phone Didi Ray MD Primary Care Provider [phone] Reason for Visit * Consultation (Routine) - Closed Specialty Diagnoses / Procedures Referred By Contact Referred To Contact Podiatry / Orthopaedic Surgery Diagnoses Bilateral foot pain Za Sheriff PA [address] [place] [address] Phone: tel: Frank Benson DPM [address] [address] Phone: tel: fax: Referral ID Status Reason Start Date Expiration Date V isits Requested Visits Authorized [id number] Closed Specialty Services Required 04/27/2025 04/27/2026 1 1 Encounter Details Date Type Department Care Team (Late st Contact Info) Description 09/25/2025 1:45 PM EST Office Visit Orthopedic Surgery [place] [address] [phone] Frank Benson DPM [address] [phone] Xerosis of skin (Primary Dx); Follow-up exam; Posterior tibial tendon dysfunction (PTTD) of right lower extremity; Plantar fascial fibromatosis; Dermatophytosis of nail; Pain in toe of right foot; Diabetic mononeuropathy simplex (CMS/HCC V24, CMS/HCC V28); Pain in toe of left foot Social History Tobacco Use Types Packs/Day Years Used Date Smoking Tobacco: Never Assessed Comments Unknown Sex and Gender Information Value Date Recorded Sex Assigned at Not on file Legal Sex Female 3:10 PM EST Gender Identity Not on file Sexual Orientation Not on file documented as of this encounter Ordered Prescriptions Prescription Sig Dispense Quantity Refills Last Filled Start Date End Date ammonium lactate (AmLactin) 12 % lotion Apply topically if needed for dry skin. 400 g 09/25/2025 documented in this encounter Progress Notes * Frank Benson DPM - 09/25/2025 1:45 PM EST Last PCP visit:Referring MD: Za Sheriff PA 04/27/2025 Arcadio Pak is a 70 y.o. year old female presents complaining of pain swelling right ankle wants history of treatment for over a year growth states did not really help she has chronic throbbing achy painstates she had a history of steroid injections swelling on and off notes her nails are long and painful thickened is a type II diabetic endorses numbness tingling to her feet with last A1c greater than 10 reports recent flare pain discomfort in the cervical appointments does not that her skin is very dry in both heels thick painful itching cracking ROS: GENERAL: Pt denies nausea, fever, vomiting, chills, or shortness of breath. Pt in NAD. CARDIOLOGY: pt denies chest pain, palpitations LUNGS: pt denies shortness of breath MUSCULOSKELETAL: See HPI, otherwise no joint pain or swelling, back pain, or muscle pain. SKIN: see HPI, otherwise no lesions, rash or itching NEURO: No persistent headache, weakness or numbness The remainder of the review of systems is noncontributory PAST MEDICAL HISTORY: There is no problem list on file for this patient. Type II diabetic uncontrolled SOCIAL HISTORY: Social History Tobacco Use Smoking status: Not on file Smokeless tobacco: Not on file Substance Use Topics Alcohol use: Not on file ACTIVE MEDICATIONS: Outpatient Medications Marked as Taking for the 09/25/25 encounter (Office Visit) with Frank Benson DPM Medication Sig Dispense Refill aspirin 81 mg EC tablet Take 1 tablet (81 mg total) by mouth 1 (one) time each day. atorvastatin (LIPITOR) 40 mg tablet TOME MINAL TABLETA POR V A ORAL TODOS LOS D blood sugar diagnostic (OneTouch Verio test strips) test strip ITZEL VECES AL D A cetirizine (ZyrTEC) 10 mg tablet TAKE 1 TABLET ORALLY DAILY NEEDED FOR ALLERGY SYMPTOMS cyanocobalamin (VITAMIN B-12) 1,000 mcg tablet TOME MINAL TABLETA POR V A ORAL TODOS LOS D esomeprazole (NexIUM) [address] capsule Take 1 capsule (40 mg total) by mouth 1 (one) time each day. famotidine (PEPCID) 40 mg tablet TOME 1 TABLETA POR V A ORAL TODOS LOS D FreeStyle Colten 3 Plus Sensor device APPLY 1 NEW SENSOR EVERY 15 DAYS DIRECTED TO MONITOR BLOOD GLUCOSE CONTINUOUSLY. FreeStyle Colten 3 [place] misc USE DAILY TO MONITOR BLOOD GLUCOSE LEVELS CONTINUOUSLY. gabapentin (NEURONTIN) 300 mg capsule TOME 1 C PSULA POR V A ORAL ITZEL VECES AL D A hydroCHLOROthiazide (HYDRODIURIL) 25 mg tablet Take 1 tablet (25 mg total) by mouth 1 (one) time each day. Jardiance 10 mg tablet TOME 1 TABLETA POR V A ORAL TODOS LOS D lansoprazole (PREVACID) [address] capsule TOME 1 C PSULA POR V A ORAL TODOS LOS D Linzess 145 mcg capsule TOME 1 C PSULA POR V A ORAL TODOS LOS D EN LA MA DIDI lisinopriL (PRINIVIL,ZESTRIL) 10 mg tablet Take 1 tablet (10 mg total) by mouth 1 (one) time each day. metFORMIN (GLUCOPHAGE) 1,000 mg tablet TOME 1 TABLETA POR V A ORAL DOS VECES AL D A methocarbamoL (ROBAXIN) 750 mg tablet TOME 1 TABLETA POR V A ORAL TODOS LOS D mirtazapine (REMERON) 15 mg tablet TOME MINAL TABLETA POR V A ORAL EVERY NIGHT [place] 2nd Gen Pen Needle 32 gauge x needle See administration instructions. naproxen (NAPROSYN) 500 mg tablet take 1 tablet orally 2 times a day as needed for for pain sertraline (ZOLOFT) 25 mg tablet TOME 1 TABLETA POR V A ORAL TODOS LOS D EN LA [place] DIDI sucralfate (CARAFATE) 100 mg/mL suspension TAKEM 10ML BY MOUTH AT BEDTIME Tresiba FlexTouch U-100 100 unit/mL (3 mL) injection pen INJECT 8 UNIT (0.08 ML) SUBCUTANEOUSLY BEDTIME Voquezna 20 mg tablet TOME MINAL TABLETA POR V A ORAL TODOS LOS D zolpidem (AMBIEN) 5 mg tablet TOME MINAL TABLETA POR V A ORAL AL ACOSTARSE CUANDO SEA NECESARIO FOR INSOMNIA ALLERGIES: No Known Allergies PHYSICAL EXAM: There were no vitals taken for this visit. PODIATRIC EXAMINATION: GENERAL: Patient appears well nourished, with NAD. VASCULAR: Dorsalis pedis pulses are 2/4 bilaterally and Posterior tibial pulses are 2/4 bilaterally. Capillary filling time within normal limits the digits. No pallor on elevation or rubor on dependency. No varicosities. Denies rest pain or claudication pain. NEUROLOGICAL: Sharp/dull sensation , protective sensation 8/10 with Ipswitch touch test bilaterally, vibratory sensation intact to the tibial tuberosity. ORTHOPEDIC: Good muscle strength 5/5 of all flexors and extensors. Dorsi flexion of ankle Pain with palpation of the medial tuber of the right calcaneus, negative palpable fibromas Equinus with 5 degrees dorsiflexion with knee bent 0 degrees with knee extended positive silver skoild test Positive pain on palpation of the posterior tibial tendon, patient difficulty perform single heel raise right able to do double heel raise No pain on palpation of the Achilles tendon. Negative palpable deficits of the Achilles tendon Normal range of motion of the ankle joint and subtalar joint DERMATOLOGICAL:. Debridement of mycotic toenails 6-10: Verbal informed consent was obtained from the patient. Greater than 6 nails were aseptically debrided in thickness and length with nail nippers Xerosis of skin BIOMECHANICS: Ankle ROM WNL, STJ ROM wnl, MTJ ROM wnl, 1st MPJ ROM wnl. IMAGING: IMPRESSION: 1. Xerosis of skin 2. Follow-up exam 3. Posterior tibial tendon dysfunction (PTTD) of right lower extremity 4. Plantar fascial fibromatosis 5. Dermatophytosis of nail 6. Pain in toe of right foot 7. Diabetic mononeuropathy simplex (CMS/HCC V24, CMS/HCC V28) 8. Pain in toe of left foot PLAN: Pt was seen and examined, history reviewed. Treatment options were discussed and reviewed including stretching exercises demonstrated for patient anti-inflammatory medications steroid injections orthotics and insoles Custom orthotics prescribed Referral offered physical therapy patient declined X-rays reviewed with patient detail discussed pes planus foot type and diffuse arthritis Ammonium lactate prescribed Discussed with patient regarding proper glucose control, exercise, and diet. Explained to patient proper shoe gear, and importance of daily foot checks. I reviewed neuropathy and why it occurs in diabetics. I educated the patient on proper blood sugar control and the importance of an HgBA1c of less than 7.0%. I reviewed the signs and symptoms of neuropathy with the patient Pt to return for another evaluation in 3 months. Debridement of mycotic toenails 6-10: Verbal informed consent was obtained from the patient. Greater than 6 nails were aseptically debrided in thickness and length with nail nippers Frank Benson DPM documented in this encounter Plan of Treatment Upcoming Encounters Date Type Department Care Team (Late st Contact Info) Description 11/28/2025 1:45 PM EST Office Visit Orthopedic Surgery - [place] [id number] [phone] Frank Benson DPM [address] [phone] documented as of this encounter Results * XR Foot 3+ Views bilat (09/25/2025 1:48 PM EST) Anatomical Region Laterality Modality Lower Extremities, Foot Bilateral Computed Radiography Narrative 09/25/2025 6:13 PM EST Right foot 3 views No fracture. No radiopaque foreign joint spaces Arthritis mild moderate Moderate bunion deformity Foot position Pes planus with Talus navicular uncovering decreased calcaneal inclination anterior displaced symes line talus navicular joint to calcaneal cuboid joint Left foot 3 views No fracture. No radiopaque foreign joint spaces Arthritis mild moderate Moderate bunion deformity Foot position Pes planus with Talus navicular uncovering decreased calcaneal inclination anterior displaced symes line talus navicular joint to calcaneal cuboid joint Frank Benson DPM IMG XR PROCEDURES Final R esult documented in this encounter Visit Diagnoses Diagnosis Xerosis of skin- Primary Follow-up exam Unspecified follow-up examination Posterior tibial tendon dysfunction (PTTD) of right lower extremity Plantar fascial fibromatosis Dermatophytosis of nail Pain in toe of right foot Pain in soft tissues of limb Diabetic mononeuropathy simplex ([facility] V24, [facility] V28) Type II or unspecified type diabetes mellitus with neurological manifestations, not stated as uncontrolled Pain in toe of left foot Pain in soft tissues of limb documented in this encounter Historical Medications * This list may reflect changes made after this encounter. metFORMIN (GLUCOPHAGE) 1,000 mg tablet TOME 1 TABLETA POR V A ORAL DOS VECES AL D A 09/03/2025 added in this encounter Care Teams Hardwood Finisher Relationship Specialty Start Date End Date Didi Ray MD [address] [place] [address] , [address] [facility] Physician [facility] D/B/A: [facility] SANJUANA Gupta PCP - General Internal Medicine 04/27/25 documented as of this encounter
--- NOTE | ~2025-09-28 | US_ITS ---
CLINICAL HISTORY: R80.9 - Proteinuria, unspecified US Renal Comparison: None provided Findings: Right kidney normal size and echotexture, 9.8 cm length. Left kidney normal size and echotexture, 9.8 cm length. No collecting system dilatation of either kidney. Normal color Doppler. Incidentally noted hypoechoic region adjacent to the left renal fossa favored to represent a loop of bowel. IMPRESSION: 1. No hydronephrosis. This document has been electronically signed by: Hailey Aparicio MD on 09/28/2025 18:13:30
--- OUTSIDE RECORDS SUMMARY | 2025-09-28 12:15 | XMS_ITS | Encounter Summary ---
Author Organization [facility] Address [address] [facility] 7t [place] [address] Care Team Providers Care Pantograph Ii Engraver Name Role Phone Unavailable Primary Care Provider [...]
--- OUTSIDE RECORDS SUMMARY | 2025-09-28 12:15 | XMS_ITS | Patient Health Record ---
Author Organization [employer] Address [address] [facility] [id number] [place] [address] Care Team Providers Care Dental Insurance Biller Name Role Phone Shan Jyoti Primary Care Provider Adilia Rush Unavailable [phone] ALLERGIES Allergen (clinical drug ingredient) Drug/Non Drug Allergy documented on EMR Reaction Allergy Type Onset Date Status Watermelon Flavor hives Drug Allergy Active REASON FOR REFERRAL No Information MEDICATIONS Medication SIG (Take, Route, Frequency, Duration) Notes Start Date End Date Status Zolpidem Tartrate 5 MG 1 tablet at bedtime every day Orally daily for [address] directions in [place] 10/26/2023 Active Magnesium 400 MG as directed Orally Once a day for 30 days Active [place] 3 1000 MG 1 capsule Orally Once a day for 90 days 08/27/2023 Active Vitamin B12 100 MCG 1 tablet Orally Once a day for 90 days Active Famotidine 40 MG 1 tablet at bedtime Orally Once a day Active Aspir-Low 81 MG 1 tablet Orally Once a day Active FreeStyle Colten 2 [place] - as directed a s directed 4x/day [...] Type II diabete s mellitus without complication (093326592) Problem 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) Active confirmed Tear film insufficiency (38121710) Problem Combined forms of age-related cataract, 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) Active confirmed Bilateral age-related cataract (7128981696222304 3) Problem Presbyopia (H52.4) Active confirmed Presbyopia (74080752) Problem Fibromyalgia (M79.7) Active confirmed Fibromyalgia (376314516) Problem Hypertension (I10) Active confirmed Hypertension (54700732) Problem Insomnia (G47.00) Active confirmed Inso mnia (894783939) Problem Diabetes (E11.9) Active confirmed Type II diabetes mellitus without complication (795945211) Problem Type 2 diabetes mellitus (E11.9) Active confirmed Type 2 diab etes mellitus (33508388) Problem Hyperlipidemia (E78.5) Active confirmed Hyperlipidemia (03646944) Problem Major depressive disorder (F32.9) Active confirmed Major depre ssive disorder (153434804) Encounters Encounter Location Date Provider Diagnosis [id number] ([facility]) [address] [facility] [place] [address] 12/06/2024 Adilia Rush PLAN OF TREATMENT Pending Test Test Name Order Date X ray : Spines, lumbar 2 views * 023 MICROALBUMIN, RANDOM URINE (W/CREATININE ) 06/29/2023 LIPID PANEL 07/15/2023 Insurance Providers Payer Name Payer Address Payer Phone Subscriber Number Group Number Insured Name Patient Relationship to Insured Coverage Start Date Coverage End Date MEDICARE FQHC [address] [place] [address] [id number] Duyen Arellano Self - patient is the insured 0 HUSKY D [address] [place] [address] [id number] Duyen Arellano Self - patient is the insured MEDICAL (GENERAL) HISTORY Medical History History ICD Code diabetes mellitus hypertension GERD chronic sinusitis migraine headaches DILATED EYE EXAM 11/2023 Surgical History Surgery Date(Month/Year)
--- OUTSIDE RECORDS SUMMARY | 2025-09-28 12:15 | XMS_ITS | Clinical Summary ---
Author Organization [facility] Address [address] [place] [address] Phone Care Team Providers Care Cost Accounting Clerk Name Role Phone Didi Ray MD Primary Care Provider [phone] Allergies No known active allergies Medications aspirin 81 mg EC tablet Take 1 tablet (81 mg total) by mouth 1 (one) time each day. 06/08/20 25 Active atorvastatin (LIPITOR) 40 mg tablet TOME MINAL TABLETA POR V A ORAL TODOS LOS D 06/08/20 25 Active blood sugar diagnostic (OneTouch Verio test strips) test strip ITZEL VECES AL D A 07/04/20 25 Active FreeStyle Colten 3 Plus Sensor device APPLY 1 NEW SENSOR EVERY 15 DAYS DIRECTED TO MONITOR BLOOD GLUCOSE CONTINUOUSLY. 07/15/20 25 Active FreeStyle Colten 3 [place] misc USE DAILY TO MONITOR BLOOD GLUCOSE LEVELS CONTINUOUSLY. 04/30/20 25 Active cetirizine (ZyrTEC) 10 mg tablet TAKE 1 TABLET ORALLY DAILY NEEDED FOR ALLERGY SYMPTOMS 06/30/20 25 Active cyanocobalamin (VITAMIN B-12) 1,000 mcg tablet TOME MINAL TABLETA POR V A ORAL TODOS LOS D 12/23/19 25 Active Jardiance 10 mg tablet TOME 1 TABLETA POR V A ORAL TODOS LOS D 04/09/20 25 Active esomeprazole (NexIUM) [address] capsule Take 1 capsule (40 mg total) by mouth 1 (one) time each day. 05/10/20 25 Active famotidine (PEPCID) 40 mg tablet TOME 1 TABLETA POR V A ORAL TODOS LOS D 01/20/20 25 Active gabapentin (NEURONTIN) 300 mg capsule TOME 1 C PSULA POR V A ORAL ITZEL VECES AL D A 07/03/20 25 Active Tresiba FlexTouch U-100 100 unit/mL (3 mL) injection pen INJECT 8 UNIT (0.08 ML) SUBCUTANEOUSLY BEDTIME 07/19/20 25 Active hydroCHLOROthi azide (HYDRODIURIL) 25 mg tablet Take 1 tablet (25 mg total) by mouth 1 (one) time each day. 07/18/20 25 Active lansoprazole (PREVACID) [address] capsule TOME 1 C PSULA POR V A ORAL TODOS LOS D 12/15/19 25 Active Linzess 145 mcg capsule TOME 1 C PSULA POR V A ORAL TODOS LOS D EN LA [facility] 12/11/19 25 Active lisinopriL (PRINIVIL,ZEST RIL) 10 mg tablet Take 1 tablet (10 mg total) by mouth 1 (one) time each day. 06/08/20 25 Active methocarbamoL (ROBAXIN) 750 mg tablet TOME 1 TABLETA POR V A ORAL TODOS LOS D 01/19/20 25 Active mirtazapine (REMERON) 15 mg tablet TOME MINAL TABLETA POR V A ORAL EVERY NIGHT 03/06/20 25 Active naproxen (NAPROSYN) 500 mg tablet take 1 tablet orally 2 times a day as needed for for pain 05/30/20 25 Active sertraline (ZOLOFT) 25 mg tablet TOME 1 TABLETA POR V A ORAL TODOS LOS D EN [facility] 09/15/20 24 Active [place] 2nd Gen Pen Needle 32 gauge x 5/32 needle See administration instructions. 04/24/20 25 Active sucralfate (CARAFATE) 100 mg/mL suspension TAKEM 10ML BY MOUTH AT BEDTIME 07/17/20 25 Active Voquezna 20 mg tablet TOME MINAL TABLETA POR V A ORAL TODOS LOS D 06/13/20 25 Active zolpidem (AMBIEN) 5 mg tablet TOME MINAL TABLETA POR V A ORAL AL ACOSTARSE CUANDO SEA NECESARIO FOR INSOMNIA 07/12/20 25 Active metFORMIN (GLUCOPHAGE) 1,000 mg tablet TOME 1 TABLETA POR V A ORAL DOS VECES AL D A 09/03/20 25 Active ammonium lactate (AmLactin) 12 % lotion Apply topically if needed for dry skin. 400 g 09/25/20 25 026 Active diclofenac (Voltaren Arthritis Pain) 1 % topical gel Apply 4 g topically 2 (two) times a day. 240 g 1 07/25/20 25 025 Encounters Date Type Department Care Team Description 09/25/2025 1:45 PM EST Office Visit Orthopedic [facility] [address] [phone] Frank Benson DPM Xerosis of skin (Primary Dx); Follow-up exam; Posterior tibial tendon dysfunction (PTTD) of right lower extremity; Plantar fascial fibromatosis; Dermatophytosis of nail; Pain in toe of right foot; Diabetic mononeuropathy simplex (CMS/HCC V24, CMS/HCC V28); Pain in toe of left foot 07/25/2025 2:30 PM EDT Consult Orthopedic [facility] [address] [phone] Frank Bensno DPM Posterior tibial tendon dysfunction (PTTD) of [...] 11/28/2025 1:45 PM EST Office Visit Orthopedic [facility] [address] [phone] Frank Benson DPM [address] [phone] Health Maintenance Due Date Last Done Comments [...] on patient's age to complete this topic Procedures Procedure Name Priority Date/Time Associated Diagnosis Comments XR FOOT 3+ VIEWS BILAT Routine 09/25/2025 1:48 PM EST Follow-up exam from Last 3 Months Results * XR Foot 3+ Views bilat [...] talus navicular joint to calcaneal cuboid joint us Frank Benson DPM IMG XR PROCEDURES Final R esult from Last 3 Months Insurance [facility] MEDICARE Member Subscriber Plan / Payer (Ef fective 2024-Present) Name:Duyen Pak Relation to Subscriber:Self Name:Duyen Pak Payer ID:[id number] Group ID:[id number] Type:Not on file Address: [place] [address] [address] [address] Care Teams Cost Accounting Clerk Relationship Specialty Start Date End Date Didi Ray MD [address] [facility] , [address] [facility] Physician Associ D/B/A: [facility] SANJUANA Gupta PCP - General Internal Medicine 04/27/25
--- OUTSIDE RECORDS SUMMARY | 2025-09-28 12:15 | XMS_ITS | Clinical Summary ---
Author Organization [facility] Address [address] [place] [address] Care Team Providers Care Escalator Operator Name Role Phone Unavailable Primary Care [...]
--- OUTSIDE RECORDS SUMMARY | 2025-09-28 12:15 | XMS_ITS | Clinical Summary ---
Author Organization [employer] Address [address] [facility] 7t [place] [address] Care Team Providers Care Senior Market Intelligence Consultant Name Role Phone Unavailable Primary Care Provider [...]
--- OUTSIDE RECORDS SUMMARY | 2025-09-28 12:15 | XMS_ITS | Encounter Summary ---
Author Organization [facility] Address [address] [facility] 7t [place] [address] Care Team Providers Care Digital Marketing Specialist Name Role Phone Unavailable Primary Care [...]
== END 2025-09-28 11:25 | disposition home or self-care (01) ==
LOC: HO.US 11:24
PROVIDERS: PCP Internal Medicine; Visit Provider Internal Medicine Hypertension Specialist
DX: R80.9 Proteinuria, unspecified (principal)
CPT/HCPCS: 76775

== ENCOUNTER → 2025-09-28 11:25 | Outpatient (BNV) | payer OTHER, SELFPAY | PROVIDERS: PCP Internal Medicine; Visit Provider Student in an Organized Health Care Education/Training Program | DX: R80.9 Proteinuria, unspecified (principal) | CPT/HCPCS: 76775 ==

== ENCOUNTER 2025-10-08 12:17 | Outpatient (REF) | payer OTHER, SELFPAY ==
[2025-10-08 12:50] LABS: MANUAL DIFF FLAG NO
[2025-10-08 13:50] LABS: Hematocrit 38.4 % (37.0-47.0); Hemoglobin 12.1 g/dl (12.0-16.0); Imm Gran Abs Auto 0.03 X10*3/uL (0.00-0.03); Imm Gran Pct Auto 0.4 % (0.0-0.4); Lymphocytes Absolute Auto 2.0 X10*3/uL (1.2-4.9); Mean Corpuscular HGB Conc 31.5 g/dl (31.0-35.0); Mean Corpuscular Hemoglobin 25.2 pg (27.0-33.0); Mean Corpuscular Volume 80.0 fL (80.0-98.0); NRBC Abs Auto 0.000 X10*3/uL (0.0-0.012); NRBC Pct Auto 0.0 /100WBC (0.0-0.2); Platelet Count 300 X10*3/uL (160-400); Red Blood Count 4.80 X10*6/uL (4.20-5.50); White Blood Count 8.0 X10*3/uL (4.8-10.8)
[2025-10-08 13:52] LABS: Appearance Urine Clear; Glucose Urine UA >=1000 mg/dL (Negative); PH 5.5 (5.0-9.0); Specific Gravity - Urine 1.025 (1.005-1.025); UMIC TRIGGER UA YES
[2025-10-08 14:17] LABS: Microalbum/Creatinine Ratio Ur 13.9 ug/mg cr (<30)
[2025-10-08 14:22] LABS: Alanine Aminotransferase 19 U/L (0-31); Albumin Level 5.0 g/dL (3.5-5.0); Alkaline Phosphatase 82 U/L (39-117); Anion Gap 16 (12-20); Aspartate Amino Transferase 35 U/L (5-31); Blood Urea Nitrogen 30 mg/dL (9-16); Calcium 10.1 mg/dL (8.4-10.2); Carbon Dioxide 25 mmol/L (22-29); Chloride 102 mmol/L (96-108); Cholesterol 141 mg/dL (<200); Estimated Glomerular Filt Rate 55; HDL Cholesterol 32 mg/dL (>40); Potassium 4.3 mmol/L (3.3-5.1); Sodium 139 mmol/L (135-145); Total Protein 8.0 g/dL (6.5-8.0); Triglycerides 310 mg/dL (<150)
[2025-10-08 14:24] LABS: Total Protein Urine Random < 7 mg/dL (<12)
[2025-10-08 14:58] LABS: Folate 12.9 ng/mL (> or = 4.0); Vitamin B12 529 pg/mL (200-900)
--- OUTSIDE RECORDS SUMMARY | 2025-10-08 16:02 | XMS_ITS | Encounter Summary ---
Author Organization [employer] [facility] Address [address] [place] [address] Care Team Providers Care Warp Placer Name Role Phone Unavailable Primary Care Provider [...]
--- OUTSIDE RECORDS SUMMARY | 2025-10-08 16:02 | XMS_ITS | Clinical Summary ---
Author Organization [facility] Address [address] [place] [address] Care Team Providers Care Flute Grinder Name Role Phone Unavailable Primary Care [...]
--- OUTSIDE RECORDS SUMMARY | 2025-10-08 16:02 | XMS_ITS | Clinical Summary ---
Author Organization [address] [facility] Address [address] [place] [address] Phone Care Team Providers Care Adult Services Librarian Name Role Phone Didi Ray MD Primary Care Provider [phone] Allergies No known active allergies Medications aspirin [...] CONTINUOUSLY. 07/15/20 25 Active FreeStyle Colten 3 [place] misc USE DAILY TO MONITOR BLOOD GLUCOSE [...] A ORAL TODOS LOS D EN [facility] 12/11/19 25 Active lisinopriL (PRINIVIL,ZEST [...] V A ORAL TODOS LOS D EN [facility] 09/15/20 24 Active [place] 2nd Gen [...] 09/25/2025 1:45 PM EST Office Visit [facility] [address] [phone] Frank Benson DPM Xerosis of skin (Primary Dx); Follow-up exam; Posterior tibial tendon dysfunction (PTTD) of right lower extremity; Plantar fascial fibromatosis; Dermatophytosis of nail; Pain in toe of right foot; Diabetic mononeuropathy simplex (CMS/HCC V24, CMS/HCC V28); Pain in toe of left foot 07/25/2025 2:30 PM EDT Consult [facility] [address] [phone] Frank Benson DPM Posterior tibial tendon dysfunction [...] 11/28/2025 1:45 PM EST Office Visit [facility] [address] [phone] Frank Benson DPM [address] [phone] Health Maintenance Due Date Last Done Comments [...] R esult from Last 3 Months Insurance [facility] MEDICARE Member Subscriber Plan / Payer (Ef fective 2024-Present) Name:Duyen Pak Relation to Subscriber:Self Name:Duyen Pak Payer ID:[id number] Group ID:[id number] Type:Not on file Address: [place] [address] [address] [place] [id number] Care Teams Adult Services Librarian Relationship Specialty Start Date End Date Didi Ray MD [address] , [address] [facility] D/B/A: [facility] SANJUANA Gupta PCP - General Internal Medicine 04/27/25
--- OUTSIDE RECORDS SUMMARY | 2025-10-08 16:02 | XMS_ITS | Clinical Summary ---
Author Organization [employer] Address [address] [facility] [address] [place] [address] Care Team Providers Care Flume Maker Name Role Phone Unavailable Primary Care [...]
--- OUTSIDE RECORDS SUMMARY | 2025-10-08 16:02 | XMS_ITS | Encounter Summary ---
Author Organization [employer] [facility] Address [address] [place] [address] Care Team Providers Care Rug Dyer Name Role Phone Unavailable Primary Care Provider [...]
== END 2025-10-08 12:18 | disposition home or self-care (01) ==
LOC: HO.LAB 12:17
PROVIDERS: Absent Provider Internal Medicine Hypertension Specialist; PCP Internal Medicine; Visit Provider Internal Medicine
DX: K21.9 Gastro-esophageal reflux disease without esophagitis (principal); K31.84 Gastroparesis; K22.0 Achalasia of cardia; K76.9 Liver disease, unspecified; K59.04 Chronic idiopathic constipation; R10.13 Epigastric pain; R10.11 Right upper quadrant pain; R80.9 Proteinuria, unspecified; E55.9 Vitamin D deficiency, unspecified; E78.5 Hyperlipidemia, unspecified; E11.65 Type 2 diabetes mellitus with hyperglycemia; E53.8 Deficiency of other specified B group vitamins
CPT/HCPCS: 36415; 80048; 80053; 80061; 81001; 82043; 82306; 82570; 82607; 82746; 84156; 85025; 99212

== ENCOUNTER 2025-10-08 13:29 | Outpatient (AMB) | payer OTHER, SELFPAY ==
--- NOTE | 2025-10-08 13:42 | A.OFFVIS_ITS ---
Vital Signs 10/08/25 14:07 Height 4 ft 9 in Weight 120 lb BMI 26.0 BP 116/62 Blood Pressure Location Rt brachial Position Sitting Pulse 70 Pulse Source Pulse Oximeter Pulse Oximetry (%) 97 Oxygen Delivery Method Room Air Intake Visit Reasons: 3 mos FUV. Intake Note: ESTABLISHED PATIENT for Chronic constipation + GERD mgmt. CC; C/O intermittent gas pains + GERD persistence despite current medications. No additional sx or concerns at this time. Director Of Public Works Required: Yes Director Of Public Works Services: Director Of Public Works Present Director Of Public Works Name: [id number] Lila. Accompanied by: Self / Same As Patient Allergies strawberry (STRAWBERRY) Allergy (Mild, Verified 10/17/25 14:10) PRURITUS tomato (TOMATO) Allergy (Mild, Verified 10/17/25 14:10) HIVES acetaminophen (From Percocet) Allergy (Unknown, Verified 10/17/25 14:10) Unknown oxycodone (From Percocet) Allergy (Unknown, Verified 10/17/25 14:10) Unknown pollen extracts (POLLEN) Allergy (Unknown, Verified 10/17/25 14:10) UNKNOWN lactose (LACTOSE) Adverse Reaction (Unknown, Verified 10/17/25 14:10) GI UPSET DUST Allergy (Unknown, Uncoded 08/03/25 13:35) UNKNOWN ENVIRONMENTAL Allergy (Unknown, Uncoded 08/03/25 13:35) UNKNOWN trees leaves Allergy (Uncoded 08/03/25 13:35) unknown HPI HPI 3 mos FUV.: Details: LAST VISIT: GERD (gastroesophageal reflux disease) Gastroparesis Achalasia Hepatic steatosis Chronic idiopathic constipation Epigastric abdominal pain Plan Patient will take Voquezna and stop Nexium. Patient was encouraged to avoid dietary triggers in late night snacking. List of food to avoid given to patient in Sami. Patient was encouraged to stop chewing gum. Continue Linzess. Increase fluid intake and activity to promote better bowel motility. Follow-up in 2 months. Patient will call our office if she will have any GI concerning symptoms. She is agreeable to this plan and verbalizes understanding of instructions. She was given the opportunity to ask questions and all questions answered ? Thank you for allowing me to participate in her care Discontinued esomeprazole magnesium Discontinued Reason: Doctor's Order 40 mg PO DAILY 90 caps 0RF K21.9 TODAY'S VISIT: Patient is here today for follow-up. Patient reports she continues to have epigastric pain postprandially. Patient also reports pain in the right upper quadrant, sometimes postprandially and sometimes not related to meals. Patient did not receive a script for Voquezna. Patient reports occasional dyspepsia without dysphagia or odynophagia. Patient reports that she is moving her bowels daily. Takes Linzess. Denies melena, hematochezia, unintentional weight loss or ribbon like stools. Patient reports occasional abdominal bloating and cramping. Patient denies any mucus in her stool, denies any diarrhea. Patient denies any nausea or vomiting. [facility] Medical History (Updated 10/17/25 @ 15:31 by Abeba Fonseca MD) Abnormal MRI of head Cervicalgia Hepatic steatosis Hypertriglyceridemia Uncomplicated type 2 diabetes mellitus Microalbuminuric diabetic nephropathy Bilateral foot pain Gastroparesis Hyperlipidemia associated with type 2 diabetes mellitus Osteopenia Headache Depression Vitamin D deficiency Fibromyalgia HTN (hypertension) HLD (hyperlipidemia) T2DM (type 2 diabetes mellitus) Surgical History History of esophagogastroduodenoscopy (EGD) History of hysteroscopy Status post right breast lumpectomy Hx of colonoscopy History of hysterectomy with bilateral oophorectomy History of carpal tunnel release History of tubal ligation History of ear surgery History of delivery Family History Father Cirrhosis Liver cancer Mother T2DM (type 2 diabetes mellitus) Past heart attack Maternal Grandmother Breast cancer Maternal Grandfather No problems noted. Paternal Grandmother No problems noted. Paternal Grandfather No problems noted. Son No problems noted. Son No problems noted. Daughter No problems noted. Social History Household Members: None Housing: Apartment Are you a primary hospice care transitions coordinator to a significant other at home: No Do you presently have visiting nurse or other home services: No Alcohol intake: never Patient Tobacco Use Status: Never used Tobacco e-Cigarette/Vaping Use: Never Used Second Hand Smoke Exposure: No service: No Current occupational status: disabled Cognitive needs: No Hearing needs: No Vision needs: Yes (glasses) Review of Systems Const Denies weight gain and Denies weight loss ENT Reports no additional complaints, Denies dysphagia and Denies odynophagia Card Reports no additional complaints Resp Reports no additional complaints GI Reports abdominal pain (Occasional epigastric), Denies belching, Denies melena, Reports bloating, Denies change in bowel habits, Denies dysphagia, Denies excessive flatus, Denies dyspepsia, Reports heartburn (Occasional), Denies diarrhea, Denies loose stools, Denies nausea, Denies odynophagia and Denies vomiting Reports no additional complaints Musc Reports no additional complaints Neuro Reports no additional complaints Psych Reports no additional complaints Endo Reports no additional complaints Physical Exam Vital Signs: Last Vital Signs Pulse 70 10/08/25 14:07 BP 116/62 10/08/25 14:07 Pulse Ox 97 10/08/25 14:07 Oxygen Delivery Method Room Air 10/08/25 14:07 BMI result Body Mass Index 26.0 Const General: healthy appearing, no acute distress and well developed Orientation/consciousness: patient oriented x3 Resp Effort & Inspection: normal respiratory effort, able to speak in complete sentences, no tracheal deviation and symmetric chest movement Auscultation: clear to auscultation bilaterally Cardio Rate: regular rate GI Inspection: Yes normal to inspection and No distended Palpation (GI): Soft to palpation, not firm, nontender and No hepatosplenomegaly present Auscultation: normal bowel sounds General: Yes no CVA tenderness Back/Spine/Pelvis Back: no CVA tenderness Skin General skin exam: elasticity normal, turgor normal and dry skin Neuro General: patient oriented x3 Psych Appearance: grossly normal Mental Status: mental status grossly normal Results Reviewed Results Reviewed: ULTRASOUND WITH LIVER ELASTOGRAPHY 07/04/2025 FINDINGS: Liver: The right lobe of the liver measures 13.0 cm in size. The left lobe of the liver measures 8.9 cm in size. The liver demonstrates increased echotexture, consistent with steatosis. No focal mass or intrahepatic biliary ductal dilatation is identified. There is normal hepatopedal flow in the portal vein. Ultrasound elastography of the liver was performed with 10 separate measurements of the liver parenchyma with the patient in the supine position. Measurements were obtained approximately 2 cm below Cooper's capsule and perpendicular to the capsule. The median shear wave velocity is 1.49 m/s. The interquartile range/median (IQR/median) is 0.15. Gallbladder and biliary tree: The gallbladder is unremarkable, without evidence of calculi, wall thickening, or pericholecystic fluid. There is no sonographic Rodriguez sign. The common bile duct is normal in caliber measuring 5 mm. Right Kidney: The right kidney measures 8.9 cm in length and demonstrates an extrarenal pelvis. The right kidney is otherwise unremarkable, without evidence of masses, hydronephrosis, or calculi. Pancreas: The pancreatic head, neck, and body are unremarkable. The pancreatic tail is obscured by bowel gas. Abdominal aorta and inferior vena cava: The visualized portions of the abdominal aorta and inferior vena cava are normal in caliber. There is no free fluid in the right upper quadrant. US/US abdomen hall w elastography IMPRESSION: Hepatic steatosis. The median shear wave velocity in the liver is 1.49 m/s, corresponding to a median liver stiffness of 6.84 kPa. The IQR/median value is 0.15. This is indicative of a quality data set. Findings are indicative of a low elastography value which rules out advanced chronic liver disease in asymptomatic patients. Assessment & Plan Assessment & Plan (1) GERD (gastroesophageal reflux disease): Code(s): K21.9 - Gastro-esophageal reflux disease without esophagitis Category: Medical Qualifiers: Esophagitis presence: without esophagitis Qualified Code(s): K21.9 - Gastro-esophageal reflux disease without esophagitis (2) Gastroparesis: Code(s): K31.84 - Gastroparesis Category: Medical (3) Achalasia: Code(s): K22.0 - Achalasia of cardia Category: Medical (4) Hepatic steatosis: Code(s): K76.0 - Fatty (change of) liver, not elsewhere classified Category: Medical (5) Chronic idiopathic constipation: Code(s): K59.04 - Chronic idiopathic constipation Category: Medical (6) Epigastric abdominal pain: Code(s): R10.13 - Epigastric pain Category: Medical (7) RUQ abdominal pain: Code(s): R10.11 - Right upper quadrant pain Plan Patient will start taking the question a daily. Will send her for HIDA scan. Discussed with patient avoiding dietary triggers and late night snacking. Staying upright for minimal 3 hours after meals discussed with patient. Patient will follow-up in 4 months. She was encouraged to call us if she will have any GI concerning symptoms. Patient is agreeable to this plan and verbalizes understanding of instructions. She was given the opportunity to ask questions and all questions answered. Thank you for allowing me to participate in her care Orders: Orders NM hepatobiliary w pharm 10/08/25 R10.11 - Right upper quadrant pain Medications: New vonoprazan (Voquezna) 10 mg PO DAILY 30 tabs 3RF Discontinued vonoprazan Discontinued Reason: Duplicate 20 mg PO DAILY 30 tabs 3RF Coding Level of Care Code Est Pt Level 4 (83407) Add On Problem Visit Only Diagnoses Gastroesophageal reflux disease without esophagitis K21.9 Esophagitis presence: without esophagitis Gastroparesis K31.84 Achalasia K22.0 Hepatic steatosis K76.0 Chronic idiopathic constipation K59.04 Epigastric abdominal pain R10.13 RUQ abdominal pain R10.11 Time Spent (min) 40 Comment 25 minutes spent with patient and additional 15 minutes spent reviewing her records
[2025-10-08 14:07] VITALS: BP 116/62; PULSE 70; O2SAT 97; BMI 26.0
== END 2025-10-08 14:25 | disposition home or self-care (01) ==
LOC: HO.HGI 13:29
PROVIDERS: PCP Internal Medicine; Visit Provider Nurse Practitioner Family
DX: K21.9 Gastro-esophageal reflux disease without esophagitis (principal); K31.84 Gastroparesis; K22.0 Achalasia of cardia; K76.0 Fatty (change of) liver, not elsewhere classified; K59.04 Chronic idiopathic constipation; R10.13 Epigastric pain; R10.11 Right upper quadrant pain
CPT/HCPCS: 99214; G2211

== ENCOUNTER 2025-10-17 14:06 | Outpatient (AMB) | payer OTHER, SELFPAY ==
--- OUTSIDE RECORDS SUMMARY | 2024-08-30 06:23 | XMS_ITS ---
Author Organization [employer] [facility] Address [address] [place] [address] [id number] [place] [address] Care Team Providers Care Electronic Assembler Name Role Phone Jyoti Torrez Primary Care Provider Adilia Rush Unavailable [phone] Margarita Ayon Unavailable [phone] REASON FOR VISIT Dm outreach Encounters Encounter Location Date Provider Diagnosis [address] [id number] [place] [address] 08/30/2024 Margarita Ayon PLAN OF TREATMENT No Information
--- OUTSIDE RECORDS SUMMARY | 2024-12-06 08:00 | XMS_ITS ---
Author Organization [employer] Address [address] [facility] [id number] [place] [address] Care Team Providers Care Cell Tender Helper Name Role Phone Jyoti Torrez Primary Care Provider Adilia Rush Unavailable [phone] REASON FOR VISIT DM Eye Exam Encounters Encounter Location Date Provider Diagnosis MED-[facility] ([facility]) [facility] [place] [address] [address] 12/06/2024 Adilia Rush PLAN OF TREATMENT No Information
[2025-10-17 14:10] VITALS: BP 128/78; PULSE 64; O2SAT 98; BMI 27.3
--- NOTE | 2025-10-17 14:10 | A.OFFVIS_ITS ---
Vital Signs 10/17/25 14:10 Height 4 ft 9 in Weight 126 lb 6 oz BMI 27.3 BP 128/78 Blood Pressure Location Rt brachial Position Sitting Pulse 64 Pulse Source Pulse Oximeter Pulse Oximetry (%) 98 Oxygen Delivery Method Room Air Intake Visit Reasons: INP-Demyelinating disease of central nervous syste Intake Note: Demyelinating disease of BRUSH AND BROOM CLIPPER Commercial Baking Teacher Required: Yes Commercial Baking Teacher Services: Commercial Baking Teacher Present Commercial Baking Teacher Name: elke Khalil ID: [id number] Accompanied by: DRIFT MINER Allergies strawberry (STRAWBERRY) Allergy (Mild, Verified 10/17/25 14:10) PRURITUS tomato (TOMATO) Allergy (Mild, Verified 10/17/25 14:10) HIVES acetaminophen (From Percocet) Allergy (Unknown, Verified 10/17/25 14:10) Unknown oxycodone (From Percocet) Allergy (Unknown, Verified 10/17/25 14:10) Unknown pollen extracts (POLLEN) Allergy (Unknown, Verified 10/17/25 14:10) UNKNOWN lactose (LACTOSE) Adverse Reaction (Unknown, Verified 10/17/25 14:10) GI UPSET DUST Allergy (Unknown, Uncoded 08/03/25 13:35) UNKNOWN ENVIRONMENTAL Allergy (Unknown, Uncoded 08/03/25 13:35) UNKNOWN trees leaves Allergy (Uncoded 08/03/25 13:35) unknown HPI Comments Details: 70 y/o female comes for neurological evaluation . She reported headaches and her PCP did MRI which showed extensive white matter changes - ? MS she reports daily headaches in the frontal and above her right eye. The headaches started after her fall in her bathtub- Aug 2024 . No loss of consciousness. she describes the pain as tightness and pressure with photophobia ,phonophobia. It is usually mild - worsens intermittently when the headache spreads to her occipital region and neck. she take naprosyn 1-3 times a day qd for few weeks now. she denies double vision , has some dizziness. No speech difficulties, no numbness, no tingling, no weakness. she walks slower because of her knee pain.No difficulty with urination or bowel movements. [facility] Medical History (Updated 10/17/25 @ 15:31 by Abeba Fonseca MD) Abnormal MRI of head Cervicalgia Hepatic steatosis Hypertriglyceridemia Uncomplicated type 2 diabetes mellitus Microalbuminuric diabetic nephropathy Bilateral foot pain Gastroparesis Hyperlipidemia associated with type 2 diabetes mellitus Osteopenia Headache Depression Vitamin D deficiency Fibromyalgia HTN (hypertension) HLD (hyperlipidemia) T2DM (type 2 diabetes mellitus) Surgical History History of esophagogastroduodenoscopy (EGD) History of hysteroscopy Status post right breast lumpectomy Hx of colonoscopy History of hysterectomy with bilateral oophorectomy History of carpal tunnel release History of tubal ligation History of ear surgery History of delivery Family History Father Cirrhosis Liver cancer Mother T2DM (type 2 diabetes mellitus) Past heart attack Maternal Grandmother Breast cancer Maternal Grandfather No problems noted. Paternal Grandmother No problems noted. Paternal Grandfather No problems noted. Son No problems noted. Son No problems noted. Daughter No problems noted. Social History Household Members: None Housing: Apartment Are you a primary health care facility administrator to a significant other at home: No Do you presently have visiting nurse or other home services: No Alcohol intake: never Patient Tobacco Use Status: Never used Tobacco e-Cigarette/Vaping Use: Never Used Second Hand Smoke Exposure: No service: No Current occupational status: disabled Cognitive needs: No Hearing needs: No Vision needs: Yes (glasses) Physical Exam Vital Signs: Last Vital Signs Pulse 64 10/17/25 14:10 BP 128/78 10/17/25 14:10 Pulse Ox 98 10/17/25 14:10 Oxygen Delivery Method Room Air 10/17/25 14:10 BMI result Body Mass Index 27.3 Const General: cooperative, healthy appearing and comfortable Nutritional Appearance: average body habitus Orientation/consciousness: patient oriented x3 Eyes Pupils: Equal, round and reactive pupils present Neck Neck: Yes no meningeal signs Neuro Other: Restricted ROM neck - tenderness in ana posterior and lateral cervical muscles General: patient oriented x3, gait normal, tone normal, moves all extremities, no meningeal signs and no focal motor deficits Cranial nerves: Yes Facial sensation intact/muscles of mastication intact, Yes Equal, round and reactive pupils present, Yes Bilaterally intact EOM present, Yes Nystagmus not present, Yes Normal facial strength present, Yes Midline tongue present, Yes Symmetric palate elevation present and Yes Ability to bilaterally elevate shoulders present Cognition (Neuro): normal cognition Gait exam (Neuro): Normal gait present Motor exam (neuro): 5/5 motor strength present throughout and Normal motor muscle tone present throughout Deep tendon reflexes (DTR's): Right triceps reflex intensity grade: 1+, Left triceps reflex intensity grade: 1+, Rt Biceps (C5, C6): 1+, Left biceps reflex intensity grade: 1+, Right brachioradialis reflex intensity grade: 1+, Left brachioradialis reflex intensity grade: 1+, Right patellar reflex intensity grade: 1+ and Left patellar reflex intensity grade: 1+ Coordination: [id number] test normal Assessment & Plan Assessment & Plan (1) Headache: Comment: cervicogenic Code(s): R51.9 - Headache, unspecified Category: Medical (2) Cervicalgia: Code(s): M54.2 - Cervicalgia Category: Medical (3) Abnormal MRI of head: Comment: white matter changes Code(s): R93.0 - Abnormal findings on diagnostic imaging of skull and head, not elsewhere classified Category: Medical Plan Reviewed mRI images and report . No clinical symptoms or signs of Multiple Sclerosis . I will repeat MRI in 1 year for review Her chronic daily headaches are likely cervicogenic I suggested PT for neck C spine X ray Encouraged her to decrease naprosyn use due to her nephropathy. will consider adding a muscle relaxer if she does not respond to myofacsial release. Orders: Orders PT Evaluation and Treatment Today M54.2 - Cervicalgia XR cervical spine 3V Today M54.2 - Cervicalgia Coding Level of Care Code New Pt Level 4 (39009) Diagnoses Headache R51.9 Cervicalgia M54.2 Abnormal MRI of head R93.0
--- OUTSIDE RECORDS SUMMARY | 2025-10-17 21:58 | XMS_ITS | Clinical Summary ---
Author Organization [facility] Prior to 04/07/25 Address [address] [place] [address] Care Team Providers Care Enamel Shader Name Role Phone Unavailable Primary Care Provider [...]
--- OUTSIDE RECORDS SUMMARY | 2025-10-17 21:59 | XMS_ITS | Encounter Summary ---
Author Organization [facility] Address [address] [place] [address] Care Team Providers Care Package Line Relief Operator Name Role Phone Unavailable Primary Care [...]
--- OUTSIDE RECORDS SUMMARY | 2025-10-17 22:00 | XMS_ITS | Clinical Summary ---
Author Organization [employer] Address [address] [facility] [address] [place] [address] Care Team Providers Care Seat Scooper Machine Name Role Phone Unavailable Primary Care Provider [...]
--- OUTSIDE RECORDS SUMMARY | 2025-10-17 22:00 | XMS_ITS | Encounter Summary ---
Author Organization [employer] [facility] Address [address] [facility] [address] [place] [address] Care Team Providers Care Human Intelligence Name Role Phone Unavailable Primary Care Provider [...]
--- OUTSIDE RECORDS SUMMARY | 2025-10-17 22:00 | XMS_ITS | Patient Health Record ---
Author Organization [employer] Address [address] [facility] [id number] [place] [address] Care Team Providers Care Twisting Press Operator Name Role Phone Shan Jyoti Primary Care Provider Adilia Rush Unavailable [phone] ALLERGIES Allergen (clinical drug ingredient) Drug/Non Drug Allergy documented on EMR Reaction Allergy Type Onset Date Status Watermelon Flavor hives Drug Allergy Active REASON FOR REFERRAL No Information MEDICATIONS Medication SIG (Take, Route, Frequency, Duration) Notes Start Date End Date Status Zolpidem Tartrate 5 MG 1 tablet at bedtime every day Orally daily for [address] directions in [place] 10/26/2023 Active Magnesium 400 MG as directed Orally Once a day for 30 days Active [place] 3 1000 MG 1 capsule Orally Once a day for 90 days 08/27/2023 Active Vitamin B12 100 MCG 1 tablet Orally Once a day for 90 days Active Famotidine 40 MG 1 tablet at bedtime Orally Once a day Active Aspir-Low 81 MG 1 tablet Orally Once a day Active FreeStyle Colten 2 [place] - as directed a s directed 4x/day [...] Type II diabete s mellitus without complication (692746257) Problem 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9) Active confirmed Type 2 diab etes mellitus (15403167) Problem Hyperlipidemia (E78.5) Active confirmed Hyperlipidemia (42314122) Problem Major depressive disorder (F32.9) Active confirmed Major depre ssive disorder (728442973) Encounters Encounter Location Date Provider Diagnosis [id number] ([facility]) [address] [facility] [place] [address] 12/06/2024 Adilia Rush PLAN OF TREATMENT Pending Test Test Name Order Date X ray : Spines, lumbar 2 views * 023 MICROALBUMIN, RANDOM URINE (W/CREATININE ) 06/29/2023 LIPID PANEL 07/15/2023 Insurance Providers Payer Name Payer Address Payer Phone Subscriber Number Group Number Insured Name Patient Relationship to Insured Coverage Start Date Coverage End Date MEDICARE FQHC [address] [place] [address] [id number] Duyen Arellano Self - patient is the insured 0 HUSKY D [address] [place] [address] [id number] Duyen Arellano Self - patient is the insured MEDICAL (GENERAL) HISTORY Medical History History ICD Code diabetes mellitus hypertension GERD chronic sinusitis migraine headaches DILATED EYE EXAM 11/2023 Surgical History Surgery Date(Month/Year)
--- OUTSIDE RECORDS SUMMARY | 2025-10-17 22:00 | XMS_ITS | Clinical Summary ---
Author Organization 175 [facility] Address 175 [place] [address] Phone Care Team Providers Care Glass Cleaner Name Role Phone Didi Ray MD Primary Care Provider [phone] Allergies No known active allergies Medications aspirin [...] CONTINUOUSLY. 07/15/20 25 Active FreeStyle Colten 3 [place] misc USE DAILY TO MONITOR BLOOD GLUCOSE [...] A ORAL TODOS LOS D EN LA [facility] 12/11/19 25 Active lisinopriL (PRINIVIL,ZEST RIL) 10 [...] V A ORAL TODOS LOS D EN [facility] 09/15/20 24 Active [place] 2nd Gen [...] 09/25/2025 1:45 PM EST Office Visit Orthopedic [facility] [address] [phone] Frank Benson DPM Xerosis of skin (Primary Dx); Follow-up exam; Posterior tibial tendon dysfunction (PTTD) of right lower extremity; Plantar fascial fibromatosis; Dermatophytosis of nail; Pain in toe of right foot; Diabetic mononeuropathy simplex (CMS/HCC V24, CMS/HCC V28); Pain in toe of left foot 07/25/2025 2:30 PM EDT Consult Orthopedic [facility] [address] [phone] Frank Benson DPM Posterior tibial tendon dysfunction [...] 11/28/2025 1:45 PM EST Office Visit Orthopedic [facility] [address] [phone] Frank Benson DPM [address] [phone] Health Maintenance Due Date Last Done Comments [...] R esult from Last 3 Months Insurance [facility] MEDICARE Member Subscriber Plan / Payer (Ef fective 2024-Present) Name:Duyen Pak Relation to Subscriber:Self Name:Duyen Pak Payer ID:[id number] Group ID:[id number] Type:Not on file Address: [place] [address] [place] [address] Care Teams Glass Cleaner Relationship Specialty Start Date End Date Didi Ray MD 2 [facility] , [address] [facility] Physician Associ D/B/A: [facility] SANJUANA Gupta PCP - General Internal Medicine 04/27/25
== END 2025-10-17 14:58 | disposition home or self-care (01) ==
LOC: HO.HSMS 14:06
PROVIDERS: PCP Internal Medicine; Visit Provider Psychiatry & Neurology Neurology
DX: R51.9 Headache, unspecified (principal); M54.2 Cervicalgia; R93.0 Abnormal findings on diagnostic imaging of skull and head, not elsewhere classified
CPT/HCPCS: 99204

== ENCOUNTER → 2025-10-17 14:06 | Outpatient (BNVA) | payer OTHER, SELFPAY | PROVIDERS: PCP Internal Medicine; Visit Provider Psychiatry & Neurology Neurology | DX: M54.2 Cervicalgia (principal); R51.9 Headache, unspecified; R93.0 Abnormal findings on diagnostic imaging of skull and head, not elsewhere classified | CPT/HCPCS: 99202 ==

== ENCOUNTER 2025-10-23 13:47 | Outpatient (AMB) | payer OTHER, SELFPAY ==
--- OUTSIDE RECORDS SUMMARY | 2024-08-30 06:23 | XMS_ITS ---
Author Organization [employer] [facility] Address [address] [place] [address] [id number], [place] [address] Care Team Providers Care Fiberglass Boat Builder Name Role Phone Jyoti Torrez Primary Care Provider Adilia Rush Unavailable [phone] Margarita Ayon Unavailable [phone] REASON FOR VISIT Dm outreach Encounters Encounter Location Date Provider Diagnosis [address] [id number], [place] [address] 08/30/2024 Margarita Ayon PLAN OF TREATMENT No Information
--- OUTSIDE RECORDS SUMMARY | 2024-12-06 08:00 | XMS_ITS ---
Author Organization [employer] Address [address] [facility] [id number] [place] [address] Care Team Providers Care Cherry Grower Name Role Phone Jyoti Torrez Primary Care Provider Adilia Rush Unavailable [phone] REASON FOR VISIT DM Eye Exam Encounters Encounter Location Date Provider Diagnosis MED-[facility] ([facility]) [facility] [place] [address] [address] 12/06/2024 Adilia Rush PLAN OF TREATMENT No Information
[2025-10-23 13:49] VITALS: BP 120/60; PULSE 63; O2SAT 96; BMI 26.8
--- NOTE | 2025-10-23 13:49 | HO.NEPHOV ---
Vital Signs 10/23/25 13:49 Height 4 ft 9 in Weight 124 lb BMI 26.8 BP 120/60 Blood Pressure Location Rt brachial Position Sitting Pulse 63 Pulse Source Pulse Oximeter Pulse Oximetry (%) 96 Oxygen Delivery Method Room Air Intake Visit Reasons: 6 wks f/u w/ labs & Ultrasound-CONF Memorial Adviser Required: Yes Memorial Adviser Name: Tony [id number] Accompanied by: PAINT COATING MACHINE OPERATOR Allergies strawberry (STRAWBERRY) Allergy (Mild, Verified 10/23/25 13:51) PRURITUS tomato (TOMATO) Allergy (Mild, Verified 10/23/25 13:51) HIVES acetaminophen (From Percocet) Allergy (Unknown, Verified 10/23/25 13:51) Unknown oxycodone (From Percocet) Allergy (Unknown, Verified 10/23/25 13:51) Unknown pollen extracts (POLLEN) Allergy (Unknown, Verified 10/23/25 13:51) UNKNOWN lactose (LACTOSE) Adverse Reaction (Unknown, Verified 10/23/25 13:51) GI UPSET DUST Allergy (Unknown, Uncoded 08/03/25 13:35) UNKNOWN ENVIRONMENTAL Allergy (Unknown, Uncoded 08/03/25 13:35) UNKNOWN trees leaves Allergy (Uncoded 08/03/25 13:35) unknown Medication List - Last Reconciled 10/23/25 by Jesus Fonseca MD alcohol swabs (Alcohol Wipes) 1 pad topical TID aspirin 81 mg PO DAILY 90 days atorvastatin 40 mg PO DAILY 30 days blood sugar diagnostic (EZ-AppsTouch Verio test strips) 3x daily blood-glucose sensor (FreeStyle Colten 3 Plus Sensor device) Apply 1 new sensor every 15 days as directed to monitor blood glucose continuously. blood-glucose,software firmware engineer,cont (FreeStyle Colten 3 [place]) Use daily to monitor blood glucose levels continuously. [BP cuff As directed] [cane As directed] cetirizine (Zyrtec) 10 mg PO DAILY PRN empagliflozin (Jardiance) 25 mg PO DAILY famotidine 40 mg PO DAILY gabapentin 300 mg PO TID glucose (Dex4 Glucose) 16 grams (4 x 4 gram) PO Q15M PRN hydrochlorothiazide 25 mg PO DAILY insulin degludec (Tresiba FlexTouch U-100 insulin) 6 units subcut BEDTIME lancets (OneTouch Delica Lancets) 4x daily linaclotide (Linzess) 145 mcg PO QAM lisinopril 10 mg PO DAILY metformin 1,000 mg PO BID mirtazapine 7.5 mg PO BEDTIME naproxen 500 mg PO BID PRN [Nitrate gloves As directed] nortriptyline 25 mg PO DAILY pen needle, diabetic (BD Ultra-Fine Micro Pen Needle) once a week pen needle, diabetic As directed sertraline 25 mg PO QAM simethicone (Gas Relief Extra Strength) 125 mg PO BID-QID sucralfate 10 mL PO BEDTIME vonoprazan (Voquezna) 10 mg PO DAILY HPI Comments Details: The patient is a 70-year-old female presenting with proteinuria and decreased kidney function. She has a long-standing history of diabetes mellitus for approximately 35 years, with variable control of her blood glucose levels. Her blood sugar control is inconsistent, sometimes well-managed and sometimes not. The patient also has a history of hypertension, which is currently well-controlled. She denies any history of cardiac issues. She is on medications including lisinopril and Jardiance, which are beneficial for her renal health, and she reports no issues with medication adherence. Recent tests show her kidney function at 55%, below the expected 70% for her age, ?10/23/25 The patient is a 70-year-old female presenting for a nephrology follow-up visit. She reports no problems since her last visit. She reports that her blood sugar levels have been variable, with both high and low readings, despite taking her medications. Her blood sugar is managed by her primary care doctor. The patient was referred to nephrology due to a previous finding of protein in her urine. Results - Kidney function: Tests show good function, which is normal for her age. - Urinalysis: Negative for proteinuria. - Kidney ultrasound: Normal. [facility] Medical History (Updated 10/17/25 @ 15:31 by Abeba Fonseca MD) Abnormal MRI of head Cervicalgia Hepatic steatosis Hypertriglyceridemia Uncomplicated type 2 diabetes mellitus Microalbuminuric diabetic nephropathy Bilateral foot pain Gastroparesis Hyperlipidemia associated with type 2 diabetes mellitus Osteopenia Headache Depression Vitamin D deficiency Fibromyalgia HTN (hypertension) HLD (hyperlipidemia) T2DM (type 2 diabetes mellitus) Surgical History History of esophagogastroduodenoscopy (EGD) History of hysteroscopy Status post right breast lumpectomy Hx of colonoscopy History of hysterectomy with bilateral oophorectomy History of carpal tunnel release History of tubal ligation History of ear surgery History of delivery Family History Father Cirrhosis Liver cancer Mother T2DM (type 2 diabetes mellitus) Past heart attack Maternal Grandmother Breast cancer Maternal Grandfather No problems noted. Paternal Grandmother No problems noted. Paternal Grandfather No problems noted. Son No problems noted. Son No problems noted. Daughter No problems noted. Social History Household Members: None Housing: Apartment Are you a primary care attendant to a significant other at home: No Do you presently have visiting nurse or other home services: No Alcohol intake: never Patient Tobacco Use Status: Never used Tobacco e-Cigarette/Vaping Use: Never Used Second Hand Smoke Exposure: No service: No Current occupational status: disabled Cognitive needs: No Hearing needs: No Vision needs: Yes (glasses) Physical Exam Exam Exam: Physical Exam General: Awake. Comfortable. HENT: Neck supple. Mucosa moist. Pulmonary: Lungs aeration equal. No rales. Cardiology: Heart S1-S2 heard. No gallop. Abdomen: Soft. Non tender. Bowel sounds normal. Neurologic: No involuntary movements. No myoclonus. Extremities: No edema. No rash. Vital Signs: Last Vital Signs Pulse 63 10/23/25 13:49 BP 120/60 10/23/25 13:49 Pulse Ox 96 10/23/25 13:49 Oxygen Delivery Method Room Air 10/23/25 13:49 BMI result Body Mass Index 26.8 Results Reviewed Nephrology Results: Hgb, (12.0-16.0) 12.1 g/dl 10/08/25 WBC, (4.8-10.8) 8.0 X10*3/uL 10/08/25 Plt Count, (160-400) 300 X10*3/uL 10/08/25 Sodium, (135-145) 139 mmol/L 10/08/25 Potassium, (3.3-5.1) 4.3 mmol/L 10/08/25 Chloride, (96-108) 102 mmol/L 10/08/25 Carbon Dioxide, (22-29) 25 mmol/L 10/08/25 BUN, (9-16) 30 mg/dL H 10/08/25 Creatinine, (0.5-1.4) 0.99 mg/dL 10/08/25 Calcium, (8.4-10.2) 10.1 mg/dL 10/08/25 Urine Protein, (Neg-Trace) Negative mg/dL 10/08/25 Urine Creatinine 50.13 mg/dL 10/08/25 Renal US 09/28/25 Assessment & Plan Assessment & Plan (1) HTN (hypertension): Comment: stable; same meds Code(s): I10 - Essential (primary) hypertension Category: Medical Qualifiers: Hypertension type: unspecified Qualified Code(s): I10 - Essential (primary) hypertension (2) Microalbuminuria: Code(s): R80.9 - Proteinuria, unspecified Category: Medical Plan Plan 1. History Of Proteinuria - Subsequent testing revealed no proteinuria, and a kidney ultrasound was normal. - The patient's kidney function is good and normal for her age. - Reassurance was provided that she has no current kidney problems, and no further follow-up with nephrology is required. 2. Diabetes Mellitus - The patient reports variable blood sugar levels despite taking medication. - Advised to maintain good blood sugar control to preserve long-term kidney function. - She will continue to have her diabetes managed by her primary care doctor. 3. Hypertension - Her blood pressure is noted to be good. - She was advised to keep her blood pressure under control to protect her kidneys. Coding Level of Care Code Est Pt Level 4 (58199) Diagnoses Hypertension, unspecified type I10 Hypertension type: unspecified Microalbuminuria R80.9
--- OUTSIDE RECORDS SUMMARY | 2025-10-23 17:58 | XMS_ITS | Clinical Summary ---
Author Organization [facility] Prior to 04/07/25 Address [address] [place] [address] Care Team Providers Care Smearer Name Role Phone Unavailable Primary Care Provider [...]
--- OUTSIDE RECORDS SUMMARY | 2025-10-23 17:58 | XMS_ITS | Clinical Summary ---
Author Organization [employer] Address [address] [facility] 7t [place] [address] Care Team Providers Care High School Physical Education Teacher Name Role Phone Unavailable Primary Care [...]
--- OUTSIDE RECORDS SUMMARY | 2025-10-23 17:58 | XMS_ITS | Patient Health Record ---
Author Organization [employer] Address [address] [facility] [id number] [place] [address] Care Team Providers Care Fisher Pot Name Role Phone Shan Jyoti Primary Care Provider [phone] Adilia Rush Unavailable [phone] ALLERGIES Allergen (clinical drug ingredient) Drug/Non Drug Allergy documented on EMR Reaction Allergy Type Onset Date Status Watermelon Flavor hives Drug Allergy Active REASON FOR REFERRAL No Information MEDICATIONS Medication SIG (Take, Route, Frequency, Duration) Notes Start Date End Date Status Zolpidem Tartrate 5 MG 1 tablet at bedtime every day Orally daily for [address] directions in sri lankan 10/26/2023 Active Magnesium 400 MG as directed Orally Once a day for 30 days Active [place] 3 1000 MG 1 capsule Orally Once a day for 90 days 08/27/2023 Active Vitamin B12 100 MCG 1 tablet Orally Once a day for 90 days Active Famotidine 40 MG 1 tablet at bedtime Orally Once a day Active Aspir-Low 81 MG 1 tablet Orally Once a day Active FreeStyle Colten 2 [place] - as directed a s directed 4x/day [...] Type II diabete s mellitus without complication (962545262) Problem 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9) Active confirmed Type 2 diab etes mellitus (78266621) Problem Hyperlipidemia (E78.5) Active confirmed Hyperlipidemia (70081644) Problem Major depressive disorder (F32.9) Active confirmed Major depre ssive disorder (504784899) Encounters Encounter Location Date Provider Diagnosis [id number] ([facility]) [address] [facility] [place] [address] 12/06/2024 Adilia Rush PLAN OF TREATMENT Pending Test Test Name Order Date X ray : Spines, lumbar 2 views * 023 MICROALBUMIN, RANDOM URINE (W/CREATININE ) 06/29/2023 LIPID PANEL 07/15/2023 Insurance Providers Payer Name Payer Address Payer Phone Subscriber Number Group Number Insured Name Patient Relationship to Insured Coverage Start Date Coverage End Date MEDICARE FQHC [address] [place] [address] [id number] Duyen Arellano Self - patient is the insured 0 HUSKY D [address] [place] [address] [id number] Duyen Arellano Self - patient is the insured MEDICAL (GENERAL) HISTORY Medical History History ICD Code diabetes mellitus hypertension GERD chronic sinusitis migraine headaches DILATED EYE EXAM 11/2023 Surgical History Surgery Date(Month/Year)
--- OUTSIDE RECORDS SUMMARY | 2025-10-23 17:58 | XMS_ITS | Encounter Summary ---
Author Organization [employer] [facility] Address [address] [facility] 7t [place] [address] Care Team Providers Care Foreign Languages Department Chair Name Role Phone Unavailable Primary Care Provider [...]
--- OUTSIDE RECORDS SUMMARY | 2025-10-23 17:58 | XMS_ITS | Clinical Summary ---
Author Organization 175 [facility] Address 175 [place] [address] Phone Care Team Providers Care Digital Marketing Lead Name Role Phone Didi Ray MD Primary Care Provider [phone] Allergies No known active allergies Medications aspirin [...] CONTINUOUSLY. 07/15/20 25 Active FreeStyle Colten 3 [place] misc USE DAILY TO MONITOR BLOOD GLUCOSE [...] TODOS LOS D EN LA [facility] 12/11/19 25 Active lisinopriL (PRINIVIL,ZEST RIL) [...] V A ORAL TODOS LOS D EN [facility] 09/15/20 24 Active [place] 2nd Gen Pen [...] 09/25/2025 1:45 PM EST Office Visit Orthopedic [facility] [address] [phone] Frank Benson DPM Xerosis of skin (Primary Dx); Follow-up exam; Posterior tibial tendon dysfunction (PTTD) of right lower extremity; Plantar fascial fibromatosis; Dermatophytosis of nail; Pain in toe of right foot; Diabetic mononeuropathy simplex (CMS/HCC V24, CMS/HCC V28); Pain in toe of left foot 07/25/2025 2:30 PM EDT Consult Orthopedic [facility] [address] [phone] Frank Benson DPM Posterior tibial tendon dysfunction [...] 11/28/2025 1:45 PM EST Office Visit Orthopedic [facility] [address] [phone] Frank Benson DPM [address] [phone] Health Maintenance Due Date Last Done Comments [...] R esult from Last 3 Months Insurance [facility] MEDICARE Member Subscriber Plan / Payer (Ef fective 2024-Present) Name:Duyen Pak Relation to Subscriber:Self Name:Duyen Pak Payer ID:[id number] Group ID:[id number] Type:Not on file Address: [place] [address] [place] [address] Care Teams Digital Marketing Lead Relationship Specialty Start Date End Date Didi Ray MD 2 [facility] , [address] [facility] Physician Associ D/B/A: [facility] SANJUANA Gupta PCP - General Internal Medicine 04/27/25
--- OUTSIDE RECORDS SUMMARY | 2025-10-23 17:58 | XMS_ITS | Encounter Summary ---
Author Organization [facility] Address [address] [facility] 7t [place] [address] Care Team Providers Care Damaged Freight Inspector Name Role Phone Unavailable Primary Care Provider [...]
== END 2025-10-23 15:31 | disposition home or self-care (01) ==
LOC: HO.HKA 13:48
PROVIDERS: PCP Internal Medicine; Visit Provider Internal Medicine Hypertension Specialist
DX: I10 Essential (primary) hypertension (principal); R80.9 Proteinuria, unspecified
CPT/HCPCS: 99214

== ENCOUNTER → 2025-10-23 13:47 | Outpatient (BNVA) | payer OTHER, SELFPAY | PROVIDERS: PCP Internal Medicine; Visit Provider Internal Medicine Hypertension Specialist | DX: I10 Essential (primary) hypertension (principal); R80.9 Proteinuria, unspecified; E11.9 Type 2 diabetes mellitus without complications; Z79.84 Long term (current) use of oral hypoglycemic drugs; Z79.4 Long term (current) use of insulin | CPT/HCPCS: 99212 ==

== ENCOUNTER → 2025-11-05 10:56 | Outpatient (REF) | payer OTHER, SELFPAY ==
--- OUTSIDE RECORDS SUMMARY | 2024-12-06 08:00 | XMS_ITS ---
Author Organization [employer]. Address [address] [facility] [id number] [place] [address] Care Team Providers Care Manager Transfer Name Role Phone Jyoti Torrez Primary Care Provider Adilia Rush [phone] REASON FOR VISIT DM Eye Exam Encounters Encounter Location Date Provider Diagnosis MED-478 ([facility] [address] [place] [address] 12/06/2024 Adilia Rush Plan Of Treatment No Information Progress Notes * Duyen JACOBSDOB:1955 (70 yo F)Acc No.[id number]:12/06/2024 Patient: Duyen Rodriguez Provider: Juanita Rush OD :1955 A ge:69 Y S ex:Female Date:12/06/2024 Address:[address] [place], [place] [id number] Pcp:Jyoti Torrez Subjective: * Chief Complaints: * D M Eye Exam * Ocular Surgical History: Objective: Vision: Spectacle Rx: Contact Lens: Eye Examination: Special Tests: * Electronic signature of Papito Lopez , OLIVIA on 11/05/2025 at 12:41 PM EST Sign off status: Pending * Provider: Juanita Rush, OLIVIA Date: 0 12/06/2024 Generated for Printi ng/Faxing/eTransmitting on: 1 12:41 PM EST
--- NOTE | ~2025-11-05 | NM_ITS ---
EXAMINATION: NM BILIARY TRACT CLINICAL INFORMATION: Right upper quadrant pain. COMPARISON: None available. TECHNIQUE: Following intravenous administration of 5 mCi of 99m Tc mebrofenin, imaging over the right upper quadrant was obtained up to 60 minutes. At 60 minutes 1.1 mcg of CCK was administered over 30 minutes. FINDINGS: There is normal hepatic uptake with no focal defects seen. Common bile duct is visualized by 18 minutes. The gallbladder is visualized by 60 minutes. Post-CCK the gallbladder ejection fraction At 10 minutes is 19%, At 20 minutes is 11% and At 30 minutes is 14% NM/NM hepatobiliary w pharm IMPRESSION: Abnormal gallbladder ejection fraction of 14% at 30 minutes. Findings suggestive of distended gallbladder. Patent CBD and cystic duct. Normal hepatic uptake. Electronically signed by: Gianluca Snyder MD 11/05/2025 01:16 PM SARABJIT
--- OUTSIDE RECORDS SUMMARY | 2025-11-05 12:41 | XMS_ITS | Clinical Summary ---
Author Organization [facility] Prior to 04/07/25 Address [address] [place] [address] Care Team Providers Care Makeup Instructor Name Role Phone Unavailable Primary Care Provider [...]
--- OUTSIDE RECORDS SUMMARY | 2025-11-05 12:42 | XMS_ITS | Clinical Summary ---
Author Organization 175 [facility] Address [address] [place] [address] Phone Care Team Providers Care Customer Advisor Specialist Name Role Phone Didi Ray MD Primary Care Provider [phone] Allergies No known active allergies Medications aspirin [...] GLUCOSE CONTINUOUSLY. 5 Active FreeStyle Colten 3 [place] misc USE DAILY TO MONITOR BLOOD GLUCOSE [...] A ORAL TODOS LOS D EN LA [facility] 5 Active lisinopriL (PRINIVIL,ZEST RIL) [...] A ORAL TODOS LOS D EN [facility] 4 Active [place] 2nd Gen [...] CUANDO SEA NECESARIO FOR INSOMNIA 5 Active metFORMIN (GLUCOPHAGE) 1,000 mg tablet TOME 1 TABLETA POR V A ORAL DOS VECES AL D A 5 Active ammonium lactate (AmLactin) 12 % lotion Apply topically if needed for dry skin. 400 g 026 Active Encounters Date Type Department Care Team Description 09/25/2025 1:45 PM EST Office Visit Orthopedic Surgery [facility] [address] [phone] Frank Benson DPM Xerosis of skin (Primary Dx); Follow-up exam; Posterior tibial tendon dysfunction (PTTD) of right lower extremity; Plantar fascial fibromatosis; Dermatophytosis of nail; Pain in toe of right foot; Diabetic mononeuropathy simplex (CMS/HCC V24, CMS/HCC V28); Pain in toe of left foot from Last 3 Months Social History Tobacco [...] 1:45 PM EST Office Visit Orthopedic Surgery [facility] [address] [phone] Frank Benson DPM [address] [phone] Health Maintenance Due Date Last Done Comments Breast Cancer Screening 1955 Colorectal Cancer Screening: Colonoscopy 1955 Diabetes: Annual GFR (Glomer ular Filtration Rate) 1955 Drug Screen 1955 Non-Opioid Controlled Substa nce Agreement 1955 Diabetes: Annual Foot Exam 1965 Diabetes: [...] Screening 10/07/2022 Depression Screening 11/08/2024 COVID-19 Vaccine (2024-2 6 season) 2025 Influenza Vaccine (#1) 2025 [...] R esult from Last 3 Months Insurance [facility] MEDICARE Member Subscriber Plan / Payer (Ef fective 2024-Present) Name:Duyen Pak Relation to Subscriber:Self Name:Duyen Pak Payer ID:[id number] Group ID:[id number] Type:Not on file Address: [place] [address] [place] [phone] Care Teams Customer Advisor Specialist Relationship Specialty Start Date End Date Didi Ray MD [address] [place] [address] , [address] [facility] Physician Associ D/B/A: [facility] SANJUANA Gupta PCP - General Internal Medicine 04/27/25
--- OUTSIDE RECORDS SUMMARY | 2025-11-05 12:42 | XMS_ITS | Clinical Summary ---
Author Organization [employer] Address [address] [facility] 7t [place] [address] Care Team Providers Care Magnetic Healer Name Role Phone Unavailable Primary Care Provider [...]
--- OUTSIDE RECORDS SUMMARY | 2025-11-05 12:42 | XMS_ITS | Encounter Summary ---
Author Organization [employer] [facility] Address [address] [facility] 7t [place] [address] Care Team Providers Care Manager Inpatient Name Role Phone Unavailable Primary Care Provider [...]
--- OUTSIDE RECORDS SUMMARY | 2025-11-05 12:42 | XMS_ITS | Patient Health Record ---
Author Organization [employer] Address [address] [facility] [id number] [place] [address] Care Team Providers Care Drying Tumbler Operator Name Role Phone Shan Jyoti Primary Care Provider [phone] Adilia Rush Unavailable [phone] Allergies Allergen (clinical drug ingredient) Drug/Non Drug Allergy documented on EMR Reaction Allergy Type Onset Date Status Watermelon Flavor hives Drug Allergy Active Reason For Referral No Information Medications Medication SIG (Take, Route, Frequency, Duration) Notes Start Date End Date Status Zolpidem Tartrate 5 MG Tablet 1 tablet at bedtime every day Orally daily; Duration: [address] directions in azeri 10/26/2023 Active Magnesium 400 MG Tablet as directed Orally Once a day; Duration: 30 days Active [place] 3 1000 MG Capsule 1 capsule Orally Once a day; Duration: 90 days 08/27/2023 Active Vitamin B12 100 MCG Tablet 1 tablet Oral ly Once a day; Duration: 90 days Active Famotidine 40 MG Tablet 1 tablet at bedtime Orally Once a day Active Aspir-Low 81 MG Tablet Delayed Release 1 tablet Orally Once a day Active FreeStyle Colten 2 [place] - Device as directed as directed 4x/day; Duration: 999 days Sending in PA today Active Lisinopril 10 MG Tablet 1 tablet Orally Once a day Active hydroCHLOROthiazide 25 MG Tablet 1 tablet in the morning Orally Once a day Active metFORMIN HCl 1000 MG Tablet TAKE 1 TABLET BY MOUTH TWICE A DAY WITH A MEAL FOR 90 DAYS; Duration: 90 Active Linzess 145 MCG Capsule 1 capsule at least 30 minutes before the first meal of the day on an empty stomach Orally Once a day Active Metoclopramide HCl 5 MG Tablet 1 tablet before meals Orally Twice a day Active Escitalopram Oxalate 5 MG Tablet TOME MINAL TABLETA AL ROMAN; Duration: 90 Active Cetirizine HCl 10 MG Tablet 1 tablet Orally Once a day Active Fluticasone Furoate 50 MCG/ACT Aerosol Powder Breath Activated 1 puff Inhalation Once a day Active Jardiance 10 MG Tablet TOME 1 TABLETA POR VIA ORAL TODOS LOS VIEYRA FOR 90 DAYS; Duration: 90 Active Vitamin D 50 MCG (2000 UT) Tablet 1 tablet Orally Once a day Active Refresh 1.4-0.6 % Solution Instill 1 toby p in both eyes Ophthalmic 2-3 times daily, or as needed for irritation; Duration: 30 days 11/29/2023 Active OneTouch Verio - Strip as directed In Vitro BID; Duration: 90 days Active Lyrica 25 MG Capsule 1 capsule Orally Once a day; Duration: 30 days 10/26/2023 Active Pregabalin 25 MG Capsule 1 capsule Orall y Twice a day; Duration: 30 days 01/22/2024 Active FreeStyle Colten 2 Sensor - Miscellaneous as directed as directed every 14 days; Duration: 999 days Active Pregabalin 25 MG Capsule TOME MINAL CAPSUL A TODOS LOS VIEYRA FOR 30 DAYS; Duration: 30 01/22/2024 Active Zolpidem Tartrate 5 MG Tablet 1 tablet at bedtime as needed Orally Once a day; Duration: 30 days 11/30/2023 Active Simethicone 125 MG Tablet Chewable 1 tablet after meals and at bedtime as needed Orally Four times a day; Duration: 30 days Active Atorvastatin Calcium 40 MG Tablet TOME 1 TABLETA POR VIA ORAL TODOS LOS VIEYRA; Duration: 90 Active Social History Tobacco Use: Social History Observation Description Date Details (start date - stop date) Never Smoker NA - NA Social History SO/GI: Social Info Question Answer Notes SO/GI: Sexual Orientation: Straight (Not Lesbian or Escobar) Gender Identity: Female Gender at : Female Date Taken/Updated: 11/30/2023 What is the preferred Pronoun SHE/HER/HERS Sexual History: Social Info Question Answer Notes Sexual History Had sex in the past 12 months (vaginal, oral, or anal)? No Have you ever had a Sexually transmitted disease ? No Drugs/Alcohol: Social Info Question Answer Notes Alcohol Screen Did you have a drink containing alcohol in the past year? 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9) Active confirmed Problem Hyperlipidemia (30560310) Hyperlipidemia (E78.5) Active confirmed Problem Major depressive disorder (157683065) Major depressive disorder (F32.9) Active confirmed Plan Of Treatment Pending Test Test Name Order Date X ray : Spines, lumbar 2 views * 023 MICROALBUMIN, RANDOM URINE (W/CREATININE ) 06/29/2023 LIPID PANEL 07/15/2023 Insurance Providers Payer Name Payer Address Payer Phone Subscriber Number Group Number Insured Name Patient Relationship to Insured Coverage Start Date Coverage End Date MEDICARE FQHC [address] [place] [address] [id number] Duyen Arellano Self - patient is the insured 0 HUSKY D [address] [place] [address] [id number] Duyen Arellano Self - patient is the insured Medical (General) History Medical History History ICD Code diabetes mellitus hypertension GERD chronic sinusitis migraine headaches DILATED EYE EXAM 11/2023 Surgical History Surgery Date(Month/Year)
--- OUTSIDE RECORDS SUMMARY | 2025-11-05 12:42 | XMS_ITS | Encounter Summary ---
Author Organization [email or web address] [facility] Address [address] [facility] 7[address] [place] [address] Care Team Providers Care It Portfolio Manager Name Role Phone Unavailable Primary Care [...]
== END ==
LOC: HO.NUCMED 10:56
PROVIDERS: PCP Internal Medicine; Visit Provider Nurse Practitioner Family
DX: R10.11 Right upper quadrant pain (principal)
CPT/HCPCS: 78227; A9537; J2805

== ENCOUNTER → 2025-11-05 10:58 | Outpatient (BNV) | payer OTHER, SELFPAY | PROVIDERS: PCP Internal Medicine; Visit Provider Radiology Diagnostic Radiology | DX: R10.11 Right upper quadrant pain (principal); K82.8 Other specified diseases of gallbladder | CPT/HCPCS: 78227 ==

== ENCOUNTER 2025-11-06 13:29 | Outpatient (AMB) | payer OTHER, SELFPAY ==
--- OUTSIDE RECORDS SUMMARY | 2024-12-06 08:00 | XMS_ITS ---
Author Organization [employer]. Address [address] [facility] [id number] [place] [address] Care Team Providers Care Director Of Loss Prevention Name Role Phone Jyoti Torrez Primary Care Provider Adilia Rush [phone] REASON FOR VISIT DM Eye Exam Encounters Encounter Location Date Provider Diagnosis MED-478 ([facility]) [address] [place] [address] 12/06/2024 Adilia Rush Plan Of Treatment No Information Progress Notes * Duyen JACOSBDOB:1955 (70 yo F)Acc No.[id number]:12/06/2024 Patient: Duyen Rodriguez Provider: Juanita Rush OD :1955 A ge:69 Y S ex:Female Date:12/06/2024 Address:[address] [place], [place] [id number] Pcp:Jyoti Torrez Subjective: * Chief Complaints: * D M Eye Exam * Ocular Surgical History: Objective: Vision: Spectacle Rx: Contact Lens: Eye Examination: Special Tests: * Electronic signature of Papito Lopez , OLIVIA on 11/06/2025 at 05:22 PM EST Sign off status: Pending * Provider: Juanita Rush OD Date: 0 12/06/2024 Generated for Printi ng/Faxing/eTransmitting on: 1 05:22 PM EST
[2025-11-06 13:31] VITALS: BP 130/60; PULSE 67; O2SAT 98; BMI 27.5
--- NOTE | 2025-11-06 13:31 | MHC.OFFVIS ---
Vital Signs 11/06/25 13:31 Height 4 ft 9 in Weight 126 lb 15.78 oz BMI 27.5 BP 130/60 Blood Pressure Location Lt brachial Position Sitting Pulse 67 Pulse Source Pulse Oximeter Pulse Oximetry (%) 98 Oxygen Delivery Method Room Air Intake Visit Reasons: Type II Diabetes Intake Note: Patient present today for Type 2 Diabetes Mellitus Last Diabetic eye exam: Last exam was on 08/24/[address] [facility] Last Podiatry Visit: She sees them every 2 months Random Glucose: 140 mg/dl HgA1C: 8.1% Chin Strap Maker Required: Yes Chin Strap Maker Language: Black Powder Glazing Operator Services: Chin Strap Maker Present Chin Strap Maker Name: Rishi [id number] Information Interpreted: non-clinical & clinical Accompanied by: Self / Same As Patient Allergies strawberry (STRAWBERRY) Allergy (Mild, Verified 11/06/25 13:38) PRURITUS tomato (TOMATO) Allergy (Mild, Verified 11/06/25 13:38) HIVES acetaminophen (From Percocet) Allergy (Unknown, Verified 11/06/25 13:38) Unknown oxycodone (From Percocet) Allergy (Unknown, Verified 11/06/25 13:38) Unknown pollen extracts (POLLEN) Allergy (Unknown, Verified 11/06/25 13:38) UNKNOWN lactose (LACTOSE) Adverse Reaction (Unknown, Verified 11/06/25 13:38) GI UPSET DUST Allergy (Unknown, Uncoded 11/06/25 13:38) UNKNOWN ENVIRONMENTAL Allergy (Unknown, Uncoded 11/06/25 13:38) UNKNOWN trees leaves Allergy (Uncoded 11/06/25 13:38) unknown Medication List - Last Reconciled 11/06/25 by DANTE Chaidez acarbose 25 mg PO BID 90 days alcohol swabs (Alcohol Wipes) 1 pad topical TID aspirin 81 mg PO DAILY 90 days atorvastatin 40 mg PO DAILY 30 days blood sugar diagnostic (OneTouch Verio test strips) 3x daily blood-glucose sensor (FreeStyle Colten 3 Plus Sensor device) Apply 1 new sensor every 15 days as directed to monitor blood glucose continuously. blood-glucose,pershing missile crewmember,cont (FreeStyle Colten 3 [place]) Use daily to monitor blood glucose levels continuously. [BP cuff As directed] [cane As directed] cetirizine (Zyrtec) 10 mg PO DAILY PRN empagliflozin (Jardiance) 25 mg PO DAILY famotidine 40 mg PO DAILY gabapentin 300 mg PO TID glucose (Dex4 Glucose) 16 grams (4 x 4 gram) PO Q15M PRN hydrochlorothiazide 25 mg PO DAILY insulin degludec (Tresiba FlexTouch U-100 insulin) 4 units subcut BEDTIME lancets (OneTouch Delica Lancets) 4x daily linaclotide (Linzess) 145 mcg PO QAM lisinopril 10 mg PO DAILY metformin 1,000 mg PO BID mirtazapine 7.5 mg PO BEDTIME naproxen 500 mg PO BID PRN [Nitrate gloves As directed] nortriptyline 25 mg PO DAILY pen needle, diabetic (BD Ultra-Fine Micro Pen Needle) once a week pen needle, diabetic As directed sertraline 25 mg PO QAM simethicone (Gas Relief Extra Strength) 125 mg PO BID-QID sucralfate 10 mL PO BEDTIME vonoprazan (Voquezna) 10 mg PO DAILY HPI Comments Details: This is a 70-year-old female with a past medical history of gastroparesis, hyperlipidemia, DCIS of the right breast, osteopenia, chronic constipation, GERD, vitamin-D deficiency, hypertension and type 2 diabetes presenting for diabetic management. She was diagnosed with type 2 diabetes in 1998. Her mother and father have type 2 diabetes. Hemoglobin a1c 8.1% today down from 8.7% 06/29/2025 down from 11.4% 03/26/2025. Reviewed CGM data during the past 2 weeks CGM active 63% G [place] 7.5% Glucose variability 28.8% Very high 9% High 32% Target range 59% 0% hypoglycemia She has hyperglycemia following meals and late night. Due to her stomach issue she depends on carbohydrates in her diet like bread and rice. She was encouraged to see the dieitcian. She sees Livia Morrell, certified asthma educator. Current medication regimen: Jardiance 25 mg, metformin 1000 mg twice daily, Tresiba 4 units at night Compliance issues: none Past medication: Ozempic was discontinued in the past due to hypoglycemia. She also has gastroparesis, achalasia, GERD. Compliance issues: none Hypoglycemia symptoms: Denies interval episodes. Hyperglycemia symptoms: None Eye exam: up to date Microvascular complications: neuropathy, nephropathy (microalbuminuria) Macrovascular complications: none Hypertension: treated with hydrochlorothiazide, lisinopril Hyperlipidemia: treated with atorvastatin. Triglycerides elevated. ROS: Constitutional: No unexplained weight loss, fever, chills or night sweats. Gastrointestinal: History of IBS, GERD and ?gastroparesis Genitourinary: No dysuria, hematuria, urinary frequency. Neurologic: No headache, dizziness, syncope, unilateral weakness, ataxia Endocrine: Denies polyuria or polydipsia Physical exam: Constitutional: Alert, in no distress. Head: Normocephalic. Neck: Supple, Full range of motion. No lymphadenopathy. No palpable thyroid masses. Respiratory: Clear to auscultation. Cardiovascular: S1 S2 regular. No murmurs. Feet: Warm and well perfused. No clubbing, cyanosis or edema. Intact DP pulse. No open wounds. [facility] Medical History (Updated 11/06/25 @ 13:44 by DANTE Chaidez) Abnormal MRI of head Cervicalgia Hepatic steatosis Hypertriglyceridemia Uncomplicated type 2 diabetes mellitus Microalbuminuric diabetic nephropathy Bilateral foot pain Gastroparesis Hyperlipidemia associated with type 2 diabetes mellitus Osteopenia Headache Depression Vitamin D deficiency Fibromyalgia HTN (hypertension) HLD (hyperlipidemia) T2DM (type 2 diabetes mellitus) Surgical History History of esophagogastroduodenoscopy (EGD) History of hysteroscopy Status post right breast lumpectomy Hx of colonoscopy History of hysterectomy with bilateral oophorectomy History of carpal tunnel release History of tubal ligation History of ear surgery History of delivery Family History Father Cirrhosis Liver cancer Mother T2DM (type 2 diabetes mellitus) Past heart attack Maternal Grandmother Breast cancer Maternal Grandfather No problems noted. Paternal Grandmother No problems noted. Paternal Grandfather No problems noted. Son No problems noted. Son No problems noted. Daughter No problems noted. Social History Household Members: None Housing: Apartment Are you a primary client care consultant to a significant other at home: No Do you presently have visiting nurse or other home services: No Alcohol intake: never Patient Tobacco Use Status: Never used Tobacco e-Cigarette/Vaping Use: Never Used Second Hand Smoke Exposure: No service: No Current occupational status: disabled Cognitive needs: No Hearing needs: No Vision needs: Yes (glasses) Physical Exam Vital Signs: Last Vital Signs Pulse 67 11/06/25 13:31 BP 130/60 11/06/25 13:31 Pulse Ox 98 11/06/25 13:31 Oxygen Delivery Method Room Air 11/06/25 13:31 BMI result Body Mass Index 27.5 Office Procedures Glucose Monitoring Details Details: see [facility] [address] - Glucose monitoring, continuous-physician I&R Procedure code (CPT) selection complete Results AMB Hemoglobin A1c AMB Hemoglobin A1c 8.1 % Last Edit by BRYON Myrick on 11/06/25 13:53 Results Reviewed Results Reviewed: Laboratory Last Values Glucose (Clinic) 140 mg/dL (60-115) H 11/06/25 13:42 Laboratory Tests 10/08/25 10/08/25 12:43 12:48 Creatinine 0.99 Estimated GFR 55 AST 35 H ALT 19 Triglycerides 310 H Cholesterol 141 LDL Cholesterol, Calc 47 HDL Cholesterol 32 L Vitamin B12 529 Urine Creatinine 50.12 Urine Microalbumin 7.0 Microalb/Creat Ratio 13.9 Assessment & Plan Assessment & Plan (1) Uncomplicated type 2 diabetes mellitus: Code(s): E11.9 - Type 2 diabetes mellitus without complications Category: Medical Plan: In summary this is a 70-year-old female with uncontrolled but improving type 2 diabetes with neuropathy and nephropathy. Discussed pathophysiology of Type II Diabetes Mellitus with the patient in detail.? I explained the agronomy location manager risks and complications associated with uncontrolled diabetes including nephropathy, neuropathy, peripheral vascular disease, retinopathy, increased risk of heart disease and stroke.? Discussed lifestyle modification with the patient.Declines referral to garment manufacturing supervisor. Given chronic constipation, reflux, chronic abdominal pain and gastroparesis she is not a good candidate for a GLP 1. Continue Jardiance 25 mg, metformin 1000 mg twice daily, Tresiba 4 units at night Start Acarbose 25 mg with first bite of your meals twice daily. Side effects reviewed. Reviewed treatment of hypoglycemia. (2) Hyperlipidemia associated with type 2 diabetes mellitus: Code(s): E11.69 - Type 2 diabetes mellitus with other specified complication; E78.5 - Hyperlipidemia, unspecified Category: Medical Plan: LDL is at goal. Her triglycerides are elevated. Recommending decreasing carbs and sugars and starting fish oil. Consider fenofibrate if there is no improvement. (3) HTN (hypertension): Code(s): I10 - Essential (primary) hypertension Category: Medical Qualifiers: Hypertension type: unspecified Qualified Code(s): I10 - Essential (primary) hypertension Plan: Continue current regimen. Recommended low-sodium diet. She is on an JUICE inhibitor for hypertension and renal protection. Plan Follow up in 6 weeks for type 2 diabetes. Orders: Orders AMB Hemoglobin A1c Today E11.9 - Type 2 diabetes mellitus without complications, Z13.9 - Encounter for screening, unspecified, Z79.4 - prison (current) use of insulin AMB Glucose Monitoring Today E11.9 - Type 2 diabetes mellitus without complications Medications: New acarbose Administer with the first bite of each main meal. 25 mg PO BID 180 tabs 0RF 90 days Patient Instructions: Continue Jardiance 25 mg, metformin 1000 mg twice daily, Tresiba 4 units at night Start Acarbose 25 mg with first bite of your meals twice daily If you experience low blood sugar (under 70), treat this by eating a chewable fruit candy like skittles or jelly beans (about 8 pieces), 4 ounces (1/2 cup) of fruit juice (not diet), 1 tablespoon of honey or 4 glucose tablets. If your blood sugar is under 50, take double the amount of one of the above. Recheck your blood sugar in 15 minutes. Contin?e con Jardiance 25 mg, metformina 1000 mg dos veces al d?a y Tresiba 4 unidades por la noche. Comience a mega acarbosa 25 mg con el primer bocado de sandra comidas, dos veces al d?a. Si experimenta hipoglucemia (nivel de az?car en sunny inferior a 70), tr?steffanie consumiendo un viki de frutas masticable, charli caramelos Skittles o gomitas (aproximadamente 8 unidades), 120 ml (media taza) de jugo de frutas (no diet?asha), domi cucharada de miel o 4 tabletas de glucosa. Si aragon nivel de az?car en sunny es inferior a 50, duplique la cantidad de cualquiera de las opciones anteriores. Vuelva a medir aragon nivel de az?car en sunny en 15 minutos. Coding Level of Care Code Est Pt Level 4 (22620) Diagnoses Uncomplicated type 2 diabetes mellitus E11.9 Hyperlipidemia associated with type 2 diabetes mellitus E11.69; E78.5 Hypertension, unspecified type I10 Hypertension type: unspecified CPT Codes Details - CPT: 57703 - Glucose monitoring, continuous-physician I&R ([id number])
[2025-11-06 13:47] LABS: Glucose, Whole Blood 140 mg/dL (60-115)
--- OUTSIDE RECORDS SUMMARY | 2025-11-06 17:23 | XMS_ITS | Encounter Summary ---
Author Organization [facility] Address [address] [facility] [address] [place] [address] Care Team Providers Care Equipment Operator Name Role Phone Unavailable Primary Care [...]
--- OUTSIDE RECORDS SUMMARY | 2025-11-06 17:23 | XMS_ITS | Clinical Summary ---
Author Organization [facility] Prior to 04/07/25 Address [address] [place] [address] Care Team Providers Care Wash Box Operator Name Role Phone Unavailable Primary Care [...]
--- OUTSIDE RECORDS SUMMARY | 2025-11-06 17:23 | XMS_ITS | Clinical Summary ---
Author Organization [employer] Address [address] [facility] [address] [place] [address] Care Team Providers Care Elevator Examiner Name Role Phone Unavailable Primary Care Provider [...]
--- OUTSIDE RECORDS SUMMARY | 2025-11-06 17:23 | XMS_ITS | Encounter Summary ---
Author Organization [facility] Address [address] [facility] [address] [place] [address] Care Team Providers Care Hvac Refrigeration Technician Name Role Phone Unavailable Primary Care [...]
--- OUTSIDE RECORDS SUMMARY | 2025-11-06 17:23 | XMS_ITS | Patient Health Record ---
Author Organization [employer] Address [address] [facility] [id number] [place] [address] Care Team Providers Care Sheriffs Detective Name Role Phone Shan Jyoti Primary Care Provider Adilia Rush Unavailable [phone] Allergies Allergen (clinical drug ingredient) Drug/Non Drug Allergy documented on EMR Reaction Allergy Type Onset Date Status Information temporarily unavailable Watermelon Flavor hives Drug Allergy Active Reason For Referral No Information Medications Medication SIG (Take, Route, Frequency, Duration) Notes Start Date End Date Status Zolpidem Tartrate 5 MG Tablet 1 tablet at bedtime every day Orally daily; Duration: [address] directions in nepali 10/26/2023 Active Magnesium 400 MG Tablet as directed Orally Once a day; Duration: 30 days Active [place] 3 1000 MG Capsule 1 capsule Orally Once a day; Duration: 90 days 08/27/2023 Active Vitamin B12 100 MCG Tablet 1 tablet Oral ly Once a day; Duration: 90 days Active Famotidine 40 MG Tablet 1 tablet at bedtime Orally Once a day Active Aspir-Low 81 MG Tablet Delayed Release 1 tablet Orally Once a day Active FreeStyle Colten 2 [place] - Device as directed as directed 4x/day; [...] Problem Status W/U Status Risk Notes Problem Information temporarily unavailable Type 2 diabetes mellitus without complications (E11.9) Active confirmed Problem Information temporarily unavailable 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) Active confirmed Problem Information temporarily unavailable Combined forms of age-related cataract, 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) Active confirmed Problem Information temporarily unavailable Presbyopia (H52.4) Active confirmed Problem Information temporarily unavailable Fibromyalgia (M79.7) Active confirmed Problem Information temporarily unavailable Hypertension (I10) Active confirmed Problem Information temporarily unavailable Insomnia (G47.00) Active confirmed Problem Information temporarily unavailable Diabetes (E11.9) Active confirmed Problem Information temporarily unavailable Type 2 diabetes mellitus (E11.9) Active confirmed Problem Information temporarily unavailable Hyperlipidemia (E78.5) Active confirmed Problem Information temporarily unavailable Major depressive disorder (F32.9) Active confirmed Plan Of Treatment Pending Test Test Name Order Date X ray : Spines, lumbar 2 views * 023 MICROALBUMIN, RANDOM URINE (W/CREATININE ) 06/29/2023 LIPID PANEL 07/15/2023 Insurance Providers Payer Name Payer Address Payer Phone Subscriber Number Group Number Insured Name Patient Relationship to Insured Coverage Start Date Coverage End Date MEDICARE FQHC [address] [place] [address] [id number] Duyen Arellano Self - patient is the insured 0 JANUARY Goss [address] [place] [address] [id number] Duyen Arellano Self - patient is the insured Medical (General) History Medical History History ICD Code diabetes mellitus hypertension GERD chronic sinusitis migraine headaches DILATED EYE EXAM 11/2023 Surgical History Surgery Date(Month/Year)
--- OUTSIDE RECORDS SUMMARY | 2025-11-06 17:23 | XMS_ITS | Clinical Summary ---
Author Organization [facility] Address [address] [place] [address] Phone Care Team Providers Care Media Theorist And Author Of Name Role Phone Didi Ray MD Primary Care Provider [phone] Allergies No known active allergies Medications aspirin [...] GLUCOSE CONTINUOUSLY. 5 Active FreeStyle Colten 3 [place] misc USE DAILY TO MONITOR BLOOD GLUCOSE [...] A ORAL TODOS LOS D EN [facility] 5 Active lisinopriL (PRINIVIL,ZEST RIL) 10 [...] A ORAL TODOS LOS D EN [facility] 4 Active [place] 2nd Gen Pen [...] Orthopedic Surgery [facility] [address] [phone] Frank Benson DPM Xerosis of skin (Primary [...] Orthopedic Surgery [facility] [address] [phone] Frank Benson DPM [address] [phone] Health Maintenance Due Date Last Done Comments [...] ID:[id number] Type:Not on file Address: [place] [address] [address] [id number] Care Teams Media Theorist And Author Of Relationship Specialty Start Date End Date Didi Ray MD [address] [place] [address] , [address] [facility] D[facility]A: [facility] SANJUANA Gupta PCP - General Internal Medicine 04/27/25
== END 2025-11-06 14:02 | disposition home or self-care (01) ==
LOC: HO.ENCR 13:30
PROVIDERS: PCP Internal Medicine; Visit Provider Physician Assistant Medical
DX: E11.9 Type 2 diabetes mellitus without complications (principal); E11.69 Type 2 diabetes mellitus with other specified complication; E78.5 Hyperlipidemia, unspecified; I10 Essential (primary) hypertension; Z13.9 Encounter for screening, unspecified; Z79.4 Long term (current) use of insulin

== ENCOUNTER → 2025-11-06 13:29 | Outpatient (BNVA) | payer OTHER, SELFPAY | PROVIDERS: PCP Internal Medicine; Visit Provider Physician Assistant Medical | DX: E11.21 Type 2 diabetes mellitus with diabetic nephropathy (principal); E11.69 Type 2 diabetes mellitus with other specified complication; E78.5 Hyperlipidemia, unspecified; I10 Essential (primary) hypertension; E11.40 Type 2 diabetes mellitus with diabetic neuropathy, unspecified; Z79.84 Long term (current) use of oral hypoglycemic drugs; Z79.899 Other long term (current) drug therapy; Z79.4 Long term (current) use of insulin | CPT/HCPCS: 82947; 83036; 99212 ==

== ENCOUNTER 2025-11-07 11:54 | Outpatient (AMB) | payer OTHER, SELFPAY ==
--- NOTE | 2025-11-07 11:54 | MHC.OFFVIS ---
Vital Signs 11/07/25 12:03 Height 4 ft 9 in Weight 126 lb BMI 27.3 BP 168/68 H Blood Pressure Location Lt brachial Position Sitting Pulse 77 Intake Visit Reasons: evaluate distended gallbladder? Intake Note: Patient referred by PCP Dr. Mitchel Ray for evaluation of distended gallbladder. Patient c/o: nausea, dizziness, stomach gets inflamed. 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 Required: Yes Melting Furnace Skimmer Language: Romansh Information Interpreted: non-clinical & clinical ([facility] – [place], [place] ) Accompanied by: JOSE A Davila Allergies strawberry (STRAWBERRY) Allergy (Mild, Verified 11/07/25 12:00) PRURITUS tomato (TOMATO) Allergy (Mild, Verified 11/07/25 12:00) HIVES acetaminophen (From Percocet) Allergy (Unknown, Verified 11/07/25 12:00) Unknown oxycodone (From Percocet) Allergy (Unknown, Verified 11/07/25 12:00) Unknown pollen extracts (POLLEN) Allergy (Unknown, Verified 11/07/25 12:00) UNKNOWN lactose (LACTOSE) Adverse Reaction (Unknown, Verified 11/07/25 12:00) GI UPSET DUST Allergy (Unknown, Uncoded 11/07/25 12:00) UNKNOWN ENVIRONMENTAL Allergy (Unknown, Uncoded 11/07/25 12:00) UNKNOWN trees leaves Allergy (Uncoded 11/07/25 12:00) unknown Medication List - Last Reconciled 11/07/25 by Bernabe Garcia MD acarbose 25 mg PO BID 90 days alcohol swabs (Alcohol Wipes) 1 pad topical TID aspirin 81 mg PO DAILY 90 days atorvastatin 40 mg PO DAILY 30 days blood sugar diagnostic (OneTouch Verio test strips) 3x daily blood-glucose sensor (FreeStyle Colten 3 Plus Sensor device) Apply 1 new sensor every 15 days as directed to monitor blood glucose continuously. blood-glucose,certified activities director,cont (FreeStyle Colten 3 Platinum) Use daily to monitor blood glucose levels continuously. [BP cuff As directed] [cane As directed] cetirizine (Zyrtec) 10 mg PO DAILY PRN empagliflozin (Jardiance) 25 mg PO DAILY famotidine 40 mg PO DAILY gabapentin 300 mg PO TID glucose (Dex4 Glucose) 16 grams (4 x 4 gram) PO Q15M PRN hydrochlorothiazide 25 mg PO DAILY insulin degludec (Tresiba FlexTouch U-100 insulin) 4 units subcut BEDTIME lancets (OneTouch Delica Lancets) 4x daily linaclotide (Linzess) 145 mcg PO QAM lisinopril 10 mg PO DAILY metformin 1,000 mg PO BID mirtazapine 7.5 mg PO BEDTIME naproxen 500 mg PO BID PRN [Nitrate gloves As directed] nortriptyline 25 mg PO DAILY pen needle, diabetic (BD Ultra-Fine Micro Pen Needle) once a week pen needle, diabetic As directed sertraline 25 mg PO QAM simethicone (Gas Relief Extra Strength) 125 mg PO BID-QID sucralfate 10 mL PO BEDTIME vonoprazan (Voquezna) 10 mg PO DAILY HPI Comments Details: Patient seen with the assistance of a bridge inspector. She is a somewhat poor historian and changed her narrative several times during the interview but she reports overall is several month history of epigastric and right flank abdominal pain sometimes in the company of nausea and vomiting. She at 1st denied ever having any abdominal surgery but then admitted to having at least 5 C-sections. She does not feel the pain is over the lower abdomen but sometimes it is in the left lateral aspect. She does have a remote history of constipation but reports that this has largely resolved. She underwent multiple investigatory studies of her abdomen including a HIDA scan with CCK that was read as showing an ejection fraction of around 14%. The patient does not really remember if she had any symptoms of abdominal pain and nausea during the HIDA scan (when her gallbladder was pharmacologically stimulated). [facility] Medical History Abnormal MRI of head Cervicalgia Hepatic steatosis Hypertriglyceridemia Uncomplicated type 2 diabetes mellitus Microalbuminuric diabetic nephropathy Bilateral foot pain Gastroparesis Hyperlipidemia associated with type 2 diabetes mellitus Osteopenia Headache Depression Vitamin D deficiency Fibromyalgia HTN (hypertension) HLD (hyperlipidemia) T2DM (type 2 diabetes mellitus) Surgical History History of esophagogastroduodenoscopy (EGD) History of hysteroscopy Status post right breast lumpectomy Hx of colonoscopy History of hysterectomy with bilateral oophorectomy History of carpal tunnel release History of tubal ligation History of ear surgery History of delivery Family History Father Cirrhosis Liver cancer Mother T2DM (type 2 diabetes mellitus) Past heart attack Maternal Grandmother Breast cancer Maternal Grandfather No problems noted. Paternal Grandmother No problems noted. Paternal Grandfather No problems noted. Son No problems noted. Son No problems noted. Daughter No problems noted. Social History Household Members: None Housing: Apartment Are you a primary school child care attendant to a significant other at home: No Do you presently have visiting nurse or other home services: No Alcohol intake: never Patient Tobacco Use Status: Never used Tobacco e-Cigarette/Vaping Use: Never Used Second Hand Smoke Exposure: No service: No Current occupational status: disabled Cognitive needs: No Hearing needs: No Vision needs: Yes (glasses) Review of Systems Const All systems reviewed & are unremarkable except as noted in HPI and below Physical Exam Vital Signs: Last Vital Signs Pulse 77 11/07/25 12:03 BP 168/68 H 11/07/25 12:03 BMI result Body Mass Index 27.3 Const General: cooperative, healthy appearing and comfortable Orientation/consciousness: oriented to person, oriented to place and oriented to time HEENT Head: Yes normal to inspection, Yes normocephalic and Yes atraumatic Ears: hearing grossly normal bilaterally General nose exam: Normal external nose present Eyes Pupils: Equal, round and reactive pupils present EOM: EOMs intact bilaterally Neck Neck: Yes normal visual inspection Chest Chest palpation & inspection: normal inspection of the chest Resp Effort & Inspection: normal respiratory effort and able to speak in complete sentences Cardio Rate: regular rate Rhythm: regular rhythm GI Other: Soft morbidly obese nontender nondistended I can not appreciate any masses or hernias or evidence of hepatosplenomegaly. Specifically she is nontender to palpation in the epigastrium and right upper quadrant and the right flank. Neuro General: oriented to person, oriented to place and oriented to time Cranial nerves: Yes Equal, round and reactive pupils present Assessment & Plan Assessment & Plan (1) Dyskinesia of gallbladder: Code(s): K82.8 - Other specified diseases of gallbladder Category: Medical Plan: Patient underwent a HIDA scan with CCK that was read as showing ejection fraction of approximately 14%. I reviewed this with her. The report was read as showing the study was consistent with a distended gallbladder. She possibly has biliary dyskinesia as seen on the HIDA which would be the cause and a distended gallbladder would be the effect of a decreased ejection fraction. I have never seen a HIDA scan interpreted in that manner. I reviewed this with the patient and she understood. I told her it would be reasonable to pursue cholecystectomy in hopes that her symptoms may improve or resolve entirely. I added that there was no guarantee that her nausea and abdominal pain would disappear after cholecystectomy but also told her it was reasonable to suspect her gallbladder was the culprit behind her current situation. She indicated that she understood this as well. She told me that she wished to talk about it? with her family including one of her daughters who is a nurse. She has agreed to come back and see us again in approximately 6-8 weeks' time in follow-up and is also agreed to contact us should she have any questions or problems. Coding Level of Care Code New Pt Level 4 (93685) Diagnoses Dyskinesia of gallbladder K82.8 Time Spent (min) 45 Comment Record review patient visit and coordination of care time
[2025-11-07 12:03] VITALS: BP 168/68; PULSE 77; BMI 27.3
== END 2025-11-07 12:27 | disposition home or self-care (01) ==
PROVIDERS: PCP Internal Medicine; Visit Provider Surgery
DX: K82.8 Other specified diseases of gallbladder (principal)
CPT/HCPCS: 99204

== ENCOUNTER → 2025-11-07 11:54 | Outpatient (BNVA) | payer OTHER, SELFPAY | PROVIDERS: PCP Internal Medicine; Visit Provider Surgery | DX: K82.8 Other specified diseases of gallbladder (principal) | CPT/HCPCS: 99202 ==